=== PATIENT | female | born 1975 | race Caucasian/White ===

== ENCOUNTER → 2020-05-08 | Outpatient (CLI) | payer OTHER ==
--- NOTE | 2020-05-08 13:42 | ECHOF ---
Referral Reason:R94.31 Abnormal EKG MEASUREMENTS -------- HEIGHT: 167.6 cm WEIGHT: 89.8 kg BP: IVSd: 1.2 cm (0.6 - 1.1) LVIDd: 2.7 cm (3.9 - 5.3) LVPWd: 1.4 cm (0.6 - 1.1) IVSs: 1.7 cm LVIDs: 1.9 cm LVPWs: 2.1 cm LAESV Index (A-L): 24.61 ml/m Ao Diam: 3.0 cm (2.0 - 3.7) AV Cusp: 1.9 cm (1.5 - 2.6) LA Diam: 3.2 cm (2.7 - 3.8) MV EXCURSION: 13.666 mm (> 18.000) MV EF SLOPE: 139 mm/s (70 - 150) EPSS: 0.7 cm MV E [place]ino: 1.05 m/s MV DecT: 180 ms MV A [place]: 0.65 m/s MV E/A Ratio: 1.62 RAP: 5.00 mmHg RVSP: 14.84 mmHg FINDINGS -------- Sinus rhythm. This was a technically adequate study. The left ventricular size is normal. There is mild concentric left ventricular hypertrophy. Overa ll left ventricular systolic function is normal with, an EF between 55 - 60 %. The diastolic fillin g pattern is normal for the age of the patient 13.24. The right ventricle is normal in size. Normal LA size by volume 22+/-6 ml/m2. The right atrial size is normal. Interatrial and interventricular septum intact. The aortic valve is trileaflet, and appears structurally normal. No aortic stenosis or regurgitation. The mitral valve is normal. There is trace mitral regurgitation. The tricuspid valve appears structurally normal. Mild tricuspid regurgitation present. Right vent ricular systolic pressure is normal at < 35 mmHg. There is no pulmonic regurgitation present. The aortic root size is normal. Normal inferior vena cava with normal inspiratory collapse consistent with estimated right atrial pre ssure of 5 mmHg. There is no pericardial effusion. CONCLUSIONS -------- 1. There is mild concentric left ventricular hypertrophy. 2. Overall left ventricular systolic function is normal with, an EF between 55 - 60 %. 3. The diastolic filling pattern is normal for the age of the patient 13.24 4. Normal LA size by volume 22+/-6 ml/m2. 5. The aortic valve is trileaflet, and appears structurally normal. No aortic stenosis or regurgitati on. 6. There is trace mitral regurgitation. 7. Mild tricuspid regurgitation present. 8. There is no pulmonic regurgitation present. 9. There is no pericardial effusion. EXECUTIVE TALENT ACQUISITION CONSULTANT: Mimi Giordano RDCS
== END | disposition home or self-care (01) ==
LOC: RADECHMAIN 11:27
PROVIDERS: ATTEND Family Medicine
DX: I08.1 Rheumatic disorders of both mitral and tricuspid valves (principal)
CPT/HCPCS: 93306

== ENCOUNTER 2021-02-06 17:11 | Emergency (ER) | payer OTHER ==
[2021-02-06 18:46] VITALS: RESP 18
[2021-02-06] MEDS ORDERED: IBUPROFEN 600 MG TAB PO STA (20:39)
[2021-02-06] MEDS ORDERED: ACETAMINOPHEN TAB 325 MG TAB PO STA (20:39)
[2021-02-06] MEDS ORDERED: SODIUM CHLORIDE 0.9% 1,000 ML IV STA (20:39)
[2021-02-06 21:22] LABS: Basophils % (A) 1 %; Eosinophils % (A) 0 %; HGB 15.7 gm/dL (11.4-16.0); Lymphocytes # (A) 0.9 k/uL (1.0-4.8); Lymphocytes % (A) 20 %; MCH 28.5 pg (25.0-35.0); MCHC 35.8 g/dL (31.0-37.0); MCV 79.8 fL (80.0-100.0); Monocytes # (A) 0.3 k/uL (0-1.0); Monocytes % (A) 6 %; Neutrophils # (A) 3.2 k/uL (1.3-7.7); Neutrophils % (A) 69 %; Platelet Count 104 k/uL (150-450); RBC 5.51 m/uL (3.80-5.40); RDW 13.4 % (11.5-15.5); WBC 4.6 k/uL (3.8-10.6)
[2021-02-06] MEDS ORDERED: ONDANSETRON 4 MG/2 ML VIAL IVP STA (21:23)
[2021-02-06 21:32] LABS: ALT 48 U/L (4-34); AST 42 U/L (14-36); African American GFR (CKD) >90 (>60 ml/min/1.73 sqM); Albumin 4.3 g/dL (3.5-5.0); Alkaline Phosphatase 104 U/L (38-126); Anion Gap 10 mmol/L; Blood Urea Nitrogen 14 mg/dL (7-17); Calcium 9.2 mg/dL (8.4-10.2); Carbon Dioxide 29 mmol/L (22-30); Chloride 98 mmol/L (98-107); Glucose 101 mg/dL (74-99); Non-African American GFR(CKD) 85 (>60 ml/min/1.73 sqM); Potassium 2.8 mmol/L (3.5-5.1); Sodium 137 mmol/L (137-145); Total Protein 7.3 g/dL (6.3-8.2)
[2021-02-06] MEDS ORDERED: POTASSIUM CHLORIDE 20 MEQ in WATER FOR INJECTION 1 100ML.BAG IVPB STA (21:52)
[2021-02-06] MEDS ORDERED: POTASSIUM CHLORIDE ER 20 MEQ TAB.ER PO STA (21:52)
--- NOTE | 2021-02-06 21:55 | ED ---
General Adult HPI - General Chief complaint: Nausea/Vomiting/Diarrhea Stated complaint: Covid+/vomiting Time Seen by Provider: 02/06/21 20:10 Source: patient, RN notes reviewed Mode of arrival: ambulatory Limitations: no limitations - History of Present Illness Initial comments: Patient is a 45-year-old female that presents to emergency department compl aining of nausea and dehydration. She notes that she is Covid-positive for the past 10-11 days. She note noted that she only wants some IV fluids and labs to make sure she isn't super dehydrated. She was in no apparent distress or pain while sitting up in bed during exam and interview. She denied any other complaints or issues. She denied any chest pain shortness of breath headache diarrhea constipation fever fatigue chills. - Related Data Home Medications Medication Instructions Recorded Confirmed No Known Home Medications 06/26/14 06/26/14 Allergies Allergy/AdvReac Type Severity Reaction Status Date / Time No Known Allergies Allergy Verified 02/06/21 18:46 Review of Systems ROS Statement: Those systems with pertinent positive or pertinent negative responses have been documented in the HPI. ROS Other: All systems not noted in ROS Statement are negative. Past Medical History Past Medical History: No Reported History History of Any Multi-Drug Resistant Organisms: None Reported Past Surgical History: No Surgical Hx Reported Past Anesthesia/Blood Transfusion Reactions: No Reported Reaction Past Psychological History: No Psychological Hx Reported Smoking Status: Never smoker Past Alcohol Use History: None Reported Past Drug Use History: None Reported - Past Family History Mother Family Medical History: No Reported History General Exam Limitations: no limitations General appearance: alert, in no apparent distress Head exam: Present: atraumatic, normocephalic, normal inspection Eye exam: Present: normal appearance, PERRL, EOMI. Absent: scleral icterus, conjunctival injection, periorbital swelling Neck exam: Present: normal inspection. Absent: tenderness, meningismus, lymphadenopathy Respiratory exam: Present: normal lung sounds bilaterally. Absent: respiratory distress, wheezes, rales, rhonchi, stridor Cardiovascular Exam: Present: regular rate, normal rhythm, normal heart sounds. Absent: systolic murmur, diastolic murmur, rubs, gallop, clicks GI/Abdominal exam: Present: soft, normal bowel sounds. Absent: distended, tenderness, guarding, rebound, rigid Extremities exam: Present: normal inspection, full ROM, normal capillary refill. Absent: tenderness, pedal edema, joint swelling, calf tenderness Neurological exam: Present: alert, oriented X3, CN II-XII intact Psychiatric exam: Present: normal affect, normal mood Skin exam: Present: warm, dry, intact, normal color. Absent: rash Course Vital Signs 02/06/21 18:44 Temperature 100.6 F H Pulse Rate 107 H Respiratory 18 Rate Blood Pressure 133/98 O2 Sat by Pulse 99 Oximetry Medical Decision Making - Medical Decision Making 45-year-old female that is Covid-positive 10 days complaining of nausea and dehydration. Basic labs, 1 L normal saline, 650 mg of Tylenol, 600 mg of Motrin, 4 mg of Zofran ordered. Anti-inflammatories were for a mild fever the patient had a upon arrival. Labs showed a potassium of 2.8, 20 mEq ordered for IV and 20 mEq oral ordered. Case discussed with Dr. Jurado, patient can be discharged after potassium infusion. - Lab Data Result diagrams: 02/06/21 21:14 02/06/21 21:14 Lab Results 02/06/21 02/06/21 02/06/21 Range/Units 21:14 21:14 21:21 WBC 4.6 (3.8-10.6) k/uL RBC 5.51 H (3.80-5.40) m/uL Hgb 15.7 (11.4-16.0) gm/dL Hct 44.0 (34.0-46.0) % MCV 79.8 L (80.0-100.0) fL MCH 28.5 (25.0-35.0) pg MCHC 35.8 (31.0-37.0) g/dL RDW 13.4 (11.5-15.5) % Plt Count 104 L (150-450) k/uL MPV 10.0 Neutrophils % 69 % Lymphocytes % 20 % Monocytes % 6 % Eosinophils % 0 % Basophils % 1 % Neutrophils # 3.2 (1.3-7.7) k/uL Lymphocytes # 0.9 L (1.0-4.8) k/uL Monocytes # 0.3 (0-1.0) k/uL Eosinophils # 0.0 (0-0.7) k/uL Basophils # 0.0 (0-0.2) k/uL Sodium 137 (137-145) mmol/L Potassium 2.8 L (3.5-5.1) mmol/L Chloride 98 (98-107) mmol/L Carbon Dioxide 29 (22-30) mmol/L Anion Gap 10 mmol/L BUN 14 (7-17) mg/dL Creatinine 0.85 (0.52-1.04) mg/dL Est GFR (CKD-EPI)AfAm >90 (>60 ml/min/1.73 sqM) Est GFR (CKD-EPI)NonAf 85 (>60 ml/min/1.73 sqM) Glucose 101 H (74-99) mg/dL Calcium 9.2 (8.4-10.2) mg/dL Total Bilirubin 1.0 (0.2-1.3) mg/dL AST 42 H (14-36) U/L ALT 48 H (4-34) U/L Alkaline Phosphatase 104 (38-126) U/L Total Protein 7.3 (6.3-8.2) g/dL Albumin 4.3 (3.5-5.0) g/dL Urine Color Dark Yellow Urine Appearance Cloudy H (Clear) Urine pH 6.0 (5.0-8.0) Ur Specific [place] 1.024 (1.001-1.035) Urine Protein 2+ H (Negative) Urine Glucose (UA) Negative (Negative) Urine Ketones 1+ H (Negative) Urine Blood Large H (Negative) Urine Nitrite Negative (Negative) Urine Bilirubin 1+ H (Negative) Urine Urobilinogen 12.0 (<2.0) mg/dL Ur Leukocyte Esterase Large H (Negative) Urine RBC 11 H (0-5) /hpf Urine WBC 30 H (0-5) /hpf Urine WBC Clumps Moderate H (None) /hpf Ur Squamous Epith Cells 7 H (0-4) /hpf Amorphous Sediment Rare H (None) /hpf Urine Bacteria Moderate H (None) /hpf Urine Mucus Many H (None) /hpf Disposition Clinical Impression: Hypokalemia, COVID-19, Nausea Disposition: HOME SELF-CARE Condition: Stable Instructions (If sedation given, give patient instructions): Coronavirus Disease 2019 (COVID-19), Hypokalemia (ED), Acute Nausea and Vomiting (ED) Additional Instructions: Please return to the Emergency Department if symptoms worsen or any other concerns. Follow-up with primary care in 3-5 days. Is patient prescribed a controlled substance at d/c from ED?: No Referrals: Bruno Siddiqi DO [Primary Care Provider] - 1-2 days Time of Disposition: 22:38
[2021-02-06 22:26] LABS: Amorphous Sediment,Urine Rare /hpf; Appearance,Urine Cloudy (Clear); Bacteria,Urine Moderate /hpf; Bilirubin,Urine 1+ (Negative); Blood,Urine Large (Negative); Color,Urine Dark Yellow; Glucose,Urine (UA) Negative (Negative); Ketones,Urine 1+ (Negative); Leukocyte Esterase,Urine Large (Negative); Mucus,Urine Many /hpf; Nitrite,Urine Negative (Negative); Protein,Urine 2+ (Negative); RBC,Urine 11 /hpf (0-5); Specific Gravity,Urine 1.024 (1.001-1.035); Squamous Epithelial Cell,Urine 7 /hpf (0-4); WBC,Urine 30 /hpf (0-5)
[2021-02-06 23:06] VITALS: PULSE 85; TEMP 98.2
[2021-02-06 23:42] VITALS: BP 144/100
== END 2021-02-07 | disposition home or self-care (01) ==
LOC: EC 17:11
DX: E87.6 Hypokalemia (principal); R11.0 Nausea; U07.1 COVID-19; E86.0 Dehydration
CPT/HCPCS: 36415; 80053; 85025; 81001; 99284; 96365; 96375; 96361; J3480; J2405

== ENCOUNTER → 2022-04-04 | Outpatient (CLI) | payer OTHER ==
--- NOTE | 2022-04-04 09:42 | XR ---
EXAMINATION TYPE: XR knee complete RT DATE OF EXAM: 04/04/2022 COMPARISON: None HISTORY: Knee pain TECHNIQUE: Single AP view right knee FINDINGS: There is mild narrowing of the medial compartment joint space. Medial tibial plateau and me dial femoral condylar spurring is present. There is some lucency within the medial distal femoral con dyle this appears chronic. No acute fractures are identified. Complete examination of 4 view right knee could be performed for additional evaluation. Soft tissue e valuation would be of benefit, MRI could be performed. IMPRESSION: 1. Suggestion of mild degenerative joint change medial compartment right knee. 2. Chronic appearing lucency within the medial femoral condyle. Consider additional workup with compl ete right knee plain film or MRI.
== END | disposition home or self-care (01) ==
LOC: RADXRYALE 09:03
PROVIDERS: ATTEND Physician Assistant Medical
DX: M25.561 Pain in right knee (principal)

== ENCOUNTER → 2022-11-25 | Outpatient (CLI) | payer OTHER ==
--- NOTE | 2022-11-25 15:46 | XR ---
EXAMINATION TYPE: XR cervical spine comp DATE OF EXAM: 11/25/2022 COMPARISON: None HISTORY: 47 year-old female [id number], cervicalgia TECHNIQUE: 5 views FINDINGS: No odontoid view. Some straightening of the normal cervical lordosis. Preserved alignment. No predent al space widening or prevertebral soft tissue swelling. Disc interspaces are relatively maintained. N o significant bony neuroforaminal narrowing on either side. IMPRESSION: Some straightening of the normal cervical lordosis could be positional or due to muscle spasm. Otherw ise, no specific radiographic abnormality is seen.
== END | disposition home or self-care (01) ==
LOC: RADXRYALE 10:30
PROVIDERS: ATTEND Physician Assistant
DX: M54.2 Cervicalgia (principal)
CPT/HCPCS: 72050

== ENCOUNTER 2022-11-29 22:00 | Inpatient (IN) | payer OTHER ==
--- NOTE | 2022-11-29 22:52 | ED ---
Recheck HPI - General Chief Complaint: Recheck/Abnormal Lab/Rx Stated Complaint: Abnormal Labs Time Seen by Provider: 11/29/22 22:51 Source: patient, RN notes reviewed, old records reviewed Mode of arrival: ambulatory Limitations: no limitations, altered mental status - History of Present Illness Initial Comments: This is a 47-year-old female DF for evaluation today. Patient presents today for evaluation regards to weakness not feeling well abnormal outpatient lab tests which she believes includes kidney disease and diminished potassium Complaint: abnormal lab -: unknown Returns Today for: Called Because of Abnormal Lab/Test Symptoms Since Prior Visit: no new symptoms Context: planned re-check, called for abnormal lab result Associated Symptoms: none Treatments Prior to Arrival: other (0) - Related Data Home Medications Medication Instructions Recorded Confirmed No Known Home Medications 06/26/14 11/29/22 Allergies Allergy/AdvReac Type Severity Reaction Status Date / Time No Known Allergies Allergy Verified 11/29/22 22:26 Review of Systems ROS Statement: Those systems with pertinent positive or pertinent negative responses have been documented in the HPI. ROS Other: All systems not noted in ROS Statement are negative. Past Medical History Past Medical History: No Reported History History of Any Multi-Drug Resistant Organisms: None Reported Past Surgical History: No Surgical Hx Reported Past Anesthesia/Blood Transfusion Reactions: No Reported Reaction Past Psychological History: No Psychological Hx Reported Smoking Status: Never smoker Past Alcohol Use History: None Reported Past Drug Use History: None Reported - Past Family History Mother Family Medical History: No Reported History General Exam Limitations: no limitations General appearance: alert, in no apparent distress Head exam: Present: atraumatic, normocephalic, normal inspection Eye exam: Present: normal appearance, PERRL, EOMI. Absent: scleral icterus, co njunctival injection, periorbital swelling ENT exam: Present: normal exam, mucous membranes moist Neck exam: Present: normal inspection. Absent: tenderness, meningismus, lymphadenopathy Respiratory exam: Present: normal lung sounds bilaterally. Absent: respiratory distress, wheezes, rales, rhonchi, stridor Cardiovascular Exam: Present: regular rate, normal rhythm, normal heart sounds. Absent: systolic murmur, diastolic murmur, rubs, gallop, clicks GI/Abdominal exam: Present: soft, normal bowel sounds. Absent: distended, tenderness, guarding, rebound, rigid Extremities exam: Present: normal inspection, full ROM, normal capillary refill. Absent: tenderness, pedal edema, joint swelling, calf tenderness Back exam: Present: normal inspection Neurological exam: Present: alert, oriented X3, CN II-XII intact Psychiatric exam: Present: normal affect, normal mood Skin exam: Present: warm, dry, intact, normal color. Absent: rash Course Vital Signs 11/29/22 11/29/22 11/29/22 22:20 23:00 23:40 Temperature 98.3 F Pulse Rate 107 H 101 H 98 Respiratory 16 16 16 Rate Blood Pressure 226/139 216/141 229/153 O2 Sat by Pulse 100 98 99 Oximetry 11/30/22 11/30/22 11/30/22 00:00 00:30 01:00 Temperature Pulse Rate 87 98 105 H Respiratory 16 16 16 Rate Blood Pressure 227/149 227/145 221/142 O2 Sat by Pulse 98 98 98 Oximetry - Reevaluation(s) Reevaluation #1: 11/29/22 23:58 Medical records are reviewed Reevaluation #2: 11/29/22 23:58 Patient has no change in symptoms Reevaluation #3: 11/29/22 23:58 Informed results questions are answered Reevaluation #4: 11/29/22 23:58 Differential Weakness: Hypoglycemia, shock, sepsis, hyponatremia, anemia, infection, IN, ETOH, adverse medicine reaction, overdose, stroke, this is not meant to be an all-inclusive list. Reevaluation #5: 11/29/22 23:58 Was pt. sent in by a medical professional or institution? @ -no Did you speak to anyone other than the patient for history? @ -no Did you review nursing and triage notes? @ -agree Were old charts reviewed? @ -no prior Differential Diagnosis? @ -no prior EKG interpreted by me (3pts min.)? @ -[none] X-rays interpreted by me (1pt min.)? @ -[none] CT interpreted by me (1pt min.)? @ -[none] U/S interpreted by me (1pt. min.)? @ -[none] What testing was considered but not performed? (CT, X-rays, U/S, labs)? Why? @ no What meds were considered but not given? Why? @ -[none] Did you discuss the management of the patient with other professionals? @ -no Did you reconcile home meds? @ -[none] Was smoking cessation discussed for >3mins.? @ -[none] Was critical care preformed (if so, how long)? @ -[none] Were there social determinants of health that impacted care today? How? (Homelessness, low income, unemployed, alcoholism, drug addiction, transportation, low edu. Level, literacy, decrease access to med. care, prison, rehab)? @ -no Was there de-escalation of care discussed even if they declined? (Discuss DNR or withdrawal of care, Hospice)? @ -no What co-morbidities impacted this encounter? (DM, HTN, Smoking, COPD, CAD, Cancer, CVA, Hep., AIDS, mental health diagnosis, sleep apnea, morbid obesity)? @ -no Was patient admitted / discharged? @ -dc ] Undiagnosed new problem with uncertain prognosis? @ -[none] Drug Therapy requiring intensive monitoring for toxicity (Heparin, Nitro, Insulin, Cardizem)? @ -[none] Were any procedures done? @ -[none] Diagnosis/symptom? @ -[default] Acute, or Chronic, or Acute on Chronic? @ -[default] Uncomplicated (without systemic symptoms) or Complicated (systemic symptoms)? @ -[default] Side effects of treatment? @ -[none] Exacerbation, Progression, or Severe Exacerbation] @ -[no] Poses a threat to life or bodily function? @ -[no] - Consultations Consultation #1: Spoke with admitting physicians agreeable to admission Medical Decision Making - Medical Decision Making 47 female to the emergency department for evaluation of abnormal lab test low potassium elevated troponin worsening creatinine and BUN. Patient will be admitted for nephrology and cardiology and primary admitting physician. Labs will be rechecked - Lab Data Result diagrams: 11/29/22 23:42 11/29/22 23:42 Lab Results 11/29/22 11/29/22 11/29/22 Range/Units 23:42 23:42 23:42 WBC 9.7 (3.8-10.6) k/uL RBC 3.67 L (3.80-5.40) m/uL Hgb 10.4 L (11.4-16.0) gm/dL Hct 29.2 L (34.0-46.0) % MCV 79.5 L D (80.0-100.0) fL MCH 28.2 (25.0-35.0) pg MCHC 35.5 (31.0-37.0) g/dL RDW 16.9 H (11.5-15.5) % Plt Count 97 L (150-450) k/uL MPV 9.4 Neutrophils % 80 % Lymphocytes % 12 % Monocytes % 6 % Eosinophils % 2 % Basophils % 0 % Neutrophils # 7.7 (1.3-7.7) k/uL Lymphocytes # 1.2 (1.0-4.8) k/uL Monocytes # 0.5 (0-1.0) k/uL Eosinophils # 0.2 (0-0.7) k/uL Basophils # 0.0 (0-0.2) k/uL Manual Slide Review Performed Hyperchromasia Moderate Poikilocytosis Moderate Anisocytosis Slight Sodium 134 L (137-145) mmol/L Potassium 2.6 L* (3.5-5.1) mmol/L Chloride 97 L (98-107) mmol/L Carbon Dioxide 28 (22-30) mmol/L Anion Gap 9 mmol/L BUN 58 H (7-17) mg/dL Creatinine 2.99 H (0.52-1.04) mg/dL Est GFR (CKD-EPI)AfAm 21 (>60 ml/min/1.73 sqM) Est GFR (CKD-EPI)NonAf 18 (>60 ml/min/1.73 sqM) Glucose 111 H (74-99) mg/dL Calcium 9.0 (8.4-10.2) mg/dL Phosphorus 4.3 (2.5-4.5) mg/dL Magnesium 2.3 (1.6-2.3) mg/dL Total Bilirubin 0.9 (0.2-1.3) mg/dL AST 39 H (14-36) U/L ALT 26 (4-34) U/L Alkaline Phosphatase 78 (38-126) U/L Troponin I 0.217 H* (0.000-0.034) ng/mL Total Protein 6.9 (6.3-8.2) g/dL Albumin 4.3 (3.5-5.0) g/dL Urine Color Urine Appearance (Clear) Urine pH (5.0-8.0) Ur Specific [place] (1.001-1.035) Urine Protein (Negative) Urine Glucose (UA) (Negative) Urine Ketones (Negative) Urine Blood (Negative) Urine Nitrite (Negative) Urine Bilirubin (Negative) Urine Urobilinogen (<2.0) mg/dL Ur Leukocyte Esterase (Negative) Urine RBC (0-5) /hpf Urine WBC (0-5) /hpf Ur Squamous Epith Cells (0-4) /hpf Urine Bacteria (None) /hpf Urine Mucus (None) /hpf 11/30/22 Range/Units 00:39 WBC (3.8-10.6) k/uL RBC (3.80-5.40) m/uL Hgb (11.4-16.0) gm/dL Hct (34.0-46.0) % MCV (80.0-100.0) fL MCH (25.0-35.0) pg MCHC (31.0-37.0) g/dL RDW (11.5-15.5) % Plt Count (150-450) k/uL MPV Neutrophils % % Lymphocytes % % Monocytes % % Eosinophils % % Basophils % % Neutrophils # (1.3-7.7) k/uL Lymphocytes # (1.0-4.8) k/uL Monocytes # (0-1.0) k/uL Eosinophils # (0-0.7) k/uL Basophils # (0-0.2) k/uL Manual Slide Review Hyperchromasia Poikilocytosis Anisocytosis Sodium (137-145) mmol/L Potassium (3.5-5.1) mmol/L Chloride (98-107) mmol/L Carbon Dioxide (22-30) mmol/L Anion Gap mmol/L BUN (7-17) mg/dL Creatinine (0.52-1.04) mg/dL Est GFR (CKD-EPI)AfAm (>60 ml/min/1.73 sqM) Est GFR (CKD-EPI)NonAf (>60 ml/min/1.73 sqM) Glucose (74-99) mg/dL Calcium (8.4-10.2) mg/dL Phosphorus (2.5-4.5) mg/dL Magnesium (1.6-2.3) mg/dL Total Bilirubin (0.2-1.3) mg/dL AST (14-36) U/L ALT (4-34) U/L Alkaline Phosphatase (38-126) U/L Troponin I (0.000-0.034) ng/mL Total Protein (6.3-8.2) g/dL Albumin (3.5-5.0) g/dL Urine Color Colorless Urine Appearance Clear (Clear) Urine pH 5.5 (5.0-8.0) Ur Specific [place] 1.007 (1.001-1.035) Urine Protein 1+ H (Negative) Urine Glucose (UA) Negative (Negative) Urine Ketones Negative (Negative) Urine Blood Moderate H (Negative) Urine Nitrite Negative (Negative) Urine Bilirubin Negative (Negative) Urine Urobilinogen <2.0 (<2.0) mg/dL Ur Leukocyte Esterase Trace H (Negative) Urine RBC <1 (0-5) /hpf Urine WBC 1 (0-5) /hpf Ur Squamous Epith Cells <1 (0-4) /hpf Urine Bacteria Rare H (None) /hpf Urine Mucus Rare H (None) /hpf - EKG Data -: EKG Interpreted by Me (EKG shows sinus tach 108 [place] 143 QRS 11 QTC 437) Critical Care Time Critical Care Time: Yes Total Critical Care Time: 31 Disposition Clinical Impression: Hypokalemia, Weakness, NSTEMI (non-ST elevated myocardial infarction), JAH (acute kidney injury) Disposition: ADMITTED IP TO THIS HOSP Condition: Fair Is patient prescribed a controlled substance at d/c from ED?: No Referrals: Bruno Siddiqi DO [Primary Care Provider] - 1-2 days Time of Disposition: 01:30
[2022-11-29] MEDS ORDERED: SODIUM CHLORIDE 0.9% 1,000 ML IV STA (23:24)
[2022-11-29 23:53] LABS: Anisocytosis Slight; Basophils % (A) 0 %; Eosinophils # (A) 0.2 k/uL (0-0.7); Eosinophils % (A) 2 %; HCT 29.2 % (34.0-46.0); HGB 10.4 gm/dL (11.4-16.0); Hyperchromasia Moderate; Lymphocytes # (A) 1.2 k/uL (1.0-4.8); Lymphocytes % (A) 12 %; MCH 28.2 pg (25.0-35.0); MCHC 35.5 g/dL (31.0-37.0); Mean Platelet Volume 9.4; Monocytes # (A) 0.5 k/uL (0-1.0); Monocytes % (A) 6 %; Neutrophils # (A) 7.7 k/uL (1.3-7.7); Neutrophils % (A) 80 %; Poikilocytosis Moderate; RBC 3.67 m/uL (3.80-5.40); RDW 16.9 % (11.5-15.5); WBC 9.7 k/uL (3.8-10.6)
[2022-11-30 00:06] LABS: Albumin 4.3 g/dL (3.5-5.0); Magnesium 2.3 mg/dL (1.6-2.3); Phosphorus 4.3 mg/dL (2.5-4.5); Total Bilirubin 0.9 mg/dL (0.2-1.3); Total Protein 6.9 g/dL (6.3-8.2)
[2022-11-30 00:07] LABS: MCV 79.5 fL (80.0-100.0)
[2022-11-30 00:52] LABS: Platelet Count 97 k/uL (150-450)
[2022-11-30 00:54] LABS: Potassium 2.6 mmol/L (3.5-5.1)
[2022-11-30 01:01] LABS: Appearance,Urine Clear (Clear); Bacteria,Urine Rare /hpf; Bilirubin,Urine Negative (Negative); Blood,Urine Moderate (Negative); Color,Urine Colorless; Glucose,Urine (UA) Negative (Negative); Ketones,Urine Negative (Negative); Leukocyte Esterase,Urine Trace (Negative); Mucus,Urine Rare /hpf; Nitrite,Urine Negative (Negative); PH, Urine 5.5 (5.0-8.0); Protein,Urine 1+ (Negative); RBC,Urine <1 /hpf (0-5); Specific Gravity,Urine 1.007 (1.001-1.035); Squamous Epithelial Cell,Urine <1 /hpf (0-4); Urobilinogen,Urine <2.0 mg/dL (<2.0); WBC,Urine 1 /hpf (0-5)
[2022-11-30] MEDS ORDERED: ONDANSETRON 4 MG/2 ML VIAL IVP PRN (01:23)
[2022-11-30] MEDS ORDERED: NALOXONE 0.4 MG/ML 1 ML VIAL IV PRN (01:23)
[2022-11-30] MEDS ORDERED: MORPHINE SULFATE 4 MG/ML SYRINGE IV PRN (01:23)
[2022-11-30] MEDS ORDERED: LABETALOL 5 MG/ML VIAL MDV IVP STA ×2 (01:31→05:31)
[2022-11-30] MEDS: SODIUM CHLORIDE 0.9% 1,000 ML IV SCH ×3 (01:48→17:08)
[2022-11-30] MEDS ORDERED: POTASSIUM BICARBONATE/CIT AC 20 MEQ TABLET.EFF PO STA ×2 (05:31)
[2022-11-30 09:28] LABS: Anisocytosis Slight; HCT 27.4 % (34.0-46.0); HGB 9.3 gm/dL (11.4-16.0); Hyperchromasia Slight; MCH 27.6 pg (25.0-35.0); MCHC 34.1 g/dL (31.0-37.0); MCV 80.8 fL (80.0-100.0); Mean Platelet Volume 9.7; Poikilocytosis Moderate; RBC 3.39 m/uL (3.80-5.40); RDW 17.7 % (11.5-15.5); WBC 6.4 k/uL (3.8-10.6)
[2022-11-30] MEDS ORDERED: carvediloL 3.125 MG TAB PO SCH (09:30)
[2022-11-30] MEDS ORDERED: amLODIPine 5 MG TAB PO SCH (09:30)
[2022-11-30 09:31] LABS: Platelet Count 99 k/uL (150-450)
[2022-11-30 09:39] LABS: Calcium 8.6 mg/dL (8.4-10.2); Magnesium 2.3 mg/dL (1.6-2.3); Potassium 3.1 mmol/L (3.5-5.1)
--- NOTE | 2022-11-30 09:50 | P.HPIM ---
History of Present Illness H&P Date: 11/30/22 Chief Complaint: Abnormal labs, headache 47-year-old woman with medical no reported medical history presented with abnormal labs from her primary care physician's office. From my understanding, patient had a lab check on Thursday of last week and then repeat check on Thursday with a follow-up with her primary care physician. At that time it was noted that she had significant kidney injury and was prompted to come to the emergency room for further evaluation. Patient's only symptoms are headache which improves with ibuprofen which she has been using quite a bit. She has been using approximately 400 mg every other day for 2 weeks or more. There are no associated symptoms with her headaches including the denial of visual changes, trouble swallowing, numbness/weakness of extremities, photophobia, phonophobia. She also denies fevers, chills, nausea, vomiting, chest pain, palpitations, syncope, presyncope, dyspnea, abdominal pain, constipation, diarrhea, dysuria, dyschezia. She also does report cough with clear sputum, polyuria, polydipsia. In the emergency room, patient was afebrile, 226/139, heart rate 107, 100% on room air. CBC shows anemia down to 10.4, MCV is 79.5, platelets are 97, otherwise unremarkable. Chemistries show sodium of 134, potassium of 2.6, chloride 97, BUN of 58, creatinine of 2.99. Liver function tests show a mildly elevated AST at 39, ALT is 26, otherwise unremarkable. Initial troponin is 0.217, trended to 0.244 then back down to 0.207. UA shows 1+ protein, moderate blood, trace leukocyte esterase, rare bacteria, rare mucus, less than 1 red blood cell, 1 white blood cell, less than 1 squamous epithelial cells. EKG, interpreted by the admitting hospitalist, showed normal sinus rhythm with evidence of left ventricular hypertrophy, ST depressions in lead 1, 2, T-wave inversions in aVL, V5, V6, early repolarization changes in V1, V2. All Systems reviewed and pertinent positives and negatives noted in HPI, all other symptoms are negative Gen: in no apparent distress, resting comfortably in bed Eyes: PERRL, no scleral injection or icterus HENT: normocephalic, atraumatic, good hearing acuity, moist mucous membranes Neck: no tracheal deviation, full range of motion Resp: good air exchange, breathing comfortably with no accessory muscle use, no tactile fremitus, clear to auscultation bilaterally CVS: good distal perfusion x 4, no pitting edema, regular rate and rhythm without murmurs GI: soft, NTTP, ND, no hepatosplenomegaly, normal bowel sounds : no suprapubic tenderness, no CVAT, carrion catheter not present MSK: no clubbing, no cyanosis, no noted contractures of extremities Skin: no noted rashes, petechiae; temperature of skin is appropriate Neuro: moving all extremities without signs of weakness, CN II-XII intact Psych: cooperative, euthymic mood, insight and judgment intact Labs and imaging as above Assessment/plan: Hypertensive urgency Elevated troponin Headache -Case discussed with ER physician and patient admitted inpatient -Cardiology consulted for elevated troponin -Tylenol when necessary for headache -Fioricet when necessary for headache -Trend troponins -Monitor on telemetry -Started amlodipine 5 mg daily -Started carvedilol 3.125 mg twice a day -Started hydralazine 25 mg every 6 hours when necessary for blood pressure greater than 160 systolic or greater than 100 diastolic -Zofran when necessary Acute kidney injury Hypokalemia -Nephrology consultation ordered -IV fluids -Replete potassium -Urine sodium, chloride, creatinine, protein -Renal and bladder ultrasound Bicytopenia - Anemia and Thrombocytopenia -Peripheral smear ordered -Case discussed with nephrology and they were notified, will see the patient shortly -PTT, PT/INR, fibrinogen, d-dimer ordered -Haptoglobin, reticulocyte count, LDH -ESR, CRP -C3, C4, CH50 Patient is full code DVT prophylaxis on hold due to thrombocytopenia Past Medical History Past Medical History: No Reported History History of Any Multi-Drug Resistant Organisms: None Reported Past Surgical History: No Surgical Hx Reported Past Anesthesia/Blood Transfusion Reactions: No Reported Reaction Past Psychological History: No Psychological Hx Reported Smoking Status: Never smoker Past Alcohol Use History: None Reported Past Drug Use History: None Reported - Past Family History Mother Family Medical History: No Reported History Medications and Allergies Home Medications Medication Instructions Recorded Confirmed Type No Known Home Medications 06/26/14 11/29/22 History Allergies Allergy/AdvReac Type Severity Reaction Status Date / Time No Known Allergies Allergy Verified 11/29/22 22:26 Physical Exam Osteopathic Statement: *. No significant issues noted on an osteopathic structural exam other than those noted in the History and Physical/Consult. Vitals: Vital Signs Temp Pulse Pulse Resp BP BP Pulse Ox 11/30/22 09:00 97.9 F 99 17 163/108 100 11/30/22 06:30 97.8 F 80 18 171/105 100 11/30/22 06:05 89 16 148/97 98 11/30/22 05:30 73 16 121/83 94 L 11/30/22 05:00 83 16 180/120 98 11/30/22 04:30 78 16 164/105 98 11/30/22 04:00 92 16 187/120 96 11/30/22 03:30 84 16 176/111 94 L 11/30/22 03:00 81 16 182/109 97 11/30/22 02:30 88 16 197/128 99 11/30/22 02:00 88 16 203/129 99 11/30/22 01:00 105 H 16 221/142 98 11/30/22 00:30 98 16 227/145 98 11/30/22 00:00 87 16 227/149 98 11/29/22 23:40 98 16 229/153 99 11/29/22 23:00 101 H 16 216/141 98 11/29/22 22:20 98.3 F 107 H 16 226/139 100 Intake and Output 11/29/22 11/30/22 11/30/22 22:59 06:59 14:59 Intake Total 0 Balance 0 Intake: Oral 0 Other: # Voids 1 Weight 74.389 kg Results CBC & Chem 7: 11/29/22 23:42 11/29/22 23:42 Labs: Abnormal Lab Results - Last 24 Hours (Table) 11/29/22 11/29/22 11/29/22 Range/Units 23:42 23:42 23:42 RBC 3.67 L (3.80-5.40) m/uL Hgb 10.4 L (11.4-16.0) gm/dL Hct 29.2 L (34.0-46.0) % MCV 79.5 L D (80.0-100.0) fL RDW 16.9 H (11.5-15.5) % Plt Count 97 L (150-450) k/uL Sodium 134 L (137-145) mmol/L Potassium 2.6 L* (3.5-5.1) mmol/L Chloride 97 L (98-107) mmol/L BUN 58 H (7-17) mg/dL Creatinine 2.99 H (0.52-1.04) mg/dL Glucose 111 H (74-99) mg/dL AST 39 H (14-36) U/L Troponin I 0.217 H* (0.000-0.034) ng/mL Urine Protein (Negative) Urine Blood (Negative) Ur Leukocyte Esterase (Negative) Urine Bacteria (None) /hpf Urine Mucus (None) /hpf 11/30/22 11/30/22 11/30/22 Range/Units 00:39 04:55 07:53 RBC (3.80-5.40) m/uL Hgb (11.4-16.0) gm/dL Hct (34.0-46.0) % MCV (80.0-100.0) fL RDW (11.5-15.5) % Plt Count (150-450) k/uL Sodium (137-145) mmol/L Potassium (3.5-5.1) mmol/L Chloride (98-107) mmol/L BUN (7-17) mg/dL Creatinine (0.52-1.04) mg/dL Glucose (74-99) mg/dL AST (14-36) U/L Troponin I 0.244 H* 0.207 H* (0.000-0.034) ng/mL Urine Protein 1+ H (Negative) Urine Blood Moderate H (Negative) Ur Leukocyte Esterase Trace H (Negative) Urine Bacteria Rare H (None) /hpf Urine Mucus Rare H (None) /hpf
--- NOTE | 2022-11-30 09:59 | XR ---
EXAMINATION TYPE: XR chest 2V DATE OF EXAM: 11/30/2022 9:53 AM COMPARISON: None TECHNIQUE: XR chest 2V Frontal and lateral views of the chest. CLINICAL INDICATION:Female, 47 years old with history of Elevated troponin, hypertensive urgency; FINDINGS: Lungs/Pleura: There is no evidence of pleural effusion, focal consolidation, or pneumothorax. Pulmonary vascularity: Unremarkable. Heart/mediastinum: Cardiomediastinal silhouette is prominent in size. Musculoskeletal: No acute osseous pathology. IMPRESSION: No acute cardiopulmonary disease/process.
--- NOTE | 2022-11-30 10:12 | P.CRDCN ---
History of Present Illness Consult date: 11/30/22 History of present illness: History of Present Illness: The patient is a 47-year-old female who was admitted through the emergency room because of hypokalemia and abnormal renal function. She recently had lab data that revealed potassium 2.6 with creatinine 2.99. Cardiology consultation was requested because of troponin elevation. The patient is active physically, denies any chest discomfort, dizziness or palpitations. She denies any dyspnea, nausea or vomiting. She has no peripheral edema. She has no prior history of hypertension, documented hyperlipidemia or diabetes. She is a nonsmoker at this time, she smoked while in school long time ago. She has been using frequent ibuprofen because of hypertension. Her renal function were normal in 2020. Her troponin were 0.21, 0.244 and 0.20. Her EKG shows sinus mechanism with LVH and strain pattern. She had evidence of hypertension on presentation. She does not feel that her physical activity the change recently. She does not use alcohol. Medications: Ibuprofen daily Review of Systems: Respiratory: No history of asthma, bronchitis or recent cough. GI: No nausea or vomiting . No history of peptic ulcer disease. No recent GI bleed. : No hematuria or dysuria. Nervous System: No stroke or seizure., She has headache Physical Examination: 47-year-old female, alert and oriented no apparent distress,Blood pressure 163/108, Heart rate 99 Head: Normocephalic. Eyes: Sclerae nonicteric. Neck: Good carotid upstroke, no bruit, no jugular venous distention. Lungs: Clear to auscultation. Heart: Regular rate and rhythm, S1-S2, no S3, plus S4 no rub. No murmur. Abdomen: Soft nontender, positive bowel sounds no organomegaly. Extremities: No edema, intact distal pulses. Labs: Hemoglobin 9.3, BUN today 48, creatinine 2.8, potassium up to 3.1. Chest x-ray with no acute infiltrate EKG: Sinus mechanism with LVH and strain pattern Impression: 1. Troponin elevation, no evidence of acute myocardial injury probably related to the renal function 2. Hypertension not treated in the past 3. Renal injury most likely worsened by the use of ibuprofen 4. Anemia probably related to chronic kidney disease 5. Hypokalemia Plan: 1. Continue with beta elysia and calcium channel elysia 2. Obtain an echocardiogram with Doppler 3. Follow renal functions 4. Increase physical activity 5. No nonsteroidal 6. Depending on her progress further recommendations will be made, thank you for this consult we will follow with you. Past Medical History Past Medical History: No Reported History History of Any Multi-Drug Resistant Organisms: None Reported Past Surgical History: No Surgical Hx Reported Past Anesthesia/Blood Transfusion Reactions: No Reported Reaction Past Psychological History: No Psychological Hx Reported Smoking Status: Never smoker Past Alcohol Use History: None Reported Past Drug Use History: None Reported - Past Family History Mother Family Medical History: No Reported History Medications and Allergies Home Medications Medication Instructions Recorded Confirmed Type No Known Home Medications 06/26/14 11/29/22 History Allergies Allergy/AdvReac Type Severity Reaction Status Date / Time No Known Allergies Allergy Verified 11/29/22 22:26 Physical Exam Vitals: Vital Signs Temp Pulse Pulse Resp BP BP Pulse Ox 11/30/22 09:00 97.9 F 99 17 163/108 100 11/30/22 06:30 97.8 F 80 18 171/105 100 11/30/22 06:05 89 16 148/97 98 11/30/22 05:30 73 16 121/83 94 L 11/30/22 05:00 83 16 180/120 98 11/30/22 04:30 78 16 164/105 98 11/30/22 04:00 92 16 187/120 96 11/30/22 03:30 84 16 176/111 94 L 11/30/22 03:00 81 16 182/109 97 11/30/22 02:30 88 16 197/128 99 11/30/22 02:00 88 16 203/129 99 11/30/22 01:00 105 H 16 221/142 98 11/30/22 00:30 98 16 227/145 98 11/30/22 00:00 87 16 227/149 98 11/29/22 23:40 98 16 229/153 99 11/29/22 23:00 101 H 16 216/141 98 11/29/22 22:20 98.3 F 107 H 16 226/139 100 Intake and Output 11/29/22 11/30/22 11/30/22 22:59 06:59 14:59 Intake Total 0 Balance 0 Intake: Oral 0 Other: # Voids 1 Weight 74.389 kg 74.389 kg Results 11/30/22 09:08 11/30/22 09:08 Cardiac Enzymes 11/29/22 11/29/22 11/30/22 Range/Units 23:42 23:42 04:55 AST 39 H (14-36) U/L Troponin I 0.217 H* 0.244 H* (0.000-0.034) ng/mL 11/30/22 Range/Units 07:53 AST (14-36) U/L Troponin I 0.207 H* (0.000-0.034) ng/mL CBC 11/29/22 11/30/22 Range/Units 23:42 09:08 WBC 9.7 6.4 (3.8-10.6) k/uL RBC 3.67 L 3.39 L (3.80-5.40) m/uL Hgb 10.4 L 9.3 L (11.4-16.0) gm/dL Hct 29.2 L 27.4 L (34.0-46.0) % Plt Count 97 L 99 L (150-450) k/uL Comprehensive Metabolic Panel 11/29/22 11/30/22 Range/Units 23:42 09:08 Sodium 134 L 135 L (137-145) mmol/L Potassium 2.6 L* 3.1 L (3.5-5.1) mmol/L Chloride 97 L 99 (98-107) mmol/L Carbon Dioxide 28 31 H (22-30) mmol/L BUN 58 H 48 H (7-17) mg/dL Creatinine 2.99 H 2.83 H (0.52-1.04) mg/dL Glucose 111 H 104 H (74-99) mg/dL Calcium 9.0 8.6 (8.4-10.2) mg/dL AST 39 H (14-36) U/L ALT 26 (4-34) U/L Alkaline Phosphatase 78 (38-126) U/L Total Protein 6.9 (6.3-8.2) g/dL Albumin 4.3 (3.5-5.0) g/dL Current Medications Generic Name Dose Route Start Last Admin Trade Name Freq PRN Reason Stop Dose Admin Acetaminophen 650 mg 11/30/22 09:29 Acetaminophen Tab 325 Mg Tab PO Q4HR PRN Fever and/ or Mild Pain Acetaminophen/Butalbital/Caffeine 1 each 01/29/23 09:30 Butalb/Apap/Caff 50-325-40mg Tab PO Q4HR PRN Headache Amlodipine Besylate 5 mg 11/30/22 09:30 11/30/22 09:43 Amlodipine 5 Mg Tab PO 5 mg DAILY ANJALI Administration Carvedilol 3.125 mg 11/30/22 09:30 11/30/22 09:43 Carvedilol 3.125 Mg Tab PO 3.125 mg BID-W/MEALS ANJALI Administration Hydralazine HCl 25 mg 11/30/22 09:17 Hydralazine Hcl 25 Mg Tab PO QID PRN Blood Pressure - High Sodium Chloride 1,000 mls @ 130 mls/hr 11/30/22 01:30 11/30/22 09:44 Saline 0.9% IV Not Given .[id number] [facility] Morphine Sulfate 4 mg 11/30/22 01: Morphine Sulfate 4 Mg/Ml Syringe IV Q4HR PRN Severe Pain (Scale 7 to 10) Naloxone HCl 0.2 mg 11/30/22 01: Naloxone 0.4 Mg/Ml 1 Ml Vial IV Q2M PRN Opioid Reversal Ondansetron HCl 4 mg 11/30/22 01:23 Ondansetron 4 Mg/2 Ml Vial IVP Q8HR PRN Nausea And Vomiting Intake and Output 11/29/22 11/30/22 11/30/22 22:59 06:59 14:59 Intake Total 0 Balance 0 Intake: Oral 0 Other: # Voids 1 Weight 74.389 kg 74.389 kg Patient Weight 12/01/22 06:59 Weight 74.389 kg 11/30/22 09:08 11/30/22 09:08
--- NOTE | 2022-11-30 10:20 | US ---
EXAMINATION TYPE: US kidneys/renal and bladder DATE OF EXAM: 11/30/2022 COMPARISON: NONE CLINICAL HISTORY: JAH. JAH EXAM MEASUREMENTS: Right Kidney: 10.5 x 3.9 x 4.7 cm Left Kidney: 10.2 x 4.3 x 4.0 cm Right Kidney: No hydronephrosis or masses seen, lower pole gassed out Left Kidney: No hydronephrosis or masses seen, lower pole gassed out Bladder: wnl Bilateral Jets seen: No There is no evidence for hydronephrosis at this point in time. No nephrolithiasis is seen. No becky s are identified. The urinary bladder is anechoic. IMPRESSION: No evidence for obstructive uropathy.
[2022-11-30 10:48] LABS: Anisocytosis Slight; Basophils % (A) 0 %; Eosinophils # (A) 0.1 k/uL (0-0.7); Eosinophils % (A) 1 %; HCT 27.2 % (34.0-46.0); HGB 9.5 gm/dL (11.4-16.0); Hyperchromasia Slight; Lymphocytes # (A) 0.7 k/uL (1.0-4.8); Lymphocytes % (A) 12 %; MCH 28.4 pg (25.0-35.0); MCHC 34.9 g/dL (31.0-37.0); MCV 81.2 fL (80.0-100.0); Mean Platelet Volume 9.7; Monocytes # (A) 0.3 k/uL (0-1.0); Monocytes % (A) 5 %; Neutrophils # (A) 4.7 k/uL (1.3-7.7); Neutrophils % (A) 80 %; Partial Thromboplastin Time 25.1 sec (22.0-30.0); Poikilocytosis Moderate; Prothrombin Time 10.5 sec (9.0-12.0); RBC 3.35 m/uL (3.80-5.40); RDW 17.6 % (11.5-15.5); WBC 5.8 k/uL (3.8-10.6)
[2022-11-30 10:49] LABS: C Reactive Protein 1.9 mg/dL (<1.0); LDH 1698 U/L (313-618)
[2022-11-30 11:38] LABS: Erythrocyte Sedimentation Rate 38 mm/hr (0-20)
[2022-11-30] MEDS: BUTALB/APAP/CAFF 50-325-40MG TAB PO PRN ×2 (11:51→17:07)
[2022-11-30] MEDS: hydrALAZINE HCL 25 MG TAB PO PRN (11:51)
[2022-11-30] MEDS: ASPIRIN 81 MG PO SCH (11:51)
[2022-11-30] MEDS ORDERED: POTASSIUM CHLORIDE ER 20 MEQ TAB.ER PO STA (12:20)
[2022-11-30 12:53] LABS: Creatinine,Urine Random 59.9 mg/dL; Protein/Creatinine Ratio,Urine 2.07
[2022-11-30 13:46] LABS: Chol/HDL Ratio 3.55 Ratio; LDL Cholesterol,Calculated 145.9 mg/dL (0.0-131.0)
--- NOTE | 2022-11-30 13:49 | P.NPCON ---
History of Present Illness - Reason for Consult Consult date: 11/30/22 acute renal failure - Chief Complaint Abnormal labs and weakness - History of Present Illness 47-year-old white female coming to the hospital with the above complaints. She has no medical problems denies taking any prescribed medications. For the last few weeks she has headaches, sinus type and was taking Motrins as needed. But as per the she has been taking for more than 2 months. Denies any nausea vomiting diarrhea. No chest pain or shortness of breath. No history of diabetes or high blood pressure. No history of kidney stones or incomplete emptying of the bladder. Baseline creatinine 0.7-0.8 MG per DL. She saw primary care on 11/25/2022, labs in the office creatinine of 2.9 MG per DL with a potassium of 2.63 meq/ L. Denies any joint pains rashes. No history of palpitations or sweats. On admission creatinine was 3.3G per DL and a potassium of 2.6, creatinine improved to 2.8 MG per DL and potassium 3.1 today. She has history of hypokalemia in 2020, potassium of 2.8, denies taking any potassium supplements. She is currently not on diuretics or any recreational drugs. On admission her blood pressure was 226 /136, without any symptoms. Review of Systems Constitutional: Reports as per HPI Past Medical History Past Medical History: No Reported History History of Any Multi-Drug Resistant Organisms: None Reported Past Surgical History: No Surgical Hx Reported Past Anesthesia/Blood Transfusion Reactions: No Reported Reaction Past Psychological History: No Psychological Hx Reported Smoking Status: Never smoker Past Alcohol Use History: None Reported Past Drug Use History: None Reported - Past Family History Mother Family Medical History: No Reported History Medications and Allergies Home Medications and Allergies Comment(s): No home medications except as needed Motrin Home Medications Medication Instructions Recorded Confirmed Type No Known Home Medications 06/26/14 11/30/22 History Allergies Allergy/AdvReac Type Severity Reaction Status Date / Time No Known Allergies Allergy Verified 11/30/22 10:29 Physical Exam Vitals: Vital Signs Temp Pulse Pulse Resp BP BP Pulse Ox 11/30/22 11:45 98.5 F 87 17 165/112 98 11/30/22 09:00 97.9 F 99 17 163/108 100 11/30/22 06:30 97.8 F 80 18 171/105 100 11/30/22 06:05 89 16 148/97 98 11/30/22 05:30 73 16 121/83 94 L 11/30/22 05:00 83 16 180/120 98 11/30/22 04:30 78 16 164/105 98 11/30/22 04:00 92 16 187/120 96 11/30/22 03:30 84 16 176/111 94 L 11/30/22 03:00 81 16 182/109 97 11/30/22 02:30 88 16 197/128 99 11/30/22 02:00 88 16 203/129 99 11/30/22 01:00 105 H 16 221/142 98 11/30/22 00:30 98 16 227/145 98 11/30/22 00:00 87 16 227/149 98 11/29/22 23:40 98 16 229/153 99 11/29/22 23:00 101 H 16 216/141 98 11/29/22 22:20 98.3 F 107 H 16 226/139 100 Intake and Output 11/29/22 11/30/22 11/30/22 22:59 06:59 14:59 Intake Total 0 Balance 0 Intake: Oral 0 Other: # Voids 1 Weight 74.389 kg 74.389 kg No acute distress S1-S2 heard Lungs clear No edema Results - Lab Results Most recent lab results Calcium 8.6 mg/dL (8.4-10.2) 11/30/22 09:08 Phosphorus 4.3 mg/dL (2.5-4.5) 11/29/22 23:42 Magnesium 2.3 mg/dL (1.6-2.3) 11/30/22 09:08 Urine Creatinine 59.9 mg/dL 11/30/22 10:40 Urine Total Protein 124.0 mg/dL 11/30/22 10:40 11/30/22 10:14 11/30/22 09:08 Assessment and Plan Assessment: #1 acute kidney injury/progressive kidney disease secondary to uncontrolled hypertension. Other differentials are NSAID use. Doubt acute GN with normal UA. -Baseline creatinine 0.8 MG per DL in January 2021 #2 hypertensive urgency. #3 hypokalemia with alkalosis, rule out secondary hypertension #4 mild proteinuria, can happen with uncontrolled blood pressure. Plan: #1 renal function stable. Gradual decrease in blood pressure to avoid worsening renal function. #2 check serology, doubt acute GN. #3 renal ultrasound normal size kidneys. #4 once potassiums normal, check secondary hypertension workup. #5 avoid nephrotoxic agents and hypotensive episodes
[2022-11-30] MEDS ORDERED: amLODIPine 5 MG TAB PO ONE (14:42)
[2022-11-30] MEDS: carvediloL 6.25 MG TAB PO SCH (15:34)
[2022-11-30 16:41] LABS: Protein, Total 6.2 g/dL (6.2-8.2)
[2022-11-30 18:33] LABS: Potassium,Urine Random 33.2 mmol/L (25.0-125.0)
[2022-11-30] MEDS: ACETAMINOPHEN TAB 325 MG TAB PO PRN (20:00)
[2022-12-01] MEDS: SODIUM CHLORIDE 0.9% 1,000 ML IV SCH ×2 (01:57→08:34)
[2022-12-01] MEDS: BUTALB/APAP/CAFF 50-325-40MG TAB PO PRN ×4 (02:26→22:32)
[2022-12-01] MEDS: hydrALAZINE HCL 25 MG TAB PO PRN ×2 (02:29→20:12)
[2022-12-01] MEDS: carvediloL 6.25 MG TAB PO SCH ×2 (07:03→16:14)
[2022-12-01 08:19] LABS: Albumin 3.9 g/dL (3.5-5.0); Calcium 8.9 mg/dL (8.4-10.2); Magnesium 2.2 mg/dL (1.6-2.3); Total Bilirubin 0.7 mg/dL (0.2-1.3); Total Protein 6.3 g/dL (6.3-8.2)
[2022-12-01 08:21] LABS: Platelet Count 89 k/uL (150-450)
[2022-12-01 08:24] LABS: Large Platelets Present
[2022-12-01] MEDS ORDERED: POTASSIUM CHLORIDE ER 20 MEQ TAB.ER PO STA (08:25)
[2022-12-01 08:38] LABS: Anisocytosis Slight; Basophils % (A) 0 %; Eosinophils # (A) 0.2 k/uL (0-0.7); Eosinophils % (A) 3 %; HGB 10.1 gm/dL (11.4-16.0); Hyperchromasia Slight; Lymphocytes # (A) 0.9 k/uL (1.0-4.8); Lymphocytes % (A) 16 %; MCH 28.5 pg (25.0-35.0); MCHC 34.9 g/dL (31.0-37.0); MCV 81.5 fL (80.0-100.0); Mean Platelet Volume 9.8; Monocytes # (A) 0.3 k/uL (0-1.0); Monocytes % (A) 5 %; Neutrophils # (A) 4.2 k/uL (1.3-7.7); Neutrophils % (A) 75 %; Platelet Count 124 k/uL (150-450); Poikilocytosis Slight; RBC 3.56 m/uL (3.80-5.40); RDW 17.1 % (11.5-15.5); WBC 5.6 k/uL (3.8-10.6)
[2022-12-01] MEDS: amLODIPine 10 MG TAB PO SCH (08:38)
[2022-12-01] MEDS: ASPIRIN 81 MG PO SCH (08:38)
[2022-12-01] MEDS: POTASSIUM CHLORIDE 10 MEQ in WATER FOR INJECTION 1 100ML.BAG IVPB SCH ×4 (08:39→12:35)
--- NOTE | 2022-12-01 11:41 | CA ---
Transthoracic Echo Report Name: Melly Eugene Age: 47 Gender: F : 1975 Exam Date: 12/01/2022 09:08 Exam Location: [facility] Ht (in): 66 Wt (lb): 165 Ordering Physician: Mely Steele MD ([id number]) Attending/Referring Phys: Mental Retardation Nurse Niki Sandoval RDCS Procedure CPT: Indications: HTN Cardiac Hx: Technical Quality: Fair Contrast 1: Total Dose (mL): Contrast 2: Total Dose (mL): MEASUREMENTS (Male / Female) Normal Values 2D ECHO LV Diastolic Diameter PLAX 4.5 cm 4.2 - 5.9 / 3.9 - 5.3 cm LV Systolic Diameter PLAX 3.2 cm IVS Diastolic Thickness 1.4 cm 0.6 - 1.0 / 0.6 - 0.9 cm LVPW Diastolic Thickness 1.6 cm 0.6 - 1.0 / 0.6 - 0.9 cm LV Relative Wall Thickness 0.7 LV Diastolic Volume MOD 4C 88.9 cm??? LV Systolic Volume MOD 4C 49.4 cm??? LV Ejection Fraction MOD 4C 44.5 % LV Diastolic Length 4C 8.2 cm LV Systolic Length 4C 6.9 cm M-MODE Aortic Root Diameter MM 2.9 cm LA Systolic Diameter MM 3.8 cm LA Ao Ratio MM 1.3 MV E Point Septal Separation 1.0 cm AV Cusp Separation MM 1.8 cm DOPPLER AV Peak Velocity 162.3 cm/s AV Peak Gradient 10.5 mmHg LVOT Peak Velocity 87.8 cm/s LVOT Peak Gradient 3.1 mmHg MV Area PHT 6.9 cm??? MR Peak Velocity 450.6 cm/s MR Peak Gradient 81.2 mmHg Mitral E Point Velocity 118.3 cm/s Mitral A Point Velocity 49.3 cm/s Mitral E to A Ratio 2.4 MV Deceleration Time 109.2 ms FINDINGS Left Ventricle Moderately increased septal wall thickness. Severely increased posterior wall thickness. Left ventricular hypertrophy and diastolic dysfunction. Left ventricular ejection fraction is estimated at 45-50 %. Right Ventricle Normal right ventricular size. Reduced right ventricular global systolic function. Right Atrium Normal right atrial size. Left Atrium Normal left atrial size. Mitral Valve Moderate mitral regurgitation. Aortic Valve Trileaflet aortic valve. Trace aortic regurgitation. No aortic stenosis. Tricuspid Valve Mild tricuspid regurgitation. Pulmonic Valve Structurally normal pulmonic valve. Pericardium Pericardial effusion. Aorta Normal size aortic root and proximal ascending aorta. CONCLUSIONS Mildly impaired LV function was EF between 45-50% Moderate mitral regurgitation Previewed by: Dr. Samir Crenshaw MD (Electronically Signed) Final Date: 01 December 2022 11:40
--- NOTE | 2022-12-01 11:42 | P.PN ---
Subjective Patient is seen for follow-up for acute kidney injury. No previous history of kidney diseases. Patient does have history of use of NSAIDs. Blood pressure was noted to be elevated this admission with no prior history of hypertension. Ultrasound appears to be unremarkable UA showed 1+ protein and moderate blood. Protein creatinine ratio was 2.0. All serologies have been ordered and currently pending. Maintained on normal saline. Serum creatinine staying at 2.8-2.9 mg/dL. Previous creatinine 0.8 on 02/06/2021 Objective - Vital Signs Vital signs: Vital Signs Temp 98.5 F 12/01/22 11:34 Pulse 99 12/01/22 11:34 Resp 17 12/01/22 11:34 BP 132/99 12/01/22 11:34 Pulse Ox 98 12/01/22 11:34 FiO2 Intake & Output 11/30/22 12/01/22 12/01/22 18:59 06:59 18:59 Intake Total 118 Balance 118 Weight 74.389 kg Intake: Oral 118 Other: # Voids 2 1 - Exam Awake, alert, comfortable oriented 3 Examination of the heart S1 and S2 Examination of the lungs bilateral breath sounds are heard Abdomen is soft nontender Examination of lower extremity shows no evidence of edema [employer] exam is grossly intact - Labs CBC & Chem 7: 12/01/22 07:32 12/01/22 07:32 Labs: Abnormal Lab Results - Last 24 Hours (Table) 11/30/22 11/30/22 11/30/22 Range/Units 10:14 10:14 10:14 RBC (3.80-5.40) m/uL Hgb (11.4-16.0) gm/dL Hct (34.0-46.0) % RDW (11.5-15.5) % Plt Count 89 L (150-450) k/uL Lymphocytes # (1.0-4.8) k/uL ESR 38 H (0-20) mm/hr Haptoglobin <10.0 L (31.2-198.0) mg/dL Sodium (137-145) mmol/L Potassium (3.5-5.1) mmol/L BUN (7-17) mg/dL Creatinine (0.52-1.04) mg/dL Glucose (74-99) mg/dL Creatine Kinase (30-135) U/L Cholesterol 233.00 H (0.00-200.00) mg/dL LDL Cholesterol, Calc 145.9 H (0.0-131.0) mg/dL HDL Cholesterol 65.70 H (40.00-60.00) mg/dL 11/30/22 12/01/22 12/01/22 Range/Units 10:14 07:32 07:32 RBC 3.56 L (3.80-5.40) m/uL Hgb 10.1 L (11.4-16.0) gm/dL Hct 29.0 L (34.0-46.0) % RDW 17.1 H (11.5-15.5) % Plt Count 124 L (150-450) k/uL Lymphocytes # 0.9 L (1.0-4.8) k/uL ESR (0-20) mm/hr Haptoglobin (31.2-198.0) mg/dL Sodium 136 L (137-145) mmol/L Potassium 3.0 L (3.5-5.1) mmol/L BUN 40 H (7-17) mg/dL Creatinine 2.90 H (0.52-1.04) mg/dL Glucose 104 H (74-99) mg/dL Creatine Kinase 136 H (30-135) U/L Cholesterol (0.00-200.00) mg/dL LDL Cholesterol, Calc (0.0-131.0) mg/dL HDL Cholesterol (40.00-60.00) mg/dL Assessment and Plan Assessment: 1. Acute kidney injury possibly related to recent use of NSAIDs. No evidence of obstruction noted on ultrasound. UA shows 1+ protein and moderate blood with protein creatinine ratio at 2.0. All serologies have been ordered and currently pending. The creatinine was 3.3 on 11/28/2022 and previous creatinine 0.8 on 02/06/2021. 2. Hypokalemia currently being replaced 3. Hypertensive urgency with improvement in blood pressure. No previous history of hypertension. Rule out secondary causes. Plan: Replace potassium Check serum aldosterone and renin levels Check plasma free metanephrine level Follow-up on serologies Continue with Coreg and Norvasc for now and increase Coreg if needed for hypertension. Follow-up in the office in one week post discharge.
[2022-12-01 12:00] LABS: Free Kappa Lt Chain Qnt, Urine 7.4 mg/dL (0.00-3.29); Free Lambda Lt Chain Qt, Urine 3.27 mg/dL (0.00-0.38)
[2022-12-01 12:00] LABS: Free Kappa Lt Chain Qnt, Serum 4.81 mg/dL (0.33-1.94); Free Lambda Lt Chain Qnt, Seru 7.15 mg/dL (0.57-2.63)
--- NOTE | 2022-12-01 14:37 | P.PN ---
Subjective Progress Note Date: 12/01/22 History of Present Illness: The patient is a 47-year-old female who was admitted through the emergency room because of hypokalemia and abnormal renal function. She recently had lab data that revealed potassium 2.6 with creatinine 2.99. Cardiology consultation was requested because of troponin elevation. The patient is active physically, denies any chest discomfort, dizziness or palpitations. She denies any dyspnea, nausea or vomiting. She has no peripheral edema. She has no prior history of hypertension, documented hyperlipidemia or diabetes. She is a nonsmoker at this time, she smoked while in school long time ago. She has been using frequent ibuprofen because of hypertension. Her renal function were normal in 2020. Her troponin were 0.21, 0.244 and 0.20. Her EKG shows sinus mechanism with LVH and strain pattern. She had evidence of hypertension on presentation. She does not feel that her physical activity the change recently. She does not use alcohol. Medications: Ibuprofen daily 12/01 Patient's complaint is of her sinuses and congestion. Blood pressure is improved but continues to have elevated diastolic readings. No significant improvement noted in renal function. Patient denies any previous history of alcohol use. She denies having any chest pain or pressure. Echocardiogram reveals EF of 45-50%, moderate mitral regurgitation Renal ultrasound negative for hydronephrosis. Physical Examination: 47-year-old female, alert and oriented no apparent distress,Blood pressure 132/99, Heart rate 99 Head: Normocephalic. Eyes: Sclerae nonicteric. Neck: Good carotid upstroke, no bruit, no jugular venous distention. Lungs: Clear to auscultation. Heart: Regular rate and rhythm, S1-S2, no S3, plus S4 no rub. No murmur. Abdomen: Soft nontender, positive bowel sounds no organomegaly. Extremities: No edema, intact distal pulses. Labs: Hemoglobin 10.1, BUN today 40, creatinine 2.9, potassium up to 3.0. Impression: 1. Troponin elevation, no evidence of acute myocardial injury probably related to the renal function 2. Hypertension not treated in the past 3. Renal injury most likely worsened by the use of ibuprofen 4. Anemia probably related to chronic kidney disease 5. Hypokalemia Plan: 1. Continue with beta elysia and calcium channel elysia 2. Obtain an echocardiogram with Doppler 3. Follow renal functions 4. Increase physical activity 5. No nonsteroidal 6. Depending on her progress further recommendations will be made. Nurse practitioner note has been reviewed, I agree with the documented findings and plan of care. Patient was seen and examined. Objective - Vital Signs Vital signs: Vital Signs Temp 97.8 F 11/30/22 20:00 Pulse 94 12/01/22 02:29 Resp 18 12/01/22 02:29 BP 141/92 12/01/22 04:57 Pulse Ox 99 12/01/22 08:12 FiO2 Intake & Output 11/30/22 12/01/22 12/01/22 18:59 06:59 18:59 Intake Total 118 Balance 118 Weight 74.389 kg Intake: Oral 118 Other: # Voids 2 1 - Labs CBC & Chem 7: 12/01/22 07:32 12/01/22 07:32 Labs: Abnormal Lab Results - Last 24 Hours (Table) 11/30/22 11/30/22 11/30/22 Range/Units 10:14 10:14 10:14 RBC 3.35 L (3.80-5.40) m/uL Hgb 9.5 L (11.4-16.0) gm/dL Hct 27.2 L (34.0-46.0) % RDW 17.6 H (11.5-15.5) % Plt Count 89 L (150-450) k/uL Lymphocytes # 0.7 L (1.0-4.8) k/uL ESR 38 H (0-20) mm/hr Retic Count 4.0 H (0.5-2.0) % Haptoglobin <10.0 L (31.2-198.0) mg/dL D-Dimer 0.71 H (<0.60) mg/L FEU Sodium (137-145) mmol/L Potassium (3.5-5.1) mmol/L BUN (7-17) mg/dL Creatinine (0.52-1.04) mg/dL Glucose (74-99) mg/dL Lactate Dehydrogenase (313-618) U/L Creatine Kinase (30-135) U/L C-Reactive Protein (<1.0) mg/dL Cholesterol (0.00-200.00) mg/dL LDL Cholesterol, Calc (0.0-131.0) mg/dL HDL Cholesterol (40.00-60.00) mg/dL 11/30/22 11/30/22 12/01/22 Range/Units 10:14 10:14 07:32 RBC 3.56 L (3.80-5.40) m/uL Hgb 10.1 L (11.4-16.0) gm/dL Hct 29.0 L (34.0-46.0) % RDW 17.1 H (11.5-15.5) % Plt Count 124 L (150-450) k/uL Lymphocytes # 0.9 L (1.0-4.8) k/uL ESR (0-20) mm/hr Retic Count (0.5-2.0) % Haptoglobin (31.2-198.0) mg/dL D-Dimer (<0.60) mg/L FEU Sodium (137-145) mmol/L Potassium (3.5-5.1) mmol/L BUN (7-17) mg/dL Creatinine (0.52-1.04) mg/dL Glucose (74-99) mg/dL Lactate Dehydrogenase 1698 H (313-618) U/L Creatine Kinase 136 H (30-135) U/L C-Reactive Protein 1.9 H (<1.0) mg/dL Cholesterol 233.00 H (0.00-200.00) mg/dL LDL Cholesterol, Calc 145.9 H (0.0-131.0) mg/dL HDL Cholesterol 65.70 H (40.00-60.00) mg/dL 12/01/22 Range/Units 07:32 RBC (3.80-5.40) m/uL Hgb (11.4-16.0) gm/dL Hct (34.0-46.0) % RDW (11.5-15.5) % Plt Count (150-450) k/uL Lymphocytes # (1.0-4.8) k/uL ESR (0-20) mm/hr Retic Count (0.5-2.0) % Haptoglobin (31.2-198.0) mg/dL D-Dimer (<0.60) mg/L FEU Sodium 136 L (137-145) mmol/L Potassium 3.0 L (3.5-5.1) mmol/L BUN 40 H (7-17) mg/dL Creatinine 2.90 H (0.52-1.04) mg/dL Glucose 104 H (74-99) mg/dL Lactate Dehydrogenase (313-618) U/L Creatine Kinase (30-135) U/L C-Reactive Protein (<1.0) mg/dL Cholesterol (0.00-200.00) mg/dL LDL Cholesterol, Calc (0.0-131.0) mg/dL HDL Cholesterol (40.00-60.00) mg/dL
[2022-12-01] MEDS: FLUTICASONE 50MCG/SPRAY NASAL 16GM EA NOSTRIL SCH (16:14)
[2022-12-01] MEDS: LORATADINE 10 MG TAB PO SCH (16:14)
--- NOTE | 2022-12-01 16:28 | P.PN ---
Subjective Progress Note Date: 12/01/22 Patient was seen and examined. Patient reports frontal headache. She complains of sinus congestion. She denies any chest pain, shortness breath or palpitations. No nausea or vomiting. No fever or chills. Gen: in no apparent distress, resting comfortably in bed Eyes: no scleral injection or icterus HENT: normocephalic, atraumatic, good hearing acuity, moist mucous membranes Neck: no tracheal deviation, full range of motion Resp: good air exchange, breathing comfortably with no accessory muscle use, clear to auscultation bilaterally CVS: good distal perfusion x 4, no pitting edema, regular rate and rhythm without murmurs : no suprapubic tenderness, no CVAT, carrion catheter not present MSK: no clubbing, no cyanosis, no noted contractures of extremities Skin: no noted rashes, petechiae; temperature of skin is appropriate Neuro: moving all extremities without signs of weakness Psych: cooperative, euthymic mood, insight and judgment intact. Hypertensive urgency Elevated troponin Headache -Cardiology consulted for elevated troponin, likely related to troponin leak from JAH -Tylenol when necessary for headache -Fioricet when necessary for headache -Troponins trended and ACS ruled out -Echocardiogram shows EF 45-50% with moderate mitral regurgitation -Monitor on telemetry -Continue amlodipine 5 mg daily -Continue carvedilol 3.125 mg twice a day -Continue hydralazine 25 mg every 6 hours when necessary for blood pressure greater than 160 systolic or greater than 100 diastolic -Zofran when necessary Acute kidney injury Hypokalemia -Nephrology consultation ordered -IV fluids -Replete potassium -Urine sodium, chloride, creatinine, protein -Renal and bladder ultrasound negative for obstruction -Metanephrine, Aldosterone and Renin ordered Sinusitis -Flonase and Claritin ordered Bicytopenia - Anemia and Thrombocytopenia -Peripheral smear ordered -Case discussed with nephrology and they were notified, will see the patient shortly -PTT, PT/INR, fibrinogen, d-dimer ordered -Haptoglobin, reticulocyte count, LDH -ESR, CRP -C3, C4, CH50 Patient is full code DVT prophylaxis on hold due to thrombocytopenia Objective - Vital Signs Vital signs: Vital Signs Temp 98.5 F 12/01/22 11:34 Pulse 99 12/01/22 11:34 Resp 17 12/01/22 11:34 BP 132/99 12/01/22 11:34 Pulse Ox 98 12/01/22 11:34 FiO2 Intake & Output 11/30/22 12/01/22 12/01/22 18:59 06:59 18:59 Intake Total 236 Balance 236 Weight 74.389 kg Intake: Oral 236 Other: # Voids 2 1 1 - Labs CBC & Chem 7: 12/01/22 07:32 12/01/22 07:32 Labs: Abnormal Lab Results - Last 24 Hours (Table) 11/30/22 11/30/22 12/01/22 Range/Units 10:14 15:28 07:32 RBC (3.80-5.40) m/uL Hgb (11.4-16.0) gm/dL Hct (34.0-46.0) % RDW (11.5-15.5) % Plt Count 89 L (150-450) k/uL Lymphocytes # (1.0-4.8) k/uL Sodium (137-145) mmol/L Potassium (3.5-5.1) mmol/L BUN (7-17) mg/dL Creatinine (0.52-1.04) mg/dL Glucose (74-99) mg/dL U Free [place] Ch 7.40 H (0.00-3.29) mg/dL U Free [place] Ch 3.27 H (0.00-0.38) mg/dL Free [place] LC, Quant 4.81 H (0.33-1.94) mg/dL Free Lambda LC, Quant 7.15 H (0.57-2.63) mg/dL 12/01/22 12/01/22 Range/Units 07:32 07:32 RBC 3.56 L (3.80-5.40) m/uL Hgb 10.1 L (11.4-16.0) gm/dL Hct 29.0 L (34.0-46.0) % RDW 17.1 H (11.5-15.5) % Plt Count 124 L (150-450) k/uL Lymphocytes # 0.9 L (1.0-4.8) k/uL Sodium 136 L (137-145) mmol/L Potassium 3.0 L (3.5-5.1) mmol/L BUN 40 H (7-17) mg/dL Creatinine 2.90 H (0.52-1.04) mg/dL Glucose 104 H (74-99) mg/dL U Free [place] Ch (0.00-3.29) mg/dL U Free [place] Ch (0.00-0.38) mg/dL Free [place] LC, Quant (0.33-1.94) mg/dL Free Lambda LC, Quant (0.57-2.63) mg/dL
[2022-12-01 22:24] LABS: DNA Double-Stranded NEGATIVE (NEGATIVE)
[2022-12-02] MEDS: ACETAMINOPHEN TAB 325 MG TAB PO PRN ×2 (00:08→11:28)
[2022-12-02] MEDS ORDERED: POTASSIUM CHLORIDE ER 20 MEQ TAB.ER PO STA (03:56)
[2022-12-02] MEDS: carvediloL 6.25 MG TAB PO SCH (06:29)
[2022-12-02 08:01] LABS: Calcium 8.9 mg/dL (8.4-10.2); Potassium 3.4 mmol/L (3.5-5.1)
[2022-12-02] MEDS ORDERED: carvediloL 6.25 MG TAB PO STA (08:15)
[2022-12-02] MEDS: BUTALB/APAP/CAFF 50-325-40MG TAB PO PRN ×2 (09:09→13:45)
[2022-12-02] MEDS: amLODIPine 10 MG TAB PO SCH (09:09)
[2022-12-02] MEDS: LORATADINE 10 MG TAB PO SCH (09:10)
[2022-12-02] MEDS: ASPIRIN 81 MG PO SCH (09:10)
[2022-12-02] MEDS: FLUTICASONE 50MCG/SPRAY NASAL 16GM EA NOSTRIL SCH (09:10)
[2022-12-02 09:18] VITALS: RESP 17
[2022-12-02] MEDS ORDERED: SPIRONOLACTONE 25 MG TAB PO SCH (10:00)
[2022-12-02 10:05] LABS: Albumin 3.88 g/dL (3.80-4.90); Gamma Globulin 0.76 g/dL (0.70-1.50)
--- NOTE | 2022-12-02 10:36 | P.PN ---
Subjective Patient is seen for follow-up for acute kidney injury. No previous history of kidney diseases. Patient does have history of use of NSAIDs. Blood pressure was noted to be elevated this admission with no prior history of hypertension. Ultrasound appears to be unremarkable UA showed 1+ protein and moderate blood. Protein creatinine ratio was 2.0. All serologies have been ordered and currently pending. ANAs positive, other labs still pending. Maintained on normal saline. Serum creatinine staying at 2.8-2.9 mg/dL. Previous creatinine 0.8 on 02/06/2021 Potassium has been low and was replaced. Patient also has significant hirsuitism with previous diagnosis of PCO syndrome. Objective - Vital Signs Vital signs: Vital Signs Temp 98 F 12/02/22 08:00 Pulse 100 12/02/22 08:00 Resp 17 12/02/22 08:00 BP 158/99 12/02/22 08:00 Pulse Ox 98 12/02/22 08:00 FiO2 Intake & Output 12/01/22 12/02/22 12/02/22 18:59 06:59 18:59 Intake Total 354 540 Balance 354 540 Intake: Oral 354 540 Other: # Voids 1 1 - Exam Awake, alert, comfortable oriented 3 Examination of the heart S1 and S2 Examination of the lungs bilateral breath sounds are heard Abdomen is soft nontender Examination of lower extremity shows no evidence of edema [employer] exam is grossly intact - Labs CBC & Chem 7: 12/01/22 07:32 12/02/22 07:08 Labs: Abnormal Lab Results - Last 24 Hours (Table) 11/30/22 11/30/22 12/01/22 Range/Units 09:08 15:28 07:32 Sodium (137-145) mmol/L Potassium (3.5-5.1) mmol/L BUN (7-17) mg/dL Creatinine (0.52-1.04) mg/dL Umvyy-[id number] 0.56 L (0.60-1.00) g/dL U Free [place] Light Ch 7.40 H (0.00-3.29) mg/dL U Free [place] Ch 3.27 H (0.00-0.38) mg/dL ALICIA Screen POSITIVE A (NEGATIVE) Free [place] LC, Quant 4.81 H (0.33-1.94) mg/dL Free [place] LC, Quant 7.15 H (0.57-2.63) mg/dL 12/01/22 12/02/22 Range/Units 21:05 07:08 Sodium 135 L (137-145) mmol/L Potassium 3.3 L 3.4 L (3.5-5.1) mmol/L BUN 38 H (7-17) mg/dL Creatinine 2.87 H (0.52-1.04) mg/dL Krnlo-5-Cpeezgabb (0.60-1.00) g/dL U Free [place] Light Ch (0.00-3.29) mg/dL U Free [place] Light Ch (0.00-0.38) mg/dL ALICIA Screen (NEGATIVE) Free [place] LC, Quant (0.33-1.94) mg/dL Free Lambda LC, Quant (0.57-2.63) mg/dL Assessment and Plan Assessment: 1. Acute kidney injury possibly related to recent use of NSAIDs. No evidence of obstruction noted on ultrasound. UA shows 1+ protein and moderate blood with protein creatinine ratio at 2.0. All serologies have been ordered and currently pending. The creatinine was 3.3 on 11/28/2022 and previous creatinine 0.8 on 02/06/2021. ANAs positive patient will likely need a kidney biopsy down the road if renal function does not improve. 2. Hypokalemia currently being replaced 3. Hypertensive urgency with improvement in blood pressure. No previous history of hypertension. Rule out secondary causes. 4. History of Polycystic ovaries with significant facial hirsutism. Plan: Replace potassium Check serum aldosterone and renin levels Check plasma free metanephrine level Follow-up on serologies Continue with Coreg and Norvasc for now and increase Coreg if needed for hypertension. Discussed need for kidney biopsy as outpatient and to complete workup for secondary causes of hypertension. Follow-up in the office in one week post discharge.
[2022-12-02] MEDS ORDERED: hydrALAZINE HCL 25 MG TAB PO SCH (13:20)
[2022-12-02 13:58] LABS: C-ANCA <1:20 Titer (<1:20)
--- NOTE | 2022-12-02 14:36 | P.PN ---
Subjective Progress Note Date: 12/02/22 History of Present Illness: The patient is a 47-year-old female who was admitted through the emergency room because of hypokalemia and abnormal renal function. She recently had lab data that revealed potassium 2.6 with creatinine 2.99. Cardiology consultation was requested because of troponin elevation. The patient is active physically, denies any chest discomfort, dizziness or palpitations. She denies any dyspnea, nausea or vomiting. She has no peripheral edema. She has no prior history of hypertension, documented hyperlipidemia or diabetes. She is a nonsmoker at this time, she smoked while in school long time ago. She has been using frequent ibuprofen because of hypertension. Her renal function were normal in 2020. Her troponin were 0.21, 0.244 and 0.20. Her EKG shows sinus mechanism with LVH and strain pattern. She had evidence of hypertension on presentation. She does not feel that her physical activity the change recently. She does not use alcohol. Medications: Ibuprofen daily 12/01 Patient's complaint is of her sinuses and congestion. Blood pressure is improved but continues to have elevated diastolic readings. No significant improvement noted in renal function. Patient denies any previous history of alcohol use. She denies having any chest pain or pressure. Echocardiogram reveals EF of 45-50%, moderate mitral regurgitation Renal ultrasound negative for hydronephrosis. 12/02 Heart rate is 97-111, blood pressure 158/99, pulse ox 100% on room air. Repeat blood work reveals sodium 135, potassium 3.4, BUN 38 creatinine 2.87. TSH 0.8. ALICIA screen positive. Free [place] elevated at 4.81, Free Lambda 7.15 Patient is currently on Norvasc 10 mg daily, Coreg 12.5 mg twice daily, Aldactone 25 mg daily. Patient is also receiving hydralazine 25 mg 4 times daily as needed and last dose was last evening. The patient denies having shortness of breath. She states she continues to have a headache. Aldactone was added today. Physical Examination: 47-year-old female, alert and oriented no apparent distress,Blood pressure 132/99, Heart rate 99 Head: Normocephalic. Eyes: Sclerae nonicteric. Neck: Good carotid upstroke, no bruit, no jugular venous distention. Lungs: Clear to auscultation. Heart: Regular rate and rhythm, S1-S2, no S3, plus S4 no rub. No murmur. Abdomen: Soft nontender, positive bowel sounds no organomegaly. Extremities: No edema, intact distal pulses. Impression: 1. Troponin elevation, no evidence of acute myocardial injury probably related to the renal function 2. Hypertension not treated in the past 3. Renal injury most likely worsened by the use of ibuprofen 4. Anemia probably related to chronic kidney disease 5. Hypokalemia Plan: Continue with beta elysia and calcium channel elysia Add hydralazine 25 mg 4 times daily scheduled Aldactone was added today Patient is cleared for discharge from cardiology and may follow up in the office in one to 2 weeks. Nurse practitioner note has been reviewed, I agree with the documented findings and plan of care. Patient was seen and examined. Objective - Vital Signs Vital signs: Vital Signs Temp 98.4 F 12/02/22 11:35 Pulse 97 12/02/22 11:35 Resp 17 12/02/22 11:35 BP 158/99 12/02/22 11:35 Pulse Ox 100 12/02/22 11:35 FiO2 Intake & Output 12/01/22 12/02/22 12/02/22 18:59 06:59 18:59 Intake Total 354 540 Balance 354 540 Intake: Oral 354 540 Other: # Voids 1 1 - Labs CBC & Chem 7: 12/01/22 07:32 12/02/22 07:08 Labs: Abnormal Lab Results - Last 24 Hours (Table) 11/30/22 12/01/22 12/01/22 Range/Units 09:08 07:32 21:05 Sodium (137-145) mmol/L Potassium 3.3 L (3.5-5.1) mmol/L BUN (7-17) mg/dL Creatinine (0.52-1.04) mg/dL Gvbeq-6-Uqimohzdy 0.56 L (0.60-1.00) g/dL ALICIA Screen POSITIVE A (NEGATIVE) 12/02/22 Range/Units 07:08 Sodium 135 L (137-145) mmol/L Potassium 3.4 L (3.5-5.1) mmol/L BUN 38 H (7-17) mg/dL Creatinine 2.87 H (0.52-1.04) mg/dL Prtpf-4-Azbotlhue (0.60-1.00) g/dL ALICIA Screen (NEGATIVE)
[2022-12-02 15:28] VITALS: BP 138/90; PULSE 98; TEMP 97.9
--- NOTE | 2022-12-02 15:32 | P.DS ---
Providers Date of admission: 11/30/22 01:26 Expected date of discharge: 12/02/22 Attending physician: Laura Guillen MD Consults: 11/30/22 01:23 Consult Physician Routine Consulting Provider: Mely Steele Consult Reason/Comments: elevTrop Do you want consulting provider notified?: Yes Consult Physician Routine Consulting Provider: Marylou Garber Consult Reason/Comments: matthew Do you want consulting provider notified?: Yes Primary care physician: Bruno [facility] Course: 47-year-old woman with medical no reported medical history presented with abnormal labs from her primary care physician's office. From my understanding, patient had a lab check on Thursday of last week and then repeat check on Thursday with a follow-up with her primary care physician. At that time it was noted that she had significant kidney injury and was prompted to come to the emergency room for further evaluation. Patient's only symptoms are headache which improv es with ibuprofen which she has been using quite a bit. She has been using approximately 400 mg every other day for 2 weeks or more. There are no associated symptoms with her headaches including the denial of visual changes, trouble swallowing, numbness/weakness of extremities, photophobia, phonophobia. She also denies fevers, chills, nausea, vomiting, chest pain, palpitations, syncope, presyncope, dyspnea, abdominal pain, constipation, diarrhea, dysuria, dyschezia. She also does report cough with clear sputum, polyuria, polydipsia. In the emergency room, patient was afebrile, 226/139, heart rate 107, 100% on room air. CBC shows anemia down to 10.4, MCV is 79.5, platelets are 97, otherwise unremarkable. Chemistries show sodium of 134, potassium of 2.6, chloride 97, BUN of 58, creatinine of 2.99. Liver function tests show a mildly elevated AST at 39, ALT is 26, otherwise unremarkable. Initial troponin is 0.217, trended to 0.244 then back down to 0.207. UA shows 1+ protein, moderate blood, trace leukocyte esterase, rare bacteria, rare mucus, less than 1 red blood cell, 1 white blood cell, less than 1 squamous epithelial cells. EKG, interpreted by the admitting hospitalist, showed normal sinus rhythm with evidence of left ventricular hypertrophy, ST depressions in lead 1, 2, T-wave inversions in aVL, V5, V6, early repolarization changes in V1, V2. Her troponin elevation was likely related to hypertensive urgency. Echocardiogram was done which showed EF of 45-50% with moderate mitral regurgitation. Cardiology cleared the patient for discharge requesting outpatient follow-up. Patient was started on amlodipine and Coreg with hydralazine as needed for adequate blood pressure control. Her potassium was replaced. Nephrology was consulted and followed the patient during her hospitalization. Her creatinine remained stable and was 2.87 on the day of discharge. TSH was within normal limits. Urine kappa 7.4, urine lambda 3.27. Serum kappa 4.81, serum lambda 7 .15. ALICIA was positive. C-ANCA and p-ANCA negative. Double-stranded DNA antibody negative. The case was discussed extensively with Dr. Zacarias on the day of discharge. Concern for hyperaldosteronism. Plans to add Aldactone to her medication regimen. Aldosterone, metanephrine, renin, antiglomerular basement membrane pending on the day of discharge. Nephrology recommended outpatient follow-up w ithin 1 week for further workup which could include kidney biopsy. The patient was informed and agreed to the plan. Patient was seen and examined. No acute events overnight. Patient continues to report a frontal headache. She denies any chest pain, shortness breath or palpitations. No nausea or vomiting. No fever or chills. No lightheadedness. Pertinent studies include bladder and renal ultrasound, echocardiogram. Discharge diagnosis: Hypertensive urgency Elevated troponin Headache Acute kidney injury Hypokalemia Bicytopenia - Anemia and Thrombocytopenia This complex discharge took 45 minutes to complete. Patient Condition at Discharge: Stable Plan - Discharge Summary Discharge Rx Participant: No New Discharge Prescriptions: New [place]/APAP/Caff 50-325-40Mg [Fioricet 50-325-40] 1 each PO Q4HR PRN #28 tab PRN Reason: Headache Fluticasone Nasal [place] [Flonase Nasal [place]] 2 spray EA NOSTRIL DAILY #1 unit amLODIPine [Norvasc] 10 mg PO DAILY #30 tab Spironolactone [Aldactone] 25 mg PO DAILY #30 tab Aspirin 81 mg PO DAILY #30 tab Loratadine [Claritin] 10 mg PO DAILY #30 tab carvediloL [Coreg*] 12.5 mg PO BID-W/MEALS #60 tab Discharge Medication List Aspirin 81 mg PO DAILY #30 tab 12/02/22 [Rx] Butalb/APAP/Caff 50-325-40Mg [Fioricet 50-325-40] 1 each PO Q4HR PRN #28 tab 12/02/22 [Rx] Fluticasone Nasal [place] [Flonase Nasal [place]] 2 spray EA NOSTRIL DAILY #1 unit 12/02/22 [Rx] Loratadine [Claritin] 10 mg PO DAILY #30 tab 12/02/22 [Rx] Spironolactone [Aldactone] 25 mg PO DAILY #30 tab 12/02/22 [Rx] amLODIPine [Norvasc] 10 mg PO DAILY #30 tab 12/02/22 [Rx] carvediloL [Coreg*] 12.5 mg PO BID-W/MEALS #60 tab 12/02/22 [Rx] Follow up Appointment(s)/Referral(s): Gricelda Zacarias MD [STAFF PHYSICIAN] - 1 Week (please call to schedule.) Mely Steele MD [STAFF PHYSICIAN] - 2 Weeks (please call to schedule.) Bruno Siddiqi DO [Primary Care Provider] - 1-2 days (please call to schedule.) Patient Instructions/Handouts: Hypokalemia (DC), Hypertension (DC) Activity/Diet/Wound Care/Special Instructions: Diet: Low salt FU PCP within 1-2 days of DC. FU Cardiology within 1 week of DC. FU Nephrology within 1 week of DC. Take all medications as advised. Discharge/Stand Alone Forms: [employer]ice Discharge Disposition: HOME SELF-CARE
[2022-12-02] MEDS ORDERED: carvediloL 12.5 MG TAB PO SCH (17:30)
[2022-12-03 10:30] LABS: Anti-Glomerular Basement Memb 3 UNITS (0-20)
== END 2022-12-02 17:03 | disposition home or self-care (01) | DRG 683 ==
LOC: EC 22:00 → 3SCARD 11-30 01:26
PROVIDERS: ADMIT Internal Medicine; ATTEND Internal Medicine
DX: N17.9 Acute kidney failure, unspecified (principal); E87.3 Alkalosis; I16.0 Hypertensive urgency; D69.6 Thrombocytopenia, unspecified; D63.1 Anemia in chronic kidney disease; Z28.310 Unvaccinated for COVID-19; I12.9 Hypertensive chronic kidney disease with stage 1 through stage 4 chronic kidney disease, or unspecified chronic kidney disease; N18.9 Chronic kidney disease, unspecified; I34.0 Nonrheumatic mitral (valve) insufficiency; E87.6 Hypokalemia; E28.2 Polycystic ovarian syndrome; R77.8 Other specified abnormalities of plasma proteins; R74.01 Elevation of levels of liver transaminase levels; Z87.891 Personal history of nicotine dependence
CPT/HCPCS: 36415; 71046; 76770; 80048; 80053; 80061; 81001; 82088; 82550; 82570; 83010; 83516; 83615; 83735; 83835; 83883; 84100; 84132; 84133; 84156; 84165; 84244; 84300; 84443; 84484; 85025; 85027; 85045; 85379; 85384; 85610; 85652; 85730; 86038; 86039; 86140; 86160; 86162; 86225; 86255; 86335; 93005; 93306; 94760; 96361; 96374; 96376; 99285

== ENCOUNTER → 2023-01-19 | Outpatient (CLI) | payer OTHER ==
--- NOTE | 2023-01-19 11:02 | CT ---
EXAMINATION TYPE: CT abdomen wo con DATE OF EXAM: 01/19/2023 COMPARISON: None HISTORY: 47-year-old female I12.9 HYPERTENSIVE CHRONIC KIDNEY DISEASE W STG 1-4. Renal disease TECHNIQUE: Contiguous axial scanning of the abdomen without IV contrast. Coronal and sagittal reconst ructions performed. CT DLP: 483 mGycm Automated exposure control for dose reduction was used. FINDINGS: Heart upper limits of normal in size without pericardial effusion. Lung bases clear without pleural e ffusion. Noncontrast appearance of the liver, gallbladder, right adrenal gland, spleen, and pancreas show no g ross abnormality. There is some low density nodularity of the left adrenal gland measuring 8 mm. Attenuation of 4 Houns field units suggests a possible small adrenal adenoma. Nonobstructive 3 mm right renal calculus. No hydronephrosis or contour deforming cortical lesion with in either kidney. No dilated small bowel, free fluid, or free air. No mesenteric or retroperitoneal lymphadenopathy. Mild to moderate stool burden. No pericolonic inflammatory change. Facet arthropathy mid to lower lumbar spine. Slightly accentuated lower lumbar lordosis. IMPRESSION: 1. THERE MAY BE A TINY 8MM LIPID RICH LEFT ADRENAL ADENOMA. CONSIDER A 12 MONTH FOLLOW-UP TO REASSESS . 2. NONOBSTRUCTIVE 3 MM RIGHT RENAL CALCULUS. 3. NO HYDRONEPHROSIS ON EITHER SIDE.
== END | disposition home or self-care (01) ==
LOC: RADCTMAIN 09:36
PROVIDERS: ATTEND Internal Medicine Nephrology
DX: I12.9 Hypertensive chronic kidney disease with stage 1 through stage 4 chronic kidney disease, or unspecified chronic kidney disease (principal); N20.0 Calculus of kidney
CPT/HCPCS: 74150

== ENCOUNTER → 2023-01-26 | Outpatient (CLI) | payer OTHER ==
[2023-01-26 09:01] LABS: Prothrombin Time 10.8 sec (9.0-12.0)
[2023-01-26 14:37] LABS: African American GFR (CKD) 21.7 (60.0-200.0); Anion Gap 10.3 mmol/L (10.00-18.00); Carbon Dioxide 22.7 mmol/L (20.0-27.5); Non-African American GFR(CKD) 18.8 (60.0-200.0); Potassium 4.8 mmol/L (3.5-5.5)
[2023-01-26 14:57] LABS: Basophils # (A) 0.06 X 10*3/uL (0.00-0.10); Basophils % (A) 1.4 %; Eosinophils % (A) 4.7 %; HCT 35.5 % (37.2-46.3); HGB 11.3 g/dL (12.0-15.0); Immature Grans, Automated 0.2 %; Lymphocytes # (A) 0.83 X 10*3/uL (0.90-5.00); Lymphocytes % (A) 19.5 %; MCH 27.9 pg (27.0-32.0); MCHC 31.8 g/dL (32.0-37.0); MCV 87.7 fL (80.0-97.0); Mean Platelet Volume 12.6 fL (9.5-12.2); Monocytes # (A) 0.33 X 10*3/uL (0.20-1.00); Monocytes % (A) 7.7 %; NRBC Per 100 WBC 0 /100 WBCS (0.0-0.0); Neutrophils # (A) 2.83 X 10*3/uL (1.80-7.70); Neutrophils % (A) 66.5 %; Platelet Count 190 X 10*3/uL (140-440); RBC 4.05 X 10*6/uL (4.10-5.20); RDW 14.1 % (11.5-14.5); WBC 4.26 X 10*3/uL (4.50-10.00)
== END | disposition home or self-care (01) ==
LOC: LABWHC1 08:05
PROVIDERS: ATTEND Internal Medicine Nephrology
DX: N17.9 Acute kidney failure, unspecified (principal)
CPT/HCPCS: 36415; 80051; 82565; 84520; 85025; 85610; 85730

== ENCOUNTER → 2023-01-27 | Day surgery (SDC) | payer OTHER ==
[~2023-01-27] MED LIST: ACETAMINOPHEN TAB 325 MG TAB ONE; ACETAMINOPHEN TAB 325 MG TAB PO PRN; ALPRAZolam 0.5 MG TAB PO PRN; ALPRAZolam 0.5 MG TAB PO STA; DESMOPRESSIN ACETATE 21 MCG in SODIUM CHLORIDE 0.9% 50 ML IV ONE
[2023-01-27 08:48] VITALS: RESP 16; TEMP 97.8
--- NOTE | 2023-01-27 10:46 | CT ---
EXAMINATION TYPE: CT biopsy renal RT DATE OF EXAM: 01/27/2023 COMPARISON: NONE HISTORY: right renal bx CT DLP: 1815 mGycm The procedure was explained to the patient. The risks, complications, benefits, and alternatives wer e discussed and any questions were answered. Informed consent was obtained. Patient was placed pron e on the CT table and prepped and draped in the usual sterile fashion. Utilizing CT guidance, an 18 gauge core biopsy needle access into the right renal cortex was achieved and three 18 gauge core samples were obtained. The patient was stable throughout the procedure and remained stable upon discharge. IMPRESSION: Successful 18 gauge core biopsy of the kidney function.
[2023-01-27 12:32] VITALS: PULSE 80
[2023-01-27 12:34] VITALS: BP 133/81
== END ==
LOC: RADPROMAIN 07:49
PROVIDERS: ATTEND Internal Medicine Nephrology
DX: N17.9 Acute kidney failure, unspecified (principal)
CPT/HCPCS: 86900; 86901; 86850; 96365; 50200; 77012; J2597

== ENCOUNTER 2023-08-13 10:31 | Observation (INO) | payer OTHER ==
--- NOTE | 2023-08-13 12:07 | ED ---
Recheck HPI - General Source: patient, RN notes reviewed Mode of arrival: ambulatory Limitations: no limitations <Nicci Sweeney - Last Filed: 08/13/23 12:06> - General Source: patient, RN notes reviewed Mode of arrival: ambulatory Limitations: no limitations <Van Ocampo - Last Filed: 08/13/23 15:55> - General Chief Complaint: Recheck/Abnormal Lab/Rx Stated Complaint: High BP Time Seen by Provider: 08/13/23 12:00 - History of Present Illness Initial Comments: This is a 48 year old female who presents to the emergency department for elevated BP. She had an appointment with her furnace mason today for chronic kidney disease, and her BP was found to be elevated, and they instructed her to come to the emergency department. Denies any headaches. (Nicci Sweeney) Patient is a pleasant 48-year-old female presenting to the emergency department with concerns for high blood pressure. Patient went to her furnace mason today for follow-up and was advised come the hospital secondary to blood pressure issues. Patient does have history of high blood pressure, just diagnosed a few months ago. Patient is on medication for this however unclear what. No chest pain. No dyspnea. Patient is also most symptom-free except for minimal headache which she states is improving. No weakness. (Van Ocampo) - Related Data Home Medications Medication Instructions Recorded Confirmed Spironolactone [Aldactone] 50 mg PO BID 01/12/23 08/13/23 hydrALAZINE HCL [Apresoline] 25 mg PO DAILY 01/27/23 08/13/23 Butalb/APAP/Caff 50-325-40Mg 1 tab PO Q4HR PRN 08/13/23 08/13/23 [Fioricet 50-325-40] amLODIPine [Norvasc] 10 mg PO DAILY 08/13/23 08/13/23 Previous Rx's Medication Instructions Recorded Aspirin 81 mg PO DAILY #30 tab 12/02/22 carvediloL [Coreg*] 12.5 mg PO BID-W/MEALS #60 tab 12/02/22 Allergies Allergy/AdvReac Type Severity Reaction Status Date / Time No Known Allergies Allergy Verified 08/13/23 13:44 Review of Systems ROS Other: All systems not noted in ROS Statement are negative. <Nicci Sweeney - Last Filed: 08/13/23 12:06> ROS Other: All systems not noted in ROS Statement are negative. Constitutional: Denies: fever Eyes: Denies: eye pain ENT: Denies: ear pain Respiratory: Denies: cough, dyspnea Cardiovascular: Denies: chest pain <OcampoVan - Last Filed: 08/13/23 15:55> ROS Statement: Those systems with pertinent positive or pertinent negative responses have been documented in the HPI. Past Medical History Past Medical History: Atrial Fibrillation, Hyperlipidemia, Hypertension, Renal Disease History of Any Multi-Drug Resistant Organisms: None Reported Past Surgical History: No Surgical Hx Reported Past Anesthesia/Blood Transfusion Reactions: No Reported Reaction Past Psychological History: No Psychological Hx Reported Smoking Status: Never smoker Past Alcohol Use History: None Reported Past Drug Use History: None Reported - Past Family History Mother Family Medical History: No Reported History <Nicci Sweeney - Last Filed: 08/13/23 12:06> General Exam Limitations: no limitations <Nicci Sweeney - Last Filed: 08/13/23 12:06> Limitations: no limitations General appearance: alert, in no apparent distress Head exam: Present: atraumatic, normocephalic Eye exam: Present: normal appearance, PERRL, EOMI Neck exam: Present: normal inspection Respiratory exam: Present: normal lung sounds bilaterally Cardiovascular Exam: Present: regular rate, normal rhythm GI/Abdominal exam: Present: soft. Absent: tenderness Extremities exam: Present: normal inspection Neurological exam: Present: alert, oriented X3, CN II-XII intact. Absent: motor sensory deficit Expanded Neurological exam: Present: protecting the airway Sensory exam: Upper Extremity Light Touch: Normal, Lower Extremity Light Touch: Normal Motor strength exam: RUE: 5, LUE: 5, RLE: 5, LLE: 5 Eye Response: (4) open spontaneously Motor Response: (6) obeys commands Verbal Response: (5) oriented Psychiatric exam: Present: normal affect, normal mood Skin exam: Present: normal color <OcampoVan - Last Filed: 08/13/23 15:55> - General Exam Comments Initial Comments: Visual Physical Exam Vital signs reviewed General: Well-appearing, nontoxic, no acute distress. Head: Normocephalic, atraumatic Eyes: PERRLA, EOMI ENT: Airway patent Chest: Nonlabored breathing Skin: No visual rash, normal skin tone Neuro: Alert and oriented 3 Musculoskeletal: No gross abnormalities I performed the QuickNote portion of this chart. Signed Nicci Sweeney PA-C. (Nicci Sweeney) Course Vital Signs 08/13/23 08/13/23 08/13/23 11:20 12:24 13:47 Temperature 97.7 F Pulse Rate 113 H 108 H 100 Respiratory 18 18 Rate Blood Pressure 224/146 228/147 231/160 O2 Sat by Pulse 100 100 99 Oximetry 08/13/23 08/13/23 14:24 15:13 Temperature Pulse Rate 111 H 100 Respiratory 18 18 Rate Blood Pressure 177/107 133/85 O2 Sat by Pulse 100 99 Oximetry Medical Decision Making - Lab Data Result diagrams: 08/13/23 12:18 08/13/23 12:18 <Van Ocampo - Last Filed: 08/13/23 15:55> - Medical Decision Making EKG interpreted by myself shows sinus tachycardia at 103. OH 104. QRS 98. QT 371. QTC 431. Normal axis. LVH. T-wave inversion in V6. Was pt. sent in by a medical professional or institution ([facility], [facility], urgent care, hospital, or [facility]...) When possible be specific @ -Patient was sent from her nephrology office Did you speak to anyone other than the patient for history (EMS, parent, family, police, friend...)? What history was obtained from this source @ -[No] Did you review nursing and triage notes (agree or disagree)? Why? @ -[I reviewed and agree with nursing and triage notes] Were old charts reviewed (outside hosp., previous admission, EMS record, old EKG, old radiological studies, urgent care reports/EKG's, [facility] records)? Report findings @ -Previous lab work was reviewed Differential Diagnosis (chest pain, altered mental status, abdominal pain women, abdominal pain men, vaginal bleeding, weakness, fever, dyspnea, syncope, headache, dizziness, GI bleed, back pain, seizure, CVA, palpatations, mental health, musculoskeletal)? @ -Differential Weakness: Hypoglycemia, shock, sepsis, hyponatremia, anemia, infection, DC, ETOH, adverse medicine reaction, overdose, stroke, this is not meant to be an all-inclusive list. EKG interpreted by me (3pts min.). @ -[As above] X-rays interpreted by me (1pt min.). @ -[None done] CT interpreted by me (1pt min.). @ -[None done] U/S interpreted by me (1pt. min.). @ -[None done] What testing was considered but not performed or refused? (CT, X-rays, U/S, labs)? Why? @ -Is x-ray will be added What meds were considered but not given or refused? Why? @ -[None] Did you discuss the management of the patient with other professionals (professionals i.e. Dr., PA, CHILLER TENDER, lab, RT, psych nurse, criminal justice social worker, nursery attendant, teacher, vessel traffic officer, case aide)? Give summary @ -Case was discussed with Dr. Hicks, who will admit covering Dr. Kelvin Molina who will admit. Was smoking cessation discussed for >3mins.? @ -[No] Was critical care preformed (if so, how long)? @ -35 minutes critical care time Were there social determinants of health that impacted care today? How? (Homelessness, low income, unemployed, alcoholism, drug addiction, transportation, low edu. Level, literacy, decrease access to med. care, prison, rehab)? @ -[No] Was there de-escalation of care discussed even if they declined (Discuss DNR or withdrawal of care, Hospice)? DNR status @ -[No] What co-morbidities impacted this encounter? (DM, HTN, Smoking, COPD, CAD, Cancer, CVA, ARF, Chemo, Hep., AIDS, mental health diagnosis, sleep apnea, morbid obesity)? @ -[None] Was patient admitted / discharged? Hospital course, mention meds given and route, prescriptions, significant lab abnormalities, going to OR and other pertinent info. @ -Patient reevaluated. After several medications and blood pressure is improving. Patient does have abnormal potassium, renal function and troponin. Patient will be admitted for further monitoring and treatment. Undiagnosed new problem with uncertain prognosis? @ -[No] Drug Therapy requiring intensive monitoring for toxicity (Heparin, Nitro, Insulin, Cardizem)? @ -[No] Were any procedures done? @ -[No] Diagnosis/symptom? @ -Hypertensive urgency Acute, or Chronic, or Acute on Chronic? @ -Acute Uncomplicated (without systemic symptoms) or Complicated (systemic symptoms)? @ -[default] Side effects of treatment? @ -[No] Exacerbation, Progression, or Severe Exacerbation? @ -[No] Poses a threat to life or bodily function? How? (Chest pain, USA, DC, pneumonia, PE, COPD, DKA, ARF, appy, cholecystitis, CVA, Diverticulitis, Homicidal, Suicidal, threat to staff... and all critical care pts) @ -Does post threat to cardiac function and renal function and other bodily function secondary to uncontrolled hypertension. (Van Ocampo) - Lab Data Lab Results 08/13/23 08/13/23 08/13/23 Range/Units 12:18 12:18 12:18 WBC 6.6 (3.8-10.6) k/uL RBC 3.63 L (3.80-5.40) m/uL Hgb 11.1 L (11.4-16.0) gm/dL Hct 30.7 L (34.0-46.0) % MCV 84.6 (80.0-100.0) fL MCH 30.4 (25.0-35.0) pg MCHC 36.0 (31.0-37.0) g/dL RDW 17.0 H (11.5-15.5) % Plt Count 64 L (150-450) k/uL MPV 9.9 Neutrophils % 83 % Lymphocytes % 11 % Monocytes % 4 % Eosinophils % 1 % Basophils % 0 % Neutrophils # 5.5 (1.3-7.7) k/uL Lymphocytes # 0.7 L (1.0-4.8) k/uL Monocytes # 0.2 (0-1.0) k/uL Eosinophils # 0.1 (0-0.7) k/uL Basophils # 0.0 (0-0.2) k/uL Manual Slide Review Performed Poikilocytosis Slight Anisocytosis Slight PT 10.2 (9.0-12.0) sec INR 1.0 (<1.2) APTT 25.0 (22.0-30.0) sec Sodium 134 L (137-145) mmol/L Potassium 2.7 L* (3.5-5.1) mmol/L Chloride 97 L (98-107) mmol/L Carbon Dioxide 25 (22-30) mmol/L Anion Gap 12 mmol/L BUN 52 H (7-17) mg/dL Creatinine 3.55 H (0.52-1.04) mg/dL Est GFR (CKD-EPI)AfAm 17 (>60 ml/min/1.73 sqM) Est GFR (CKD-EPI)NonAf 15 (>60 ml/min/1.73 sqM) Glucose 106 H (74-99) mg/dL Calcium 9.6 (8.4-10.2) mg/dL Total Bilirubin 1.3 (0.2-1.3) mg/dL AST 33 (14-36) U/L ALT 19 (4-34) U/L Alkaline Phosphatase 85 (38-126) U/L Troponin I (0.000-0.034) ng/mL Total Protein 7.1 (6.3-8.2) g/dL Albumin 4.4 (3.5-5.0) g/dL 08/13/23 Range/Units 12:18 WBC (3.8-10.6) k/uL RBC (3.80-5.40) m/uL Hgb (11.4-16.0) gm/dL Hct (34.0-46.0) % MCV (80.0-100.0) fL MCH (25.0-35.0) pg MCHC (31.0-37.0) g/dL RDW (11.5-15.5) % Plt Count (150-450) k/uL MPV Neutrophils % % Lymphocytes % % Monocytes % % Eosinophils % % Basophils % % Neutrophils # (1.3-7.7) k/uL Lymphocytes # (1.0-4.8) k/uL Monocytes # (0-1.0) k/uL Eosinophils # (0-0.7) k/uL Basophils # (0-0.2) k/uL Manual Slide Review Poikilocytosis Anisocytosis PT (9.0-12.0) sec INR (<1.2) APTT (22.0-30.0) sec Sodium (137-145) mmol/L Potassium (3.5-5.1) mmol/L Chloride (98-107) mmol/L Carbon Dioxide (22-30) mmol/L Anion Gap mmol/L BUN (7-17) mg/dL Creatinine (0.52-1.04) mg/dL Est GFR (CKD-EPI)AfAm (>60 ml/min/1.73 sqM) Est GFR (CKD-EPI)NonAf (>60 ml/min/1.73 sqM) Glucose (74-99) mg/dL Calcium (8.4-10.2) mg/dL Total Bilirubin (0.2-1.3) mg/dL AST (14-36) U/L ALT (4-34) U/L Alkaline Phosphatase (38-126) U/L Troponin I 0.168 H* (0.000-0.034) ng/mL Total Protein (6.3-8.2) g/dL Albumin (3.5-5.0) g/dL Disposition <Nicci Sweeney - Last Filed: 08/13/23 12:06> Is patient prescribed a controlled substance at d/c from ED?: No Time of Disposition: 15:55 <Van Ocampo - Last Filed: 08/13/23 15:55> Clinical Impression: Hypertensive urgency Disposition: ADMITTED IP TO THIS HOSP Condition: Serious Referrals: Bruno Siddiqi DO [Primary Care Provider] - 1-2 days
[2023-08-13 12:40] LABS: Anisocytosis Slight; Basophils % (A) 0 %; Eosinophils # (A) 0.1 k/uL (0-0.7); Eosinophils % (A) 1 %; HCT 30.7 % (34.0-46.0); HGB 11.1 gm/dL (11.4-16.0); Lymphocytes # (A) 0.7 k/uL (1.0-4.8); Lymphocytes % (A) 11 %; MCH 30.4 pg (25.0-35.0); MCV 84.6 fL (80.0-100.0); Mean Platelet Volume 9.9; Monocytes # (A) 0.2 k/uL (0-1.0); Monocytes % (A) 4 %; Neutrophils # (A) 5.5 k/uL (1.3-7.7); Neutrophils % (A) 83 %; Poikilocytosis Slight; RBC 3.63 m/uL (3.80-5.40); WBC 6.6 k/uL (3.8-10.6)
[2023-08-13 12:53] LABS: Prothrombin Time 10.2 sec (9.0-12.0)
[2023-08-13 12:57] LABS: ALT 19 U/L (4-34); AST 33 U/L (14-36); African American GFR (CKD) 17 (>60 ml/min/1.73 sqM); Albumin 4.4 g/dL (3.5-5.0); Alkaline Phosphatase 85 U/L (38-126); Anion Gap 12 mmol/L; Blood Urea Nitrogen 52 mg/dL (7-17); Calcium 9.6 mg/dL (8.4-10.2); Carbon Dioxide 25 mmol/L (22-30); Chloride 97 mmol/L (98-107); Glucose 106 mg/dL (74-99); Non-African American GFR(CKD) 15 (>60 ml/min/1.73 sqM); Sodium 134 mmol/L (137-145); Total Bilirubin 1.3 mg/dL (0.2-1.3); Total Protein 7.1 g/dL (6.3-8.2)
[2023-08-13] MEDS ORDERED: hydrALAZINE HCL 20 MG/ML 1 ML VIAL IVP STA ×2 (13:18→13:59)
[2023-08-13 13:25] LABS: Potassium 2.7 mmol/L (3.5-5.1)
[2023-08-13] MEDS ORDERED: LABETALOL 5 MG/ML VIAL MDV IVP STA (13:55)
[2023-08-13 13:56] LABS: Platelet Count 64 k/uL (150-450)
[2023-08-13] MEDS ORDERED: POTASSIUM CHLORIDE ER 20 MEQ TAB.ER PO STA ×2 (14:15→17:30)
[2023-08-13] MEDS ORDERED: NALOXONE 0.4 MG/ML 1 ML VIAL IV PRN (15:55)
[2023-08-13] MEDS: carvediloL 12.5 MG TAB PO SCH (17:23)
--- NOTE | 2023-08-13 17:45 | XR ---
EXAMINATION TYPE: XR chest 2V DATE OF EXAM: 08/13/2023 COMPARISON: 11/30/2022 HISTORY: 48-year-old female with hypertension TECHNIQUE: AP and lateral views FINDINGS: Heart upper limits of normal in size. Aorta and pulmonary vasculature within normal limits. No consol idation or pleural effusion. IMPRESSION: Borderline heart size. Otherwise, no acute cardiopulmonary process.
--- NOTE | 2023-08-13 18:08 | P.HPIM ---
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 She was noted to be hypertensive with abnormal labs. She reports a chronic frontal headache. Otherwise, she has been feeling well. She denies any chest pain, shortness of breath or palpitations. No nausea or vomiting. No fever or chills. In the ED, she was noted to be tac hycardic with heart rate 100s. BP as high as 231/160. CBC showed hemoglobin of 11.1 and platelet count of 64. Coagulation panel within normal limits. CMP showed sodium 134, potassium 2.7, chloride 97, BUN 52, creatinine 3.55, glucose 106. Troponin 0.168. EKG showed sinus tachycardia. Chest x-ray showed no acute process. Patient is admitted for hypertensive urgency and severe hypokalemia. Pertinent positives and negatives as discussed in HPI, a complete review of systems was performed and all other systems are negative. General: non toxic, no distress, appears at stated age Derm: warm, dry, hirsutism Head: atraumatic, normocephalic, symmetric Eyes: EOMI, no lid lag, anicteric sclera Mouth: no lip lesion, mucus membranes moist Cardiovascular: S1S2 tachy, no murmur Lungs: CTA bilateral, no rhonchi, no rales , no accessory muscle use Ext: no gross muscle atrophy, no edema, no contractures Neuro: no focal neuro deficits Psych: Alert, oriented, appropriate affect Hypertensive urgency Severe hypokalemia Troponin elevation Acute kidney injury on chronic kidney disease Normocytic anemia Thrombocytopenia Based on my assessment of this patient, this patient meets a high complexity level of care. Patient has an acute diagnosis of malignant hypertension with severe hypokalemia that poses a threat to life or bodily function. Also has troponin elevation. Hypertensive urgency: Given Hydralazine 10 mg IV x 2, Labetalol 20 mg IV in the ED. Amlodipine 10 mg PO QD. Coreg 12.5 mg PO BID. Hydralazine 25 mg PO QD. Aldactone 50 mg PO BID. Telemetry monitoring. Cardiology consulted. Severe hypokalemia: Given 20 meq KCl in the ED. Order 40 meq IV KCl + 20 mg PO KCl. Repeat tomorrow. Obtain magnesium level. Troponin elevation: Chronically elevated. No signs of ACS. Cardiology on board. Acute kidney injury on chronic kidney disease: Nephrology consult. Normocytic anemia: Transfuse if Hg < 7. Thrombocytopenia: Unknown etiology. Continue to monitor. SCDs for DVT prophylaxis. FULL CODE. I have reviewed the following ibm websphere commerce consultant notes: I have reviewed the results of the following tests: CBC, Coag panel, Trop, CXR, CMP. I have ordered the following tests: BMP. Trop. I have discussed the care of this patient with the following independent historian: I have independently interpreted the following test below: EKG as above. I have discussed the management of this patient with the following physician: Discussed with ED Physician. Past Medical History Past Medical History: Atrial Fibrillation, Hyperlipidemia, Hypertension, Renal Disease History of Any Multi-Drug Resistant Organisms: None Reported Past Surgical History: No Surgical Hx Reported Past Anesthesia/Blood Transfusion Reactions: No Reported Reaction Past Psychological History: No Psychological Hx Reported Smoking Status: Never smoker Past Alcohol Use History: None Reported Past Drug Use History: None Reported - Past Family History Mother Family Medical History: No Reported History Medications and Allergies Home Medications Medication Instructions Recorded Confirmed Type Aspirin 81 mg PO DAILY #30 tab 12/02/22 08/13/23 Rx carvediloL [Coreg*] 12.5 mg PO BID-W/MEALS #60 tab 12/02/22 08/13/23 Rx Spironolactone [Aldactone] 50 mg PO BID 01/12/23 08/13/23 History hydrALAZINE HCL [Apresoline] 25 mg PO DAILY 01/27/23 08/13/23 History Butalb/APAP/Caff 50-325-40Mg 1 tab PO Q4HR PRN 08/13/23 08/13/23 History [Fioricet 50-325-40] amLODIPine [Norvasc] 10 mg PO DAILY 08/13/23 08/13/23 History Allergies Allergy/AdvReac Type Severity Reaction Status Date / Time No Known Allergies Allergy Verified 08/13/23 13:44 Physical Exam Vitals: Vital Signs Temp Pulse Resp BP Pulse Ox 08/13/23 16:05 95 18 130/76 100 08/13/23 15:13 100 18 133/85 99 08/13/23 14:24 111 H 18 177/107 100 08/13/23 13:47 100 18 231/160 99 08/13/23 12:24 108 H 228/147 100 08/13/23 11:20 97.7 F 113 H 18 224/146 100 Intake and Output 08/13/23 08/13/23 08/13/23 06:59 14:59 22:59 Other: Weight 66.678 kg Results CBC & Chem 7: 08/13/23 12:18 08/13/23 12:18 Labs: Abnormal Lab Results - Last 24 Hours (Table) 08/13/23 08/13/23 08/13/23 Range/Units 12:18 12:18 12:18 RBC 3.63 L (3.80-5.40) m/uL Hgb 11.1 L (11.4-16.0) gm/dL Hct 30.7 L (34.0-46.0) % RDW 17.0 H (11.5-15.5) % Plt Count 64 L (150-450) k/uL Lymphocytes # 0.7 L (1.0-4.8) k/uL Sodium 134 L (137-145) mmol/L Potassium 2.7 L* (3.5-5.1) mmol/L Chloride 97 L (98-107) mmol/L BUN 52 H (7-17) mg/dL Creatinine 3.55 H (0.52-1.04) mg/dL Glucose 106 H (74-99) mg/dL Troponin I 0.168 H* (0.000-0.034) ng/mL
[2023-08-13] MEDS: POTASSIUM CHLORIDE 10 MEQ in WATER FOR INJECTION 1 100ML.BAG IVPB SCH ×4 (18:24→23:59)
[2023-08-13] MEDS: SPIRONOLACTONE 25 MG TAB PO SCH (21:09)
[2023-08-13 21:54] LABS: African American GFR (CKD) 16 (>60 ml/min/1.73 sqM); Anion Gap 11 mmol/L; Blood Urea Nitrogen 54 mg/dL (7-17); Calcium 9.2 mg/dL (8.4-10.2); Carbon Dioxide 26 mmol/L (22-30); Chloride 96 mmol/L (98-107); Glucose 122 mg/dL (74-99); Non-African American GFR(CKD) 14 (>60 ml/min/1.73 sqM); Potassium 3.3 mmol/L (3.5-5.1); Sodium 133 mmol/L (137-145)
[2023-08-14] MEDS ORDERED: HEPARIN SODIUM 1,000 UN/ML (10ML VL) IV ONE (02:51)
[2023-08-14] MEDS ORDERED: HEPARIN SODIUM 1,000 UN/ML (10ML VL) IV PRN (02:51)
[2023-08-14] MEDS ORDERED: LABETALOL 200 MG TAB PO ONE (03:00)
[2023-08-14] MEDS: HEPARIN SOD,PORK IN 0.45% NACL 25,000 UNIT in 0.45% NACL 1 250ML.BAG IV SCH (03:23)
[2023-08-14 04:39] LABS: Anisocytosis Slight; Basophils % (A) 1 %; Eosinophils # (A) 0.1 k/uL (0-0.7); Eosinophils % (A) 3 %; HCT 26.3 % (34.0-46.0); Lymphocytes # (A) 1.1 k/uL (1.0-4.8); Lymphocytes % (A) 21 %; MCH 30.2 pg (25.0-35.0); MCHC 34.9 g/dL (31.0-37.0); MCV 86.6 fL (80.0-100.0); Mean Platelet Volume 10.5; Monocytes # (A) 0.3 k/uL (0-1.0); Monocytes % (A) 6 %; Neutrophils # (A) 3.5 k/uL (1.3-7.7); Neutrophils % (A) 69 %; Poikilocytosis Slight; RBC 3.04 m/uL (3.80-5.40); RDW 17.1 % (11.5-15.5); WBC 5.1 k/uL (3.8-10.6)
[2023-08-14 04:49] LABS: ALT 15 U/L (4-34); AST 24 U/L (14-36); African American GFR (CKD) 16 (>60 ml/min/1.73 sqM); Albumin 3.8 g/dL (3.5-5.0); Alkaline Phosphatase 75 U/L (38-126); Anion Gap 9 mmol/L; Blood Urea Nitrogen 49 mg/dL (7-17); Calcium 9.3 mg/dL (8.4-10.2); Carbon Dioxide 22 mmol/L (22-30); Chloride 100 mmol/L (98-107); Glucose 113 mg/dL (74-99); Magnesium 2.3 mg/dL (1.6-2.3); Non-African American GFR(CKD) 14 (>60 ml/min/1.73 sqM); Phosphorus 3.7 mg/dL (2.5-4.5); Potassium 3.1 mmol/L (3.5-5.1); Sodium 131 mmol/L (137-145); Total Bilirubin 0.7 mg/dL (0.2-1.3); Total Protein 6.3 g/dL (6.3-8.2)
[2023-08-14 05:01] LABS: INR 1.1 (<1.2); Prothrombin Time 11.5 sec (9.0-12.0)
[2023-08-14 05:32] LABS: Partial Thromboplastin Time 133.9 sec (22.0-30.0)
[2023-08-14 05:44] LABS: HGB 9.2 gm/dL (11.4-16.0); Platelet Count 71 k/uL (150-450)
[2023-08-14] MEDS: carvediloL 12.5 MG TAB PO SCH ×2 (07:37→17:39)
[2023-08-14] MEDS: amLODIPine 10 MG TAB PO SCH (08:28)
[2023-08-14] MEDS: ASPIRIN 81 MG PO SCH (08:28)
[2023-08-14] MEDS: SPIRONOLACTONE 25 MG TAB PO SCH ×2 (08:28→20:34)
[2023-08-14] MEDS ORDERED: hydrALAZINE HCL 25 MG TAB PO SCH (09:00)
[2023-08-14] MEDS: POTASSIUM CHLORIDE 10 MEQ in WATER FOR INJECTION 1 100ML.BAG IVPB SCH ×4 (10:45→15:57)
--- NOTE | 2023-08-14 11:16 | P.PN ---
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 She was noted to be hypertensive with abnormal labs. She reports a chronic frontal headache. Otherwise, she has been feeling well. She denies any chest pain, shortness of breath or palpitations. No nausea or vomiting. No fever or chills. In the ED, she was noted to be tachycardic with heart rate 100s. BP as high as 231/160. CBC showed hemoglobin of 11.1 and platelet count of 64. Coagulation panel within normal limits. CMP showed sodium 134, potassium 2.7, chloride 97, BUN 52, creatinine 3.55, glucose 106. Troponin 0.168. EKG showed sinus tachycardia. Chest x-ray showed no acute process. Patient is admitted for hypertensive urgency and severe hypokalemia. 08/14 Patient seen and examined. Reports sinus congestion. BP spiked higher overnight requiring Labetalol 400 mg PO x 1. BP this morning 137/94. Repeat troponin elevated at 0.221. Started on Heparin drip maintaining at 12 units/kg/hr. Repeat EKG showed no ST changes. CBC shows Hg 9.2 Plt 71. BMP shows Na 131, K 3.1, BUN 49, Cr 3.64, glucose 113. APTT 31.7. General: non toxic, no distress, appears at stated age Derm: warm, dry, hirsutism Head: atraumatic, normocephalic, symmetric Eyes: EOMI, no lid lag, anicteric sclera Mouth: no lip lesion, mucus membranes moist Cardiovascular: S1S2 tachy, no murmur Lungs: CTA bilateral, no rhonchi, no rales , no accessory muscle use Ext: no gross muscle atrophy, no edema, no contractures Neuro: no focal neuro deficits Psych: Alert, oriented, appropriate affect Hypertensive urgency Severe hypokalemia Troponin elevation Acute kidney injury on chronic kidney disease Normocytic anemia Thrombocytopenia Based on my assessment of this patient, this patient meets a high complexity level of care. Patient has an acute diagnosis of malignant hypertension with severe hypokalemia that poses a threat to life or bodily function. Also has troponin elevation. Hypertensive urgency: Given Hydralazine 10 mg IV x 2, Labetalol 20 mg IV in the ED. Amlodipine 10 mg PO QD. Coreg 12.5 mg PO BID. Change Hydralazine 25 mg PO QD to TID. Aldactone 50 mg PO BID. Telemetry monitoring. Cardiology consulted. Severe hypokalemia: Order 40 meq IV KCl. Repeat tomorrow. Troponin elevation: Chronically elevated. No signs of ACS. Echocardiogram ordered. Cardiology on board. Acute kidney injury on chronic kidney disease: Nephrology consult. Normocytic anemia: Dilutional. No signs of active bleeding. Transfuse if Hg < 7. Thrombocytopenia: Unknown etiology. Continue to monitor. SCDs for DVT prophylaxis. FULL CODE. I have reviewed the following cyber security consultant notes: I have reviewed the results of the following tests: CBC, Coag panel, Trop, BMP I have ordered the following tests: Echo, BMP I have discussed the care of this patient with the following independent histo rea: I have independently interpreted the following test below: EKG as above. I have discussed the management of this patient with the following physician: Objective - Vital Signs Vital signs: Vital Signs Temp 98.3 F 08/14/23 07:00 Pulse 84 08/14/23 07:00 Resp 18 08/14/23 07:00 BP 137/94 08/14/23 07:00 Pulse Ox 98 08/14/23 07:00 FiO2 Intake & Output 08/13/23 08/14/23 08/14/23 18:59 06:59 18:59 Intake Total 17.602 Balance 17.602 Weight 66.678 kg Intake: Intake, IV Titration 17.602 Amount Heparin Sod,Pork in 0.45% 17.602 NaCl 25,000 unit In 0.45 % NaCl 1 250ml.bag @ 12 UNITS/KG/HR 8.001 mls/hr IV .Q24H [facility] Rx#: [id number] - Labs CBC & Chem 7: 08/14/23 03:53 08/14/23 03:53 Labs: Abnormal Lab Results - Last 24 Hours (Table) 08/13/23 08/13/23 08/13/23 Range/Units 12:18 12:18 12:18 RBC 3.63 L (3.80-5.40) m/uL Hgb 11.1 L (11.4-16.0) gm/dL Hct 30.7 L (34.0-46.0) % RDW 17.0 H (11.5-15.5) % Plt Count 64 L (150-450) k/uL Lymphocytes # 0.7 L (1.0-4.8) k/uL APTT (22.0-30.0) sec Sodium 134 L (137-145) mmol/L Potassium 2.7 L* (3.5-5.1) mmol/L Chloride 97 L (98-107) mmol/L BUN 52 H (7-17) mg/dL Creatinine 3.55 H (0.52-1.04) mg/dL Glucose 106 H (74-99) mg/dL Troponin I 0.168 H* (0.000-0.034) ng/mL 08/13/23 08/14/23 08/14/23 Range/Units 21:25 01:15 03:53 RBC (3.80-5.40) m/uL Hgb (11.4-16.0) gm/dL Hct (34.0-46.0) % RDW (11.5-15.5) % Plt Count (150-450) k/uL Lymphocytes # (1.0-4.8) k/uL APTT (22.0-30.0) sec Sodium 133 L 131 L (137-145) mmol/L Potassium 3.3 L 3.1 L (3.5-5.1) mmol/L Chloride 96 L (98-107) mmol/L BUN 54 H 49 H (7-17) mg/dL Creatinine 3.63 H 3.64 H (0.52-1.04) mg/dL Glucose 122 H 113 H (74-99) mg/dL Troponin I 0.221 H* (0.000-0.034) ng/mL 08/14/23 08/14/23 08/14/23 Range/Units 03:53 03:53 08:55 RBC 3.04 L (3.80-5.40) m/uL Hgb 9.2 L D (11.4-16.0) gm/dL Hct 26.3 L (34.0-46.0) % RDW 17.1 H (11.5-15.5) % Plt Count 71 L (150-450) k/uL Lymphocytes # (1.0-4.8) k/uL APTT 133.9 H* 31.7 H (22.0-30.0) sec Sodium (137-145) mmol/L Potassium (3.5-5.1) mmol/L Chloride (98-107) mmol/L BUN (7-17) mg/dL Creatinine (0.52-1.04) mg/dL Glucose (74-99) mg/dL Troponin I (0.000-0.034) ng/mL
[2023-08-14] MEDS: ACETAMINOPHEN TAB 325 MG TAB PO PRN ×2 (11:37→18:50)
--- NOTE | 2023-08-14 11:49 | P.NPCON ---
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 Patient has history of hypertension which has been previously uncontrolled. On workup for secondary causes patient was noted to have primary hyperaldosteronism with adrenal adenoma and is currently being worked up at [facility]. She did respond well to high-dose Aldactone. She was sent in from our office for significantly elevated blood pressure of 224/146. Blood pressure has improved and it is currently at 137/94. Patient states she has been taking her medications regularly. [place] no history of use of NSAIDs Hydralazine has been increased and other medications are continued including Norvasc and Coreg along with Aldactone. Patient feels well and wants to go home. Echocardiogram being performed. Review of Systems As per HPI Past Medical History Past Medical History: Atrial Fibrillation, Hyperlipidemia, Hypertension, Renal Disease History of Any Multi-Drug Resistant Organisms: None Reported Past Surgical History: No Surgical Hx Reported Past Anesthesia/Blood Transfusion Reactions: No Reported Reaction Past Psychological History: No Psychological Hx Reported Smoking Status: Never smoker Past Alcohol Use History: None Reported Past Drug Use History: None Reported - Past Family History Mother Family Medical History: No Reported History Medications and Allergies Home Medications Medication Instructions Recorded Confirmed Type Aspirin 81 mg PO DAILY #30 tab 12/02/22 08/13/23 Rx carvediloL [Coreg*] 12.5 mg PO BID-W/MEALS #60 tab 12/02/22 08/13/23 Rx Spironolactone [Aldactone] 50 mg PO BID 01/12/23 08/13/23 History hydrALAZINE HCL [Apresoline] 25 mg PO DAILY 01/27/23 08/13/23 History Butalb/APAP/Caff 50-325-40Mg 1 tab PO Q4HR PRN 08/13/23 08/13/23 History [Fioricet 50-325-40] amLODIPine [Norvasc] 10 mg PO DAILY 08/13/23 08/13/23 History Allergies Allergy/AdvReac Type Severity Reaction Status Date / Time No Known Allergies Allergy Verified 08/13/23 13:44 Physical Exam Vitals: Vital Signs Temp Pulse Resp BP Pulse Ox 08/14/23 07:00 98.3 F 84 18 137/94 98 08/14/23 05:00 90 16 136/80 98 08/14/23 02:16 96 168/111 08/14/23 01:00 93 16 170/115 99 08/13/23 20:59 105 H 16 136/92 100 08/13/23 18:27 84 18 116/82 97 08/13/23 16:05 95 18 130/76 100 08/13/23 15:13 100 18 133/85 99 08/13/23 14:24 111 H 18 177/107 100 08/13/23 13:47 100 18 231/160 99 08/13/23 12:24 108 H 228/147 100 Intake and Output 08/13/23 08/14/23 08/14/23 22:59 06:59 14:59 Intake Total 17.602 Balance 17.602 Intake: Intake, IV Titration 17.602 Amount Heparin Sod,Pork in 0.45% 17.602 NaCl 25,000 unit In 0.45 % NaCl 1 250ml.bag @ 12 UNITS/KG/HR 8.001 mls/hr IV .Q24H [facility] Rx#: [id number] Patient is awake, comfortable, no acute distress Examination of the heart S1 and S2 Examination of the lungs bilateral breath sounds are heard next and abdomen is soft nontender [place] examination of lower extremity shows no evidence of edema 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 Uncontrolled hypertension with underlying hyperaldosteronism most likely primary with adrenal adenoma currently being worked up at [facility] for further intervention. Maintained on high-dose Aldactone. Blood pressure has improved 2. Chronic kidney disease NKF stage IV status post kidney biopsy in December 2022 which showed global glomerulosclerosis mostly vascular related with history of uncontrolled hypertension. 3. Hypokalemia associated with hyperaldosteronism 4. Mild hyponatremia Plan: Increase Aldactone Replace potassium Patient can be discharged from nephrology standpoint. Continue increased dose of hydralazine. Aldactone also needs to be at 50 mg twice a day which I believe patient was not taking. She needs to follow-up as outpatient at [facility].
[2023-08-14] MEDS ORDERED: guaiFENesin 600 MG TABLET.ER PO PRN (11:55)
[2023-08-14] MEDS: LORATADINE 10 MG TAB PO SCH (12:29)
--- NOTE | 2023-08-14 13:02 | CA ---
Transthoracic Echo Report Name: Melly Eugene Age: 48 Gender: F : 1975 Exam Date: 08/14/2023 10:11 Exam Location: [facility] Ht (in): 65 Wt (lb): 147 Ordering Physician: Deepali Toeldo MD Attending/Referring Phys: Wire Mill Operator Raul Parker Procedure CPT: Indications: trop Cardiac Hx: Technical Quality: Fair Contrast 1: Total Dose (mL): Contrast 2: Total Dose (mL): MEASUREMENTS (Male / Female) Normal Values 2D ECHO LV Diastolic Diameter PLAX 4.6 cm 4.2 - 5.9 / 3.9 - 5.3 cm LV Systolic Diameter PLAX 3.3 cm IVS Diastolic Thickness 1.4 cm 0.6 - 1.0 / 0.6 - 0.9 cm LVPW Diastolic Thickness 1.6 cm 0.6 - 1.0 / 0.6 - 0.9 cm LV Relative Wall Thickness 0.6 RV Internal Dim ED PLAX 1.6 cm LVOT Diameter 2.0 cm Aortic Root Diameter 2.7 cm LA Systolic Diameter LX 2.8 cm 3.0 - 4.0 / 2.7 - 3.8 cm LV Diastolic Volume MOD BP 70.8 cm??? 67 - 155 / 56 - 104 cm??? LV Systolic Volume MOD BP 46.2 cm??? - 58 / 19 - 49 cm??? LV Ejection Fraction MOD BP 34.7 % >= 55 % LV Cardiac Index MOD BP 1244.6 cm???/min???m??? LV Diastolic Volume MOD 4C 73.3 cm??? LV Systolic Volume MOD 4C 50.9 cm??? LV Ejection Fraction MOD 4C 30.5 % LV Cardiac Index MOD 4C 1132.5 cm???/min???m??? LV Diastolic Length 4C 7.6 cm LV Systolic Length 4C 7.1 cm LV Diastolic Volume MOD 2C 69.6 cm??? LV Systolic Volume MOD 2C 42.5 cm??? LV Ejection Fraction MOD 2C 38.9 % LV Cardiac Index MOD 2C 1371.0 cm???/min???m??? LV Diastolic Length 2C 7.6 cm LV Systolic Length 2C 7.0 cm LA Volume 55.4 cm??? 18 - 58 / 22 - 52 cm??? LA Volume Index 31.5 cm???/m??? 16 - 28 cm???/m??? Ascending Aorta Diameter 3.0 cm DOPPLER AV Peak Velocity 182.7 cm/s AV Peak Gradient 13.4 mmHg LVOT Peak Velocity 130.3 cm/s LVOT Peak Gradient 6.8 mmHg LVOT Velocity Time Integral 21.6 cm LVOT Stroke Volume 66.4 cm??? LVOT Stroke Volume Index 38.2 ml/m??? LVOT Cardiac Index 3359.5 cm???/min???m??? AV Area Cont Eq pk 2.2 cm??? MV Peak Velocity 105.3 cm/s MV Peak Gradient 4.4 mmHg MV Mean Velocity 54.7 cm/s MV Mean Gradient 1.5 mmHg MV Velocity Time Integral 32.4 cm MR Peak Velocity 139.6 cm/s MR Peak Gradient 7.8 mmHg Mitral E Point Velocity 98.8 cm/s Mitral A Point Velocity 85.3 cm/s Mitral E to A Ratio 1.2 MV Deceleration Time 151.4 ms TR Peak Velocity 193.2 cm/s TR Peak Gradient 14.9 mmHg Right Ventricular Systolic Press 19.9 mmHg PV Peak Velocity 108.5 cm/s PV Peak Gradient 4.7 mmHg FINDINGS Left Ventricle Normal LV size. Moderate to severe concentric LVH. Left ventricular ejection fraction is estimated at 30-35 %. Right Ventricle Normal right ventricular size. Right Atrium Normal right atrial size. Left Atrium Normal left atrial size. LA volume index 32ml/m2 Mitral Valve Structurally normal mitral valve. Trace MR. Aortic Valve Trileaflet aortic valve. Tricuspid Valve Structurally normal tricuspid valve. Trace TR. Pulmonic Valve Structurally normal pulmonic valve. No pulmonic regurgitation. Pericardium Mild anterior pericardial effusion. Aorta Normal size aortic root and proximal ascending aorta. CONCLUSIONS Increase in the mass with severe LV dysfunction Prominent posterior pericardial stripe Previewed by: Dr. Navin Dumas MD (Electronically Signed) Final Date: 14 August 2023 13:01
[2023-08-14] MEDS: FLUTICASONE 50MCG/SPRAY NASAL 16GM EA NOSTRIL SCH (14:18)
[2023-08-14] MEDS: hydrALAZINE HCL 25 MG TAB PO SCH ×2 (16:28→20:34)
--- NOTE | 2023-08-14 16:31 | P.CRDCN ---
History of Present Illness Consult date: 08/14/23 History of present illness: HISTORY OF PRESENTING ILLNESS Patient is a 48-year-old female with past history of CKD, hypertension. She was diagnosed with hypertension and CKD in earlier part of 2022. She was referred to the hospital by her stone processing machine operator when she was seeing her in routine follow- up. On presentation her blood pressure was 230/160. On admission her labs showed hemoglobin 11.1, sodium 134, potassium 2.7, right 27, BUN 52, creatinine 3.5, troponin 0.168. She also has thrombocytopenia Her ECG showed sinus rhythm with LVH and repolarization abnormality. Her echocardiogram showed severe LVH, severely reduced LVEF of 30-35%, REVIEW OF SYSTEMS 14 point review of system is negative except what is mentioned above in HPI. PHYSICAL EXAMINATION Vital signs reviewed. Head: Normocephalic. Eyes: Sclerae nonicteric. Neck: Brisk carotid upstroke, no jugular venous distention. Lungs: Clear to auscultation. Heart: Regular rate and rhythm, S1-S2, no S3, no murmur or rub. Abdomen: Soft nontender, positive bowel sounds no organomegaly. Extremities: No edema, intact distal pulses. ASSESSMENT Hypertensive emergency Elevated troponin likely due to poor renal clearance in setting of hypertensive urgency CKD stage IV Severe LVH Severely reduced LV systolic function. Euvolemic HFrEF with EF 30-35% Hypokalemia, thrombo-cytopenia PLAN Increase Coreg to 25 mg twice a day Continue Spiriva lactone 50 mg twice a day Continue aspirin 81 mg, amlodipine 10 mg daily, May consider Entresto She needs further cardiac workup with ischemic evaluation either invasively or using a nuclear stress test. Will discuss with nephrology team if there is any diagnosis for secondary hypertension Outpatient follow-up with Dr. Gann in next 1-2 weeks after discharge Past Medical History Past Medical History: Atrial Fibrillation, Hyperlipidemia, Hypertension, Renal Disease History of Any Multi-Drug Resistant Organisms: None Reported Past Surgical History: No Surgical Hx Reported Past Anesthesia/Blood Transfusion Reactions: No Reported Reaction Past Psychological History: No Psychological Hx Reported Smoking Status: Never smoker Past Alcohol Use History: None Reported Past Drug Use History: None Reported - Past Family History Mother Family Medical History: No Reported History Medications and Allergies Home Medications Medication Instructions Recorded Confirmed Type Aspirin 81 mg PO DAILY #30 tab 12/02/22 08/13/23 Rx carvediloL [Coreg*] 12.5 mg PO BID-W/MEALS #60 tab 12/02/22 08/13/23 Rx Spironolactone [Aldactone] 50 mg PO BID 01/12/23 08/13/23 History hydrALAZINE HCL [Apresoline] 25 mg PO DAILY 01/27/23 08/13/23 History Butalb/APAP/Caff 50-325-40Mg 1 tab PO Q4HR PRN 08/13/23 08/13/23 History [Fioricet 50-325-40] amLODIPine [Norvasc] 10 mg PO DAILY 08/13/23 08/13/23 History Allergies Allergy/AdvReac Type Severity Reaction Status Date / Time No Known Allergies Allergy Verified 08/13/23 13:44 Physical Exam Vitals: Vital Signs Temp Pulse Resp BP Pulse Ox 08/14/23 12:00 93 18 128/89 98 08/14/23 07:00 98.3 F 84 18 137/94 98 08/14/23 05:00 90 16 136/80 98 08/14/23 02:16 96 168/111 08/14/23 01:00 93 16 170/115 99 08/13/23 20:59 105 H 16 136/92 100 08/13/23 18:27 84 18 116/82 97 Intake and Output 08/14/23 08/14/23 08/14/23 06:59 14:59 22:59 Intake Total 17.602 34.306 Balance 17.602 34.306 Intake: Intake, IV Titration 17.602 34.306 Amount Heparin Sod,Pork in 0.45% 17.602 34.306 NaCl 25,000 unit In 0.45 % NaCl 1 250ml.bag @ 12 UNITS/KG/HR 8.001 mls/hr IV .Q24H [facility] Rx#: [id number] Results 08/14/23 03:53 08/14/23 03:53 Cardiac Enzymes 08/14/23 08/14/23 Range/Units 01:15 03:53 AST 24 (14-36) U/L Troponin I 0.221 H* (0.000-0.034) ng/mL Coagulation 08/14/23 08/14/23 Range/Units 03:53 08:55 PT 11.5 (9.0-12.0) sec APTT 133.9 H* 31.7 H (22.0-30.0) sec CBC 08/14/23 Range/Units 03:53 WBC 5.1 (3.8-10.6) k/uL RBC 3.04 L (3.80-5.40) m/uL Hgb 9.2 L D (11.4-16.0) gm/dL Hct 26.3 L (34.0-46.0) % Plt Count 71 L (150-450) k/uL Comprehensive Metabolic Panel 08/13/23 08/14/23 Range/Units 21:25 03:53 Sodium 133 L 131 L (137-145) mmol/L Potassium 3.3 L 3.1 L (3.5-5.1) mmol/L Chloride 96 L 100 (98-107) mmol/L Carbon Dioxide 26 22 (22-30) mmol/L BUN 54 H 49 H (7-17) mg/dL Creatinine 3.63 H 3.64 H (0.52-1.04) mg/dL Glucose 122 H 113 H (74-99) mg/dL Calcium 9.2 9.3 (8.4-10.2) mg/dL AST 24 (14-36) U/L ALT 15 (4-34) U/L Alkaline Phosphatase 75 (38-126) U/L Total Protein 6.3 (6.3-8.2) g/dL Albumin 3.8 (3.5-5.0) g/dL Current Medications Generic Name Dose Route Start Last Admin Trade Name Freq PRN Reason Stop Dose Admin Acetaminophen 650 mg 08/14/23 02:51 08/14/23 11:37 Acetaminophen Tab 325 Mg Tab PO 650 mg Q6HR PRN Administration Fever and/ or Pain Amlodipine Besylate 10 mg 08/14/23 09:00 08/14/23 08:28 Amlodipine 10 Mg Tab PO 10 mg DAILY ANJALI Administration Aspirin 81 mg 08/14/23 09:00 08/14/23 08:28 Aspirin 81 Mg PO 81 mg DAILY ANJALI Administration Carvedilol 25 mg 08/14/23 17:30 Carvedilol 12.5 Mg Tab PO BID-W/MEALS ANJALI Fluticasone Propionate 2 spray 08/14/23 12:30 08/14/23 14:18 Fluticasone 50mcg/[place] Nasal 16gm EA NOSTRIL 2 spray DAILY ANJALI Administration Guaifenesin 600 mg 08/14/23 11:55 Guaifenesin 600 Mg Tablet.Er PO Q12HR PRN Congestion Heparin Sodium (Porcine) 0 unit 08/14/23 02:51 08/14/23 12:28 Heparin Sodium 1,000 Un/Ml (10ml Vl) IV 3,300 unit PER PROTOCOL PRN Administration Low PTT Protocol Hydralazine HCl 25 mg 08/14/23 16:00 08/14/23 16:28 Hydralazine Hcl 25 Mg Tab PO 25 mg TID ANJALI Administration Heparin Sodium/Sodium Chloride 250 mls @ 8.001 mls/hr 08/14/23 03:00 08/14/23 12:23 25,000 unit/ Sodium Chloride IV 12 units/kg/hr .Q24H ANJALI 8.001 mls/hr Titration Protocol 12 UNITS/KG/HR Loratadine 10 mg 08/14/23 12:30 08/14/23 12:29 Loratadine 10 Mg Tab PO 10 mg DAILY ANJALI Administration Naloxone HCl 0.2 mg 08/13/23 15:55 Naloxone 0.4 Mg/Ml 1 Ml Vial IV Q2M PRN Opioid Reversal Spironolactone 50 mg 08/13/23 21:00 08/14/23 08:28 Spironolactone 25 Mg Tab PO 50 mg BID ANJALI Administration Intake and Output 08/14/23 08/14/23 08/14/23 06:59 14:59 22:59 Intake Total 17.602 34.306 Balance 17.602 34.306 Intake: Intake, IV Titration 17.602 34.306 Amount Heparin Sod,Pork in 0.45% 17.602 34.306 NaCl 25,000 unit In 0.45 % NaCl 1 250ml.bag @ 12 UNITS/KG/HR 8.001 mls/hr IV .Q24H [facility] Rx#: [id number] 08/14/23 03:53 08/14/23 03:53
[2023-08-14 17:54] VITALS: RESP 16
[2023-08-15] MEDS: ACETAMINOPHEN TAB 325 MG TAB PO PRN (01:25)
[2023-08-15 03:47] VITALS: TEMP 98.1
[2023-08-15] MEDS: carvediloL 12.5 MG TAB PO SCH (05:30)
[2023-08-15] MEDS: HEPARIN SOD,PORK IN 0.45% NACL 25,000 UNIT in 0.45% NACL 1 250ML.BAG IV SCH (05:31)
[2023-08-15 08:13] LABS: Anisocytosis Slight; Basophils % (A) 0 %; Eosinophils # (A) 0.2 k/uL (0-0.7); Eosinophils % (A) 6 %; HCT 28.2 % (34.0-46.0); HGB 9.5 gm/dL (11.4-16.0); Lymphocytes # (A) 0.7 k/uL (1.0-4.8); Lymphocytes % (A) 20 %; MCHC 33.5 g/dL (31.0-37.0); MCV 89.5 fL (80.0-100.0); Mean Platelet Volume 9.8; Monocytes # (A) 0.2 k/uL (0-1.0); Monocytes % (A) 5 %; Neutrophils # (A) 2.5 k/uL (1.3-7.7); Neutrophils % (A) 68 %; Poikilocytosis Slight; RBC 3.15 m/uL (3.80-5.40); RDW 17.3 % (11.5-15.5); WBC 3.7 k/uL (3.8-10.6)
[2023-08-15 08:21] LABS: Platelet Count 93 k/uL (150-450)
[2023-08-15 08:29] LABS: African American GFR (CKD) 14 (>60 ml/min/1.73 sqM); Anion Gap 9 mmol/L; Blood Urea Nitrogen 54 mg/dL (7-17); Calcium 8.7 mg/dL (8.4-10.2); Carbon Dioxide 22 mmol/L (22-30); Chloride 104 mmol/L (98-107); Glucose 125 mg/dL (74-99); Non-African American GFR(CKD) 12 (>60 ml/min/1.73 sqM); Potassium 3.5 mmol/L (3.5-5.1); Sodium 135 mmol/L (137-145)
[2023-08-15 08:31] LABS: INR 0.9 (<1.2); Prothrombin Time 10.2 sec (10.0-12.5)
[2023-08-15] MEDS: amLODIPine 10 MG TAB PO SCH (09:04)
[2023-08-15] MEDS: ASPIRIN 81 MG PO SCH (09:04)
[2023-08-15] MEDS: hydrALAZINE HCL 25 MG TAB PO SCH (09:04)
[2023-08-15] MEDS: LORATADINE 10 MG TAB PO SCH (09:04)
[2023-08-15] MEDS: SPIRONOLACTONE 25 MG TAB PO SCH (09:04)
[2023-08-15] MEDS: FLUTICASONE 50MCG/SPRAY NASAL 16GM EA NOSTRIL SCH (09:04)
[2023-08-15 09:13] VITALS: BP 153/99; PULSE 99
--- NOTE | 2023-08-15 09:36 | P.PN ---
Subjective Patient is seen for follow-up for chronic kidney disease and uncontrolled hypertension. Patient has underlying primary hyperaldosteronism with left adrenal nodule most likely adenoma and is scheduled to follow-up at [facility] at the [facility] [place] [facility]. Blood pressure is better controlled. Patient was not taking the Aldactone as prescribed. Patient wants to go home today No complaints today. Objective - Vital Signs Vital signs: Vital Signs Temp 98.1 F 08/15/23 00:00 Pulse 99 08/15/23 09:03 Resp 16 08/15/23 09:03 BP 153/99 08/15/23 09:12 Pulse Ox 99 08/15/23 09:03 FiO2 Intake & Output 08/14/23 08/15/23 08/15/23 18:59 06:59 18:59 Intake Total 34.306 263.688 36.174 Balance 34.306 263.688 36.174 Weight 66.678 kg Intake: Intake, IV Titration 34.306 145.688 36.174 Amount Heparin Sod,Pork in 0.45% 34.306 145.688 36.174 NaCl 25,000 unit In 0.45 % NaCl 1 250ml.bag @ 12 UNITS/KG/HR 8.001 mls/hr IV .Q24H [facility] Rx#: [id number] Oral 118 Other: # Voids 4 - Exam Patient is awake comfortable not in any acute distress, alert oriented 3 Hirsutism noted Examination of the heart S1 and S2 Examination of the lungs bilateral breath sounds are heard Abdomen is soft nontender Examination lower extremity shows no evidence of edema CAD PROGRAMMER exam grossly intact - Labs CBC & Chem 7: 08/15/23 07:36 08/15/23 07:36 Labs: Abnormal Lab Results - Last 24 Hours (Table) 08/14/23 08/14/23 08/15/23 Range/Units 08:55 18:09 00:13 WBC (3.8-10.6) k/uL RBC (3.80-5.40) m/uL Hgb (11.4-16.0) gm/dL Hct (34.0-46.0) % RDW (11.5-15.5) % Plt Count (150-450) k/uL Lymphocytes # (1.0-4.8) k/uL APTT 31.7 H 43.4 H 32.8 H (22.0-30.0) sec Sodium (137-145) mmol/L BUN (7-17) mg/dL Creatinine (0.52-1.04) mg/dL Glucose (74-99) mg/dL Troponin I (0.000-0.034) ng/mL 08/15/23 08/15/23 08/15/23 Range/Units 07:36 07:36 07:36 WBC 3.7 L (3.8-10.6) k/uL RBC 3.15 L (3.80-5.40) m/uL Hgb 9.5 L (11.4-16.0) gm/dL Hct 28.2 L (34.0-46.0) % RDW 17.3 H (11.5-15.5) % Plt Count 93 L (150-450) k/uL Lymphocytes # 0.7 L (1.0-4.8) k/uL APTT 36.0 H (22.0-30.0) sec Sodium 135 L (137-145) mmol/L BUN 54 H (7-17) mg/dL Creatinine 4.15 H (0.52-1.04) mg/dL Glucose 125 H (74-99) mg/dL Troponin I (0.000-0.034) ng/mL 08/15/23 Range/Units 07:36 WBC (3.8-10.6) k/uL RBC (3.80-5.40) m/uL Hgb (11.4-16.0) gm/dL Hct (34.0-46.0) % RDW (11.5-15.5) % Plt Count (150-450) k/uL Lymphocytes # (1.0-4.8) k/uL APTT (22.0-30.0) sec Sodium (137-145) mmol/L BUN (7-17) mg/dL Creatinine (0.52-1.04) mg/dL Glucose (74-99) mg/dL Troponin I 0.128 H* (0.000-0.034) ng/mL Assessment and Plan Assessment: 1. Uncontrolled hypertension with underlying hyperaldosteronism most likely primary with adrenal adenoma currently scheduled at [facility] for further intervention. Maintained on high-dose Aldactone. Patient was not taking the Aldactone as prescribed. Blood pressure has improved 2. Chronic kidney disease NKF stage IV status post kidney biopsy in December 2022 which showed global glomerulosclerosis mostly vascular related with history of uncontrolled hypertension. 3. Hypokalemia associated with hyperaldosteronism 4. Mild hyponatremia 5. Cardiomyopathy with ejection fraction at 30-35% Plan: Patient can be discharged from nephrology standpoint. Continue increased dose of hydralazine. Aldactone also needs to be at 50 mg twice a day which patient was not taking. She needs to follow-up as outpatient at [facility] at the [facility]. Follow-up at our office in one week.
[2023-08-15] MEDS ORDERED: DAPAGLIFLOZIN PROPANEDIOL 5 MG TABLET PO SCH (11:15)
--- NOTE | 2023-08-15 12:12 | P.DS ---
Providers Date of admission: 08/13/23 15:58 Expected date of discharge: 08/15/23 Attending physician: Deepali Toledo MD Consults: 08/13/23 15:55 Consult Physician Routine Consulting Provider: Gricelda Zacarias Consult Reason/Comments: htn,crf Do you want consulting provider notified?: Yes Consult Physician Urgent Consulting Provider: Cedrick Gann Consult Reason/Comments: htn urgency, trop Do you want consulting provider notified?: Yes Primary care physician: [facility] Course: 48-year-old female with PMH of chronic kidney disease, hypertension presents to the ED from her x ray operator appointment. She was noted to be hypertensive with abnormal labs. She reports a chronic frontal headache. Otherwise, she has been feeling well. She denies any chest pain, shortness of breath or palpitations. No nausea or vomiting. No fever or chills. In the ED, she was noted to be tachycardic with heart rate 100s. BP as high as 231/160. CBC showed hemoglobin of 11.1 and platelet count of 64. Coagulation panel within normal limits. CMP showed sodium 134, potassium 2.7, chloride 97, BUN 52, creatinine 3.55, glucose 106. Troponin 0.168. EKG showed sinus tachycardia. Chest x-ray showed no acute process. Patient is admitted for hypertensive urgency and severe hypokalemia. 08/14 Patient seen and examined. Reports sinus congestion. BP spiked higher ove rnight requiring Labetalol 400 mg PO x 1. BP this morning 137/94. Repeat troponin elevated at 0.221. Started on Heparin drip maintaining at 12 units/kg/hr. Repeat EKG showed no ST changes. CBC shows Hg 9.2 Plt 71. BMP shows Na 131, K 3.1, BUN 49, Cr 3.64, glucose 113. APTT 31.7. 08/15 Patient was seen and examined. Reports sinus issues but otherwise feels well. Would like to go home. Echo shows EF 30-35% with severe diastolic dysfunction. Case discussed with Dr. Gann, kesha Cox and would ideally like patient to stay one more day for monitoring of renal function, will need nuclear stress test in the outpatient setting. Despite Dr. Gann's recommendations, patient would still like to go home. Cleared by Nephrology for discharge. Repeat BMP within 3 days of discharge to be followed up with Dr. Zacarias and PCP. Follow up with Dr. Gann within 1 week of discharge. Prescription sent for Hydralazine, Coreg, Flonase, Claritin, Farxiga and Mucinex. General: non toxic, no distress, appears at stated age Derm: warm, dry, hirsutism Head: atraumatic, normocephalic, symmetric Eyes: EOMI, no lid lag, anicteric sclera Mouth: no lip lesion, mucus membranes moist Cardiovascular: S1S2 tachy, no murmur Lungs: CTA bilateral, no rhonchi, no rales , no accessory muscle use Ext: no gross muscle atrophy, no edema, no contractures Neuro: no focal neuro deficits Psych: Alert, oriented, appropriate affect Discharge Diagnosis: Hypertensive urgency Severe hypokalemia Troponin elevation HFrEF + HFpEF Acute kidney injury on chronic kidney disease Normocytic anemia Thrombocytopenia This complex discharge took 35 minutes to complete. Patient Condition at Discharge: Stable Plan - Discharge Summary New Discharge Prescriptions: New hydrALAZINE HCL [Apresoline] 50 mg PO TID #90 tab carvediloL [Coreg*] 25 mg PO BID-W/MEALS #120 tab Fluticasone Nasal Lutz [Flonase Nasal Lutz] 2 spray EA NOSTRIL DAILY #11.1 ml Loratadine [Claritin] 10 mg PO DIRECTED #15 tab Dapagliflozin Propanediol [Farxiga] 5 mg PO DAILY #30 tab guaiFENesin [Mucinex] 600 mg PO Q12HR PRN #60 tab PRN Reason: Congestion Continue Aspirin 81 mg PO DAILY #30 tab Spironolactone [Aldactone] 50 mg PO BID amLODIPine [Norvasc] 10 mg PO DAILY Butalb/APAP/Caff 50-325-40Mg [Fioricet 50-325-40] 1 tab PO Q4HR PRN PRN Reason: Headache Discontinued hydrALAZINE HCL [Apresoline] 25 mg PO DAILY carvediloL [Coreg*] 12.5 mg PO BID-W/MEALS #60 tab Discharge Medication List Aspirin 81 mg PO DAILY #30 tab 12/02/22 [Rx] Spironolactone [Aldactone] 50 mg PO BID 01/12/23 [History] Butalb/APAP/Caff 50-325-40Mg [Fioricet 50-325-40] 1 tab PO Q4HR PRN 08/13/23 [History] amLODIPine [Norvasc] 10 mg PO DAILY 08/13/23 [History] Dapagliflozin Propanediol [Farxiga] 5 mg PO DAILY #30 tab 08/15/23 [Rx] Fluticasone Nasal Lutz [Flonase Nasal Lutz] 2 spray EA NOSTRIL DAILY #11.1 ml 08/15/23 [Rx] Loratadine [Claritin] 10 mg PO DIRECTED #15 tab 08/15/23 [Rx] carvediloL [Coreg*] 25 mg PO BID-W/MEALS #120 tab 08/15/23 [Rx] guaiFENesin [Mucinex] 600 mg PO Q12HR PRN #60 tab 08/15/23 [Rx] hydrALAZINE HCL [Apresoline] 50 mg PO TID #90 tab 08/15/23 [Rx] Follow up Appointment(s)/Referral(s): Cedrick Gann MD [Medical Doctor] - 1 Week (Please call to schedule hospital follow up ) Gricelda Zacarias MD [STAFF PHYSICIAN] - 1 Week (Please call to schedule hospital follow up) Bruno Siddiqi DO [Primary Care Provider] - 1-2 days (please call to schedule hospital follow up) Ambulatory/Diagnostic Orders: Basic Metabolic Panel [LAB.AMB] Time Frame: 3 Days, Location: None Selected Patient Instructions/Handouts: Potassium Content of Foods List (DC), Chronic Kidney Disease Diet (DC), Hypertensive Crisis (GEN) Activity/Diet/Wound Care/Special Instructions: Diet: Low salt, Cardiac Follow up with your PCP within 1-2 days of discharge. Keep a record of your blood pressure. Follow up with Dr. Zacarias and Dr. Gann within 1 week of discharge. Discharge Disposition: HOME SELF-CARE
[2023-08-15] MEDS ORDERED: hydrALAZINE HCL 50 MG TAB PO SCH (16:00)
== END 2023-08-15 12:12 | disposition home or self-care (01) ==
LOC: EC 10:31 → 3SCARD 15:58
PROVIDERS: ADMIT Family Medicine; ATTEND Family Medicine
DX: I16.0 Hypertensive urgency (principal); E87.6 Hypokalemia; N17.9 Acute kidney failure, unspecified; I13.0 Hypertensive heart and chronic kidney disease with heart failure and stage 1 through stage 4 chronic kidney disease, or unspecified chronic kidney disease; N18.4 Chronic kidney disease, stage 4 (severe); I50.40 Unspecified combined systolic (congestive) and diastolic (congestive) heart failure; T50.0X6A Underdosing of mineralocorticoids and their antagonists, initial encounter; D35.00 Benign neoplasm of unspecified adrenal gland; E26.09 Other primary hyperaldosteronism; E87.1 Hypo-osmolality and hyponatremia; N26.9 Renal sclerosis, unspecified; R79.89 Other specified abnormal findings of blood chemistry; D64.9 Anemia, unspecified; D69.6 Thrombocytopenia, unspecified; I42.9 Cardiomyopathy, unspecified; E78.5 Hyperlipidemia, unspecified; I48.91 Unspecified atrial fibrillation; R09.81 Nasal congestion; L68.0 Hirsutism; Z79.82 Long term (current) use of aspirin; Z79.899 Other long term (current) drug therapy
CPT/HCPCS: 96366 ×4; 96376 ×2; 96368; 96365; 96367; 96375; 99285; 36415; 93005; 93306; 80053 ×2; 80048 ×2; 83735; 84100; 84484 ×3; 85025 ×3; 85610 ×3; 85730 ×3; 71046; G0378 ×3; J0360; J1644 ×3; J3480 ×2; J1920

== ENCOUNTER 2023-10-20 08:35 | Inpatient (IN) | payer OTHER ==
[2023-10-20] MEDS ORDERED: hydrALAZINE HCL 20 MG/ML 1 ML VIAL IVP STA ×2 (09:04→09:48)
[2023-10-20 09:06] LABS: Anisocytosis Slight; Basophils % (A) 1 %; Eosinophils # (A) 0.1 k/uL (0-0.7); Eosinophils % (A) 2 %; Lymphocytes # (A) 0.4 k/uL (1.0-4.8); Lymphocytes % (A) 9 %; MCH 31.1 pg (25.0-35.0); MCV 84.1 fL (80.0-100.0); Mean Platelet Volume 9.7; Monocytes # (A) 0.2 k/uL (0-1.0); Monocytes % (A) 4 %; Neutrophils # (A) 3.9 k/uL (1.3-7.7); Neutrophils % (A) 83 %; Poikilocytosis Slight; RBC 2.04 m/uL (3.80-5.40); WBC 4.7 k/uL (3.8-10.6)
--- NOTE | 2023-10-20 09:11 | ED ---
General Adult HPI - General Chief complaint: Headache Stated complaint: headache Time Seen by Provider: 10/20/23 08:42 Source: patient, RN notes reviewed Mode of arrival: ambulatory Limitations: no limitations - History of Present Illness Initial comments: 48-year-old female with a past medical history significant for hypertension, and STEMI and hypertensive urgency resents to the emergency department with a chief complaint of headache. Patient reports intermittent headache for the last 2 weeks. She is also complaining of hypertension and seeing massive fluctuations in her blood pressure. She has been taking her medications as prescribed. She is also complaining of accompanying nausea. She denies any injury or trauma. She denies any chest pain, shortness of breath, palpitations, abdominal pain. Patient is a nonsmoker. - Related Data Home Medications Medication Instructions Recorded Confirmed Spironolactone [Aldactone] 50 mg PO BID 01/12/23 10/20/23 Butalb/APAP/Caff 50-325-40Mg 1 tab PO Q8H PRN 08/13/23 10/20/23 [Fioricet 50-325-40] amLODIPine [Norvasc] 10 mg PO DAILY 08/13/23 10/20/23 Aspirin EC [Ecotrin Low Dose] 81 mg PO DAILY 10/20/23 10/20/23 Fluticasone Nasal [place] [Flonase 2 spr EA NOSTRIL DAILY 10/20/23 10/20/23 Nasal [place]] Loratadine [Claritin] 10 mg PO DAILY 10/20/23 10/20/23 Ondansetron Odt [Zofran Odt] 4 mg PO Q8H PRN 10/20/23 10/20/23 carvediloL [Coreg*] 12.5 mg PO BID 10/20/23 10/20/23 hydrALAZINE HCL [Apresoline] 25 mg PO TID 10/20/23 10/20/23 Previous Rx's Medication Instructions Recorded Dapagliflozin Propanediol [Farxiga] 5 mg PO DAILY #30 tab 08/15/23 Allergies Allergy/AdvReac Type Severity Reaction Status Date / Time No Known Allergies Allergy Verified 10/20/23 13:49 Review of Systems ROS Statement: Those systems with pertinent positive or pertinent negative responses have been documented in the HPI. ROS Other: All systems not noted in ROS Statement are negative. Past Medical History Past Medical History: Atrial Fibrillation, Hyperlipidemia, Hypertension, Renal Disease History of Any Multi-Drug Resistant Organisms: None Reported Past Surgical History: No Surgical Hx Reported Past Anesthesia/Blood Transfusion Reactions: No Reported Reaction Past Psychological History: No Psychological Hx Reported Smoking Status: Never smoker Past Alcohol Use History: None Reported Past Drug Use History: None Reported - Past Family History Mother Family Medical History: No Reported History General Exam - General Exam Comments Initial Comments: General: Alert, in no acute distress Head: atraumatic normocephalic. Eyes PERRL, EOMI intact, mucous membranes moist Respiratory: Lungs clear to auscultation bilaterally Cardiovascular: Tachycardiac Abdominal: Soft without guarding or rebound Extremities: Normal inspection with full range of motion and normal capillary refill Neuroogic: alert and oriented 3, CN II-XII intact, able to ambulate with steady gait Skin: warm dry and intact with normal color Limitations: no limitations Course Vital Signs 10/20/23 10/20/23 10/20/23 08:38 10:12 10:40 Temperature 98.4 F Pulse Rate 108 H 112 H 121 H Respiratory 20 18 18 Rate Blood Pressure 185/124 176/112 166/106 O2 Sat by Pulse 99 100 98 Oximetry 10/20/23 10/20/23 10/20/23 11:26 14:35 14:45 Temperature 97.5 F L 98.3 F Pulse Rate 112 H 113 H 110 H Respiratory 18 18 18 Rate Blood Pressure 148/95 154/99 154/99 O2 Sat by Pulse 100 100 Oximetry - Reevaluation(s) Reevaluation #1: 10/20/23 12:24 This is discussed with simon Capellan who agrees and accepts the patient for admission. She recommends consulting nephrology for possible emergent dialysis. Reevaluation #2: 10/20/23 13:35 Case is discussed with Dr. Zacarias, nephrology who recommends starting the patient on D5W with 3 A of sodium bicarb at 100 mL/h EKG Findings - EKG Comments: EKG Findings:: I interpreted the following: EKG performed at 09:07 rate 10 2 bpm and sinus tachycardia. With left ventricular hypertrophy. LA interval 140, QRS duration 105, QT/QTC 374/433 Medical Decision Making - Medical Decision Making Was pt. sent in by a medical professional or institution (, PA, SUPERVISOR HARVESTING, urgent care, hospital, or fci...) When possible be specific @ -[No] Did you speak to anyone other than the patient for history (EMS, parent, family, police, friend...)? What history was obtained from this source @ -[No] Did you review nursing and triage notes (agree or disagree)? Why? @ -[I reviewed and agree with nursing and triage notes] Were old charts reviewed (outside hosp., previous admission, EMS record, old EKG, old radiological studies, urgent care reports/EKG's, fci records)? Report findings @ -[No old charts were reviewed] Differential Diagnosis (chest pain, altered mental status, abdominal pain women, abdominal pain men, vaginal bleeding, weakness, fever, dyspnea, syncope, headache, dizziness, GI bleed, back pain, seizure, CVA, palpatations, mental health, musculoskeletal)? @ -[not applicable] EKG interpreted by me (3pts min.). @ -[As above] X-rays interpreted by me (1pt min.). @ Not show any evidence of focal consolidation or cardiomegaly CT interpreted by me (1pt min.). @ -No evidence of midline shift or intracranial hemorrhage U/S interpreted by me (1pt. min.). @ -[None done] What testing was considered but not performed or refused? (CT, X-rays, U/S, labs)? Why? @ -[None] What meds were considered but not given or refused? Why? @ -[None] Did you discuss the management of the patient with other professionals (professionals i.e. , PA, SUPERVISOR [employer]VESTING, lab, RT, psych nurse, hospice social worker, forestry biology specialist, teacher, mounted police officer, transplant case manager)? Give summary @ -Yes, Dr. Ricks Yes, Dr. Zacarias Was smoking cessation discussed for >3mins.? @ -[No] Was critical care preformed (if so, how long)? @ -[No] Were there social determinants of health that impacted care today? How? (H omelessness, low income, unemployed, alcoholism, drug addiction, transportation, low edu. Level, literacy, decrease access to med. care, custodial, rehab)? @ -[No] Was there de-escalation of care discussed even if they declined (Discuss DNR or withdrawal of care, Hospice)? DNR status @ -[No] What co-morbidities impacted this encounter? (DM, HTN, Smoking, COPD, CAD, Cancer, CVA, ARF, Chemo, Hep., AIDS, mental health diagnosis, sleep apnea, morbid obesity)? @ -[None] Was patient admitted / discharged? Hospital course, mention meds given and route, prescriptions, significant lab abnormalities, going to OR and other pertinent info. @ -Admission. This is a pleasant 48-year-old female with a past medical history significant for atrial fibrillation and hypertension who presents the emergency department with a chief complaint of headache. Patient had a thorough history and physical exam performed. Initially patient is tachycardic. Lungs are clear to auscultation bilaterally abdomen is soft and nontender. There are no focal neuro deficits noted on exam. Patient is noted to have hirsutism. Since a medical blood pressure is 195/125. Patient had laboratory studies which revealed WBC 4.7, hemoglobin 6.3, hematocrit 17.4 platelet count 85 studies unremarkable sodium 1:30, potassium 3.2, carbon dioxide is 18 BUN 116, creatinine 9.88, initial troponin is 1.140 urinalysis negative, Covid or influenza RSV are negative. Patient was given 20 mg of hydralazine, blood pressure upon admission is 140s over 80s. Patient still reports persistent headache. Pt was also given oral potassium. Patient had CT imaging and x-ray imaging which were negative. Case is discussed with Simon Zuniga who agrees and accepts the patient for admission. She recommends ending troponins and had an ultrasound of bladder and kidneys. Consult was made to Dr. Zacarias, nephrology who recommends keeping the patient D5W with 3 amps sodium bicarb. She does not believe that the patient is emergency dialysis at this time. Approximately 35 minutes of cr itical care time were performed. Case is discussed with Dr. harrell, ED attending who agrees with plan of care Undiagnosed new problem with uncertain prognosis? @ -[No] Drug Therapy requiring intensive monitoring for toxicity (Heparin, Nitro, Ins ulin, Cardizem)? @ -[No] Were any procedures done? @ -[No] Diagnosis/symptom? @ -Headache -HTN Emergency - Acute Kidney Injury - Hypokalemia - Anemia -Tachycardia Acute, or Chronic, or Acute on Chronic? @ -Acute Uncomplicated (without systemic symptoms) or Complicated (systemic symptoms)? @ -Uncomplicated Side effects of treatment? @ -[No] Exacerbation, Progression, or Severe Exacerbation? @ -[No] Poses a threat to life or bodily function? How? (Chest pain, [place], [place], pneumonia, PE, COPD, DKA, ARF, appy, cholecystitis, CVA, Diverticulitis, Homicidal, Suicidal, threat to staff... and all critical care pts - Yes HTN with end organ damage - Lab Data Result diagrams: 10/20/23 08:58 10/20/23 08:58 Lab Results 10/20/23 10/20/23 10/20/23 Range/Units 08:58 08:58 08:58 WBC 4.7 (3.8-10.6) k/uL RBC 2.04 L (3.80-5.40) m/uL Hgb 6.3 L* D (11.4-16.0) gm/dL Hct 17.2 L* (34.0-46.0) % MCV 84.1 D (80.0-100.0) fL MCH 31.1 (25.0-35.0) pg MCHC 37.0 (31.0-37.0) g/dL RDW 19.0 H (11.5-15.5) % Plt Count 85 L (150-450) k/uL MPV 9.7 Neutrophils % 83 % Lymphocytes % 9 % Monocytes % 4 % Eosinophils % 2 % Basophils % 1 % Neutrophils # 3.9 (1.3-7.7) k/uL Lymphocytes # 0.4 L (1.0-4.8) k/uL Monocytes # 0.2 (0-1.0) k/uL Eosinophils # 0.1 (0-0.7) k/uL Basophils # 0.0 (0-0.2) k/uL Manual Slide Review Performed Hypersegmented Neuts Present Poikilocytosis Slight Anisocytosis Slight PT 10.6 (10.0-12.5) sec INR 1.0 (<1.2) APTT 24.1 (22.0-30.0) sec Sodium (137-145) mmol/L Potassium (3.5-5.1) mmol/L Chloride (98-107) mmol/L Carbon Dioxide (22-30) mmol/L Anion Gap mmol/L BUN (7-17) mg/dL Creatinine (0.52-1.04) mg/dL Est GFR (CKD-EPI)AfAm (>60 ml/min/1.73 sqM) Est GFR (CKD-EPI)NonAf (>60 ml/min/1.73 sqM) Glucose (74-99) mg/dL Calcium (8.4-10.2) mg/dL Total Bilirubin (0.2-1.3) mg/dL AST (14-36) U/L ALT (4-34) U/L Alkaline Phosphatase (38-126) U/L Troponin I (0.000-0.034) ng/mL Total Protein (6.3-8.2) g/dL Albumin (3.5-5.0) g/dL Urine Color Colorless Urine Appearance Cloudy H (Clear) Urine pH 5.5 (5.0-8.0) Ur Specific [place] 1.010 (1.001-1.035) Urine Protein 2+ H (Negative) Urine Glucose (UA) Trace H (Negative) Urine Ketones Negative (Negative) Urine Blood Moderate H (Negative) Urine Nitrite Negative (Negative) Urine Bilirubin Negative (Negative) Urine Urobilinogen <2.0 (<2.0) mg/dL Ur Leukocyte Esterase Moderate H (Negative) Urine RBC 3 (0-5) /hpf Urine WBC 10 H (0-5) /hpf Ur Squamous Epith Cells 15 H (0-4) /hpf Amorphous Sediment Rare H (None) /hpf Urine Bacteria Rare H (None) /hpf Urine Mucus Rare H (None) /hpf Influenza Type A (PCR) (Not Detectd) Influenza Type B (PCR) (Not Detectd) RSV (PCR) (Not Detectd) SARS-CoV-2 (PCR) (Not Detectd) Blood Type Blood Type Recheck Bld Type Recheck Status Antibody Screen Crossmatch Spec Expiration Date 10/20/23 10/20/23 10/20/23 Range/Units 08:58 08:58 10:40 WBC (3.8-10.6) k/uL RBC (3.80-5.40) m/uL Hgb (11.4-16.0) gm/dL Hct (34.0-46.0) % MCV (80.0-100.0) fL MCH (25.0-35.0) pg MCHC (31.0-37.0) g/dL RDW (11.5-15.5) % Plt Count (150-450) k/uL MPV Neutrophils % % Lymphocytes % % Monocytes % % Eosinophils % % Basophils % % Neutrophils # (1.3-7.7) k/uL Lymphocytes # (1.0-4.8) k/uL Monocytes # (0-1.0) k/uL Eosinophils # (0-0.7) k/uL Basophils # (0-0.2) k/uL Manual Slide Review Hypersegmented Neuts Poikilocytosis Anisocytosis PT (10.0-12.5) sec INR (<1.2) APTT (22.0-30.0) sec Sodium 130 L (137-145) mmol/L Potassium 3.2 L (3.5-5.1) mmol/L Chloride 94 L (98-107) mmol/L Carbon Dioxide 18 L (22-30) mmol/L Anion Gap 18 mmol/L BUN 116 H* (7-17) mg/dL Creatinine 9.88 H* (0.52-1.04) mg/dL Est GFR (CKD-EPI)AfAm 5 (>60 ml/min/1.73 sqM) Est GFR (CKD-EPI)NonAf 4 (>60 ml/min/1.73 sqM) Glucose 104 H (74-99) mg/dL Calcium 8.9 (8.4-10.2) mg/dL Total Bilirubin 0.7 (0.2-1.3) mg/dL AST 24 (14-36) U/L ALT 16 (4-34) U/L Alkaline Phosphatase 69 (38-126) U/L Troponin I 1.140 H* (0.000-0.034) ng/mL Total Protein 6.1 L (6.3-8.2) g/dL Albumin 3.7 (3.5-5.0) g/dL Urine Color Urine Appearance (Clear) Urine pH (5.0-8.0) Ur Specific [place] (1.001-1.035) Urine Protein (Negative) Urine Glucose (UA) (Negative) Urine Ketones (Negative) Urine Blood (Negative) Urine Nitrite (Negative) Urine Bilirubin (Negative) Urine Urobilinogen (<2.0) mg/dL Ur Leukocyte Esterase (Negative) Urine RBC (0-5) /hpf Urine WBC (0-5) /hpf Ur Squamous Epith Cells (0-4) /hpf Amorphous Sediment (None) /hpf Urine Bacteria (None) /hpf Urine Mucus (None) /hpf Influenza Type A (PCR) (Not Detectd) Influenza Type B (PCR) (Not Detectd) RSV (PCR) (Not Detectd) SARS-CoV-2 (PCR) (Not Detectd) Blood Type A Positive Blood Type Recheck A Pos Bld Type Recheck Status No Antibody Screen NEGATIVE Crossmatch See Detail Spec Expiration Date 10/23/2023 - 233910/20/23 10/20/23 Range/Units 12:36 12:36 WBC (3.8-10.6) k/uL RBC (3.80-5.40) m/uL Hgb (11.4-16.0) gm/dL Hct (34.0-46.0) % MCV (80.0-100.0) fL MCH (25.0-35.0) pg MCHC (31.0-37.0) g/dL RDW (11.5-15.5) % Plt Count (150-450) k/uL MPV Neutrophils % % Lymphocytes % % Monocytes % % Eosinophils % % Basophils % % Neutrophils # (1.3-7.7) k/uL Lymphocytes # (1.0-4.8) k/uL Monocytes # (0-1.0) k/uL Eosinophils # (0-0.7) k/uL Basophils # (0-0.2) k/uL Manual Slide Review Hypersegmented Neuts Poikilocytosis Anisocytosis PT (10.0-12.5) sec INR (<1.2) APTT (22.0-30.0) sec Sodium (137-145) mmol/L Potassium (3.5-5.1) mmol/L Chloride (98-107) mmol/L Carbon Dioxide (22-30) mmol/L Anion Gap mmol/L BUN (7-17) mg/dL Creatinine (0.52-1.04) mg/dL Est GFR (CKD-EPI)AfAm (>60 ml/min/1.73 sqM) Est GFR (CKD-EPI)NonAf (>60 ml/min/1.73 sqM) Glucose (74-99) mg/dL Calcium (8.4-10.2) mg/dL Total Bilirubin (0.2-1.3) mg/dL AST (14-36) U/L ALT (4-34) U/L Alkaline Phosphatase (38-126) U/L Troponin I 0.906 H* (0.000-0.034) ng/mL Total Protein (6.3-8.2) g/dL Albumin (3.5-5.0) g/dL Urine Color Urine Appearance (Clear) Urine pH (5.0-8.0) Ur Specific [place] (1.001-1.035) Urine Protein (Negative) Urine Glucose (UA) (Negative) Urine Ketones (Negative) Urine Blood (Negative) Urine Nitrite (Negative) Urine Bilirubin (Negative) Urine Urobilinogen (<2.0) mg/dL Ur Leukocyte Esterase (Negative) Urine RBC (0-5) /hpf Urine WBC (0-5) /hpf Ur Squamous Epith Cells (0-4) /hpf Amorphous Sediment (None) /hpf Urine Bacteria (None) /hpf Urine Mucus (None) /hpf Influenza Type A (PCR) Not Detected (Not Detectd) Influenza Type B (PCR) Not Detected (Not Detectd) RSV (PCR) Not Detected (Not Detectd) SARS-CoV-2 (PCR) Not Detected (Not Detectd) Blood Type Blood Type Recheck Bld Type Recheck Status Antibody Screen Crossmatch Spec Expiration Date Critical Care Time Critical Care Time: Yes Total Critical Care Time: 35 Disposition Clinical Impression: JAH (acute kidney injury), Hypertensive emergency, Renal failure, Headache, Anemia Disposition: ADMITTED IP TO THIS HOSP Is patient prescribed a controlled substance at d/c from ED?: No Time of Disposition: 11:29
[2023-10-20 09:19] LABS: HCT 17.2 % (34.0-46.0); HGB 6.3 gm/dL (11.4-16.0)
[2023-10-20 09:22] LABS: Partial Thromboplastin Time 24.1 sec (22.0-30.0); Prothrombin Time 10.6 sec (10.0-12.5)
[2023-10-20 09:23] LABS: ALT 16 U/L (4-34); AST 24 U/L (14-36); African American GFR (CKD) 5 (>60 ml/min/1.73 sqM); Albumin 3.7 g/dL (3.5-5.0); Alkaline Phosphatase 69 U/L (38-126); Anion Gap 18 mmol/L; Calcium 8.9 mg/dL (8.4-10.2); Carbon Dioxide 18 mmol/L (22-30); Chloride 94 mmol/L (98-107); Glucose 104 mg/dL (74-99); Non-African American GFR(CKD) 4 (>60 ml/min/1.73 sqM); Potassium 3.2 mmol/L (3.5-5.1); Sodium 130 mmol/L (137-145); Total Bilirubin 0.7 mg/dL (0.2-1.3); Total Protein 6.1 g/dL (6.3-8.2)
[2023-10-20 09:30] LABS: Amorphous Sediment,Urine Rare /hpf; Appearance,Urine Cloudy (Clear); Bacteria,Urine Rare /hpf; Bilirubin,Urine Negative (Negative); Blood,Urine Moderate (Negative); Color,Urine Colorless; Glucose,Urine (UA) Trace (Negative); Ketones,Urine Negative (Negative); Leukocyte Esterase,Urine Moderate (Negative); Mucus,Urine Rare /hpf; Nitrite,Urine Negative (Negative); PH, Urine 5.5 (5.0-8.0); Protein,Urine 2+ (Negative); RBC,Urine 3 /hpf (0-5); Squamous Epithelial Cell,Urine 15 /hpf (0-4); Urobilinogen,Urine <2.0 mg/dL (<2.0); WBC,Urine 10 /hpf (0-5)
[2023-10-20 09:32] LABS: Blood Urea Nitrogen 116 mg/dL (7-17)
[2023-10-20 09:42] LABS: Platelet Count 85 k/uL (150-450)
[2023-10-20 09:47] LABS: Hypersegmented Neutrophils Present
[2023-10-20] MEDS ORDERED: POTASSIUM CHLORIDE ER 20 MEQ TAB.ER PO STA (09:49)
--- NOTE | 2023-10-20 10:32 | CT ---
EXAMINATION TYPE: CT brain wo con CT DLP: 1095.4 mGycm, Automated exposure control for dose reduction was used. DATE OF EXAM: 10/20/2023 9:44 AM COMPARISON: None. CLINICAL INDICATION:Female, 48 years old with history of HTN, Headache, HTN, headache TECHNIQUE: Brain: Axial CT images of the brain were obtained with coronal and sagittal reformats created and rev iewed. Contrast used: None. Oral contrast used: None. FINDINGS: Extra-axial spaces: No abnormal extra-axial fluid collections. Ventricular system: Within normal limits. Cerebral parenchyma: No increased attenuation to suggest acute intraparenchymal hemorrhage. The gra y-white matter interface appears maintained. No significant atrophy. White matter unremarkable by C T. Cerebellum: No acute abnormality. Slightly low lying cerebellar tonsils. Mass effect: No evidence of mass effect or midline shift. Intracranial vasculature: Unremarkable Soft tissues: Normal. Visualized orbits: Orbital contents appear grossly intact. Calvarium/osseous structures: No evidence of calvarial fracture. Paranasal sinuses and mastoid air cells: Clear MRI is more sensitive for detecting acute processes such as infarct, and may be considered if clinica lly warranted. IMPRESSION: No acute intracranial CT abnormality.
[2023-10-20] MEDS ORDERED: MORPHINE SULFATE 2 MG/ML SYRINGE IVP ONE (10:41)
--- NOTE | 2023-10-20 11:44 | XR ---
EXAMINATION TYPE: XR chest 2V DATE OF EXAM: 10/20/2023 COMPARISON: None HISTORY: 48 year-old female hypertension TECHNIQUE: AP and lateral views FINDINGS: The heart is upper limits of normal in size. Aorta and pulmonary vasculature are within normal limits . No consolidation or pleural effusion. IMPRESSION: No acute cardiopulmonary process.
[2023-10-20] MEDS ORDERED: SODIUM CHLORIDE 0.9% 500 ML 500 ML IV ONE (12:02)
--- NOTE | 2023-10-20 13:24 | US ---
EXAMINATION TYPE: US renals and bladder DATE OF EXAM: 10/20/2023 COMPARISON: None CLINICAL INDICATION: Female, 48 years old with history of r/out hydro; R/O hydro EXAM MEASUREMENTS: Right Kidney: 9.5 x 4.2 x 4.6 cm Left Kidney: 9.4 x 4.4 x 4.1 cm Right Kidney: 5 mm echogenic focus in the midpole. No hydronephrosis. Left Kidney: No evidence of hydro, lower pole gassed out Bladder: wnl Bilateral Jets seen: No IMPRESSION: 1. Findings suggest a 5 mm nonobstructive right mid pole renal calculus. 2. No hydronephrosis on either side.
[2023-10-20] MEDS ORDERED: NALOXONE 0.4 MG/ML 1 ML VIAL IV PRN (13:44)
--- NOTE | 2023-10-20 15:05 | P.HPIM ---
History of Present Illness H&P Date: 10/20/23 Patient is a 48-year-old female with a known history of primary hyperaldosteronism with adrenal adenoma, chronic disease stage IV, uncontrolled hypertension, cardiomyopathy with EF 30-35% presenting with headaches. She claims that headaches have been intermittent, related to her high blood pressure. He has mostly in the front and the back. She does have blurry vision which is persistent and has been going on for a few months. She denies any acute vision changes. She occasionally gets chest pain but denies any shortness of breath, or bowel complaints. She does have some nausea, denies any vomiting. She is making adequate urine. Denies any smoking, alcohol use, illicit drug use. In the ED, temperature was 98.4, pulse 108, blood pressure 185/124, saturating at 99% on room air, respiratory rate 20. WBC 4.7, no clubbing 6.3, platelet 85, INR 1.0, APTT 24.1, sodium 1:30, potassium 2.2, bicarb 18, anion gap 18, BUN 116, creatinine 9.88, troponin 1.14, urinalysis negative for nitrites, shows moderate leukocyte esterase, moderate blood, 2+ protein. Respiratory viral panel negative. EKG independently interpreted, shows LVH, and sinus tachycardia. Brain CT showed no acute process. Chest x-ray independently interpreted, shows no acute process. Renal ultrasound does not show any hydronephrosis. Patient admitted for acute kidney injury in the setting of hypertensive emergency. Nephrology consulted. Pertinent positives and negatives as discussed in HPI, a complete review of systems was performed and all other systems are negative. Patient seen and examined at bedside. Vital signs reviewed General: nontoxic, no distress, appears at stated age Derm: warm, dry, hirsutism Head: atraumatic, normocephalic, symmetric Eyes: EOMI, no lid lag, anicteric sclera, pupils equal round reactive to light ENT: Nose and ears atraumatic Neck: No thyromegaly, supple Mouth: no lip lesion, mucus membranes moist Cardiovascular: S1S2 reg, no murmur, no edema Lungs: clear to auscultation bilateral, no rhonchi, no rales, no wheeze, no accessory muscle use Abdominal: soft, nontender to palpation, no guarding, no appreciable organomegaly Ext: no gross muscle atrophy, muscle strength muscle strength 5 out of 5 in all 4 extremities, no contractures Neuro: CN II-XII grossly intact Psych: Alert, oriented, appropriate affect Assessment/Plan: Nonoliguric Acute kidney injury on chronic kidney disease Primary hyperaldosteronism Hypokalemia Hyponatremia Metabolic acidosis, high anion gap Hypertensive emergency Acute on chronic normocytic anemia Acute thrombocytopenia NSTEMI, suspected type II Cardiomyopathy with EF 30-35% Headache - Restarted on aldactone 50 BID - also started on hydralazine 25 TID, coreg 12.5 BID, and amlodipine 10 daily - Continue bicarb gtt at 100 cc/hr - pending nephro recommendations - repeat BMP and mag in the afternoon - pending 1 unit of prbcs - LDH, haptoglobin, retic count, Iron studies ordered - no significant chest pain - Headache possibly in the setting of HTN, however she does have hx of migraine , avoid nsaids - tylenol for HAILE The patient is admitted with an anticipated greater than 2 midnight stay as inpatient status for evaluation of JAH. Surrogate decision-maker: spouse CODE STATUS:FC DVT prophylaxis: SCDs Anticipated discharge date: pending clinical course Anticipated discharge place: pending clinical course A total of 55 minutes was spent on the care of this complex patient more than 50% of the time was spent in counseling and care coordination. Past Medical History Past Medical History: Atrial Fibrillation, Hyperlipidemia, Hypertension, Renal Disease History of Any Multi-Drug Resistant Organisms: None Reported Past Surgical History: No Surgical Hx Reported Past Anesthesia/Blood Transfusion Reactions: No Reported Reaction Past Psychological History: No Psychological Hx Reported Smoking Status: Never smoker Past Alcohol Use History: None Reported Past Drug Use History: None Reported - Past Family History Mother Family Medical History: No Reported History Medications and Allergies Home Medications Medication Instructions Recorded Confirmed Type Spironolactone [Aldactone] 50 mg PO BID 01/12/23 10/20/23 History Butalb/APAP/Caff 50-325-40Mg 1 tab PO Q8H PRN 08/13/23 10/20/23 History [Fioricet 50-325-40] amLODIPine [Norvasc] 10 mg PO DAILY 08/13/23 10/20/23 History Dapagliflozin Propanediol [Farxiga] 5 mg PO DAILY #30 tab 08/15/23 10/20/23 Rx Aspirin EC [Ecotrin Low Dose] 81 mg PO DAILY 10/20/23 10/20/23 History Fluticasone Nasal [place] [Flonase 2 spr EA NOSTRIL DAILY 10/20/23 10/20/23 History Nasal [place]] Loratadine [Claritin] 10 mg PO DAILY 10/20/23 10/20/23 History Ondansetron Odt [Zofran Odt] 4 mg PO Q8H PRN 10/20/23 10/20/23 History carvediloL [Coreg*] 12.5 mg PO BID 10/20/23 10/20/23 History hydrALAZINE HCL [Apresoline] 25 mg PO TID 10/20/23 10/20/23 History Allergies Allergy/AdvReac Type Severity Reaction Status Date / Time No Known Allergies Allergy Verified 10/20/23 13:49 Physical Exam Vitals: Vital Signs Temp Pulse Resp BP Pulse Ox 10/20/23 14:45 98.3 F 110 H 18 154/99 100 10/20/23 14:35 97.5 F L 113 H 18 154/99 10/20/23 11:26 112 H 18 148/95 100 10/20/23 10:40 121 H 18 166/106 98 10/20/23 10:12 112 H 18 176/112 100 10/20/23 08:38 98.4 F 108 H 20 185/124 99 Intake and Output 10/20/23 10/20/23 10/20/23 06:59 14:59 22:59 Intake Total 0 Balance 0 Intake: Blood Product 0 Rc As-1 Unit 0 [id number] Other: Weight 66.224 kg Results CBC & Chem 7: 10/20/23 08:58 10/20/23 08:58 Labs: Abnormal Lab Results - Last 24 Hours (Table) 10/20/23 10/20/23 10/20/23 Range/Units 08:58 08:58 08:58 RBC 2.04 L (3.80-5.40) m/uL Hgb 6.3 L* D (11.4-16.0) gm/dL Hct 17.2 L* (34.0-46.0) % RDW 19.0 H (11.5-15.5) % Plt Count 85 L (150-450) k/uL Lymphocytes # 0.4 L (1.0-4.8) k/uL Sodium 130 L (137-145) mmol/L Potassium 3.2 L (3.5-5.1) mmol/L Chloride 94 L (98-107) mmol/L Carbon Dioxide 18 L (22-30) mmol/L BUN 116 H* (7-17) mg/dL Creatinine 9.88 H* (0.52-1.04) mg/dL Glucose 104 H (74-99) mg/dL Troponin I (0.000-0.034) ng/mL Total Protein 6.1 L (6.3-8.2) g/dL Urine Appearance Cloudy H (Clear) Urine Protein 2+ H (Negative) Urine Glucose (UA) Trace H (Negative) Urine Blood Moderate H (Negative) Ur Leukocyte Esterase Moderate H (Negative) Urine WBC 10 H (0-5) /hpf Ur Squamous Epith Cells 15 H (0-4) /hpf Amorphous Sediment Rare H (None) /hpf Urine Bacteria Rare H (None) /hpf Urine Mucus Rare H (None) /hpf Crossmatch 10/20/23 10/20/23 10/20/23 Range/Units 08:58 10:40 12:36 RBC (3.80-5.40) m/uL Hgb (11.4-16.0) gm/dL Hct (34.0-46.0) % RDW (11.5-15.5) % Plt Count (150-450) k/uL Lymphocytes # (1.0-4.8) k/uL Sodium (137-145) mmol/L Potassium (3.5-5.1) mmol/L Chloride (98-107) mmol/L Carbon Dioxide (22-30) mmol/L BUN (7-17) mg/dL Creatinine (0.52-1.04) mg/dL Glucose (74-99) mg/dL Troponin I 1.140 H* 0.906 H* (0.000-0.034) ng/mL Total Protein (6.3-8.2) g/dL Urine Appearance (Clear) Urine Protein (Negative) Urine Glucose (UA) (Negative) Urine Blood (Negative) Ur Leukocyte Esterase (Negative) Urine WBC (0-5) /hpf Ur Squamous Epith Cells (0-4) /hpf Amorphous Sediment (None) /hpf Urine Bacteria (None) /hpf Urine Mucus (None) /hpf Crossmatch See Detail
[2023-10-20] MEDS: DEXTROSE 5% IN WATER 1,000 ML with SODIUM BICARB (1 MEQ/ML) 150 ML IV SCH (15:26)
[2023-10-20] MEDS: hydrALAZINE HCL 25 MG TAB PO SCH ×2 (15:37→20:17)
[2023-10-20 16:07] LABS: African American GFR (CKD) 5 (>60 ml/min/1.73 sqM); Anion Gap 18 mmol/L; Calcium 8.9 mg/dL (8.4-10.2); Carbon Dioxide 17 mmol/L (22-30); Chloride 95 mmol/L (98-107); Glucose 107 mg/dL (74-99); LDH 458 U/L (120-246); Magnesium 2.1 mg/dL (1.6-2.3); Non-African American GFR(CKD) 4 (>60 ml/min/1.73 sqM); Potassium 3.1 mmol/L (3.5-5.1); Sodium 130 mmol/L (137-145)
[2023-10-20 16:11] LABS: Reticulocyte % 6.5 % (0.5-2.0)
[2023-10-20 16:24] LABS: Blood Urea Nitrogen 112 mg/dL (7-17)
[2023-10-20] MEDS: SPIRONOLACTONE 25 MG TAB PO SCH (17:10)
[2023-10-20] MEDS: carvediloL 12.5 MG TAB PO SCH (17:10)
[2023-10-20 19:17] LABS: Haptoglobin <10.0 mg/dL (31.2-198.0)
[2023-10-20] MEDS: ACETAMINOPHEN TAB 325 MG TAB PO PRN (22:44)
[2023-10-21] MEDS: DEXTROSE 5% IN WATER 1,000 ML with SODIUM BICARB (1 MEQ/ML) 150 ML IV SCH (02:07)
[2023-10-21 02:41] LABS: % Iron Saturation 12.42 (12.00-45.00); Iron 37 UG/DL (50-170); Total Iron Binding Capacity 298 UG/DL (228-460)
[2023-10-21] MEDS ORDERED: ONDANSETRON 4 MG/2 ML VIAL IVP STA (03:24)
[2023-10-21] MEDS ORDERED: POTASSIUM CHLORIDE ER 20 MEQ TAB.ER PO STA (03:24)
[2023-10-21] MEDS ORDERED: MORPHINE SULFATE 2 MG/ML SYRINGE IVP STA (03:24)
[2023-10-21] MEDS: amLODIPine 10 MG TAB PO SCH (08:39)
[2023-10-21] MEDS: carvediloL 12.5 MG TAB PO SCH ×2 (08:39→21:19)
[2023-10-21] MEDS: SPIRONOLACTONE 25 MG TAB PO SCH ×2 (08:39→21:19)
[2023-10-21] MEDS: hydrALAZINE HCL 25 MG TAB PO SCH (08:39)
[2023-10-21 08:48] LABS: Anisocytosis Slight; Basophils % (A) 0 %; Eosinophils # (A) 0.1 k/uL (0-0.7); Eosinophils % (A) 3 %; Lymphocytes # (A) 0.6 k/uL (1.0-4.8); Lymphocytes % (A) 14 %; MCH 30.3 pg (25.0-35.0); MCHC 35.6 g/dL (31.0-37.0); MCV 85.1 fL (80.0-100.0); Mean Platelet Volume 9.1; Monocytes # (A) 0.2 k/uL (0-1.0); Monocytes % (A) 6 %; Neutrophils % (A) 76 %; Poikilocytosis Slight; RBC 2.27 m/uL (3.80-5.40); RDW 18.2 % (11.5-15.5); WBC 3.9 k/uL (3.8-10.6)
[2023-10-21 09:26] LABS: Platelet Count 84 k/uL (150-450)
[2023-10-21 09:28] LABS: HCT 19.3 % (34.0-46.0); HGB 6.9 gm/dL (11.4-16.0)
[2023-10-21 09:33] LABS: African American GFR (CKD) 5 (>60 ml/min/1.73 sqM); Anion Gap 14 mmol/L; Carbon Dioxide 27 mmol/L (22-30); Chloride 89 mmol/L (98-107); Glucose 118 mg/dL (74-99); Non-African American GFR(CKD) 4 (>60 ml/min/1.73 sqM); Potassium 3.3 mmol/L (3.5-5.1); Sodium 130 mmol/L (137-145)
[2023-10-21 09:34] LABS: Calcium 8.1 mg/dL (8.4-10.2)
[2023-10-21 10:01] LABS: Blood Urea Nitrogen 111 mg/dL (7-17)
--- NOTE | 2023-10-21 11:38 | P.NPCON ---
History of Present Illness - Reason for Consult acute renal failure - History of Present Illness Patient is a 48-year-old female with history of CK D stage IV status post kidney biopsy in December 2022 which showed global glomerulosclerosis mostly vascular related with history of uncontrolled hypertension. Baseline creatinine around 3.2-3.6 mg/dL. Patient also has underlying hyperaldosteronism with left adrenal adenoma noted on workup for secondary causes of hypertension. Patient clinically responded very well to Aldactone and has been referred to [facility] for further evaluation. Patient will need adrenal vein sampling. She has an upcoming appointment scheduled for December 2023. Patient is admitted to the hospital with complaints of weakness. She also had some nausea and decreased oral intake recently. Patient states she was sick about 2 weeks ago and tested negative for cold with as well as influenza virus. She has been trying to increase her fluid intake since then. No significant change in urine output. No history of use of NSAIDs. Serum creatinine noted to be 9.7 mg/dL on 10/20/2023 with previous creatinine of 3.2 on 08/31/2023. Blood pressure has been uncontrolled recently. Patient states she has been taking her medications regularly. She has had headache on and off. CT of the head was unremarkable. Ultrasound of the kidneys shows no evidence of obstruction. 5 mm nonobstructive right mid pole renal calculus noted. Review of Systems As per HPI Past Medical History Past Medical History: Atrial Fibrillation, Hyperlipidemia, Hypertension, Renal Disease Additional Past Medical History / Comment(s): Hyperaldosteronism,cardiomyopathy History of Any Multi-Drug Resistant Organisms: None Reported Past Surgical History: No Surgical Hx Reported Past Anesthesia/Blood Transfusion Reactions: No Reported Reaction Past Psychological History: No Psychological Hx Reported Smoking Status: Never smoker Past Alcohol Use History: None Reported Past Drug Use History: None Reported - Past Family History Mother Family Medical History: No Reported History Medications and Allergies Home Medications Medication Instructions Recorded Confirmed Type Spironolactone [Aldactone] 50 mg PO BID 01/12/23 10/20/23 History Butalb/APAP/Caff 50-325-40Mg 1 tab PO Q8H PRN 08/13/23 10/20/23 History [Fioricet 50-325-40] amLODIPine [Norvasc] 10 mg PO DAILY 08/13/23 10/20/23 History Dapagliflozin Propanediol [Farxiga] 5 mg PO DAILY #30 tab 08/15/23 10/20/23 Rx Aspirin EC [Ecotrin Low Dose] 81 mg PO DAILY 10/20/23 10/20/23 History Fluticasone Nasal [place] [Flonase 2 spr EA NOSTRIL DAILY 10/20/23 10/20/23 History Nasal [place]] Loratadine [Claritin] 10 mg PO DAILY 10/20/23 10/20/23 History Ondansetron Odt [Zofran Odt] 4 mg PO Q8H PRN 10/20/23 10/20/23 History carvediloL [Coreg*] 12.5 mg PO BID 10/20/23 10/20/23 History hydrALAZINE HCL [Apresoline] 25 mg PO TID 10/20/23 10/20/23 History Allergies Allergy/AdvReac Type Severity Reaction Status Date / Time No Known Allergies Allergy Verified 10/20/23 13:49 Physical Exam Vitals: Vital Signs Temp Pulse Pulse Resp BP BP Pulse Ox 10/21/23 08:00 97.9 F 106 H 14 168/100 96 10/21/23 03:12 98.1 F 102 H 20 169/113 94 L 10/20/23 23:16 98.4 F 105 H 18 167/100 95 10/20/23 19:54 98.5 F 116 H 18 170/102 100 10/20/23 17:27 98.2 F 118 H 18 197/121 10/20/23 17:00 98.2 F 127 H 16 198/129 100 10/20/23 16:20 122 H 18 171/107 100 10/20/23 15:05 98.3 F 115 H 18 176/115 100 10/20/23 14:45 98.3 F 110 H 18 154/99 100 10/20/23 14:35 97.5 F L 113 H 18 154/99 10/20/23 11:26 112 H 18 148/95 100 Intake and Output 10/20/23 10/21/23 10/21/23 22:59 06:59 14:59 Intake Total 310 Balance 310 Intake: Blood Product 310 Rc As-1 Unit 310 [id number] Other: Voiding Method Toilet Toilet Weight 66.224 kg PATIENT IS COMFORTABLE AWAKE alert oriented 3 Significant HIRSUITISM noted No acute distress Examination of the heart S1 and S2 Examination of the lungs bilateral breath sounds are heard Abdomen is soft nontender Examination of the lower extremities shows no evidence of edema [employer]IOR [employer]OPER exam grossly intact Results - Lab Results Most recent lab results Calcium 8.1 mg/dL (8.4-10.2) L 10/21/23 08:18 Magnesium 2.1 mg/dL (1.6-2.3) 10/20/23 15:23 10/21/23 08:18 10/21/23 08:18 Assessment and Plan Assessment: 1. Acute kidney injury most likely ATN currently nonoliguric. No evidence of obstruction on ultrasound. UA shows 2+ protein and moderate blood. Likely underlying component of hypovolemia. Patient is currently maintained on IV fluids. No nephrotoxic agents identified. Blood pressure has been uncontrolled and medications have been adjusted. Discussed with patient regarding need for renal replacement therapy if renal function does not improve in the next 24 hours. Currently she is largely asymptomatic and complaining of mostly headache which I believe is from uncontrolled hypertension. 2. Hypertensive urgency with previous workup for resistant hypertension showed hyperaldosteronism with left adrenal adenoma. Patient clinically responded well to Aldactone. She has an appointment at [facility] for further evaluation as patient will need adrenal vein sampling. 3. 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 4. Significant anemia with no active bleeding noted. Rule out iron deficiency Spencer at status post packed RBCs transfusion. 5. Anion gap metabolic acidosis secondary to acute kidney injury started on bicarb drip and improved. 6. Hypokalemia associated with hyperaldosteronism. Plan: Discussed renal replacement therapy. Patient is advised that she will need hemodialysis by tomorrow if renal function is not further improved. Increase hydralazine Increase Aldactone further. Replace potassium DC bicarb drip and switched to Ringer lactate at 70 mL an hour Increase Coreg if blood pressure remains uncontrolled. Thank you for the consultation. We will continue to follow the patient with you during her hospitalization.
[2023-10-21] MEDS: ACETAMINOPHEN TAB 325 MG TAB PO PRN ×2 (12:13→19:42)
[2023-10-21] MEDS: LACTATED RINGERS 1,000 ML IV SCH (12:13)
[2023-10-21] MEDS: ONDANSETRON 4 MG/2 ML VIAL IVP PRN ×2 (12:19→22:59)
--- NOTE | 2023-10-21 13:33 | P.PN ---
Subjective Progress Note Date: 10/21/23 Hospital Course: 48-year-old female with a known history of primary hyperaldosteronism with adrenal adenoma, chronic disease stage IV, uncontrolled hypertension, cardiomyopathy with EF 30-35% presenting with headaches. In the ED, temperature was 98.4, pulse 108, blood pressure 185/124, saturating at 99% on room air, respiratory rate 20. WBC 4.7, no clubbing 6.3, platelet 85, INR 1.0, APTT 24.1, sodium 1:30, potassium 2.2, bicarb 18, anion gap 18, BUN 116, creatinine 9.88, troponin 1.14, urinalysis negative for nitrites, shows moderate leukocyte esterase, moderate blood, 2+ protein. Respiratory viral panel negative. EKG independently interpreted, shows LVH, and sinus tachycardia. Brain CT showed no acute process. Chest x-ray independently interpreted, shows no acute process. Renal ultrasound does not show any hydronephrosis. Patient admitted for acute kidney injury in the setting of hypertensive emergency. Nephrology consulted. Renal function still poor. Continues to make urine. Antihypertensives increased. On IV fluids. Likely will need dialysis tomorrow. Subjective: Patient seen and examined at bedside. No acute events overnight. Continues to have intermittent headaches but slightly improved compared to yesterday. Pertinent positives and negatives as discussed above, a complete review of systems was performed and all other systems are negative. Vitals Signs Reviewed. General: nontoxic, no distress, appears at stated age Derm: warm, dry, hirsutism Head: atraumatic, normocephalic, symmetric Eyes: EOMI, no lid lag, anicteric sclera Mouth: no lip lesion, mucus membranes moist Cardiovascular: S1S2 reg, no murmur Lungs: CTA bilateral, no rhonchi, no rales , no accessory muscle use Abdominal: soft, nontender to palpation, no guarding, no appreciable organomegaly Ext: no gross muscle atrophy, no edema, no contractures Neuro: CN II-XI grossly intact, no focal neuro deficits Psych: Alert, oriented, appropriate affect Data Reviewed Today: Pertinent Labs: Hemoglobin 6.9, platelet 84, potassium 3.3, sodium 1:30, creatinine 9.6 on Imaging: No new imaging Assessment and Plan: Prognosis guarded, patient may need hemodialysis. She needs close monitoring Nonoliguric Acute kidney injury on chronic kidney disease Primary hyperaldosteronism Hypokalemia Hyponatremia Metabolic acidosis, high anion gap, resolved Hypertensive emergency Acute on chronic normocytic anemia Acute thrombocytopenia NSTEMI, suspected type II Cardiomyopathy with EF 30-35% Headache -Nephrology note reviewed, bicarb drip discontinued from started on lactated Ringer at 75 mL an hour, increase hydralazine, and Aldactone -On Aldactone 100 twice a day, hydralazine 50 TID, coreg 12.5 BID, and amlodipine 10 daily -Patient probably will need hemodialysis tomorrow -Anemia possibly related to anemia chronic disease, and possible hemolysis as well given elevated LDH and low haptoglobin. All studies were taken after she got 1 unit of transfusion -No active bleeding, transfuse another unit of PRBCs - no significant chest pain - Headache possibly in the setting of HTN, however she does have hx of migraine , avoid nsaids - tylenol for HAILE -Avoid morphine if possible given significant acute kidney injury DVT ppx: Subcu heparin Code status: FC Anticipated discharge place: pending clinical course Anticipated discharge time: pending clinical course Objective - Vital Signs Vital signs: Vital Signs Temp 97.8 F 10/21/23 12:00 Pulse 98 10/21/23 12:00 Resp 14 10/21/23 12:00 BP 158/96 10/21/23 12:00 Pulse Ox 98 10/21/23 12:00 FiO2 Intake & Output 10/20/23 10/21/23 10/21/23 18:59 06:59 18:59 Intake Total 310 Balance 310 Weight 66.224 kg Intake: Blood Product 310 Rc As-1 Unit 310 [id number] Other: Voiding Method Toilet - Labs CBC & Chem 7: 10/21/23 08:18 10/21/23 08:18 Labs: Abnormal Lab Results - Last 24 Hours (Table) 10/20/23 10/20/23 10/20/23 Range/Units 10:40 12:36 13:53 RBC (3.80-5.40) m/uL Hgb (11.4-16.0) gm/dL Hct (34.0-46.0) % RDW (11.5-15.5) % Plt Count (150-450) k/uL Lymphocytes # (1.0-4.8) k/uL Retic Count (0.5-2.0) % Haptoglobin (31.2-198.0) mg/dL Sodium (137-145) mmol/L Potassium (3.5-5.1) mmol/L Chloride (98-107) mmol/L Carbon Dioxide (22-30) mmol/L BUN (7-17) mg/dL Creatinine (0.52-1.04) mg/dL Glucose (74-99) mg/dL Calcium (8.4-10.2) mg/dL Iron (50-170) UG/DL Ferritin (10.0-291.0) ng/mL Lactate Dehydrogenase (120-246) U/L Troponin I 0.906 H* (0.000-0.034) ng/mL C-Reactive Protein 1.7 H (<1.0) mg/dL Crossmatch See Detail 10/20/23 10/20/23 10/20/23 Range/Units 15:23 15:23 15:23 RBC (3.80-5.40) m/uL Hgb (11.4-16.0) gm/dL Hct (34.0-46.0) % RDW (11.5-15.5) % Plt Count (150-450) k/uL Lymphocytes # (1.0-4.8) k/uL Retic Count 6.5 H (0.5-2.0) % Haptoglobin <10.0 L (31.2-198.0) mg/dL Sodium 130 L (137-145) mmol/L Potassium 3.1 L (3.5-5.1) mmol/L Chloride 95 L (98-107) mmol/L Carbon Dioxide 17 L (22-30) mmol/L BUN 112 H* (7-17) mg/dL Creatinine 9.74 H* (0.52-1.04) mg/dL Glucose 107 H (74-99) mg/dL Calcium (8.4-10.2) mg/dL Iron 37 L (50-170) UG/DL Ferritin 977.0 H (10.0-291.0) ng/mL Lactate Dehydrogenase 458 H (120-246) U/L Troponin I (0.000-0.034) ng/mL C-Reactive Protein (<1.0) mg/dL Crossmatch 12/20/23 12/20/23 Range/Units 08:18 08:18 RBC 2.27 L (3.80-5.40) m/uL Hgb 6.9 L* (11.4-16.0) gm/dL Hct 19.3 L* (34.0-46.0) % RDW 18.2 H (11.5-15.5) % Plt Count 84 L (150-450) k/uL Lymphocytes # 0.6 L (1.0-4.8) k/uL Retic Count (0.5-2.0) % Haptoglobin (31.2-198.0) mg/dL Sodium 130 L (137-145) mmol/L Potassium 3.3 L (3.5-5.1) mmol/L Chloride 89 L (98-107) mmol/L Carbon Dioxide (22-30) mmol/L BUN 111 H* (7-17) mg/dL Creatinine 9.61 H* (0.52-1.04) mg/dL Glucose 118 H (74-99) mg/dL Calcium 8.1 L (8.4-10.2) mg/dL Iron (50-170) UG/DL Ferritin (10.0-291.0) ng/mL Lactate Dehydrogenase (120-246) U/L Troponin I (0.000-0.034) ng/mL C-Reactive Protein (<1.0) mg/dL Crossmatch
[2023-10-21 15:05] LABS: % Iron Saturation 13.07 (12.00-45.00)
[2023-10-21] MEDS: HEPARIN SODIUM,PORCINE 5,000 UNIT/ML 1 ML VIAL SQ SCH (15:30)
[2023-10-21] MEDS: hydrALAZINE HCL 50 MG TAB PO SCH ×2 (15:30→21:20)
[2023-10-21] MEDS: DARBEPOETIN ALFA 60 MCG/0.3 ML SYRINGE SQ SCH (16:53)
[2023-10-22] MEDS: HEPARIN SODIUM,PORCINE 5,000 UNIT/ML 1 ML VIAL SQ SCH ×4 (00:12→23:51)
[2023-10-22] MEDS: LACTATED RINGERS 1,000 ML IV SCH ×2 (00:29→15:19)
[2023-10-22] MEDS: ACETAMINOPHEN TAB 325 MG TAB PO PRN ×4 (02:19→21:05)
[2023-10-22] MEDS: amLODIPine 10 MG TAB PO SCH (08:19)
[2023-10-22] MEDS: hydrALAZINE HCL 50 MG TAB PO SCH ×3 (08:19→21:05)
[2023-10-22] MEDS: SPIRONOLACTONE 25 MG TAB PO SCH ×2 (08:19→21:05)
[2023-10-22] MEDS: carvediloL 12.5 MG TAB PO SCH ×2 (08:19→21:05)
[2023-10-22 10:40] LABS: African American GFR (CKD) 6 (>60 ml/min/1.73 sqM); Anion Gap 14 mmol/L; Calcium 8.7 mg/dL (8.4-10.2); Carbon Dioxide 25 mmol/L (22-30); Chloride 92 mmol/L (98-107); Glucose 96 mg/dL (74-99); Magnesium 1.9 mg/dL (1.6-2.3); Non-African American GFR(CKD) 5 (>60 ml/min/1.73 sqM); Potassium 3.7 mmol/L (3.5-5.1); Sodium 131 mmol/L (137-145)
[2023-10-22 10:49] LABS: Anisocytosis Slight; Basophils % (A) 1 %; Eosinophils # (A) 0.2 k/uL (0-0.7); Eosinophils % (A) 3 %; HCT 25.4 % (34.0-46.0); Lymphocytes # (A) 0.5 k/uL (1.0-4.8); Lymphocytes % (A) 11 %; MCH 29.7 pg (25.0-35.0); MCHC 34.9 g/dL (31.0-37.0); MCV 85.1 fL (80.0-100.0); Mean Platelet Volume 9.3; Monocytes # (A) 0.2 k/uL (0-1.0); Monocytes % (A) 5 %; Neutrophils # (A) 3.6 k/uL (1.3-7.7); Neutrophils % (A) 79 %; Poikilocytosis Slight; RBC 2.99 m/uL (3.80-5.40); RDW 17.8 % (11.5-15.5); WBC 4.5 k/uL (3.8-10.6)
[2023-10-22 10:53] LABS: HGB 8.9 gm/dL (11.4-16.0)
[2023-10-22 10:54] LABS: Blood Urea Nitrogen 111 mg/dL (7-17); Platelet Count 92 k/uL (150-450)
[2023-10-22] MEDS: LIDOCAINE 4% PATCH TOPICAL SCH (12:12)
--- NOTE | 2023-10-22 13:33 | P.PN ---
Subjective Patient is seen for follow-up for acute kidney injury. She is currently maintained on IV fluids. Patient states that her headache is somewhat improved but is complaining of nasal congestion. Good urine output Labs show serum creatinine down to 8.69 today. Hemoglobin 8.9 g/dL. No active bleeding noted. Objective - Vital Signs Vital signs: Vital Signs Temp 98 F 10/22/23 11:05 Pulse 103 H 10/22/23 11:05 Resp 18 10/22/23 11:05 BP 146/91 10/22/23 11:05 Pulse Ox 98 10/22/23 11:05 FiO2 Intake & Output 10/21/23 10/22/23 10/22/23 18:59 06:59 18:59 Intake Total 1060 310 Balance 1060 310 Intake: Intake, IV Titration 400 Amount Lactated Ringers 1,000 ml 400 @ 75 mls/hr IV .[id number] [facility] Rx#:[id number] Oral 660 Blood Product 0 310 Rc As-1 Unit 0 310 [id number] Other: Voiding Method Toilet Toilet Toilet # Voids 1 - Exam Agent is awake, comfortable, alert oriented 3 Significant HIRSUITISM noted No acute distress Examination of the heart S1 and S2 Examination of the lungs bilateral breath sounds are heard Abdomen is soft nontender Examination of the lower extremities shows no evidence of edema [employer]IST exam grossly intact - Labs CBC & Chem 7: 10/22/23 09:55 10/22/23 09:55 Labs: Abnormal Lab Results - Last 24 Hours (Table) 10/20/23 10/20/23 10/22/23 Range/Units 08:58 10:40 09:55 RBC 2.99 L (3.80-5.40) m/uL Hgb 8.9 L D (11.4-16.0) gm/dL Hct 25.4 L (34.0-46.0) % RDW 17.8 H (11.5-15.5) % Plt Count 92 L (150-450) k/uL Lymphocytes # 0.5 L (1.0-4.8) k/uL Sodium (137-145) mmol/L Chloride (98-107) mmol/L BUN (7-17) mg/dL Creatinine (0.52-1.04) mg/dL Iron 43 L (50-170) UG/DL Crossmatch See Detail 12/21/23 Range/Units 09:55 RBC (3.80-5.40) m/uL Hgb (11.4-16.0) gm/dL Hct (34.0-46.0) % RDW (11.5-15.5) % Plt Count (150-450) k/uL Lymphocytes # (1.0-4.8) k/uL Sodium 131 L (137-145) mmol/L Chloride 92 L (98-107) mmol/L BUN 111 H* (7-17) mg/dL Creatinine 8.69 H* (0.52-1.04) mg/dL Iron (50-170) UG/DL Crossmatch Assessment and Plan Assessment: 1. Acute kidney injury most likely ATN currently nonoliguric. No evidence of obstruction on ultrasound. UA shows 2+ protein and moderate blood. Likely underlying component of hypovolemia. Patient is currently maintained on IV fluids. No nephrotoxic agents identified. Blood pressure has been uncontrolled and medications have been adjusted. Discussed with patient regarding need for renal replacement therapy if renal function does not improve in the next 24 hours. Currently she is largely asymptomatic and complaining of mostly headache which I believe is from uncontrolled hypertension. 2. Hypertensive urgency with previous workup for resistant hypertension showed hyperaldosteronism with left adrenal adenoma. Renin level was elevated which should ideally be low for primary hyperaldosteronism but Patient clinically responded well to Aldactone. She has an appointment at [facility] for further evaluation as patient will need adrenal vein sampling. 3. 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 4. Significant anemia with no active bleeding noted. Rule out iron deficiency Spencer at status post packed RBCs transfusion. 5. Anion gap metabolic acidosis secondary to acute kidney injury started on bic arb drip and improved. 6. Hypokalemia associated with hyperaldosteronism. Plan: Continue with IV fluids and Hold hemodialysis today as serum creatinine is slightly better Repeat aldosterone and renin levels. Continue current antihypertensive regimen along with increased dose of Aldactone.
--- NOTE | 2023-10-22 14:55 | P.PN ---
Subjective Progress Note Date: 10/22/23 Hospital Course: 48-year-old female with a known history of primary hyperaldosteronism with adr enal adenoma, chronic disease stage IV, uncontrolled hypertension, cardiomyopathy with EF 30-35% presenting with headaches. In the ED, temperature was 98.4, pulse 108, blood pressure 185/124, saturating at 99% on room air, respiratory rate 20. WBC 4.7, no clubbing 6.3, platelet 85, INR 1.0, APTT 24.1, sodium 1:30, potassium 2.2, bicarb 18, anion gap 18, BUN 116, creatinine 9.88, troponin 1.14, urinalysis negative for nitrites, shows moderate leukocyte esterase, moderate blood, 2+ protein. Respiratory viral panel negative. EKG independently interpreted, shows LVH, and sinus tachycardia. Brain CT showed no acute process. Chest x-ray independently interpreted, shows no acute process. Renal ultrasound does not show any hydronephrosis. Patient admitted for acute kidney injury in the setting of hypertensive emergency. Nephrology consulted. Continues to make urine. Antihypertensives increased. On IV fluids. Renal function slightly improved. Subjective: Patient seen and examined at bedside. No acute events overnight. Continues to have intermittent headaches but slightly improved compared to yesterday. Pertinent positives and negatives as discussed above, a complete review of systems was performed and all other systems are negative. Vitals Signs Reviewed. General: nontoxic, no distress, appears at stated age Derm: warm, dry, hirsutism Head: atraumatic, normocephalic, symmetric Eyes: EOMI, no lid lag, anicteric sclera Mouth: no lip lesion, mucus membranes moist Cardiovascular: S1S2 reg, no murmur Lungs: CTA bilateral, no rhonchi, no rales , no accessory muscle use Abdominal: soft, nontender to palpation, no guarding, no appreciable organomegaly Ext: no gross muscle atrophy, no edema, no contractures Neuro: CN II-XI grossly intact, no focal neuro deficits Psych: Alert, oriented, appropriate affect Data Reviewed Today: Pertinent Labs: Hemoglobin 8.9, platelet 92, sodium 131, potassium 3.7, creatinine 8.69, magnesium 1.9 Imaging: No new imaging Assessment and Plan: Prognosis guarded, patient may need hemodialysis. She needs close monitoring Nonoliguric Acute kidney injury on chronic kidney disease Primary hyperaldosteronism Hypokalemia Hyponatremia Metabolic acidosis, high anion gap, resolved Hypertensive emergency Acute on chronic normocytic anemia, status post 2 units of PRBCs Acute thrombocytopenia NSTEMI, suspected type II Cardiomyopathy with EF 30-35% Headache -Nephrology note reviewed, continue lactated Ringer at 75 mL an hour, increased dose of hydralazine, and Aldactone -On Aldactone 100 twice a day, hydralazine 50 TID, coreg 12.5 BID, and amlodipine 10 daily -Holding off of hemodialysis for now -Anemia possibly related to anemia chronic disease, and possible hemolysis as well given elevated LDH and low haptoglobin -Started on darbepoetin per nephrology - no significant chest pain -Headaches likely tension related, lidocaine patch for the neck, also on Tylenol -Avoid morphine if possible given significant acute kidney injury DVT ppx: Subcu heparin Code status: Anticipated discharge place: pending clinical course Anticipated discharge time: pending clinical course Objective - Vital Signs Vital signs: Vital Signs Temp 98 F 10/22/23 11:05 Pulse 103 H 10/22/23 11:05 Resp 18 10/22/23 11:05 BP 146/91 10/22/23 11:05 Pulse Ox 98 10/22/23 11:05 FiO2 Intake & Output 10/21/23 10/22/23 10/22/23 18:59 06:59 18:59 Intake Total 1060 310 Balance 1060 310 Intake: Intake, IV Titration 400 Amount Lactated Ringers 1,000 ml 400 @ 75 mls/hr IV .[id number] [facility] Rx#:[id number] Oral 660 Blood Product 0 310 Rc As-1 Unit 0 310 [id number] Other: Voiding Method Toilet Toilet Toilet # Voids 1 1 - Labs CBC & Chem 7: 10/22/23 09:55 10/22/23 09:55 Labs: Abnormal Lab Results - Last 24 Hours (Table) 10/20/23 10/20/23 10/22/23 Range/Units 08:58 10:40 09:55 RBC 2.99 L (3.80-5.40) m/uL Hgb 8.9 L D (11.4-16.0) gm/dL Hct 25.4 L (34.0-46.0) % RDW 17.8 H (11.5-15.5) % Plt Count 92 L (150-450) k/uL Lymphocytes # 0.5 L (1.0-4.8) k/uL Sodium (137-145) mmol/L Chloride (98-107) mmol/L BUN (7-17) mg/dL Creatinine (0.52-1.04) mg/dL Iron 43 L (50-170) UG/DL Crossmatch See Detail 10/22/23 Range/Units 09:55 RBC (3.80-5.40) m/uL Hgb (11.4-16.0) gm/dL Hct (34.0-46.0) % RDW (11.5-15.5) % Plt Count (150-450) k/uL Lymphocytes # (1.0-4.8) k/uL Sodium 131 L (137-145) mmol/L Chloride 92 L (98-107) mmol/L BUN 111 H* (7-17) mg/dL Creatinine 8.69 H* (0.52-1.04) mg/dL Iron (50-170) UG/DL Crossmatch
[2023-10-22] MEDS: ONDANSETRON 4 MG/2 ML VIAL IVP PRN (21:09)
[2023-10-23] MEDS: LACTATED RINGERS 1,000 ML IV SCH (06:15)
[2023-10-23] MEDS: amLODIPine 10 MG TAB PO SCH (08:57)
[2023-10-23] MEDS: ACETAMINOPHEN TAB 325 MG TAB PO PRN (08:57)
[2023-10-23] MEDS: HEPARIN SODIUM,PORCINE 5,000 UNIT/ML 1 ML VIAL SQ SCH ×2 (08:57→16:14)
[2023-10-23] MEDS: SPIRONOLACTONE 25 MG TAB PO SCH ×2 (08:57→20:33)
[2023-10-23] MEDS: LIDOCAINE 4% PATCH TOPICAL SCH (08:57)
[2023-10-23] MEDS: carvediloL 12.5 MG TAB PO SCH ×2 (08:57→16:14)
[2023-10-23] MEDS: hydrALAZINE HCL 50 MG TAB PO SCH ×3 (08:58→20:34)
[2023-10-23 09:45] LABS: Anisocytosis Slight; Basophils % (A) 1 %; Eosinophils # (A) 0.2 k/uL (0-0.7); Eosinophils % (A) 4 %; HCT 23.8 % (34.0-46.0); HGB 8.2 gm/dL (11.4-16.0); Lymphocytes # (A) 0.5 k/uL (1.0-4.8); Lymphocytes % (A) 13 %; MCH 30.1 pg (25.0-35.0); MCHC 34.3 g/dL (31.0-37.0); MCV 87.9 fL (80.0-100.0); Mean Platelet Volume 8.9; Monocytes # (A) 0.2 k/uL (0-1.0); Monocytes % (A) 5 %; Neutrophils # (A) 2.9 k/uL (1.3-7.7); Neutrophils % (A) 76 %; Platelet Count 108 k/uL (150-450); RBC 2.71 m/uL (3.80-5.40); RDW 17.7 % (11.5-15.5); WBC 3.9 k/uL (3.8-10.6)
[2023-10-23 09:51] LABS: African American GFR (CKD) 5 (>60 ml/min/1.73 sqM); Anion Gap 15 mmol/L; Carbon Dioxide 24 mmol/L (22-30); Chloride 93 mmol/L (98-107); Glucose 117 mg/dL (74-99); Non-African American GFR(CKD) 5 (>60 ml/min/1.73 sqM); Potassium 3.7 mmol/L (3.5-5.1); Sodium 132 mmol/L (137-145)
[2023-10-23 09:53] LABS: Calcium 8.8 mg/dL (8.4-10.2); Magnesium 1.9 mg/dL (1.6-2.3)
[2023-10-23 10:18] LABS: Blood Urea Nitrogen 106 mg/dL (7-17)
--- NOTE | 2023-10-23 11:57 | P.PN ---
Subjective Patient is seen for follow-up for acute kidney injury. She is currently maintained on IV fluids. Patient states that her headache is somewhat improved but is complaining of nasal congestion. Good urine output, 1250 mL for 24 hours Serum creatinine has improved slightly yesterday but is back up to 9.3 today. We will proceed with hemodialysis. Objective - Vital Signs Vital signs: Vital Signs Temp 98.1 F 10/23/23 08:46 Pulse 95 10/23/23 11:15 Resp 20 10/23/23 11:15 BP 142/88 10/23/23 11:15 Pulse Ox 95 10/23/23 11:15 FiO2 Intake & Output 10/22/23 10/23/23 10/23/23 18:59 06:59 18:59 Intake Total 1440 120 Output Total 650 600 Balance -650 840 120 Intake: Intake, IV Titration 900 Amount Lactated Ringers 1,000 ml 900 @ 75 mls/hr IV .[id number] [facility] Rx#:[id number] Oral 540 120 Output: Urine 650 600 Other: Voiding Method Toilet Toilet Toilet # Voids 1 1 1 # Bowel Movements 0 - Exam Agent is awake, comfortable, alert oriented 3 Significant HIRSUITISM noted No acute distress Examination of the heart S1 and S2 Examination of the lungs bilateral breath sounds are heard Abdomen is soft nontender Examination of the lower extremities shows no evidence of edema 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 Acute kidney injury most likely ATN currently nonoliguric. No evidence of obstruction on ultrasound. UA shows 2+ protein and moderate blood. Likely underlying component of hypovolemia. Patient is currently maintained on IV fluids. No nephrotoxic agents identified. Blood pressure has been uncontrolled and medications have been adjusted. Patient will be started on hemodialysis as renal function has not improved. 2. Hypertensive urgency with previous workup for resistant hypertension showed hyperaldosteronism with left adrenal adenoma. Renin level was elevated which should ideally be low for primary hyperaldosteronism but Patient clinically responded well to Aldactone. She has an appointment at [facility] for further evaluation as patient will need adrenal vein sampling. 3. 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 4. Significant anemia with no active bleeding noted. Rule out iron deficiency Ballard at status post packed RBCs transfusion. 5. Anion gap metabolic acidosis secondary to acute kidney injury started on bicarb drip and improved. 6. Hypokalemia associated with hyperaldosteronism. Plan: Continue with IV fluids Proceed with vascular consult and dialysis catheter placement. We will plan for first treatment tomorrow. Patient was also need to be set up as outpatient for hemodialysis. Increase Coreg. Continue current antihypertensive regimen along with increased dose of Aldactone.
--- NOTE | 2023-10-23 13:54 | P.PN ---
Subjective Progress Note Date: 10/23/23 Hospital Course: 48-year-old female with a known history of primary hyperaldosteronism with adrenal adenoma, chronic disease stage IV, uncontrolled hypertension, cardiomyopathy with EF 30-35% presenting with headaches. In the ED, temperature was 98.4, pulse 108, blood pressure 185/124, saturating at 99% on room air, respiratory rate 20. WBC 4.7, no clubbing 6.3, platelet 85, INR 1.0, APTT 24.1, sodium 1:30, potassium 2.2, bicarb 18, anion gap 18, BUN 116, creatinine 9.88, troponin 1.14, urinalysis negative for nitrites, shows moderate leukocyte esterase, moderate blood, 2+ protein. Respiratory viral panel negative. EKG independently interpreted, shows LVH, and sinus tachycardia. Brain CT showed no acute process. Chest x-ray independently interpreted, shows no acute process. Renal ultrasound does not show any hydronephrosis. Patient admitted for acute kidney injury in the setting of hypertensive emergency. Nephrology consulted. Continues to make urine. Antihypertensives increased. On IV fluids. Renal function still poor, will need hemodialysis. Subjective: Patient seen and examined at bedside. No acute events overnight. Continues to have intermittent headaches but slightly improved compared to yesterday. Pertinent positives and negatives as discussed above, a complete review of systems was performed and all other systems are negative. Vitals Signs Reviewed. General: nontoxic, no distress, appears at stated age Derm: warm, dry, hirsutism Head: atraumatic, normocephalic, symmetric Eyes: EOMI, no lid lag, anicteric sclera Mouth: no lip lesion, mucus membranes moist Cardiovascular: S1S2 reg, no murmur Lungs: CTA bilateral, no rhonchi, no rales , no accessory muscle use Abdominal: soft, nontender to palpation, no guarding, no appreciable org anomegaly Ext: no gross muscle atrophy, no edema, no contractures Neuro: CN II-XI grossly intact, no focal neuro deficits Psych: Alert, oriented, appropriate affect Data Reviewed Today: Pertinent Labs: Hemoglobin 8.2, platelet 108, sodium 132, potassium 3.7, creatinine 9.39, magnesium 1.9 Imaging: No new imaging Assessment and Plan: Prognosis guarded, patient will need hemodialysis. She needs close monitoring Nonoliguric Acute kidney injury on chronic kidney disease Primary hyperaldosteronism Hypokalemia, resolved Hyponatremia Metabolic acidosis, high anion gap, resolved Hypertensive emergency Acute on chronic normocytic anemia, status post 2 units of PRBCs Acute thrombocytopenia, resolving NSTEMI, suspected type II Cardiomyopathy with EF 30-35% Headache, likely tension related -Nephrology note reviewed, vascular surgery consulted, hemodialysis tomorrow,, Coreg dose increased -On Aldactone 100 twice a day, hydralazine 50 TID, coreg 25 BID, and amlodipine 10 daily -Anemia possibly related to anemia chronic disease, and possible hemolysis as well given elevated LDH and low haptoglobin -on darbepoetin per nephrology - no significant chest pain -Headaches likely tension related, lidocaine patch for the neck, also on Tylenol -Avoid morphine if possible given significant acute kidney injury DVT ppx: Subcu heparin Code status: Anticipated discharge place: pending clinical course Anticipated discharge time: pending clinical course Objective - Vital Signs Vital signs: Vital Signs Temp 98.1 F 10/23/23 08:46 Pulse 95 10/23/23 13:14 Resp 20 10/23/23 11:15 BP 142/88 10/23/23 11:15 Pulse Ox 95 10/23/23 11:15 FiO2 Intake & Output 10/22/23 10/23/23 10/23/23 18:59 06:59 18:59 Intake Total 1440 120 Output Total 650 600 Balance -650 840 120 Intake: Intake, IV Titration 900 Amount Lactated Ringers 1,000 ml 900 @ 75 mls/hr IV .[id number] [facility] Rx#:[id number] Oral 540 120 Output: Urine 650 600 Other: Voiding Method Toilet Toilet Toilet # Voids 1 1 1 # Bowel Movements 0 - Labs CBC & Chem 7: 10/23/23 08:44 10/23/23 08:44 Labs: Abnormal Lab Results - Last 24 Hours (Table) 10/23/23 10/23/23 Range/Units 08:44 08:44 RBC 2.71 L (3.80-5.40) m/uL Hgb 8.2 L (11.4-16.0) gm/dL Hct 23.8 L (34.0-46.0) % RDW 17.7 H (11.5-15.5) % Plt Count 108 L (150-450) k/uL Lymphocytes # 0.5 L (1.0-4.8) k/uL Sodium 132 L (137-145) mmol/L Chloride 93 L (98-107) mmol/L BUN 106 H* (7-17) mg/dL Creatinine 9.39 H* (0.52-1.04) mg/dL Glucose 117 H (74-99) mg/dL
[2023-10-24] MEDS: HEPARIN SODIUM,PORCINE 5,000 UNIT/ML 1 ML VIAL SQ SCH ×4 (00:14→23:22)
[2023-10-24] MEDS: carvediloL 12.5 MG TAB PO SCH ×2 (06:34→16:57)
[2023-10-24] MEDS: SPIRONOLACTONE 25 MG TAB PO SCH ×2 (09:05→19:50)
[2023-10-24] MEDS: hydrALAZINE HCL 50 MG TAB PO SCH ×3 (09:05→19:50)
[2023-10-24] MEDS: LIDOCAINE 4% PATCH TOPICAL SCH (09:05)
[2023-10-24] MEDS: amLODIPine 10 MG TAB PO SCH (09:05)
--- NOTE | 2023-10-24 10:24 | P.GSCN ---
History of Present Illness History of present illness: 48-year-old white male sent it for placement of his catheter. Patient has history of acute kidney injury, history of hypertension, crit is 3.1 3.6 patient has a chronic anemia. Plan is placement dialysis catheter On examination neck is supple no bruit appreciated Chest is clear good and both sent for second sound present Abdomen soft nontender femorals are 1+ bilateral Plan is placement of the catheter risk and complication discussed Past Medical History Past Medical History: Atrial Fibrillation, Hyperlipidemia, Hypertension, Renal Disease Additional Past Medical History / Comment(s): Hyperaldosteronism,cardiomyopathy History of Any Multi-Drug Resistant Organisms: None Reported Past Surgical History: No Surgical Hx Reported Past Anesthesia/Blood Transfusion Reactions: No Reported Reaction Past Psychological History: No Psychological Hx Reported Smoking Status: Never smoker Past Alcohol Use History: None Reported Past Drug Use History: None Reported - Past Family History Mother Family Medical History: No Reported History Medications and Allergies Home Medications Medication Instructions Recorded Confirmed Type Spironolactone [Aldactone] 50 mg PO BID 01/12/23 10/20/23 History Butalb/APAP/Caff 50-325-40Mg 1 tab PO Q8H PRN 08/13/23 10/20/23 History [Fioricet 50-325-40] amLODIPine [Norvasc] 10 mg PO DAILY 08/13/23 10/20/23 History Dapagliflozin Propanediol [Farxiga] 5 mg PO DAILY #30 tab 08/15/23 10/20/23 Rx Aspirin EC [Ecotrin Low Dose] 81 mg PO DAILY 10/20/23 10/20/23 History Fluticasone Nasal [place] [Flonase 2 spr EA NOSTRIL DAILY 10/20/23 10/20/23 History Nasal [place]] Loratadine [Claritin] 10 mg PO DAILY 10/20/23 10/20/23 History Ondansetron Odt [Zofran Odt] 4 mg PO Q8H PRN 10/20/23 10/20/23 History carvediloL [Coreg*] 12.5 mg PO BID 10/20/23 10/20/23 History hydrALAZINE HCL [Apresoline] 25 mg PO TID 10/20/23 10/20/23 History Allergies Allergy/AdvReac Type Severity Reaction Status Date / Time No Known Allergies Allergy Verified 10/20/23 13:49 Surgical - Exam Vital Signs Temp Pulse Resp BP Pulse Ox 98.4 F 108 H 20 185/124 99 10/20/23 08:38 10/20/23 08:38 10/20/23 08:38 10/20/23 08:38 10/20/23 08:38 Results - Labs 10/23/23 08:44 10/23/23 08:44 Abnormal Lab Results - Last 24 Hours (Table) 10/22/23 Range/Units 16:04 Renin Direct 142.0 H (3.1 - 57.1) pg/mL
[2023-10-24 10:31] LABS: Anisocytosis Slight; Basophils % (A) 1 %; Eosinophils # (A) 0.2 k/uL (0-0.7); Eosinophils % (A) 5 %; HCT 25.2 % (34.0-46.0); HGB 8.3 gm/dL (11.4-16.0); Lymphocytes # (A) 0.7 k/uL (1.0-4.8); Lymphocytes % (A) 15 %; MCH 29.3 pg (25.0-35.0); MCHC 32.8 g/dL (31.0-37.0); MCV 89.1 fL (80.0-100.0); Mean Platelet Volume 9.1; Monocytes # (A) 0.2 k/uL (0-1.0); Monocytes % (A) 5 %; Neutrophils # (A) 3.2 k/uL (1.3-7.7); Neutrophils % (A) 73 %; Platelet Count 131 k/uL (150-450); RBC 2.82 m/uL (3.80-5.40); RDW 17.6 % (11.5-15.5); WBC 4.4 k/uL (3.8-10.6)
--- NOTE | 2023-10-24 10:38 | P.PN ---
Subjective Patient is seen for follow-up for acute kidney injury. She is currently maintained on IV fluids. Good urine output, 1250 mL for 24 hours Serum creatinine has improved slightly but is back up to 9.3. We will proceed with hemodialysis. First treatment of hemodialysis today. Vascular surgery has been consulted for permacath placement. 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 Acute kidney injury most likely ATN currently nonoliguric. No evidence of obstruction on ultrasound. UA shows 2+ protein and moderate blood. Likely underlying component of hypovolemia. Patient is currently maintained on IV fluids. No nephrotoxic agents identified. Blood pressure has been uncontrolled and medications have been adjusted. Patient will be started on hemodialysis as renal function has not improved. 2. Hypertensive urgency with previous workup for resistant hypertension showed hyperaldosteronism with left adrenal adenoma. Renin level was elevated which should ideally be low for primary hyperaldosteronism but Patient clinically responded well to Aldactone. She has an appointment at [facility] for further evaluation as patient will need adrenal vein sampling. 3. 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 4. Significant anemia with no active bleeding noted. Rule out iron deficiency Stephenson at status post packed RBCs transfusion. 5. Anion gap metabolic acidosis secondary to acute kidney injury started on bicarb drip and improved. 6. Hypokalemia associated with hyperaldosteronism. Plan: DC IV fluids Proceed with vascular consult and dialysis catheter placement. We will plan for first treatment today. Patient was also need to be set up as outpatient for hemodialysis. Repeat hemodialysis in a.m. Continue current antihypertensive regimen along with increased dose of Aldactone.
[2023-10-24] MEDS ORDERED: SODIUM CHLORIDE 0.9% 250 ML IV ONE (11:22)
--- NOTE | 2023-10-24 11:37 | P.PN ---
Subjective Progress Note Date: 10/24/23 Hospital Course: 48-year-old female with a known history of primary hyperaldosteronism with adr enal adenoma, chronic disease stage IV, uncontrolled hypertension, cardiomyopathy with EF 30-35% presenting with headaches. In the ED, temperature was 98.4, pulse 108, blood pressure 185/124, saturating at 99% on room air, respiratory rate 20. WBC 4.7, no clubbing 6.3, platelet 85, INR 1.0, APTT 24.1, sodium 1:30, potassium 2.2, bicarb 18, anion gap 18, BUN 116, creatinine 9.88, troponin 1.14, urinalysis negative for nitrites, shows moderate leukocyte esterase, moderate blood, 2+ protein. Respiratory viral panel negative. EKG independently interpreted, shows LVH, and sinus tachycardia. Brain CT showed no acute process. Chest x-ray independently interpreted, shows no acute process. Renal ultrasound does not show any hydronephrosis. Patient admitted for acute kidney injury in the setting of hypertensive emergency. Nephrology consulted. Continues to make urine. Antihypertensives increased. On IV fluids. Renal function still poor. Pending vascular access and hemodialysis. Subjective: Patient seen and examined at bedside. No acute events overnight. Still making urine. Pertinent positives and negatives as discussed above, a complete review of systems was performed and all other systems are negative. Vitals Signs Reviewed. General: nontoxic, no distress, appears at stated age Derm: warm, dry, hirsutism Head: atraumatic, normocephalic, symmetric Eyes: EOMI, no lid lag, anicteric sclera Mouth: no lip lesion, mucus membranes moist Cardiovascular: S1S2 reg, no murmur Lungs: CTA bilateral, no rhonchi, no rales , no accessory muscle use Abdominal: soft, nontender to palpation, no guarding, no appreciable organomegaly Ext: no gross muscle atrophy, no edema, no contractures Neuro: CN II-XI grossly intact, no focal neuro deficits Psych: Alert, oriented, appropriate affect Data Reviewed Today: Pertinent Labs: Hemoglobin 8.3, platelet 131, BMP pending, will be reviewed when available Imaging: No new imaging Assessment and Plan: Nonoliguric Acute kidney injury on chronic kidney disease, now progressing to end-stage renal disease requiring hemodialysis Primary hyperaldosteronism Hypokalemia, resolved Hyponatremia Metabolic acidosis, high anion gap, resolved Uncontrolled hypertension Acute on chronic normocytic anemia, status post 2 units of PRBCs Acute thrombocytopenia, resolving NSTEMI, suspected type II Cardiomyopathy with EF 30-35% Headache, likely tension related -Discussed management with nephrology, patient will require scheduled hemodialysis -Discussed management with vascular surgery, pending vascular access, likely to happen today -On Aldactone 100 twice a day, hydralazine 50 TID, coreg 25 BID, and amlodipine 10 daily -Anemia possibly related to anemia chronic disease, and possible hemolysis as well given elevated LDH and low haptoglobin -on darbepoetin per nephrology - no significant chest pain -Headaches likely tension related, lidocaine patch for the neck, also on Tylenol -Avoid morphine if possible given significant acute kidney injury DVT ppx: Subcu heparin Code status: Anticipated discharge place: pending clinical course Anticipated discharge time: pending clinical course Objective - Vital Signs Vital signs: Vital Signs Temp 97.9 F 10/24/23 08:00 Pulse 89 10/24/23 08:54 Resp 17 10/24/23 08:00 BP 147/91 10/24/23 08:00 Pulse Ox 98 10/24/23 08:00 FiO2 Intake & Output 10/23/23 10/24/23 10/24/23 18:59 06:59 18:59 Intake Total 660 Output Total 400 Balance 260 Intake: Oral 660 Output: Urine 400 Other: Voiding Method Toilet Toilet Toilet # Voids 1 2 # Bowel Movements 0 - Labs CBC & Chem 7: 10/24/23 09:09 10/23/23 08:44 Labs: Abnormal Lab Results - Last 24 Hours (Table) 10/22/23 10/24/23 Range/Units 16:04 09:09 RBC 2.82 L (3.80-5.40) m/uL Hgb 8.3 L (11.4-16.0) gm/dL Hct 25.2 L (34.0-46.0) % RDW 17.6 H (11.5-15.5) % Plt Count 131 L (150-450) k/uL Lymphocytes # 0.7 L (1.0-4.8) k/uL Renin Direct 142.0 H (3.1 - 57.1) pg/mL
[2023-10-24] MEDS: MIDAZOLAM 2 MG/2 ML VIAL IVP ONE ×2 (11:41→11:55)
[2023-10-24] MEDS: fentaNYL (PF) 50 MCG/ML 2 ML AMP IVP ONE ×2 (11:43→12:08)
[2023-10-24] MEDS ORDERED: LIDOCAINE 1% INJ 10MG/ML (20 ML MDV) SQ ONE (11:44)
--- NOTE | 2023-10-24 12:19 | P.PCN ---
Description of Procedure: Preop diagnoses acute chronic renal failure and postop same Procedure patient brought to the Aerodynamics Engineer Karolina of the neck and chest was prepped and draped applied sterile manner 1% lidocaine were infiltrated ultrasound-guided micropuncture introduced right jugular vein micropuncture guidewire was passed forefoot regular guidewire top of guidewire. We treated with atenolol little and we brought 23 same dialysis catheter we passed a guidewire under fluoroscopy control which was parked at the inferior vena cava a little advanced. The guidewire and sheath was replaced a dialysis catheter in the sheath and sheath was removed tip catheters were a vena cava after injection flushed with heparin saline and Hep-Lock secured with 3-0 nylon patient had the procedure well
[2023-10-24 12:41] LABS: ALT 16 U/L (4-34); AST 17 U/L (14-36); African American GFR (CKD) 5 (>60 ml/min/1.73 sqM); Albumin 3.1 g/dL (3.5-5.0); Alkaline Phosphatase 62 U/L (38-126); Anion Gap 15 mmol/L; Calcium 8.7 mg/dL (8.4-10.2); Carbon Dioxide 21 mmol/L (22-30); Chloride 96 mmol/L (98-107); Glucose 86 mg/dL (74-99); Non-African American GFR(CKD) 4 (>60 ml/min/1.73 sqM); Sodium 132 mmol/L (137-145); Total Bilirubin 0.3 mg/dL (0.2-1.3); Total Protein 5.2 g/dL (6.3-8.2)
[2023-10-24 12:45] LABS: Blood Urea Nitrogen 105 mg/dL (7-17)
[2023-10-24] MEDS: ACETAMINOPHEN TAB 325 MG TAB PO PRN ×2 (13:20→19:49)
--- NOTE | 2023-10-24 13:20 | XR ---
EXAMINATION TYPE: XR chest 1V portable DATE OF EXAM: 10/24/2023 Comparison: 10/20/2023 Clinical History: 48-year-old female HEMODIALYSIS INSERTION Findings: Right-sided chest wall double-lumen hemodialysis catheter placement. Tips are at the lower SVC/cavoat rial junction region. Heart moderately enlarged. Mild interstitial density and some Claudia B lines thornton ve developed. Possible trace left effusion. Impression: 1. Right-sided double-lumen hemodialysis catheter tips at the lower SVC/cavoatrial junction region. 2. Mild cardiomegaly and developing interstitial pulmonary edema.
[2023-10-24] MEDS ORDERED: MORPHINE SULFATE 4 MG/ML SYRINGE IVP STA (23:17)
[2023-10-24] MEDS: ONDANSETRON 4 MG/2 ML VIAL IVP PRN (23:22)
[2023-10-25 05:14] LABS: Hepatitis B Surface Antigen Nonreactive
[2023-10-25 05:48] LABS: Hepatitis B Surface AB- Quant 3.5 mIU/mL
[2023-10-25] MEDS: carvediloL 12.5 MG TAB PO SCH ×2 (06:03→15:51)
[2023-10-25] MEDS: LIDOCAINE 4% PATCH TOPICAL SCH (07:37)
[2023-10-25] MEDS: SPIRONOLACTONE 25 MG TAB PO SCH ×2 (07:42→20:01)
[2023-10-25] MEDS: ACETAMINOPHEN TAB 325 MG TAB PO PRN ×4 (07:42→21:53)
[2023-10-25] MEDS: amLODIPine 10 MG TAB PO SCH (07:43)
[2023-10-25] MEDS: HEPARIN SODIUM,PORCINE 5,000 UNIT/ML 1 ML VIAL SQ SCH ×3 (07:43→23:20)
[2023-10-25 08:13] LABS: Anisocytosis Slight; Basophils % (A) 1 %; Eosinophils # (A) 0.2 k/uL (0-0.7); Eosinophils % (A) 4 %; HCT 25.3 % (34.0-46.0); HGB 8.4 gm/dL (11.4-16.0); Lymphocytes # (A) 0.6 k/uL (1.0-4.8); Lymphocytes % (A) 16 %; MCH 29.9 pg (25.0-35.0); MCHC 33.2 g/dL (31.0-37.0); MCV 90.1 fL (80.0-100.0); Mean Platelet Volume 8.9; Monocytes # (A) 0.2 k/uL (0-1.0); Monocytes % (A) 6 %; Neutrophils # (A) 2.6 k/uL (1.3-7.7); Neutrophils % (A) 71 %; Platelet Count 127 k/uL (150-450); RDW 17.6 % (11.5-15.5); WBC 3.7 k/uL (3.8-10.6)
[2023-10-25] MEDS: hydrALAZINE HCL 50 MG TAB PO SCH ×2 (09:15→20:01)
--- NOTE | 2023-10-25 10:42 | P.PN ---
Subjective Progress Note Date: 10/25/23 48-year-old female with a known history of primary hyperaldosteronism with adrenal adenoma, chronic disease stage IV, uncontrolled hypertension, cardiomyopathy with EF 30-35% presenting with headaches. In the ED, temperature was 98.4, pulse 108, blood pressure 185/124, saturating at 99% on room air, respiratory rate 20. WBC 4.7, Hg 6.3, platelet 85, INR 1.0, APTT 24.1, sodium 130, potassium 2.2, bicarb 18, anion gap 18, BUN 116, creatinine 9.88, troponin 1.14, urinalysis negative for nitrites, shows moderate leukocyte esterase, moderate blood, 2+ protein. Respiratory viral panel negative. EKG ind ependently interpreted, shows LVH, and sinus tachycardia. Brain CT showed no acute process. Chest x-ray independently interpreted, shows no acute process. Renal ultrasound does not show any hydronephrosis. Patient admitted for acute kidney injury in the setting of hypertensive emergency. Transfused 2 unit PRBC. Nephrology consulted. Antihypertensive medications were titrated. Hemodialysis catheter inserted 10/24 and started on HD. 10/25 Pat[place] was seen and exmained. Undergoing HD today. Feeling better today. Denies chest pain, SOB, palpitations. CBC WBC 3.7, Hg 8.4, Hct 25.3, Plt 127. General: nontoxic, no distress, appears at stated age Derm: warm, dry, hirsutism Head: atraumatic, normocephalic, symmetric Eyes: EOMI, no lid lag, anicteric sclera Cardiovascular: Good distal perfusion in all 4 extremities Lungs: Breathing comfortably, no accessory muscle use Ext: no gross muscle atrophy, no edema, no contractures Neuro: no focal neuro deficits Psych: Alert, oriented, appropriate affect Based on my assessment of this patient, this patient meets a moderate complexity level of care. Patient has a CKD with severe exacerbation or progression of disease which poses a threat to life or bodily function. Also found to be anemic with several metabolic derangements. Started on HD on 10/24. Nonoliguric Acute kidney injury on chronic kidney disease, now progressing to ESRD: Started HD on 10/24. Nephrology on board. Primary hyperaldosteronism: Aldactone 100 mg PO BID. Hyponatremia: Expected to improve with HD. Uncontrolled hypertension: Amlodipine 10 mg PO QD. Coreg 25 mg PO BID. Hydralazine 25 mg PO BID. Acute on chronic normocytic anemia: Status post 2 units of PRBC. No signs of active bleeding. Acute thrombocytopenia: Improving. NSTEMI, suspected type II: Downtrending. Likely related to hypertensive emergency on admission. No chest pain. Cardiomyopathy with EF 30-35%: Metoprolol and Aldactone as above. No ACEi due to CKD. Resolved: Headache, HypoK, metabolic acidosis CODE STATUS: FULL CODE DVT Prophylaxis: Heparin SQ GI Prophylaxis: Designated medical POA if patient is not able to make medical decisions for themselves: I have reviewed the following project management consultant notes: I have reviewed the results of the following tests: CBC I have ordered the following tests: Pending BMP. CBC and BMP ordered for tomorrow morning. I have discussed the care of this patient with the following independent historian: I have independently interpreted the following test below: I have discussed the management of this patient with the following physician: Discussed with Dr. Zacarias. Objective - Vital Signs Vital signs: Vital Signs Temp 98.0 F 10/25/23 07:37 Pulse 87 10/25/23 07:37 Resp 20 10/25/23 07:37 BP 121/75 10/25/23 07:37 Pulse Ox 95 10/25/23 07:37 FiO2 Intake & Output 10/24/23 10/25/23 10/25/23 18:59 06:59 18:59 Intake Total 340 358 660 Output Total 150 200 Balance 190 158 660 Intake: IV 100 Oral 240 358 660 Output: Urine 150 200 Other: Voiding Method Toilet Toilet Toilet # Voids 1 - Labs CBC & Chem 7: 10/25/23 06:58 10/24/23 09:09 Labs: Abnormal Lab Results - Last 24 Hours (Table) 10/24/23 10/25/23 Range/Units 09:09 06:58 WBC 3.7 L (3.8-10.6) k/uL RBC 2.80 L (3.80-5.40) m/uL Hgb 8.4 L (11.4-16.0) gm/dL Hct 25.3 L (34.0-46.0) % RDW 17.6 H (11.5-15.5) % Plt Count 127 L (150-450) k/uL Lymphocytes # 0.6 L (1.0-4.8) k/uL Sodium 132 L (137-145) mmol/L Chloride 96 L (98-107) mmol/L Carbon Dioxide 21 L (22-30) mmol/L BUN 105 H* (7-17) mg/dL Creatinine 9.62 H* (0.52-1.04) mg/dL Total Protein 5.2 L (6.3-8.2) g/dL Albumin 3.1 L (3.5-5.0) g/dL
--- NOTE | 2023-10-25 11:01 | P.PN ---
Subjective Patient is seen for follow-up for acute kidney injury. No improvement in renal function with IV fluids. Patient was started on hemodialysis on 10/24/2023. Patient is seen on hemodialysis today. No significant complaints. Blood pressure has been on the lower side and hydralazine was held this morning. Objective - Vital Signs Vital signs: Vital Signs Temp 98.0 F 10/25/23 07:37 Pulse 87 10/25/23 07:37 Resp 20 10/25/23 07:37 BP 121/75 10/25/23 07:37 Pulse Ox 95 10/25/23 07:37 FiO2 Intake & Output 10/24/23 10/25/23 10/25/23 18:59 06:59 18:59 Intake Total 340 358 660 Output Total 150 200 Balance 190 158 660 Intake: IV 100 Oral 240 358 660 Output: Urine 150 200 Other: Voiding Method Toilet Toilet Toilet # Voids 1 - Exam Patient is awake, comfortable, alert oriented 3 Significant HIRSUITISM noted No acute distress Examination of the heart S1 and S2 Examination of the lungs bilateral breath sounds are heard Examination of the lower extremities shows no evidence of edema 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 Acute kidney injury most likely ATN currently nonoliguric. No evidence of obstruction on ultrasound. UA shows 2+ protein and moderate blood. No im provement in renal function with IV fluids. Patient was started on hemodialysis on 10/24/2023 No nephrotoxic agents identified. 2. Hypertensive urgency with previous workup for resistant hypertension showed hyperaldosteronism with left adrenal adenoma. Renin level was elevated which should ideally be low for primary hyperaldosteronism but Patient clinically responded well to Aldactone. She has an appointment at [facility] for further evaluation as patient will need adrenal vein sampling. 3. 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 4. Significant anemia with no active bleeding noted. Rule out iron deficiency [place] at status post packed RBCs transfusion. 5. Anion gap metabolic acidosis secondary to acute kidney injury started on bicarb drip and improved. 6. Hypokalemia associated with hyperaldosteronism. Plan: Continue off of IV fluids Decrease hydralazine May need to decrease dose of Coreg as well depending on blood pressure later on today. Patient will need to be set up for outpatient dialysis.
[2023-10-25 11:29] LABS: African American GFR (CKD) 8 (>60 ml/min/1.73 sqM); Anion Gap 12 mmol/L; Blood Urea Nitrogen 57 mg/dL (7-17); Calcium 9.1 mg/dL (8.4-10.2); Carbon Dioxide 24 mmol/L (22-30); Chloride 98 mmol/L (98-107); Glucose 84 mg/dL (74-99); Magnesium 1.9 mg/dL (1.6-2.3); Non-African American GFR(CKD) 7 (>60 ml/min/1.73 sqM); Potassium 4.4 mmol/L (3.5-5.1); Sodium 134 mmol/L (137-145)
[2023-10-25] MEDS ORDERED: hydrALAZINE HCL 25 MG TAB PO STA (15:19)
[2023-10-25] MEDS ORDERED: hydrALAZINE HCL 25 MG TAB PO SCH (21:00)
[2023-10-26] MEDS: carvediloL 12.5 MG TAB PO SCH ×2 (07:05→16:52)
[2023-10-26] MEDS: hydrALAZINE HCL 50 MG TAB PO SCH ×2 (08:25→20:10)
[2023-10-26] MEDS: LIDOCAINE 4% PATCH TOPICAL SCH (08:25)
[2023-10-26] MEDS: amLODIPine 10 MG TAB PO SCH (08:25)
[2023-10-26] MEDS: HEPARIN SODIUM,PORCINE 5,000 UNIT/ML 1 ML VIAL SQ SCH ×3 (08:25→23:40)
[2023-10-26] MEDS: SPIRONOLACTONE 25 MG TAB PO SCH ×2 (08:25→20:10)
[2023-10-26 09:12] LABS: Anisocytosis Slight; HCT 26.7 % (34.0-46.0); MCH 31.1 pg (25.0-35.0); MCHC 33.8 g/dL (31.0-37.0); Mean Platelet Volume 8.8; Platelet Count 112 k/uL (150-450); RDW 17.5 % (11.5-15.5); WBC 3.3 k/uL (3.8-10.6)
[2023-10-26 09:34] LABS: African American GFR (CKD) 10 (>60 ml/min/1.73 sqM); Anion Gap 11 mmol/L; Blood Urea Nitrogen 39 mg/dL (7-17); Carbon Dioxide 25 mmol/L (22-30); Chloride 99 mmol/L (98-107); Glucose 123 mg/dL (74-99); Non-African American GFR(CKD) 9 (>60 ml/min/1.73 sqM); Potassium 4.2 mmol/L (3.5-5.1); Sodium 135 mmol/L (137-145)
--- NOTE | 2023-10-26 11:16 | P.PN ---
Subjective Progress Note Date: 10/26/23 48-year-old female with a known history of primary hyperaldosteronism with adrenal adenoma, chronic disease stage IV, uncontrolled hypertension, cardiomyopathy with EF 30-35% presenting with headaches. In the ED, temperature was 98.4, pulse 108, blood pressure 185/124, saturating at 99% on room air, respiratory rate 20. WBC 4.7, Hg 6.3, platelet 85, INR 1.0, APTT 24.1, sodium 130, potassium 2.2, bicarb 18, anion gap 18, BUN 116, creatinine 9.88, troponin 1.14, urinalysis negative for nitrites, shows moderate leukocyte esterase, moderate blood, 2+ protein. Respiratory viral panel negative. EKG ind ependently interpreted, shows LVH, and sinus tachycardia. Brain CT showed no acute process. Chest x-ray independently interpreted, shows no acute process. Renal ultrasound does not show any hydronephrosis. Patient admitted for acute kidney injury in the setting of hypertensive emergency. Transfused 2 unit PRBC. Nephrology consulted. Antihypertensive medications were titrated. Hemodialysis catheter inserted 10/24 and started on HD. 10/25 Patient was seen and examined. Undergoing HD today. Feeling better today. Denies chest pain, SOB, palpitations. CBC WBC 3.7, Hg 8.4, Hct 25.3, Plt 127. 10/26 Patient was seen and examined. Plans to hold HD today. No specific complaints. CBC WBC 3.3, Hg 9, Hct 26.7, Plt 112. BMP Na 135, BUN 39, Cr 5.42, glu 123. General: nontoxic, no distress, appears at stated age Derm: warm, dry, hirsutism Head: atraumatic, normocephalic, symmetric Eyes: EOMI, no lid lag, anicteric sclera Cardiovascular: Normal S1 S2. Lungs: Breathing comfortably, CTA bilaterally, no accessory muscle use Ext: no gross muscle atrophy, no edema, no contractures Neuro: no focal neuro deficits Psych: Alert, oriented, appropriate affect Based on my assessment of this patient, this patient meets a moderate complexity level of care. Patient has a CKD with severe exacerbation or progression of disease which poses a threat to life or bodily function. Also found to be anemic with several metabolic derangements. Started on HD on 10/24. Nonoliguric Acute kidney injury on chronic kidney disease, now progressing to ESRD: Started HD on 10/24 and 10/25. Holding HD today. Nephrology on board. Primary hyperaldosteronism: Aldactone 100 mg PO BID. Hyponatremia: Expected to improve with HD. Uncontrolled hypertension: Amlodipine 10 mg PO QD. Coreg 25 mg PO BID. Hydralazine 25 mg PO BID. Acute on chronic normocytic anemia: Status post 2 units of PRBC. No signs of active bleeding. Acute thrombocytopenia: Improving. NSTEMI, suspected type II: Downtrending. Likely related to hypertensive emergency on admission. No chest pain. Cardiomyopathy with EF 30-35%: Metoprolol and Aldactone as above. No ACEi due to CKD. Resolved: Headache, HypoK, metabolic acidosis CODE STATUS: FULL CODE DVT Prophylaxis: Heparin SQ GI Prophylaxis: Designated medical POA if patient is not able to make medical decisions for themselves: I have reviewed the following lifestyle consultant notes: Nephrology note. I have reviewed the results of the following tests: CBC, BMP. I have ordered the following tests: CBC and BMP ordered for tomorrow morning. I have discussed the care of this patient with the following independent historian: I have independently interpreted the following test below: I have discussed the management of this patient with the following physician: Objective - Vital Signs Vital signs: Vital Signs Temp 98.4 F 10/26/23 08:19 Pulse 90 10/26/23 08:19 Resp 14 10/26/23 08:19 BP 125/76 10/26/23 08:19 Pulse Ox 96 10/26/23 08:19 FiO2 Intake & Output 10/25/23 10/26/23 10/26/23 18:59 06:59 18:59 Intake Total 2360 540 118 Output Total 800 400 Balance 1560 140 118 Intake: Oral 1560 540 118 Hemodialysis 800 Output: Urine 400 Hemodialysis 800 Other: Voiding Method Toilet Toilet Toilet # Voids 2 200 - Labs CBC & Chem 7: 10/26/23 08:29 10/26/23 08:29 Labs: Abnormal Lab Results - Last 24 Hours (Table) 10/25/23 10/26/23 10/26/23 Range/Units 06:58 08:29 08:29 WBC 3.3 L (3.8-10.6) k/uL RBC 2.90 L (3.80-5.40) m/uL Hgb 9.0 L (11.4-16.0) gm/dL Hct 26.7 L (34.0-46.0) % RDW 17.5 H (11.5-15.5) % Plt Count 112 L (150-450) k/uL Sodium 134 L 135 L (137-145) mmol/L BUN 57 H 39 H (7-17) mg/dL Creatinine 6.77 H 5.42 H (0.52-1.04) mg/dL Glucose 123 H (74-99) mg/dL
--- NOTE | 2023-10-26 11:29 | P.PN ---
Subjective Patient is seen for follow-up for acute kidney injury. No improvement in renal function with IV fluids. Patient was started on hemodialysis on 10/24/2023. Overall feeling better. Blood pressure is also better controlled. No significant complaints today. Objective - Vital Signs Vital signs: Vital Signs Temp 98.4 F 10/26/23 08:19 Pulse 90 10/26/23 08:19 Resp 14 10/26/23 08:19 BP 125/76 10/26/23 08:19 Pulse Ox 96 10/26/23 08:19 FiO2 Intake & Output 10/25/23 10/26/23 10/26/23 18:59 06:59 18:59 Intake Total 2360 540 118 Output Total 800 400 Balance 1560 140 118 Intake: Oral 1560 540 118 Hemodialysis 800 Output: Urine 400 Hemodialysis 800 Other: Voiding Method Toilet Toilet Toilet # Voids 2 200 - Exam Patient is awake, comfortable, alert oriented 3 Significant HIRSUITISM noted No acute distress Examination of the heart S1 and S2 Examination of the lungs bilateral breath sounds are heard Examination of the lower extremities shows no evidence of 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 Acute kidney injury most likely ATN currently nonoliguric. No evidence of obstruction on ultrasound. UA shows 2+ protein and moderate blood. No improvement in renal function with IV fluids. Patient was started on hemodialysis on 10/24/2023 No nephrotoxic agents identified. 2. Hypertensive urgency with previous workup for resistant hypertension showed hyperaldosteronism with left adrenal adenoma. Renin level was elevated which should ideally be low for primary hyperaldosteronism but Patient clinically responded well to Aldactone. She has an appointment at [facility] for further evaluation as patient will need adrenal vein sampling. 3. 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 4. Significant anemia with no active bleeding noted. Rule out iron deficiency [place] at status post packed RBCs transfusion. 5. Anion gap metabolic acidosis secondary to acute kidney injury started on b icarb drip and improved. 6. Hypokalemia associated with hyperaldosteronism. Plan: Continue off of IV fluids Decrease hydralazine Hemodialysis in a.m. Case management to arrange for outpatient he chair time.
[2023-10-26] MEDS: ACETAMINOPHEN TAB 325 MG TAB PO PRN (16:58)
[2023-10-26] MEDS ORDERED: MORPHINE SULFATE 2 MG/ML SYRINGE IVP STA (20:14)
[2023-10-27] MEDS: carvediloL 12.5 MG TAB PO SCH ×2 (04:38→15:40)
[2023-10-27] MEDS ORDERED: HYDROcodone/APAP 5-325MG 1 EACH TAB PO PRN (08:33)
[2023-10-27 09:07] VITALS: BMI 23.6
[2023-10-27 09:10] LABS: Anisocytosis Slight; HCT 24.8 % (34.0-46.0); HGB 8.2 gm/dL (11.4-16.0); MCH 30.4 pg (25.0-35.0); MCHC 33.2 g/dL (31.0-37.0); MCV 91.7 fL (80.0-100.0); Mean Platelet Volume 8.9; Platelet Count 104 k/uL (150-450); RBC 2.71 m/uL (3.80-5.40); RDW 17.5 % (11.5-15.5); WBC 3.3 k/uL (3.8-10.6)
[2023-10-27 10:54] LABS: African American GFR (CKD) 12 (>60 ml/min/1.73 sqM); Anion Gap 10 mmol/L; Blood Urea Nitrogen 35 mg/dL (7-17); Calcium 8.7 mg/dL (8.4-10.2); Carbon Dioxide 25 mmol/L (22-30); Chloride 99 mmol/L (98-107); Glucose 105 mg/dL (74-99); Non-African American GFR(CKD) 11 (>60 ml/min/1.73 sqM); Sodium 134 mmol/L (137-145)
--- NOTE | 2023-10-27 11:39 | P.DS ---
Providers Date of admission: 10/20/23 13:41 Expected date of discharge: 10/27/23 Attending physician: Melba Palmer DO Consults: 10/20/23 13:44 Consult Physician Routine Consulting Provider: Gricelda Zacarias Consult Reason/Comments: Renal Failure Do you want consulting provider notified?: Yes 10/23/23 13:51 Consult Physician Urgent Consulting Provider: Jas Ojeda Consult Reason/Comments: Permanent dialysis catheter Do you want consulting provider notified?: Already Contacted Primary care physician: [facility] Course: 48-year-old female with a known history of primary hyperaldosteronism with adrenal adenoma, chronic disease stage IV, uncontrolled hypertension, cardiomyopathy with EF 30-35% presenting with headaches. In the ED, temperature was 98.4, pulse 108, blood pressure 185/124, saturating at 99% on room air, respiratory rate 20. WBC 4.7, Hg 6.3, platelet 85, INR 1.0, APTT 24.1, sodium 130, potassium 2.2, bicarb 18, anion gap 18, BUN 116, creatinine 9.88, troponin 1.14, urinalysis negative for nitrites, shows moderate leukocyte esterase, moderate blood, 2+ protein. Respiratory viral panel negative. EKG independently interpreted, shows LVH, and sinus tachycardia. Brain CT showed no acute process. Chest x-ray shows no acute process. Renal ultrasound does not show any hydronephrosis. Patient admitted for acute kidney injury in the setting of hypertensive emergency. 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 Nephrology consulted, hemodialysis catheter inserted 10/24 and underwent HD on 10/24, 10/25 and 10/27. Antihypertensive medications were titrated. Headaches improved. 10/27 Patient was seen and examined. No complaints. Case management to arrange for HD outpatient. Her headaches have improved. States she has an appointment at [facility] with regard to her adrenal adenoma in December. Possible discharge home today. Pertinent studies include EKG, CXR, Renal US. Pertinent procedures include hemodialysis catheter. General: nontoxic, no distress, appears at stated age Derm: warm, dry, hirsutism Head: atraumatic, normocephalic, symmetric Eyes: EOMI, no lid lag, anicteric sclera Cardiovascular: Normal S1 S2. Lungs: Breathing comfortably, CTA bilaterally, no accessory muscle use Ext: no gross muscle atrophy, no edema, no contractures Neuro: no focal neuro deficits Psych: Alert, oriented, appropriate affect Discharge Diagnosis: Nonoliguric Acute kidney injury on chronic kidney disease, now progressing to ESRD: Started HD on 10/24 and 10/25. Plans for HD 10/27. Case management to arrange outpatient HD. Primary hyperaldosteronism: Aldactone 100 mg PO BID. Hyponatremia: Improved with HD. Uncontrolled hypertension: Amlodipine 10 mg PO QD. Coreg 25 mg PO BID. Hydralazine 50 mg PO BID. Acute on chronic normocytic anemia: Status post 2 units of PRBC. 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 No signs of active bleeding. Acute thrombocytopenia: Improving. NSTEMI, suspected type II: Downtrending. Likely related to hypertensive emergency on admission. No chest pain. Cardiomyopathy with EF 30-35%: Metoprolol and Aldactone as above. No ACEi due to CKD. Resolved: Headache, HypoK, metabolic acidosis This complex discharge took 35 minutes to complete. Patient Condition at Discharge: Stable Plan - Discharge Summary Discharge Rx Participant: No New Discharge Prescriptions: No Action hydrALAZINE HCL [Apresoline] 25 mg PO TID carvediloL [Coreg*] 12.5 mg PO BID Spironolactone [Aldactone] 50 mg PO BID amLODIPine [Norvasc] 10 mg PO DAILY Butalb/APAP/Caff 50-325-40Mg [Fioricet 50-325-40] 1 tab PO Q8H PRN PRN Reason: Headache Dapagliflozin Propanediol [Farxiga] 5 mg PO DAILY #30 tab Loratadine [Claritin] 10 mg PO DAILY Aspirin EC [Ecotrin Low Dose] 81 mg PO DAILY Ondansetron Odt [Zofran Odt] 4 mg PO Q8H PRN PRN Reason: Nausea Fluticasone Nasal [place] [Flonase Nasal [place]] 2 spr EA NOSTRIL DAILY Discharge Medication List Spironolactone [Aldactone] 50 mg PO BID 01/12/23 [History] Butalb/APAP/Caff 50-325-40Mg [Fioricet 50-325-40] 1 tab PO Q8H PRN 08/13/23 [History] amLODIPine [Norvasc] 10 mg PO DAILY 08/13/23 [History] Dapagliflozin Propanediol [Farxiga] 5 mg PO DAILY #30 tab 08/15/23 [Rx] Aspirin EC [Ecotrin Low Dose] 81 mg PO DAILY 10/20/23 [History] Fluticasone Nasal [place] [Flonase Nasal [place]] 2 spr EA NOSTRIL DAILY 10/20/23 [History] Loratadine [Claritin] 10 mg PO DAILY 10/20/23 [History] Ondansetron Odt [Zofran Odt] 4 mg PO Q8H PRN 10/20/23 [History] carvediloL [Coreg*] 12.5 mg PO BID 10/20/23 [History] hydrALAZINE HCL [Apresoline] 25 mg PO TID 10/20/23 [History] Follow up Appointment(s)/Referral(s): Bruno Siddiqi DO [Primary Care Provider] - 1-2 days
--- NOTE | 2023-10-27 11:46 | P.PN ---
Subjective Patient is seen for follow-up for acute kidney injury. No improvement in renal function with IV fluids. Patient was started on hemodialysis on 10/24/2023. Overall feeling better. Blood pressure is also better controlled. No significant complaints today. Patient is seen on hemodialysis. Tolerating treatment well. Objective - Vital Signs Vital signs: Vital Signs Temp 98.2 F 10/27/23 08:25 Pulse 86 10/27/23 08:25 Resp 16 10/27/23 08:25 BP 131/88 10/27/23 08:25 Pulse Ox 98 10/27/23 08:25 FiO2 Intake & Output 10/26/23 10/27/23 10/27/23 18:59 06:59 18:59 Intake Total 246 237 Output Total 800 Balance 246 237 -800 Weight 66.224 kg Intake: IV 10 Invasive Line 4 10 Oral 236 237 Output: Urine 800 Other: Voiding Method Toilet Toilet Toilet # Voids 2 - Exam Patient is awake, comfortable, alert oriented 3 Significant HIRSUITISM noted No acute distress Examination of the heart S1 and S2 Examination of the lungs bilateral breath sounds are heard Examination of the lower extremities shows no evidence of edema 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 Acute kidney injury most likely ATN currently nonoliguric. No evidence of obstruction on ultrasound. UA shows 2+ protein and moderate blood. No improvement in renal function with IV fluids. Patient was started on hemodialysis on 10/24/2023 No nephrotoxic agents identified. 2. Hypertensive urgency with previous workup for resistant hypertension showed hyperaldosteronism with left adrenal adenoma. Renin level was elevated which should ideally be low for primary hyperaldosteronism but Patient clinically responded well to Aldactone. She has an appointment at [facility] for further evaluation as patient will need adrenal vein sampling. 3. 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 4. Significant anemia with no active bleeding noted. Rule out iron deficiency [place] at status post packed RBCs transfusion. 5. Anion gap metabolic acidosis secondary to acute kidney injury started on bicarb drip and improved. 6. Hypokalemia associated with hyperaldosteronism. Plan: Continue off of IV fluids Continue current antihypertensive regimen Hemodialysis on TTS schedule Case management to arrange for outpatient he chair time.
[2023-10-27] MEDS: HEPARIN SODIUM,PORCINE 5,000 UNIT/ML 1 ML VIAL SQ SCH ×3 (13:12→22:56)
[2023-10-27] MEDS: hydrALAZINE HCL 50 MG TAB PO SCH ×2 (13:13→20:04)
[2023-10-27] MEDS: SPIRONOLACTONE 25 MG TAB PO SCH ×2 (13:14→20:04)
[2023-10-27] MEDS: LIDOCAINE 4% PATCH TOPICAL SCH (13:15)
[2023-10-27] MEDS: amLODIPine 10 MG TAB PO SCH (13:15)
[2023-10-28] MEDS: carvediloL 12.5 MG TAB PO SCH (06:36)
[2023-10-28] MEDS: LIDOCAINE 4% PATCH TOPICAL SCH (08:07)
[2023-10-28] MEDS: amLODIPine 10 MG TAB PO SCH (08:17)
[2023-10-28] MEDS: HEPARIN SODIUM,PORCINE 5,000 UNIT/ML 1 ML VIAL SQ SCH (08:17)
[2023-10-28] MEDS: hydrALAZINE HCL 50 MG TAB PO SCH (08:17)
[2023-10-28] MEDS: SPIRONOLACTONE 25 MG TAB PO SCH (08:17)
--- NOTE | 2023-10-28 10:59 | P.PN ---
Subjective Patient is seen for follow-up for acute kidney injury. No improvement in renal function with IV fluids. Patient was started on hemodialysis on 10/24/2023. Overall feeling better. Blood pressure is also better controlled. No significant complaints today. Status post hemodialysis yesterday with UF of 1.1 L Objective - Vital Signs Vital signs: Vital Signs Temp 98.1 F 10/28/23 04:00 Pulse 100 10/28/23 04:00 Resp 18 10/28/23 04:00 BP 156/95 10/28/23 04:00 Pulse Ox 98 10/28/23 04:00 FiO2 Intake & Output 10/27/23 10/28/23 10/28/23 18:59 06:59 18:59 Intake Total 700 10 222 Output Total 2750 1600 Balance -2049 -1589 222 Weight 66.224 kg 66.8 kg Intake: IV 10 0.9 10 Oral 222 Hemodialysis 700 Output: Urine 1600 1600 Hemodialysis 1150 Other: Voiding Method Toilet Toilet # Voids 4 - Exam Patient is awake, comfortable, alert oriented 3 Significant HIRSUITISM noted No acute distress Examination of the heart S1 and S2 Examination of the lungs bilateral breath sounds are heard Examination of the lower extremities shows no evidence of edema 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 Acute kidney injury most likely ATN currently nonoliguric. No evidence of obstruction on ultrasound. UA shows 2+ protein and moderate blood. No improvement in renal function with IV fluids. Patient was started on hemodialysis on 10/24/2023 No nephrotoxic agents identified. 2. Hypertensive urgency with previous workup for resistant hypertension showed hyperaldosteronism with left adrenal adenoma. Renin level was elevated which sh ould ideally be low for primary hyperaldosteronism but Patient clinically responded well to Aldactone. She has an appointment at [facility] for further evaluation as patient will need adrenal vein sampling. 3. 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 4. Significant anemia with no active bleeding noted. Rule out iron deficiency Spencer at status post packed RBCs transfusion. 5. Anion gap metabolic acidosis secondary to acute kidney injury started on bicarb drip and improved. 6. Hypokalemia associated with hyperaldosteronism. Plan: Continue off of IV fluids Continue current antihypertensive regimen Hemodialysis on TTS schedule Case management to arrange for outpatient he chair time.
--- NOTE | 2023-10-28 11:27 | P.DS ---
Providers Date of admission: 10/20/23 13:41 Expected date of discharge: 10/28/23 Attending physician: Melba Palmer DO Consults: 10/20/23 13:44 Consult Physician Routine Consulting Provider: Gricelda Zacarias Consult Reason/Comments: Renal Failure Do you want consulting provider notified?: Yes 10/23/23 13:51 Consult Physician Urgent Consulting Provider: Jas Ojeda Consult Reason/Comments: Permanent dialysis catheter Do you want consulting provider notified?: Already Contacted Primary care physician: [facility] Course: 48-year-old female with a known history of primary hyperaldosteronism with adrenal adenoma, chronic disease stage IV, uncontrolled hypertension, cardiomyopathy with EF 30-35% presenting with headaches. In the ED, temperature was 98.4, pulse 108, blood pressure 185/124, saturating at 99% on room air, respiratory rate 20. WBC 4.7, Hg 6.3, platelet 85, INR 1.0, APTT 24.1, sodium 130, potassium 2.2, bicarb 18, anion gap 18, BUN 116, creatinine 9.88, troponin 1.14, urinalysis negative for nitrites, shows moderate leukocyte esterase, moderate blood, 2+ protein. Respiratory viral panel negative. EKG independently interpreted, shows LVH, and sinus tachycardia. Brain CT showed no acute process. Chest x-ray shows no acute process. Renal ultrasound does not show any hydronephrosis. Patient admitted for acute kidney injury in the setting of hypertensive emergency. 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 Nephrology consulted, hemodialysis catheter inserted 10/24 and underwent HD on 10/24, 10/25 and 10/27. Antihypertensive medications were titrated. Headaches improved. 10/27 Patient was seen and examined. No complaints. Case management to arrange for HD outpatient. Her headaches have improved. States she has an appointment at [facility] with regard to her adrenal adenoma in December. Possible discharge home today. 10/28 Patient was seen and examined. Discharge held as outpatient HD was not set up yesterday. Hopefully it will be done today. Possible discharge home today. Pertinent studies include EKG, CXR, Renal US. Pertinent procedures include hemodialysis catheter. General: nontoxic, no distress, appears at stated age Derm: warm, dry, hirsutism Head: atraumatic, normocephalic, symmetric Eyes: EOMI, no lid lag, anicteric sclera Cardiovascular: Normal S1 S2. Lungs: Breathing comfortably, CTA bilaterally, no accessory muscle use Ext: no gross muscle atrophy, no edema, no contractures Neuro: no focal neuro deficits Psych: Alert, oriented, appropriate affect Discharge Diagnosis: Nonoliguric Acute kidney injury on chronic kidney disease, now progressing to ESRD: Started HD on 10/24, 10/25, 10/27. Case management to arrange outpatient HD. Primary hyperaldosteronism: Aldactone 100 mg PO BID. Hyponatremia: Improved with HD. Uncontrolled hypertension: Amlodipine 10 mg PO QD. Coreg 25 mg PO BID. Hydralazine 50 mg PO BID. Acute on chronic normocytic anemia: Status post 2 units of PRBC. 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 No signs of active bleeding. Acute thrombocytopenia: Improving. NSTEMI, suspected type II: Downtrending. Likely related to hypertensive emergency on admission. No chest pain. Cardiomyopathy with EF 30-35%: Metoprolol and Aldactone as above. No ACEi due to CKD. Resolved: Headache, HypoK, metabolic acidosis This complex discharge took 35 minutes to complete. Patient Condition at Discharge: Stable Plan - Discharge Summary Discharge Rx Participant: No New Discharge Prescriptions: New Spironolactone [Aldactone] 100 mg PO BID #240 tab hydrALAZINE HCL [Apresoline] 50 mg PO BID #60 tab carvediloL [Coreg*] 25 mg PO AC-BID #120 tab HYDROcodone/APAP 5-325MG [[place] 5-325] 1 each PO Q4HR PRN #18 tab PRN Reason: Pain Acetaminophen Tab [Tylenol] 650 mg PO Q6HR PRN tab PRN Reason: Fever And/ Or Pain Continue amLODIPine [Norvasc] 10 mg PO DAILY Butalb/APAP/Caff 50-325-40Mg [Fioricet 50-325-40] 1 tab PO Q8H PRN PRN Reason: Headache Dapagliflozin Propanediol [Farxiga] 5 mg PO DAILY #30 tab Loratadine [Claritin] 10 mg PO DAILY Aspirin EC [Ecotrin Low Dose] 81 mg PO DAILY Ondansetron Odt [Zofran ODT] 4 mg PO Q8H PRN PRN Reason: Nausea Fluticasone Nasal [place] [Flonase Nasal [place]] 2 spr EA NOSTRIL DAILY Discontinued hydrALAZINE HCL [Apresoline] 25 mg PO TID carvediloL [Coreg*] 12.5 mg PO BID Spironolactone [Aldactone] 50 mg PO BID Discharge Medication List Butalb/APAP/Caff 50-325-40Mg [Fioricet 50-325-40] 1 tab PO Q8H PRN 08/13/23 [History] amLODIPine [Norvasc] 10 mg PO DAILY 08/13/23 [History] Dapagliflozin Propanediol [Farxiga] 5 mg PO DAILY #30 tab 08/15/23 [Rx] Aspirin EC [Ecotrin Low Dose] 81 mg PO DAILY 10/20/23 [History] Fluticasone Nasal [place] [Flonase Nasal [place]] 2 spr EA NOSTRIL DAILY 10/20/23 [History] Loratadine [Claritin] 10 mg PO DAILY 10/20/23 [History] Ondansetron Odt [Zofran ODT] 4 mg PO Q8H PRN 10/20/23 [History] Acetaminophen Tab [Tylenol] 650 mg PO Q6HR PRN tab 10/27/23 [Rx] HYDROcodone/APAP 5-325MG [[place] 5-325] 1 each PO Q4HR PRN #18 tab 10/27/23 [Rx] Spironolactone [Aldactone] 100 mg PO BID #240 tab 10/27/23 [Rx] carvediloL [Coreg*] 25 mg PO AC-BID #120 tab 10/27/23 [Rx] hydrALAZINE HCL [Apresoline] 50 mg PO BID #60 tab 10/27/23 [Rx] Follow up Appointment(s)/Referral(s): Gricelda Zacarias MD [STAFF PHYSICIAN] - 1 [facility] [NON-STAFF] - 10/29/23 5:45 am (Hemodialysis will be every Thursday, , and Thursday at 5:45am at [facility].) Bruno Siddiqi DO [Primary Care Provider] - 1-2 days Activity/Diet/Wound Care/Special Instructions: Diet: Renal, Low salt Discharge Disposition: HOME SELF-CARE
[2023-10-28] MEDS: DARBEPOETIN ALFA 60 MCG/0.3 ML SYRINGE SQ SCH (11:45)
[2023-10-28 11:52] VITALS: TEMP 98.7
[2023-10-28 13:05] VITALS: BP 135/85; PULSE 90; RESP 16
== END 2023-10-28 14:48 | disposition home or self-care (01) | DRG 280 ==
LOC: EC 08:35 → 3SCARD 13:41
PROVIDERS: ADMIT Internal Medicine; ATTEND Internal Medicine
PROC: 02HV33Z Insertion of Infusion Device into Superior Vena Cava, Percutaneous Approach (ICD-10-PCS; principal; 2023-10-24 11:15)
PROC: 5A1D70Z Performance of Urinary Filtration, Intermittent, Less than 6 Hours Per Day (ICD-10-PCS; 2023-10-24 11:15)
DX: I16.1 Hypertensive emergency (principal); N17.0 Acute kidney failure with tubular necrosis; I21.A1 Myocardial infarction type 2; N18.6 End stage renal disease; E87.1 Hypo-osmolality and hyponatremia; I42.9 Cardiomyopathy, unspecified; E87.20 Acidosis, unspecified; I12.0 Hypertensive chronic kidney disease with stage 5 chronic kidney disease or end stage renal disease; D35.02 Benign neoplasm of left adrenal gland; D63.1 Anemia in chronic kidney disease; Z99.2 Dependence on renal dialysis; D69.6 Thrombocytopenia, unspecified; E26.09 Other primary hyperaldosteronism; E78.5 Hyperlipidemia, unspecified; E86.1 Hypovolemia; E87.6 Hypokalemia; G44.209 Tension-type headache, unspecified, not intractable; I25.2 Old myocardial infarction; I48.91 Unspecified atrial fibrillation; L68.0 Hirsutism; N20.0 Calculus of kidney; Z11.52 Encounter for screening for COVID-19; Z79.82 Long term (current) use of aspirin; Z79.84 Long term (current) use of oral hypoglycemic drugs; Z79.899 Other long term (current) drug therapy; Z28.310 Unvaccinated for COVID-19; Z28.21 Immunization not carried out because of patient refusal
CPT/HCPCS: 36415; 36430; 36558; 70450; 71045; 71046; 76770; 76937; 77001; 80048; 80053; 81001; 82088; 82728; 83010; 83540; 83550; 83615; 83735; 84244; 84466; 84484; 85025; 85027; 85045; 85610; 85730; 86140; 86706; 86850; 86900; 86901; 86920; 87340; 87636; 90935; 93005; 96361; 96365; 96375; 96376; 99291

== ENCOUNTER 2024-03-11 17:34 | Inpatient (IN) | payer OTHER ==
[2024-03-11 19:56] LABS: Partial Thromboplastin Time 24.9 sec (22.0-30.0); Prothrombin Time 10.6 sec (10.0-12.5)
[2024-03-11 19:57] LABS: Anisocytosis Slight; Basophils % (A) 1 %; Eosinophils # (A) 0.1 k/uL (0-0.7); Eosinophils % (A) 2 %; HCT 33.2 % (34.0-46.0); HGB 11.8 gm/dL (11.4-16.0); Hyperchromasia Slight; Lymphocytes # (A) 1.2 k/uL (1.0-4.8); Lymphocytes % (A) 14 %; MCH 30.3 pg (25.0-35.0); MCHC 35.5 g/dL (31.0-37.0); MCV 85.3 fL (80.0-100.0); Mean Platelet Volume 8.9; Monocytes # (A) 0.5 k/uL (0-1.0); Monocytes % (A) 6 %; Neutrophils # (A) 6.6 k/uL (1.3-7.7); Neutrophils % (A) 76 %; Platelet Count 106 k/uL (150-450); Poikilocytosis Moderate; RDW 16.7 % (11.5-15.5); WBC 8.7 k/uL (3.8-10.6)
--- NOTE | 2024-03-11 19:58 | ED ---
General Adult HPI - General Chief complaint: Nausea/Vomiting/Diarrhea Stated complaint: Labs Time Seen by Provider: 03/11/24 19:05 Source: patient, RN notes reviewed Mode of arrival: ambulatory Limitations: no limitations - History of Present Illness Initial comments: 48-year-old female presents to the emergency department for evaluation of nausea, vomiting. Patient states that over the past week she has not been feeling well. She notes that because of this she missed her dialysis 3 times last week. She notes that she has dialysis Thursday, , Thursday. She states that over the past 2 days she has developed nausea and vomiting. She states that she is very nauseous currently. No active vomiting at this time. She does note headache. Patient found to be very hypertensive in the emergency department. She takes hydralazine for her blood pressure. She states that she has been taking this as prescribed. She denies abdominal pain, chest pain, shortness of breath. - Related Data Home Medications Medication Instructions Recorded Confirmed Ondansetron Odt [Zofran ODT] 4 mg PO Q8H PRN 10/20/23 03/12/24 Cinacalcet [Sensipar] 30 mg PO DIRECTED 03/12/24 03/12/24 Vit B Comp No.3/Folic/C/Biotin 1 tab PO DAILY 03/12/24 03/12/24 [Cheryl-[facility]os Rx Tablet] Previous Rx's Medication Instructions Recorded Spironolactone [Aldactone] 100 mg PO BID #240 tab 10/27/23 hydrALAZINE HCL [Apresoline] 50 mg PO BID #60 tab 10/27/23 Allergies Allergy/AdvReac Type Severity Reaction Status Date / Time No Known Allergies Allergy Verified 03/12/24 08:49 Review of Systems ROS Statement: Those systems with pertinent positive or pertinent negative responses have been documented in the HPI. ROS Other: All systems not noted in ROS Statement are negative. Past Medical History Past Medical History: Atrial Fibrillation, Hyperlipidemia, Hypertension, Renal Disease Additional Past Medical History / Comment(s): Hyperaldosteronism,cardiomyopathy History of Any Multi-Drug Resistant Organisms: None Reported Past Surgical History: No Surgical Hx Reported Past Anesthesia/Blood Transfusion Reactions: No Reported Reaction Past Psychological History: No Psychological Hx Reported Smoking Status: Never smoker Past Alcohol Use History: None Reported Past Drug Use History: None Reported - Past Family History Mother Family Medical History: No Reported History General Exam Limitations: no limitations General appearance: alert, in no apparent distress Head exam: Present: atraumatic, normocephalic, normal inspection Eye exam: Present: normal appearance, PERRL, EOMI. Absent: scleral icterus, conjunctival injection, periorbital swelling ENT exam: Present: normal exam, mucous membranes moist Neck exam: Present: normal inspection. Absent: tenderness, meningismus, lymphadenopathy Respiratory exam: Present: normal lung sounds bilaterally. Absent: respiratory distress, wheezes, rales, rhonchi, stridor Cardiovascular Exam: Present: normal rhythm, tachycardia, normal heart sounds. Absent: systolic murmur, diastolic murmur, rubs, gallop, clicks GI/Abdominal exam: Present: soft, normal bowel sounds. Absent: distended, tenderness, guarding, rebound, rigid Extremities exam: Present: normal inspection, full ROM, normal capillary refill. Absent: tenderness, pedal edema, joint swelling, calf tenderness Back exam: Present: normal inspection Neurological exam: Present: alert, oriented X3 Psychiatric exam: Present: normal affect, normal mood Skin exam: Present: warm, dry, intact, normal color. 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 ] Respiratory 20 16 Rate Blood Pressure 217/148 230/149 O2 Sat by Pulse 100 100 Oximetry 03/11/24 03/11/24 03/11/24 20:51 21:07 21:29 Temperature 98.3 F Pulse Rate 108 H 118 H 134 H Pulse Rate [ Assistant Women'S Soccer Coach ] Respiratory 17 12 24 Rate Blood Pressure 239/155 239/155 224/144 O2 Sat by Pulse 100 100 95 Oximetry 03/11/24 03/11/24 03/11/24 21:38 22:50 23:29 Temperature Pulse Rate 129 H 124 H 110 H Pulse Rate [ Assistant Women'S Soccer Coach ] Respiratory 18 15 20 Rate Blood Pressure 170/109 184/123 198/135 O2 Sat by Pulse 100 100 100 Oximetry 03/12/24 03/12/24 03/12/24 00:23 01:12 02:14 Temperature Pulse Rate 107 H 131 H 117 H Pulse Rate [ Assistant Women'S Soccer Coach ] Respiratory 18 24 17 Rate Blood Pressure 199/123 211/138 192/135 O2 Sat by Pulse 99 100 99 Oximetry 03/12/24 03/12/24 03/12/24 03:30 05:28 06:03 Temperature 98.2 F Pulse Rate 103 H 128 H 102 H Pulse Rate [ Assistant Women'S Soccer Coach ] Respiratory 15 17 21 Rate Blood Pressure 196/138 218/140 202/130 O2 Sat by Pulse 99 99 99 Oximetry 03/12/24 03/12/24 03/12/24 07:46 09:05 10:51 Temperature Pulse Rate 92 105 H 92 Pulse Rate [ Assistant Women'S Soccer Coach ] Respiratory 18 22 20 Rate Blood Pressure 121/80 142/91 149/88 O2 Sat by Pulse 99 99 99 Oximetry 03/12/24 12:16 Temperature 98.7 F Pulse Rate 100 Pulse Rate [ Assistant Women'S Soccer Coach ] Respiratory 16 Rate Blood Pressure 157/98 O2 Sat by Pulse 100 Oximetry Medical Decision Making - Medical Decision Making Was pt. sent in by a medical professional or institution (, PA, RETAIL PHARMACY TECHNICIAN, urgent care, hospital, or snf...) When possible be specific @ -No Did you speak to anyone other than the patient for history (EMS, parent, family, police, friend...)? What history was obtained from this source @ -No Did you review nursing and triage notes (agree or disagree)? Why? @ -I reviewed and agree with nursing and triage notes Were old charts reviewed (outside hosp., previous admission, EMS record, old EKG, old radiological studies, urgent care reports/EKG's, snf records)? Report findings @ -No old charts were reviewed Differential Diagnosis (chest pain, altered mental status, abdominal pain women, abdominal pain men, vaginal bleeding, weakness, fever, dyspnea, syncope, h eadache, dizziness, GI bleed, back pain, seizure, CVA, palpatations, mental health, musculoskeletal)? @ -Differential Headache: Migraine, tension, cluster, carbon monoxide, central venous thrombosis, pension karma temporal arteritis, acute closure glaucoma, intercranial hemorrhage, mastoiditis, sinusitis, head injury, this is not meant to be an all-inclusive list. EKG interpreted by me (3pts min.). @ -EKG at 238 shows sinus tachycardia rate 107, [place] 112, QRS 98, QTQTc [id number] X-rays interpreted by me (1pt min.). @ -CXR interpreted by me shows no significant pleural effusion CT interpreted by me (1pt min.). @ -None done U/S interpreted by me (1pt. min.). @ -None done What testing was considered but not performed or refused? (CT, X-rays, U/S, labs)? Why? @ -None What meds were considered but not given or refused? Why? @ -None Did you discuss the management of the patient with other professionals (professionals i.e. , PA, RETAIL PHARMACY TECHNICIAN, lab, RT, psych nurse, dialysis social worker, crew director, teacher, commanding officer motorized squad, shelter case manager)? Give summary @ -Management discussed with Dr De La Torre including hypertensive emergency, tachycardia , does not think patient needs emergency dialysis tonight. Patient t o have dialysis in AM Case discussed with Gurdeep, Dr. Alves who is accepting of the admission Was smoking cessation discussed for >3mins.? @ -No Was critical care preformed (if so, how long)? @ -No Were there social determinants of health that impacted care today? How? (Homelessness, low income, unemployed, alcoholism, drug addiction, transportation, low edu. Level, literacy, decrease access to med. care, halfway, rehab)? @ -No Was there de-escalation of care discussed even if they declined (Discuss DNR or withdrawal of care, Hospice)? DNR status @ -No What co-morbidities impacted this encounter? (DM, HTN, Smoking, COPD, CAD, Cancer, CVA, ARF, Chemo, Hep., AIDS, mental health diagnosis, sleep apnea, morbid obesity)? @ -Chronic kidney disease requiring dialysis Was patient admitted / discharged? Hospital course, mention meds given and route, prescriptions, significant lab abnormalities, going to OR and other pertinent info. @ -Admitted. Patient presents to the emergency department for evaluation of nausea and vomiting. Symptoms started about 2 days ago. He states that prior to this she had been feeling well for around the past week. She notes that she had missed 3 of her hemodialysis sessions. Patient has hemodialysis on Thursday, , Thursday. She follows with Dr. Zacarias. Patient very hypertensive in the ED with BPs in 230s systolic and 140s to 150s diastolic. Patient given a dose of 20 mg IV hydralazine as she takes this PO at home. BP improved with this. Patient denying chest pain, shortness of breath. Patient reports significant nausea in the emergency department. She was given a dose of Zofran which improved her symptoms temporarily. She was given an a dditional dose following this. Laboratory studies obtained significant for BUN of 107, creatinine 8.77, patient had an elevation of troponin at 0.097. Potassium 3.4 Patient O2 saturation stable on room air. Chest XR interpreted by me shows no significant volume overload. Discussed case with nephrology, Dr. De La Torre. Recommends hemodialysis in a.m. Case discussed with admitting physician, Dr. Alves who is accepting of the admission Case discussed with my attending, Dr. Gomez Undiagnosed new problem with uncertain prognosis? @ -No Drug Therapy requiring intensive monitoring for toxicity (Heparin, Nitro, Insulin, Cardizem)? @ -No Were any procedures done? @ -No Diagnosis/symptom? @ -Nausea and vomiting, uremia, hypertensive emergency Acute, or Chronic, or Acute on Chronic? @ -Acute Uncomplicated (without systemic symptoms) or Complicated (systemic symptoms)? @ -Complicated Side effects of treatment? @ -No Exacerbation, Progression, or Severe Exacerbation? @ -Exacerbation Poses a threat to life or bodily function? How? (Chest pain, USA, SD, pneumonia, PE, COPD, DKA, ARF, appy, cholecystitis, CVA, Diverticulitis, Homicidal, Suicidal, threat to staff... and all critical care pts) @ -yes - Lab Data Result diagrams: 03/12/24 09:12 03/12/24 09:12 Lab Results 03/11/24 03/11/24 03/11/24 Range/Units 19:33 19:33 19:33 WBC 8.7 (3.8-10.6) k/uL RBC 3.90 (3.80-5.40) m/uL Hgb 11.8 (11.4-16.0) gm/dL Hct 33.2 L (34.0-46.0) % MCV 85.3 (80.0-100.0) fL MCH 30.3 (25.0-35.0) pg MCHC 35.5 (31.0-37.0) g/dL RDW 16.7 H (11.5-15.5) % Plt Count 106 L (150-450) k/uL MPV 8.9 Neutrophils % 76 % Lymphocytes % 14 % Monocytes % 6 % Eosinophils % 2 % Basophils % 1 % Neutrophils # 6.6 (1.3-7.7) k/uL Lymphocytes # 1.2 (1.0-4.8) k/uL Monocytes # 0.5 (0-1.0) k/uL Eosinophils # 0.1 (0-0.7) k/uL Basophils # 0.0 (0-0.2) k/uL Hyperchromasia Slight Poikilocytosis Moderate Anisocytosis Slight PT 10.6 (10.0-12.5) sec INR 1.0 (<1.2) APTT 24.9 (22.0-30.0) sec Sodium 130 L (137-145) mmol/L Potassium 3.4 L (3.5-5.1) mmol/L Chloride 101 (98-107) mmol/L Carbon Dioxide 13 L (22-30) mmol/L Anion Gap 16 mmol/L BUN 108 H* (7-17) mg/dL Creatinine 8.77 H* (0.52-1.04) mg/dL Est GFR (CKD-EPI)AfAm 6 (>60 ml/min/1.73 sqM) Est GFR (CKD-EPI)NonAf 5 (>60 ml/min/1.73 sqM) Glucose 91 (74-99) mg/dL Plasma Lactic Acid Wan (0.7-2.0) mmol/L Calcium 8.3 L (8.4-10.2) mg/dL Phosphorus 6.6 H (2.5-4.5) mg/dL Magnesium 2.1 (1.6-2.3) mg/dL Total Bilirubin 0.6 (0.2-1.3) mg/dL AST 22 (14-36) U/L ALT 15 (4-34) U/L Alkaline Phosphatase 82 (38-126) U/L Troponin I (0.000-0.034) ng/mL Total Protein 6.0 L (6.3-8.2) g/dL Albumin 3.6 (3.5-5.0) g/dL Influenza Type A (PCR) (Not Detectd) Influenza Type B (PCR) (Not Detectd) RSV (PCR) (Not Detectd) SARS-CoV-2 (PCR) (Not Detectd) 03/11/24 03/11/24 03/11/24 Range/Units 19:33 19:33 20:12 WBC (3.8-10.6) k/uL RBC (3.80-5.40) m/uL Hgb (11.4-16.0) gm/dL Hct (34.0-46.0) % MCV (80.0-100.0) fL MCH (25.0-35.0) pg MCHC (31.0-37.0) g/dL RDW (11.5-15.5) % Plt Count (150-450) k/uL MPV Neutrophils % % Lymphocytes % % Monocytes % % Eosinophils % % Basophils % % Neutrophils # (1.3-7.7) k/uL Lymphocytes # (1.0-4.8) k/uL Monocytes # (0-1.0) k/uL Eosinophils # (0-0.7) k/uL Basophils # (0-0.2) k/uL Hyperchromasia Poikilocytosis Anisocytosis PT (10.0-12.5) sec INR (<1.2) APTT (22.0-30.0) sec Sodium (137-145) mmol/L Potassium (3.5-5.1) mmol/L Chloride (98-107) mmol/L Carbon Dioxide (22-30) mmol/L Anion Gap mmol/L BUN (7-17) mg/dL Creatinine (0.52-1.04) mg/dL Est GFR (CKD-EPI)AfAm (>60 ml/min/1.73 sqM) Est GFR (CKD-EPI)NonAf (>60 ml/min/1.73 sqM) Glucose (74-99) mg/dL Plasma Lactic Acid Wan 0.5 L (0.7-2.0) mmol/L Calcium (8.4-10.2) mg/dL Phosphorus (2.5-4.5) mg/dL Magnesium (1.6-2.3) mg/dL Total Bilirubin (0.2-1.3) mg/dL AST (14-36) U/L ALT (4-34) U/L Alkaline Phosphatase (38-126) U/L Troponin I 0.092 H* (0.000-0.034) ng/mL Total Protein (6.3-8.2) g/dL Albumin (3.5-5.0) g/dL Influenza Type A (PCR) Not Detected (Not Detectd) Influenza Type B (PCR) Not Detected (Not Detectd) RSV (PCR) Not Detected (Not Detectd) SARS-CoV-2 (PCR) Not Detected (Not Detectd) Disposition Clinical Impression: Intractable nausea and vomiting, CKD (chronic kidney disease) requiring chronic dialysis, Hypertensive emergency Disposition: ADMITTED IP TO THIS HOSP Condition: Stable Is patient prescribed a controlled substance at d/c from ED?: No
[2024-03-11 20:02] LABS: ALT 15 U/L (4-34); AST 22 U/L (14-36); African American GFR (CKD) 6 (>60 ml/min/1.73 sqM); Albumin 3.6 g/dL (3.5-5.0); Alkaline Phosphatase 82 U/L (38-126); Anion Gap 16 mmol/L; Calcium 8.3 mg/dL (8.4-10.2); Carbon Dioxide 13 mmol/L (22-30); Chloride 101 mmol/L (98-107); Glucose 91 mg/dL (74-99); Magnesium 2.1 mg/dL (1.6-2.3); Non-African American GFR(CKD) 5 (>60 ml/min/1.73 sqM); Phosphorus 6.6 mg/dL (2.5-4.5); Potassium 3.4 mmol/L (3.5-5.1); Sodium 130 mmol/L (137-145); Total Bilirubin 0.6 mg/dL (0.2-1.3)
[2024-03-11 20:18] LABS: Blood Urea Nitrogen 108 mg/dL (7-17)
[2024-03-11] MEDS: ONDANSETRON 4 MG/2 ML VIAL IVP STA ×2 (20:39→21:38)
[2024-03-11] MEDS: hydrALAZINE HCL 20 MG/ML 1 ML VIAL IVP STA (21:04)
[2024-03-11] MEDS ORDERED: NALOXONE 0.4 MG/ML 1 ML VIAL IV PRN (23:20)
--- NOTE | 2024-03-12 02:01 | XR ---
EXAMINATION TYPE: XR chest 2V DATE OF EXAM: 03/11/2024 8:20 PM CLINICAL INDICATION:Female, 48 years old with history of weakness; [facility] COMPARISON: Chest x-ray 10/24/2023 TECHNIQUE: XR chest 2V. Frontal and lateral views of the chest.. FINDINGS: Lines/Tubes/Devices: Right chest dual lumen dialysis catheter with the tips over the mid SVC. Heart/mediastinum: Heart size is normal. Mildly tortuous aorta. Pulmonary vascularity: Not increased, Lungs/Pleura: There is no evidence of pleural effusion, focal consolidation, or pneumothorax. Musculoskeletal: No acute osseous abnormality demonstrated in the limits of the exam. Mild degenerat holly changes. Other findings: None. IMPRESSION: No acute cardiopulmonary abnormality.
[2024-03-12] MEDS: ACETAMINOPHEN TAB 325 MG TAB PO PRN (04:30)
--- NOTE | 2024-03-12 05:19 | P.HPIM ---
History of Present Illness H&P Date: 03/12/24 Patient is a 48-year-old female with a PMH of ESRD on hemodialysis, systolic CHF with EF 30 to 35%, hypertension, who presents to the emergency room after missing hemodialysis appointments. Patient reports that she felt ill the past 8 to 10 days and has missed 3 of her last hemodialysis appointment. Reports having food poisoning like symptoms with nausea, vomiting, and abdominal discomfort which have now resolved. Attempted to go to her dialysis today but was advised to go to the emergency room. Reports headache at the time of interview, rated at a 5 out of 10, diffusely. Denied experiencing chest discomfort, shortness of breath, fever, chills, cough, diarrhea. Chest x-ray in the emergency room was unremarkable with EKG showing sinus tachycardia at 107 bpm with LVH and poor R wave progression as reviewed by me. Laboratory evaluation was remarkable for BUN 108, creatinine 8.77, troponin 0.092, sodium 130, potassium 3.4, and CO2 13 with platelet count 106. The patient's BP upon arrival at the emergency room was 217/148 with pulse 123, respiratory rate 20, SpO2 100% on room air with temp 98.3 F. ED documentation reviewed and case discussed with ED provider. Review of systems: Pertinent positives and negatives as discussed in HPI, a complete review of systems was performed and all other systems are negative. Physical examination: Vital signs reviewed General: non toxic, no distress, appears older than stated age, normal weight Derm: no unusual rashes/lesions, warm Head: atraumatic, normocephalic, symmetric Eyes: EOMI, no lid lag, anicteric sclera, pupils equal round reactive to light ENT: Nose and ears atraumatic Neck: No cervical lymphadenopathy, trachea midline, supple Mouth: no lip lesion, mucus membranes moist Cardiovascular: S1S2 reg, no murmur, positive dorsalis pedis pulse bilateral, no edema, right chest wall dialysis catheter in place without surrounding skin abnormalities noted Lungs: CTA bilateral, no rhonchi, no rales, no accessory muscle use Abdominal: soft, nontender to palpation, no guarding Ext: muscle strength 5 out of 5 in all 4 extremities grossly, no gross muscle atrophy, no contractures, Neuro: CN II-XI grossly intact, no gross focal neuro deficits Psych: Alert, oriented, appropriate affect Assessment: Missed hemodialysis Hypertensive urgency, likely due to above Hypokalemia Hyponatremia Acidosis, suspect due to uremia Elevated troponin, likely due to significant kidney injury, patient denying chest discomfort or shortness of breath Thrombocytopenia, at baseline Chronic conditions: CHF Imaging: Chest x-ray in the emergency room was unremarkable with EKG showing sinus tachycardia at 107 bpm with LVH and poor R wave progression as reviewed by me. Data Review: Laboratory evaluation was remarkable for BUN 108, creatinine 8.77, troponin 0.092, sodium 130, potassium 3.4, and CO2 13 with platelet count 106. The patie nt's BP upon arrival at the emergency room was 217/148 with pulse 123, respiratory rate 20, SpO2 100% on room air with temp 98.3 F. Plan: Case discussed with nephrology by ED provider who noted that they will perform HD in a.m. Resume home antihypertensives Hydralazine as needed Replace potassium Cardiac monitoring DVT prophylaxis: Lovenox subcu The patient is admitted with an anticipated greater than 2 midnight stay for evaluation of missed HD CODE STATUS: Full Code Discussed with: Patient Anticipated discharge place: Home Past Medical History Past Medical History: Atrial Fibrillation, Hyperlipidemia, Hypertension, Renal Disease Additional Past Medical History / Comment(s): Hyperaldosteronism,cardiomyopathy History of Any Multi-Drug Resistant Organisms: None Reported Past Surgical History: No Surgical Hx Reported Past Anesthesia/Blood Transfusion Reactions: No Reported Reaction Past Psychological History: No Psychological Hx Reported Smoking Status: Never smoker Past Alcohol Use History: None Reported Past Drug Use History: None Reported - Past Family History Mother Family Medical History: Hyperlipidemia Medications and Allergies Home Medications Medication Instructions Recorded Confirmed Type Butalb/APAP/Caff 50-325-40Mg 1 tab PO Q8H PRN 08/13/23 10/20/23 History [Fioricet 50-325-40] amLODIPine [Norvasc] 10 mg PO DAILY 08/13/23 10/20/23 History Dapagliflozin Propanediol [Farxiga] 5 mg PO DAILY #30 tab 08/15/23 10/20/23 Rx Aspirin EC [Ecotrin Low Dose] 81 mg PO DAILY 10/20/23 10/20/23 History Fluticasone Nasal Arpin [Flonase 2 spr EA NOSTRIL DAILY 10/20/23 10/20/23 History Nasal Arpin] Loratadine [Claritin] 10 mg PO DAILY 10/20/23 10/20/23 History Ondansetron Odt [Zofran ODT] 4 mg PO Q8H PRN 10/20/23 10/20/23 History Acetaminophen Tab [Tylenol] 650 mg PO Q6HR PRN tab 10/27/23 Rx HYDROcodone/APAP 5-325MG [Runge 1 each PO Q4HR PRN #18 tab 10/27/23 Rx 5-325] Spironolactone [Aldactone] 100 mg PO BID #240 tab 10/27/23 Rx carvediloL [Coreg*] 25 mg PO AC-BID #120 tab 10/27/23 Rx hydrALAZINE HCL [Apresoline] 50 mg PO BID #60 tab 10/27/23 Rx Allergies Allergy/AdvReac Type Severity Reaction Status Date / Time No Known Allergies Allergy Verified 03/11/24 18:00 Physical Exam Vitals: Vital Signs Temp Pulse Pulse Resp BP Pulse Ox 03/12/24 03:30 103 H 15 196/138 99 03/12/24 02:14 117 H 17 192/135 99 03/12/24 01:12 131 H 24 211/138 100 03/12/24 00:23 107 H 18 199/123 99 03/11/24 23:29 110 H 20 198/135 100 03/11/24 22:50 124 H 15 184/123 100 03/11/24 21:38 129 H 18 170/109 100 03/11/24 21:29 134 H 24 224/144 95 03/11/24 21:07 98.3 F 118 H 12 239/155 100 03/11/24 20:51 108 H 17 239/155 100 03/11/24 20:39 118 H 03/11/24 19:00 99.0 F 121 H 16 230/149 100 03/11/24 17:58 98.3 F 123 H 20 217/148 100 Intake and Output 03/11/24 03/11/24 03/12/24 14:59 22:59 06:59 Other: Weight 66.224 kg Results CBC & Chem 7: 03/11/24 19:33 03/11/24 19:33 Labs: Abnormal Lab Results - Last 24 Hours (Table) 03/11/24 03/11/24 03/11/24 Range/Units 19:33 19:33 19:33 Hct 33.2 L (34.0-46.0) % RDW 16.7 H (11.5-15.5) % Plt Count 106 L (150-450) k/uL Sodium 130 L (137-145) mmol/L Potassium 3.4 L (3.5-5.1) mmol/L Carbon Dioxide 13 L (22-30) mmol/L BUN 108 H* (7-17) mg/dL Creatinine 8.77 H* (0.52-1.04) mg/dL Plasma Lactic Acid Wan 0.5 L (0.7-2.0) mmol/L Calcium 8.3 L (8.4-10.2) mg/dL Phosphorus 6.6 H (2.5-4.5) mg/dL Troponin I (0.000-0.034) ng/mL Total Protein 6.0 L (6.3-8.2) g/dL 03/11/24 Range/Units 19:33 Hct (34.0-46.0) % RDW (11.5-15.5) % Plt Count (150-450) k/uL Sodium (137-145) mmol/L Potassium (3.5-5.1) mmol/L Carbon Dioxide (22-30) mmol/L BUN (7-17) mg/dL Creatinine (0.52-1.04) mg/dL Plasma Lactic Acid Wan (0.7-2.0) mmol/L Calcium (8.4-10.2) mg/dL Phosphorus (2.5-4.5) mg/dL Troponin I 0.092 H* (0.000-0.034) ng/mL Total Protein (6.3-8.2) g/dL
[2024-03-12] MEDS: POTASSIUM CHLORIDE ER 20 MEQ TAB.ER PO STA (05:27)
[2024-03-12] MEDS: LABETALOL 100 MG TAB PO STA (05:27)
[2024-03-12] MEDS: hydrALAZINE HCL 25 MG TAB PO STA (05:27)
[2024-03-12 08:22] LABS: African American GFR (CKD) 6 (>60 ml/min/1.73 sqM); Anion Gap 13 mmol/L; Calcium 8.3 mg/dL (8.4-10.2); Carbon Dioxide 14 mmol/L (22-30); Chloride 101 mmol/L (98-107); Glucose 123 mg/dL (74-99); Non-African American GFR(CKD) 5 (>60 ml/min/1.73 sqM); Potassium 3.4 mmol/L (3.5-5.1); Sodium 128 mmol/L (137-145)
[2024-03-12 08:31] LABS: Blood Urea Nitrogen 110 mg/dL (7-17)
[2024-03-12] MEDS: amLODIPine 10 MG TAB PO SCH (08:44)
[2024-03-12] MEDS: hydrALAZINE HCL 50 MG TAB PO SCH (08:44)
[2024-03-12] MEDS: carvediloL 12.5 MG TAB PO SCH (08:44)
[2024-03-12] MEDS: DAPAGLIFLOZIN PROPANEDIOL 5 MG TABLET PO SCH (08:58)
[2024-03-12] MEDS: ASPIRIN 81 MG PO SCH (08:59)
[2024-03-12] MEDS: SPIRONOLACTONE 25 MG TAB PO SCH (08:59)
[2024-03-12] MEDS ORDERED: ENOXAPARIN 40 MG/0.4 ML SYRINGE SQ SCH (09:00)
[2024-03-12] MEDS: ENOXAPARIN 30 MG/0.3 ML SYRINGE SQ SCH (09:03)
[2024-03-12 09:50] LABS: Anisocytosis Slight; HCT 29.3 % (34.0-46.0); HGB 10.2 gm/dL (11.4-16.0); MCH 29.7 pg (25.0-35.0); MCHC 34.8 g/dL (31.0-37.0); MCV 85.3 fL (80.0-100.0); Mean Platelet Volume 8.9; Poikilocytosis Moderate; RBC 3.43 m/uL (3.80-5.40); RDW 16.7 % (11.5-15.5); WBC 5.4 k/uL (3.8-10.6)
[2024-03-12 09:55] LABS: ALT 12 U/L (4-34); AST 18 U/L (14-36); African American GFR (CKD) 6 (>60 ml/min/1.73 sqM); Albumin 3.2 g/dL (3.5-5.0); Alkaline Phosphatase 72 U/L (38-126); Anion Gap 16 mmol/L; Calcium 8.5 mg/dL (8.4-10.2); Carbon Dioxide 13 mmol/L (22-30); Chloride 101 mmol/L (98-107); Glucose 111 mg/dL (74-99); Magnesium 2.2 mg/dL (1.6-2.3); Non-African American GFR(CKD) 5 (>60 ml/min/1.73 sqM); Potassium 3.6 mmol/L (3.5-5.1); Sodium 130 mmol/L (137-145); Total Bilirubin 0.6 mg/dL (0.2-1.3); Total Protein 5.3 g/dL (6.3-8.2)
[2024-03-12 09:57] LABS: Blood Urea Nitrogen 115 mg/dL (7-17)
[2024-03-12 10:28] LABS: Platelet Count 87 k/uL (150-450)
--- NOTE | 2024-03-12 13:30 | P.NPCON ---
History of Present Illness - Reason for Consult Consult date: 03/12/24 - Chief Complaint Nausea and Vomiting - History of Present Illness Patient is a 48-year-old female with a PMH of ESRD on hemodialysis, systolic CHF with EF 30 to 35%, hypertension, who presents to the emergency room after missing hemodialysis appointments. Patient reports that she felt ill the past 8 to 10 days and has missed 3 of her last hemodialysis appointment. Reports having food poisoning like symptoms with nausea, vomiting, and abdominal discomfort which have now resolved. Attempted to go to her dialysis today but was advised to go to the emergency room. Reports headache and noted to have very high BP on arrival to ED. Plan is to have HD today.Her nausea and vomting has improved and tolerating diet without issues. Wants to go home after HD. Vital signs are stable. General: No acute distress. HEENT: Head exam is unremarkable. LUNGS: No audible rhonchi or wheezes. HEART: Rate and Rhythm are regular. ABDOMEN: Nontender. EXTREMITITES: Trace edema. Review of Systems Constitutional: Reports as per HPI Past Medical History Past Medical History: Atrial Fibrillation, Hyperlipidemia, Hypertension, Renal Disease Additional Past Medical History / Comment(s): Hyperaldosteronism,cardiomyopathy History of Any Multi-Drug Resistant Organisms: None Reported Past Surgical History: No Surgical Hx Reported Past Anesthesia/Blood Transfusion Reactions: No Reported Reaction Past Psychological History: No Psychological Hx Reported Smoking Status: Never smoker Past Alcohol Use History: None Reported Past Drug Use History: None Reported - Past Family History Mother Family Medical History: Hyperlipidemia Medications and Allergies Home Medications Medication Instructions Recorded Confirmed Type Ondansetron Odt [Zofran ODT] 4 mg PO Q8H PRN 10/20/23 03/12/24 History Spironolactone [Aldactone] 100 mg PO BID #240 tab 10/27/23 03/12/24 Rx hydrALAZINE HCL [Apresoline] 50 mg PO BID #60 tab 10/27/23 03/12/24 Rx Cinacalcet [Sensipar] 30 mg PO DIRECTED 03/12/24 03/12/24 History Vit B Comp No.3/Folic/C/Biotin 1 tab PO DAILY 03/12/24 03/12/24 History [Cheryl-Santos Rx Tablet] Allergies Allergy/AdvReac Type Severity Reaction Status Date / Time No Known Allergies Allergy Verified 03/12/24 08:49 Physical Exam Vitals: Vital Signs Temp Pulse Pulse Resp BP Pulse Ox 03/12/24 09:05 105 H 22 142/91 99 03/12/24 07:46 92 18 121/80 99 03/12/24 06:03 102 H 21 202/130 99 03/12/24 05:28 98.2 F 128 H 17 218/140 99 03/12/24 03:30 103 H 15 196/138 99 03/12/24 02:14 117 H 17 192/135 99 03/12/24 01:12 131 H 24 211/138 100 03/12/24 00:23 107 H 18 199/123 99 03/11/24 23:29 110 H 20 198/135 100 03/11/24 22:50 124 H 15 184/123 100 03/11/24 21:38 129 H 18 170/109 100 03/11/24 21:29 134 H 24 224/144 95 03/11/24 21:07 98.3 F 118 H 12 239/155 100 03/11/24 20:51 108 H 17 239/155 100 03/11/24 20:39 118 H 03/11/24 19:00 99.0 F 121 H 16 230/149 100 03/11/24 17:58 98.3 F 123 H 20 217/148 100 Intake and Output 03/11/24 03/12/24 03/12/24 22:59 06:59 14:59 Other: Weight 66.224 kg Results - Lab Results Most recent lab results Calcium 8.5 mg/dL (8.4-10.2) 03/12/24 09:12 Phosphorus 6.6 mg/dL (2.5-4.5) H 03/11/24 19:33 Magnesium 2.2 mg/dL (1.6-2.3) 03/12/24 09:12 03/12/24 09:12 03/12/24 09:12 Assessment and Plan Plan: Assessment: 1. ESRD on HD TTS, missed last three treatments. Access right IJ Permcath. 2. Hypertensive emergency due to missed HD and unable to take medicaitons from nausea and vomiting. BP improved this morning. History of hyperaldosteronism. 3. Anemia with CKD outpatient [facility] 4. Renal Osteodystrophy 5. Intractable Nausea and Vomting due to gastroenteritis vs uremia-Improved Plan: BP improved, resume oral BP medications Plan for HD today to maintain TTS schedule. If BP improved and better after HD then clear for discharge.
--- NOTE | 2024-03-12 16:52 | P.PN ---
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 She presented to the emergency department on 03/11/2024 with a chief complaint of headache and multiple missed dialysis treatments, stating she missed her last 3 consecutive treatments. She underwent evaluation in the emergency department. Vital signs upon arrival show blood pressure 217/148 and increasing as high as 239/155, heart rate 123, respiratory rate 20, temp 98.3 F, and SpO2 100% on room air. EKG was completed showing sinus tachycardia at 107 bpm with inverted T waves in lateral lead aVL which is unchanged when compared to previous EKG completed 10/20/2023 upon personal review and interpretation. Labs completed and reviewed. CBC showing thrombocytopenia with platelet count of 106. Coagulation profile normal findings. BMP showing hyponatremia with sodium of 130, hypokalemia with potassium of 3.4, hypocarbia with bicarb of 13 and elevated anion gap of 16 with renal function showing BUN of 108 creatinine of 8.77 and GFR of 5. Magnesium 2.1. Liver profile unremarkable. Troponin 0.092. Influenza A, influenza B, RSV, and COVID PCR negative. Physical exam: Patient seen and fully evaluated at bedside this morning. She was eating her breakfast. She reports full resolution of previous reported headache. Currently patient denies having any complaints or needs at this time. She is awaiting evaluation by nephrology for dialysis. Vital signs reviewed and stable. General: Nontoxic, no distress and appears stated age. Derm: Skin warm and dry, normal coloration for ethnicity. Head: Atraumatic, normocephalic and symmetric. Eyes: EOMs intact, no lid lag, and anicteric sclera Mouth: no lip lesions, mucus membranes moist Cardiovascular: regular rate and rhythm with normal S1S2, systolic murmur, positive posterior tibial pulses bilaterally, and cap refill < 2 seconds. Dialysis PermaCath right anterior chest. Lungs: Respirations even, regular, and unlabored on room air. Lungs CTA bilaterally, no rhonchi, no rales, no wheezing, and no accessory muscle usage. Abdominal: soft, nontender to palpation, no guarding, no appreciable organomegaly Ext: ROM intact. No gross muscle atrophy, no edema, no contractures Neuro: Speech clear, face symmetrical and CN II-XII grossly intact with no noted focal neuro deficits Psych: Alert and oriented to person, place, time, and situation. Appropriate and pleasant affect. Assessment and Plan of Care: ESRD with multiple missed dialysis sessions Hypertensive urgency, secondary to multiple missed dialysis sessions Elevated troponins, flat. Secondary to ESRD Chronic systolic heart failure Hyponatremia High anion gap compensated metabolic acidosis Hypokalemia Bicytopenia with anemia and thrombocytopenia -Nephrology consulted for need of urgent dialysis -Patient to remain on continuous telemetry monitoring -Obtain a stat repeat troponin -Repeat morning labs and monitor closely -Close monitoring of vital signs -Patient to continue daily medication regimen with amlodipine 10 mg daily, carvedilol 25 mg twice daily, hydralazine 50 mg twice daily, and Aldactone 100 mg twice daily. -Continued close monitoring of electrolytes and renal function. -Monitor CBC for follow-up on bicytopenia. Data reviewed: Morning labs reviewed. CBC showing bicytopenia with hemoglobin of 10.2 and platelet count of 87. BMP showing hyponatremia with sodium of 130, hypocarbia with bicarb of 13 and elevated BUN of 16. Renal function consistent with need for ESRD with BUN of 115, creatinine 8.82 and GFR of 5. Magnesium 2.2. Troponins were trended and flat resulting at 0.092, 0.089, and 0.081. Vital signs reviewed. Blood pressure 149/88, heart rate 92, respiratory rate 20, temp 98.7 F, and SpO2 of 99% on room air. CODE STATUS: Full code DVT prophylaxis: Heparin Anticipated discharge date: Clinical course to determine Anticipated discharge place: Clinical course to determine Patient was seen independently by Nurse Pracitioner. This document was prepared using [employer] dictation software. Please allow for errors in patent agent, while rare they do occur. Brendan Reddy NP rendered care for this patient independently, reviewed the findings and plan as documented in the note above. Objective - Vital Signs Vital signs: Vital Signs Temp 98.2 F 03/12/24 05:28 Pulse 92 03/12/24 07:46 Resp 18 03/12/24 07:46 BP 121/80 03/12/24 07:46 Pulse Ox 99 03/12/24 07:46 FiO2 Intake & Output 03/11/24 03/12/24 03/12/24 18:59 06:59 18:59 Weight 66.224 kg - Labs CBC & Chem 7: 03/12/24 09:12 03/12/24 09:12 Labs: Abnormal Lab Results - Last 24 Hours (Table) 03/11/24 03/11/24 03/11/24 Range/Units 19:33 19:33 19:33 Hct 33.2 L (34.0-46.0) % RDW 16.7 H (11.5-15.5) % Plt Count 106 L (150-450) k/uL Sodium 130 L (137-145) mmol/L Potassium 3.4 L (3.5-5.1) mmol/L Carbon Dioxide 13 L (22-30) mmol/L BUN 108 H* (7-17) mg/dL Creatinine 8.77 H* (0.52-1.04) mg/dL Plasma Lactic Acid Wan 0.5 L (0.7-2.0) mmol/L Calcium 8.3 L (8.4-10.2) mg/dL Phosphorus 6.6 H (2.5-4.5) mg/dL Troponin I (0.000-0.034) ng/mL Total Protein 6.0 L (6.3-8.2) g/dL 03/11/24 Range/Units 19:33 Hct (34.0-46.0) % RDW (11.5-15.5) % Plt Count (150-450) k/uL Sodium (137-145) mmol/L Potassium (3.5-5.1) mmol/L Carbon Dioxide (22-30) mmol/L BUN (7-17) mg/dL Creatinine (0.52-1.04) mg/dL Plasma Lactic Acid Wan (0.7-2.0) mmol/L Calcium (8.4-10.2) mg/dL Phosphorus (2.5-4.5) mg/dL Troponin I 0.092 H* (0.000-0.034) ng/mL Total Protein (6.3-8.2) g/dL
[2024-03-12] MEDS: ONDANSETRON 4 MG/2 ML VIAL IVP PRN (21:40)
[2024-03-13] MEDS: HEPARIN SODIUM,PORCINE 5,000 UNIT/ML 1 ML VIAL SQ SCH (01:08)
[2024-03-13] MEDS: BUTALB/APAP/CAFF 50-325-40MG TAB PO PRN (06:47)
[2024-03-13 08:22] VITALS: BP 145/83; PULSE 108; RESP 18; TEMP 98.6
--- NOTE | 2024-03-13 11:03 | P.DS ---
Providers Date of admission: 03/11/24 23:33 Expected date of discharge: 03/13/24 Attending physician: Shantal Alevs MD Consults: 03/11/24 23:20 Consult Physician Routine Consulting Provider: Betito De La Torre Consult Reason/Comments: dialysis pt Do you want consulting provider notified?: Already Contacted Primary care physician: [facility] Hospital Course: Discharge Diagnosis: ESRD with multiple missed dialysis sessions. Patient underwent hemodialysis on 03/12/2024. She was evaluated by pst manager clearing patient from nephrology standpoint for discharge recommending patient follow-up as scheduled for outpatient dialysis Thursday//Fridays and follow-up with her pst manager in office in 1 week. Hypertensive urgency, secondary to multiple missed dialysis sessions. Vital signs stable on discharge with blood pressure 143/83, heart rate 108, respiratory rate 18, temp 98.6 F, and SpO2 of 100% on room air. Patient discharged home on antihypertensive medication regimen with carvedilol 25 mg twice daily, amlodipine 10 mg daily, Aldactone 100 mg twice daily, and hydralazine 50 mg twice daily. Elevated troponins, flat. Secondary to ESRD. Patient free from any cardiac complaints. Troponins trended and were flat. Acute coronary event ruled out. Chronic systolic heart failure. Continue home medication regimen with Aldactone 100 mg twice daily, carvedilol 25 mg twice daily. Hyponatremia. Hypervolemic hyponatremia. Sodium 130 after dialysis. Patient to continue with scheduled dialysis. High anion gap compensated metabolic acidosis. Secondary to ESRD. Hypokalemia. Replaced and resolved. Potassium 3.6 on discharge. Per nephrology recommendations patient to continue with Aldactone 100 mg twice daily. Bicytopenia with anemia and thrombocytopenia. Chronic. Hemoglobin 10.2 and platelet count of 87 on discharge. 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 She presented to the emergency department on 03/11/2024 with a chief complaint of headache and multiple missed dialysis treatments, stating she missed her last 3 consecutive treatments. She underwent evaluation in the emergency department. Vital signs upon arrival show blood pressure 217/148 and increasing as high as 239/155, heart rate 123, respiratory rate 20, temp 98.3 F, and SpO2 100% on room air. EKG was completed showing sinus tachycardia at 107 bpm with inverted T waves in lateral lead aVL which is unchanged when compared to previous EKG completed 10/20/2023 upon personal review and interpretation. Labs completed and reviewed. CBC showing thrombocytopenia with platelet count of 106. Coagulation profile normal findings. BMP showing hyponatremia with sodium of 130, hypokalemia with potassium of 3.4, hypocarbia with bicarb of 13 and elevated anion gap of 16 with renal function showing BUN of 108 creatinine of 8.77 and GFR of 5. Magnesium 2.1. Liver profile unremarkable. Troponin 0.092. Influenza A, influenza B, RSV, and COVID PCR negative. Patient was admitted under services with consultation to nephrology. She underwent dialysis with 2400 cc output. Patient free from any complaints or concerns. Blood pressure much better controlled. Patient had no further episodes of headache. She was cleared from nephrology perspective for discharge. Medically stable for discharge at this time, patient to follow-up with PCP in 1 to 2 days and with pst manager in 1 week. Patient to resume dialysis as scheduled outpatient on 03/15/2024. Physical exam: Vital signs reviewed and stable. General: Nontoxic, no distress and appears stated age. Derm: Skin warm and dry, normal coloration for ethnicity. Head: Atraumatic, normocephalic and symmetric. Eyes: EOMs intact, no lid lag, and anicteric sclera Mouth: no lip lesions, mucus membranes moist Cardiovascular: regular rate and rhythm with normal S1S2, systolic murmur, positive posterior tibial pulses bilaterally, and cap refill < 2 seconds. Dialysis PermaCath right anterior chest. Lungs: Respirations even, regular, and unlabored on room air. Lungs CTA bilaterally, no rhonchi, no rales, no wheezing, and no accessory muscle usage. Abdominal: soft, nontender to palpation, no guarding, no appreciable organomegaly Ext: ROM intact. No gross muscle atrophy, no edema, no contractures Neuro: Speech clear, face symmetrical and CN II-XII grossly intact with no noted focal neuro deficits Psych: Alert and oriented to person, place, time, and situation. Appropriate and pleasant affect. A total of 35 minutes of time were spent preparing this complex discharge summary. Pt was discharged on 03/13/2024 at 11 AM Patient was seen independently by Nurse Practitioner. This document was prepared using [employer] dictation software. Please allow for errors in broaching machine operator while rare they do occur. Brendan Reddy NP rendered care for this patient independently, reviewed the findings and plan as documented in the note above. I did not physically speak with or examine the patient on this date. Patient Condition at Discharge: Stable Plan - Discharge Summary New Discharge Prescriptions: New carvediloL [Coreg*] 25 mg PO AC-BID 30 Days #120 tab amLODIPine [Norvasc] 10 mg PO DAILY 30 Days #30 tab Continue Spironolactone [Aldactone] 100 mg PO BID #240 tab hydrALAZINE HCL [Apresoline] 50 mg PO BID #60 tab Ondansetron Odt [Zofran ODT] 4 mg PO Q8H PRN PRN Reason: Nausea Cinacalcet [Sensipar] 30 mg PO DIRECTED Vit B Comp No.3/Folic/C/Biotin [Cheryl-Santos Rx Tablet] 1 tab PO DAILY Discharge Medication List Ondansetron Odt [Zofran ODT] 4 mg PO Q8H PRN 10/20/23 [History] Spironolactone [Aldactone] 100 mg PO BID #240 tab 10/27/23 [Rx] hydrALAZINE HCL [Apresoline] 50 mg PO BID #60 tab 10/27/23 [Rx] Cinacalcet [Sensipar] 30 mg PO DIRECTED 03/12/24 [History] Vit B Comp No.3/Folic/C/Biotin [Cheryl-Santos Rx Tablet] 1 tab PO DAILY 03/12/24 [History] amLODIPine [Norvasc] 10 mg PO DAILY 30 Days #30 tab 03/13/24 [Rx] carvediloL [Coreg*] 25 mg PO AC-BID 30 Days #120 tab 03/13/24 [Rx] Follow up Appointment(s)/Referral(s): Gricelda Zacarias MD [STAFF PHYSICIAN] - 1 Week (Office is closed at time of discharge. Please call for follow-up appointment.) Bruno Siddiqi DO [Primary Care Provider] - 1-2 days (Office is closed at time of discharge. Please call for follow-up appointment.) Patient Instructions/Handouts: Dialysis Diet (DC), Hemodialysis for Acute Kidney Failure (DC) Activity/Diet/Wound Care/Special Instructions: Activity: As tolerated. Take breaks as needed. Diet: Heart healthy and carb consistent diet. Avoid salts, or foods with hidden salts such as canned or boxed foods and frozen dinners. Extra salt makes your heart work harder and traps the fluid in your body for longer. Special Instructions: Take all of your medications as directed and remember to keep all of your doctor's appointments and follow-up as needed. Thank you for allowing us to participate in your care, it was truly a pleasure having you for our patient!!! . Discharge Disposition: HOME SELF-CARE
--- NOTE | 2024-03-13 12:04 | P.PN ---
Subjective Progress Note Date: 03/13/24 Patient seen in follow-up for ESRD. No new complaints. Tolerated HD yesterday without issue. Vital signs are stable. General: No acute distress. HEENT: Head exam is unremarkable. LUNGS: No audible rhonchi or wheezes. HEART: Rate and Rhythm are regular. ABDOMEN: Nontender. EXTREMITITES: Trace edema. Objective - Vital Signs Vital signs: Vital Signs Temp 98.6 F 03/13/24 07:21 Pulse 108 H 03/13/24 07:21 Resp 18 03/13/24 07:21 BP 145/83 03/13/24 07:21 Pulse Ox 100 03/13/24 07:21 FiO2 Intake & Output 03/12/24 03/13/24 03/13/24 18:59 06:59 18:59 Intake Total 400 Output Total 2400 Balance -2000 Weight 66.224 kg 64.5 kg Intake: Hemodialysis 400 Output: Hemodialysis 2400 - Labs CBC & Chem 7: 03/12/24 09:12 03/12/24 09:12 Labs: Abnormal Lab Results - Last 24 Hours (Table) 03/12/24 Range/Units 09:12 Plt Count 87 L (150-450) k/uL Assessment and Plan Plan: Assessment: 1. ESRD on HD TTS, missed last three treatments. Access right IJ Permcath. 2. Hypertensive emergency due to missed HD and unable to take medicaitons from nausea and vomiting. BP improved this morning. History of hyperaldosteronism. 3. Anemia with CKD outpatient [facility] 4. Renal Osteodystrophy 5. Intractable Nausea and Vomting due to gastroenteritis vs uremia-Improved Plan: BP improved, resume oral BP medications HD yesterday, no issues Clear for discharge from nephrology standpoint
--- NOTE | 2024-03-16 11:22 | CDI ---
Documentation Clarification Form Date: 03/16/24 From: Radha Ferreira Admit Date: 03/11/2024 11:33:00 PM Patient Name: Melly Eugene Visit Number: [id number] Discharge Date: 03/13/2024 12:50:00 PM ATTENTION: The Clinical Documentation Specialists (CDI) and [facility] Coding Staff appreciate your assistance in clarifying documentation. Please respond to the clarification below the line at the bottom and electronically sign. The CDI & [facility] Coding staff will review the response and follow-up if needed. Please note: Queries are made part of the Legal Health Record. If you have any questions, please contact the author of this message via ITS. Dr. Shantal Alves, Your patient has troponin level(s) of: 0.092 [03/11], 0.089, 0.081 {03/12]. Please clarify if there is an additional diagnosis and/or clinical significance related to this value. Patient history/risk factors: ESRD w HTN and chronic systolic CHF, cardiomyopathy, on renal dialysis, anemia in CKD Clinical indicators: Troponin levels:0.092 [03/11], 0.089, 0.081 {03/12]. Elevatedtroponin, likely due to significant kidney injury, patient denying chest discomfort or shortness of breath. Elevatedtroponins, flat. Treatment: Dialysis, continuous telemetry monitoring Is there an additional diagnosis and/or clinical significance related to the above lab result/information: [ ] NSTEMI type 1 [ ] Type 2 ND due to (specify cause ____) [ ] Non-ischemic with acute myocardial injury [ ] No additional diagnosis/Not clinically significant - likely due to ESRD, troponins trended flat with ACS ruled out [ ] Other, please specify [ ] Unable to determine Reference: [employer] [place] [employer] Fourth [place] Definition of Myocardial Infraction Elevated Cardiac Troponin >99th percentile with Troponin rise and/or fall With Acute ischemia Acute Myocardial Infarction Atherosclerosis thrombosis Type I ND Oxygen supply and demand imbalance Type II ND (Please indicate etiology) Without acute ischemia Acute Myocardial Injury [facility]
== END 2024-03-13 12:50 | disposition home or self-care (01) | DRG 304 ==
LOC: EC 17:34 → 3SCARD 23:33 → 4SSUR 03-12 12:03
PROVIDERS: ADMIT Internal Medicine; ATTEND Internal Medicine
PROC: 5A1D70Z Performance of Urinary Filtration, Intermittent, Less than 6 Hours Per Day (ICD-10-PCS; principal; 2024-03-12)
DX: I16.1 Hypertensive emergency (principal); N18.6 End stage renal disease; E87.20 Acidosis, unspecified; I42.9 Cardiomyopathy, unspecified; E87.1 Hypo-osmolality and hyponatremia; I50.22 Chronic systolic (congestive) heart failure; Z91.158 Patient's noncompliance with renal dialysis for other reason; I13.2 Hypertensive heart and chronic kidney disease with heart failure and with stage 5 chronic kidney disease, or end stage renal disease; D69.6 Thrombocytopenia, unspecified; D63.1 Anemia in chronic kidney disease; Z99.2 Dependence on renal dialysis; E26.9 Hyperaldosteronism, unspecified; Z28.310 Unvaccinated for COVID-19; I48.0 Paroxysmal atrial fibrillation; N25.0 Renal osteodystrophy; K52.9 Noninfective gastroenteritis and colitis, unspecified; E78.5 Hyperlipidemia, unspecified; E87.6 Hypokalemia; Z79.84 Long term (current) use of oral hypoglycemic drugs; Z79.82 Long term (current) use of aspirin; Z79.899 Other long term (current) drug therapy
CPT/HCPCS: 36415; 71046; 80048; 80053; 83605; 83735; 84100; 84484; 85025; 85027; 85610; 85730; 87636; 90935; 93005; 96372; 96374; 96375; 96376; 99285

== ENCOUNTER 2024-04-12 06:22 | Emergency (ER) | payer OTHER ==
[2024-04-12 06:26] VITALS: TEMP 97.4
[2024-04-12] MEDS: hydrALAZINE HCL 20 MG/ML 1 ML VIAL IVP STA ×2 (07:24→08:28)
[2024-04-12 07:26] LABS: Partial Thromboplastin Time 40.5 sec (22.0-30.0); Prothrombin Time 10.7 sec (10.0-12.5)
[2024-04-12 07:34] LABS: Basophils # (A) 0.1 k/uL (0-0.2); Basophils % (A) 1 %; Eosinophils # (A) 0.3 k/uL (0-0.7); Eosinophils % (A) 4 %; HCT 34.7 % (34.0-46.0); HGB 11.7 gm/dL (11.4-16.0); Lymphocytes # (A) 0.9 k/uL (1.0-4.8); Lymphocytes % (A) 12 %; MCH 30.2 pg (25.0-35.0); MCHC 33.6 g/dL (31.0-37.0); Monocytes # (A) 0.3 k/uL (0-1.0); Monocytes % (A) 5 %; Neutrophils # (A) 5.4 k/uL (1.3-7.7); Neutrophils % (A) 77 %; RBC 3.86 m/uL (3.80-5.40); RDW 15.6 % (11.5-15.5)
--- NOTE | 2024-04-12 07:34 | XR ---
EXAMINATION TYPE: XR chest 2V DATE OF EXAM: 04/12/2024 COMPARISON: 03/11/2024 HISTORY: Chest pain TECHNIQUE: Frontal and lateral views of the chest are obtained. FINDINGS: There is no focal air space opacity. Large bore central venous line unchanged in position. No evidence for pneumothorax. No pleural effusion. The cardiac silhouette size is within normal limits. The osseous structures are grossly intact. IMPRESSION: 1. No acute cardiopulmonary process.
[2024-04-12 07:38] LABS: Platelet Count 168 k/uL (150-450)
[2024-04-12 07:48] LABS: ALT 10 U/L (4-34); AST 23 U/L (14-36); African American GFR (CKD) 8 (>60 ml/min/1.73 sqM); Albumin 4.3 g/dL (3.5-5.0); Alkaline Phosphatase 108 U/L (38-126); Anion Gap 11 mmol/L; Blood Urea Nitrogen 82 mg/dL (7-17); Calcium 9.1 mg/dL (8.4-10.2); Carbon Dioxide 18 mmol/L (22-30); Chloride 107 mmol/L (98-107); Glucose 88 mg/dL (74-99); Magnesium 2.3 mg/dL (1.6-2.3); Non-African American GFR(CKD) 7 (>60 ml/min/1.73 sqM); Sodium 136 mmol/L (137-145); Total Bilirubin 0.8 mg/dL (0.2-1.3); Total Protein 6.7 g/dL (6.3-8.2)
--- NOTE | 2024-04-12 08:53 | ED ---
General Adult HPI - General Chief complaint: Recheck/Abnormal Lab/Rx Stated complaint: Hypertension Time Seen by Provider: 04/12/24 06:33 Source: patient, EMS, RN notes reviewed Mode of arrival: EMS Limitations: no limitations - History of Present Illness Initial comments: 48-year-old female presents emergency department with chief complaint of hypertension. Patient was at dialysis center in which they took her blood pressure and noted to be elevated. Patient states she had mild headache that has resolved. Denies chest pain or shortness of breath. She states she goes Thursday. Patient states she has been taking her medications as directed. Patient denies any other associated symptoms. - Related Data Home Medications Medication Instructions Recorded Confirmed Ondansetron Odt [Zofran ODT] 4 mg PO Q8H PRN 10/20/23 03/12/24 Cinacalcet [Sensipar] 30 mg PO DIRECTED 03/12/24 03/12/24 Vit B Comp No.3/Folic/C/Biotin 1 tab PO DAILY 03/12/24 03/12/24 [[facility]her[facility] Rx Tablet] Previous Rx's Medication Instructions Recorded Spironolactone [Aldactone] 100 mg PO BID #240 tab 10/27/23 hydrALAZINE HCL [Apresoline] 50 mg PO BID #60 tab 10/27/23 amLODIPine [Norvasc] 10 mg PO DAILY 30 Days #30 tab 03/13/24 carvediloL [Coreg*] 25 mg PO AC-BID 30 Days #120 tab 03/13/24 Allergies Allergy/AdvReac Type Severity Reaction Status Date / Time No Known Allergies Allergy Verified 04/12/24 06:25 Review of Systems ROS Statement: Those systems with pertinent positive or pertinent negative responses have been documented in the HPI. ROS Other: All systems not noted in ROS Statement are negative. Past Medical History Past Medical History: Atrial Fibrillation, Hyperlipidemia, Hypertension, Renal Disease Additional Past Medical History / Comment(s): Hyperaldosteronism,cardiomyopathy, dialysis T,,S. no anticoag for afib History of Any Multi-Drug Resistant Organisms: None Reported Past Surgical History: No Surgical Hx Reported Past Anesthesia/Blood Transfusion Reactions: No Reported Reaction Past Psychological History: No Psychological Hx Reported Smoking Status: Never smoker Past Alcohol Use History: None Reported Past Drug Use History: None Reported - Past Family History Mother Family Medical History: Hyperlipidemia General Exam Limitations: no limitations General appearance: alert, in no apparent distress Head exam: Present: atraumatic, normocephalic, normal inspection Eye exam: Present: normal appearance, PERRL, EOMI. Absent: scleral icterus, conjunctival injection, periorbital swelling ENT exam: Present: normal exam, mucous membranes moist Neck exam: Present: normal inspection. Absent: tenderness, meningismus, lymphadenopathy Respiratory exam: Present: normal lung sounds bilaterally, other (Permacath noted). Absent: respiratory distress, wheezes, rales, rhonchi, stridor Cardiovascular Exam: Present: regular rate, normal rhythm, normal heart sounds. Absent: systolic murmur, diastolic murmur, rubs, gallop, clicks GI/Abdominal exam: Present: soft, normal bowel sounds. Absent: distended, tenderness, guarding, rebound, rigid Course Vital Signs 04/12/24 04/12/24 04/12/24 06:22 07:25 08:00 Temperature 97.4 F L Pulse Rate 73 80 74 Respiratory 18 17 17 Rate Blood Pressure 192/130 171/105 132/82 O2 Sat by Pulse 100 100 100 Oximetry EKG Findings - EKG Comments: EKG Findings:: EKG performed at 6: 54 sinus rhythm rate of 73 [place] 140 QRS 103 QT/QTc 435/460 there is noted repolarization - EKG Results: EKG: interpreted by [facility] Medical Decision Making - Medical Decision Making Was pt. sent in by a medical professional or institution (, PA, RN COMPLIANCE, urgent care, hospital, or [place] health care facility...) When possible be specific @ -Dialysis center Did you speak to anyone other than the patient for history (EMS, parent, family, police, friend...)? What history was obtained from this source @ -No Did you review nursing and triage notes (agree or disagree)? Why? @ -I reviewed and agree with nursing and triage notes Were old charts reviewed (outside hosp., previous admission, EMS record, old EKG, old radiological studies, urgent care reports/EKG's, [place] health care facility records)? Report findings @ -No old charts were reviewed Differential Diagnosis (chest pain, altered mental status, abdominal pain women, abdominal pain men, vaginal bleeding, weakness, fever, dyspnea, syncope, headache, dizziness, GI bleed, back pain, seizure, CVA, palpatations, mental health, musculoskeletal)? @ -Differential Chest Pain: Stable Angina, Unstable Angina, STEMI, NSTEMI Aortic Dissection, Pneumothorax, Musculoskeletal, Esophageal Spasm GERD, Cholecystitis, Pancreatitis, Zoster, th is is not meant to be an all-inclusive list. EKG interpreted by me (3pts min.). @ -As above X-rays interpreted by me (1pt min.). @ - chest x-ray shows no acute process, catheter noted CT interpreted by me (1pt min.). @ -None done U/S interpreted by me (1pt. min.). @ -None done What testing was considered but not performed or refused? (CT, X-rays, U/S, labs)? Why? @ -None What meds were considered but not given or refused? Why? @ -None Did you discuss the management of the patient with other professionals (professionals i.e. , PA, RN COMPLIANCE, lab, RT, psych nurse, medical social worker, family helper, teacher, family preservation officer, dependency case manager)? Give summary @ -No Was smoking cessation discussed for >3mins.? @ -No Was critical care preformed (if so, how long)? @ -No Were there social determinants of health that impacted care today? How? (Homelessness, low income, unemployed, alcoholism, drug addiction, transpor tation, low edu. Level, literacy, decrease access to med. care, mcc, rehab)? @ -No Was there de-escalation of care discussed even if they declined (Discuss DNR or withdrawal of care, Hospice)? DNR status @ -No What co-morbidities impacted this encounter? (DM, HTN, Smoking, COPD, CAD, Cancer, CVA, ARF, Chemo, Hep., AIDS, mental health diagnosis, sleep apnea, morbid obesity)? @ -Hypertension chronic renal disease on dialysis Was patient admitted / discharged? Hospital course, mention meds given and route, prescriptions, significant lab abnormalities, going to OR and other pertinent info. @ -[Discharge patient dialysis center was contacted patient will be discharged to dialysis center for dialysis today patient blood pressures improved laboratory studies did not reveal any critical hyperkalemia or significant abnormalities. Undiagnosed new problem with uncertain prognosis? @ -No Drug Therapy requiring intensive monitoring for toxicity (Heparin, Nitro, Insulin, Cardizem)? @ -No Were any procedures done? @ -No Diagnosis/symptom? @ -Hypertension, chronic renal disease Acute, or Chronic, or Acute on Chronic? @ -Acute Uncomplicated (without systemic symptoms) or Complicated (systemic symptoms)? @ -Uncomplicated Side effects of treatment? @ -No Exacerbation, Progression, or Severe Exacerbation? @ -No Poses a threat to life or bodily function? How? (Chest pain, [place], [place], pneumonia, PE, COPD, DKA, ARF, appy, cholecystitis, CVA, Diverticulitis, Homicidal, Suicidal, threat to staff... and all critical care pts) @ -No - Lab Data Result diagrams: 04/12/24 07:07 04/12/24 07:07 Lab Results 04/12/24 04/12/24 04/12/24 Range/Units 07:07 07:07 07:07 WBC 7.0 (3.8-10.6) k/uL RBC 3.86 (3.80-5.40) m/uL Hgb 11.7 (11.4-16.0) gm/dL Hct 34.7 (34.0-46.0) % MCV 90.0 (80.0-100.0) fL MCH 30.2 (25.0-35.0) pg MCHC 33.6 (31.0-37.0) g/dL RDW 15.6 H (11.5-15.5) % Plt Count 168 D (150-450) k/uL MPV 8.0 Neutrophils % 77 % Lymphocytes % 12 % Monocytes % 5 % Eosinophils % 4 % Basophils % 1 % Neutrophils # 5.4 (1.3-7.7) k/uL Lymphocytes # 0.9 L (1.0-4.8) k/uL Monocytes # 0.3 (0-1.0) k/uL Eosinophils # 0.3 (0-0.7) k/uL Basophils # 0.1 (0-0.2) k/uL PT 10.7 (10.0-12.5) sec INR 1.0 (<1.2) APTT 40.5 H (22.0-30.0) sec Sodium 136 L (137-145) mmol/L Potassium 4.0 (3.5-5.1) mmol/L Chloride 107 (98-107) mmol/L Carbon Dioxide 18 L (22-30) mmol/L Anion Gap 11 mmol/L BUN 82 H (7-17) mg/dL Creatinine 6.27 H (0.52-1.04) mg/dL Est GFR (CKD-EPI)AfAm 8 (>60 ml/min/1.73 sqM) Est GFR (CKD-EPI)NonAf 7 (>60 ml/min/1.73 sqM) Glucose 88 (74-99) mg/dL Calcium 9.1 (8.4-10.2) mg/dL Phosphorus 7.0 H (2.5-4.5) mg/dL Magnesium 2.3 (1.6-2.3) mg/dL Total Bilirubin 0.8 (0.2-1.3) mg/dL AST 23 (14-36) U/L ALT 10 (4-34) U/L Alkaline Phosphatase 108 (38-126) U/L Total Protein 6.7 (6.3-8.2) g/dL Albumin 4.3 (3.5-5.0) g/dL Disposition Clinical Impression: Hypertension, CKD (chronic kidney disease) requiring chronic dialysis Disposition: HOME SELF-CARE Condition: Stable Additional Instructions: Please return to the Emergency Department if symptoms worsen or any other concerns. Is patient prescribed a controlled substance at d/c from ED?: No Referrals: Bruno Siddiqi DO [Primary Care Provider] - 1-2 days Time of Disposition: 08:53
[2024-04-12 08:58] VITALS: BP 139/87; PULSE 86; RESP 18
== END 2024-04-12 09:04 | disposition home or self-care (01) ==
LOC: EC 06:22
DX: I12.0 Hypertensive chronic kidney disease with stage 5 chronic kidney disease or end stage renal disease (principal); N18.6 End stage renal disease; Z99.2 Dependence on renal dialysis
CPT/HCPCS: 36415; 93005; 80053; 83735; 84100; 85025; 85610; 85730; 71046; 99284; 96374; J0360

== ENCOUNTER 2024-05-17 05:58 | Observation (INO) | payer OTHER ==
--- NOTE | 2024-05-17 06:34 | ED ---
Headache HPI - General Source: patient, RN notes reviewed Mode of arrival: ambulatory Limitations: no limitations - History of Present Illness MD Complaint: headache <Nicci Sweeney - Last Filed: 05/17/24 06:33> <Sumeet Rodriges - Last Filed: 05/17/24 09:37> <Van Ocampo - Last Filed: 05/17/24 20:47> - General Chief Complaint: Headache Stated Complaint: Headaches, Vomiting Time Seen by Provider: 05/17/24 06:33 - History of Present Illness Initial Comments: Quick Note: This is a 48-year-old female who presents to the emergency department for headaches, nausea, and vomiting. Symptoms started about 3 days ago. States that she missed dialysis 3 days ago and is scheduled to have it again today. She continues to have a severe headache and is unable to keep anything down. Reports missing her blood pressure medication as well. Denies any chest pain or shortness of breath. (Nicci Sweeney) 48 female presents for evaluation of headache and nausea. Patient is on hemodialysis. She is scheduled for dialysis Thursday. Patient missed on Thursday due to nausea and states that she was supposed to go to dialysis this morning but came here instead. She states she does have right issues getting to dialysis because her works and there is no one else to take her. (Sumeet Rodriges) - Related Data Home Medications Medication Instructions Recorded Confirmed Ondansetron Odt [Zofran ODT] 4 mg PO Q8H PRN 10/20/23 03/12/24 Cinacalcet [Sensipar] 30 mg PO DIRECTED 03/12/24 03/12/24 Vit B Comp No.3/Folic/C/Biotin 1 tab PO DAILY 03/12/24 03/12/24 [[facility] Tablet] Previous Rx's Medication Instructions Recorded Spironolactone [Aldactone] 100 mg PO BID #240 tab 10/27/23 hydrALAZINE HCL [Apresoline] 50 mg PO BID #60 tab 10/27/23 amLODIPine [Norvasc] 10 mg PO DAILY 30 Days #30 tab 03/13/24 carvediloL [Coreg*] 25 mg PO AC-BID 30 Days #120 tab 03/13/24 Allergies Allergy/AdvReac Type Severity Reaction Status Date / Time No Known Allergies Allergy Verified 05/17/24 06:19 Review of Systems ROS Other: All systems not noted in ROS Statement are negative. <Nicci Sweeney - Last Filed: 05/17/24 06:33> ROS Other: All systems not noted in ROS Statement are negative. <Sumeet Rodriges - Last Filed: 05/17/24 09:37> ROS Other: All systems not noted in ROS Statement are negative. <Van Ocampo - Last Filed: 05/17/24 20:47> ROS Statement: Those systems with pertinent positive or pertinent negative responses have been documented in the HPI. Past Medical History Past Medical History: Atrial Fibrillation, Hyperlipidemia, Hypertension, Renal Disease Additional Past Medical History / Comment(s): Hyperaldosteronism,cardiomyopathy, dialysis T,TH,S. no anticoag for afib History of Any Multi-Drug Resistant Organisms: None Reported Past Surgical History: No Surgical Hx Reported Additional Past Surgical History / Comment(s): dialysis catheter Past Anesthesia/Blood Transfusion Reactions: No Reported Reaction Past Psychological History: No Psychological Hx Reported Smoking Status: Never smoker Past Alcohol Use History: None Reported Past Drug Use History: None Reported - Past Family History Mother Family Medical History: Hyperlipidemia <Nicci Sweeney - Last Filed: 05/17/24 06:33> General Exam Limitations: no limitations <Nicci Sweeney - Last Filed: 05/17/24 06:33> General appearance: alert, in no apparent distress Head exam: Present: atraumatic, normocephalic Eye exam: Present: normal appearance, PERRL ENT exam: Present: normal exam Neck exam: Present: normal inspection Respiratory exam: Present: normal lung sounds bilaterally. Absent: respiratory distress, wheezes Cardiovascular Exam: Present: regular rate, normal rhythm GI/Abdominal exam: Absent: distended Neurological exam: Present: alert, oriented X3 Psychiatric exam: Present: normal affect, normal mood Skin exam: Present: warm, dry, intact. Absent: cyanosis, diaphoretic <Sumeet Rodriges - Last Filed: 05/17/24 09:37> - General Exam Comments Initial Comments: Visual Physical Exam Vital signs reviewed General: Well-appearing, nontoxic, no acute distress. Head: Normocephalic, atraumatic Eyes: PERRLA, EOMI ENT: Airway patent Chest: Nonlabored breathing Skin: No visual rash, normal skin tone Neuro: Alert and oriented 3 Musculoskeletal: No gross abnormalities (Nicci Sweeney) Course <Sumeet Rodriges - Last Filed: 05/17/24 09:37> Vital Signs 05/17/24 05/17/24 05/17/24 06:19 07:30 09:00 Temperature 98.1 F Pulse Rate 85 81 83 Pulse Rate [ Supine] Respiratory 18 18 18 Rate Blood Pressure 213/150 222/130 207/116 Blood Pressure [Right Arm] O2 Sat by Pulse 99 100 95 Oximetry 05/17/24 05/17/24 05/17/24 10:30 14:18 16:08 Temperature Pulse Rate 107 H 80 98 Pulse Rate [ Supine] Respiratory 18 20 18 Rate Blood Pressure 171/99 182/125 194/139 Blood Pressure [Right Arm] O2 Sat by Pulse 99 100 100 Oximetry 05/17/24 05/17/24 05/17/24 17:09 18:05 18:33 Temperature 98.4 F Pulse Rate 89 126 H Pulse Rate [ 97 Supine] Respiratory 16 18 20 Rate Blood Pressure 220/146 163/109 Blood Pressure 220/146 [Right Arm] O2 Sat by Pulse 100 99 Oximetry 05/17/24 20:43 Temperature Pulse Rate 134 H Pulse Rate [ Supine] Respiratory 20 Rate Blood Pressure 149/96 Blood Pressure [Right Arm] O2 Sat by Pulse 96 Oximetry - Reevaluation(s) Reevaluation #1: 05/17/24 08:38 We were able to contact the dialysis unit who states they have no availability today for dialysis and therefore the information systems planner is contacted regarding dialysis in the emergency department. (Sumeet Rodriges) Medical Decision Making <Nicci Sweeney - Last Filed: 05/17/24 06:33> - Lab Data Result diagrams: 05/17/24 06:59 05/17/24 06:59 <Sumeet Rodriges - Last Filed: 05/17/24 09:37> - Lab Data Result diagrams: 05/17/24 06:59 05/17/24 06:59 <Van Ocampo - Last Filed: 05/17/24 20:47> - Medical Decision Making I performed the QuickNote portion of this chart. Signed Nicci Sweeney PA-C. (Nicci Sweeney) Was pt. sent in by a medical professional or institution ([facility], GI TECH, urgent care, hospital, or retirement...) When possible be specific @ -No Did you speak to anyone other than the patient for history (EMS, parent, family, police, friend...)? What history was obtained from this source @ -No Did you review nursing and triage notes (agree or disagree)? Why? @ -I reviewed and agree with nursing and triage notes Were old charts reviewed (outside hosp., previous admission, EMS record, old EKG, old radiological studies, urgent care reports/EKG's, retirement records)? Report findings @ -No old charts were reviewed Differential Weakness: Hypoglycemia, shock, sepsis, hyponatremia, anemia, infection, AL, ETOH, adverse medicine reaction, overdose, stroke, this is not meant to be an all-inclusive list. EKG interpreted by me (3pts min.). @ -Sinus rhythm rate of 78, ID interval 118, QRS duration 100, QTc 460 left ventricular hypertrophy with ST segment changes in V2 X-rays interpreted by me (1pt min.). @ -None done CT interpreted by me (1pt min.). @ -None done U/S interpreted by me (1pt. min.). @ -None done What testing was considered but not performed or refused? (CT, X-rays, U/S, labs)? Why? @ -None What meds were considered but not given or refused? Why? @ -None Did you discuss the management of the patient with other professionals (professionals i.e. [facility] Crespo, GI TECH, lab, RT, psych nurse, social media designer, locomotive driver, teacher, digital controls technical officer, case consultant)? Give summary @ -Case discussed with Dr. Ariza who will provide dialysis orders Was smoking cessation discussed for >3mins.? @ -No Was critical care preformed (if so, how long)? @ -No Were there social determinants of health that impacted care today? How? (Homeles sness, low income, unemployed, alcoholism, drug addiction, transportation, low edu. Level, literacy, decrease access to med. care, skilled nursing, rehab)? @ -No Was there de-escalation of care discussed even if they declined (Discuss DNR or withdrawal of care, Hospice)? DNR status @ -No What co-morbidities impacted this encounter? (DM, HTN, Smoking, COPD, CAD, Cancer, CVA, ARF, Chemo, Hep., AIDS, mental health diagnosis, sleep apnea, morbid obesity)? @ -[End-stage renal disease Was patient admitted / discharged? Hospital course, mention meds given and route, prescriptions, significant lab abnormalities, going to OR and other pertinent info. @ -48-year-old female with headache, hypertension, need for hemodialysis. Nausea, headache and hypertension are likely all related to the need for hemodialysis. Patient receives hemodialysis in the emergency department and is stable for discharge. Undiagnosed new problem with uncertain prognosis? @ -[No Drug Therapy requiring intensive monitoring for toxicity (Heparin, Nitro, Insulin, Cardizem)? @ -No Were any procedures done? @ -No Diagnosis/symptom? @End-stage renal disease Acute, or Chronic, or Acute on Chronic? @Chronic Uncomplicated (without systemic symptoms) or Complicated (systemic symptoms)? @ -Default Side effects of treatment? @ -No Exacerbation, Progression, or Severe Exacerbation? @ -No Poses a threat to life or bodily function? How? (Chest pain, [place], AL, pneumonia, PE, COPD, DKA, ARF, appy, cholecystitis, CVA, Diverticulitis, Homicidal, Suicidal, threat to staff... and all critical care pts) @ -No (Sumeet Rodriges) Plan for patient to be discharged however patient is having persistent hyper tension. Patient given 2 doses of IV hydralazine and oral medication. Upon reevaluation again patient is tachycardic with heart rate of 140 in the monitor. EKG interpreted myself shows sinus tachycardia at 117. Left axis. ID 131. QRS 95. QT 349. LVH. Nonspecific ST-T. Case was discussed with Dr. Alves who will admit covering Dr. Siddiqi. Additional diagnosis: Hypertensive urgency, tachycardia Acute, acute Plan for admission (Van Ocampo) - Lab Data Lab Results 05/17/24 05/17/24 05/17/24 Range/Units 06:59 06:59 06:59 WBC 5.2 (3.8-10.6) k/uL RBC 3.96 (3.80-5.40) m/uL Hgb 12.1 (11.4-16.0) gm/dL Hct 35.8 (34.0-46.0) % MCV 90.6 (80.0-100.0) fL MCH 30.6 (25.0-35.0) pg MCHC 33.8 (31.0-37.0) g/dL RDW 15.3 (11.5-15.5) % Plt Count 156 (150-450) k/uL MPV 8.8 Neutrophils % 79 % Lymphocytes % 13 % Monocytes % 5 % Eosinophils % 1 % Basophils % 1 % Neutrophils # 4.1 (1.3-7.7) k/uL Lymphocytes # 0.7 L (1.0-4.8) k/uL Monocytes # 0.3 (0-1.0) k/uL Eosinophils # 0.1 (0-0.7) k/uL Basophils # 0.0 (0-0.2) k/uL Sodium 135 L (137-145) mmol/L Potassium 3.5 (3.5-5.1) mmol/L Chloride 102 (98-107) mmol/L Carbon Dioxide 15 L (22-30) mmol/L Anion Gap 18 mmol/L BUN 72 H (7-17) mg/dL Creatinine 7.22 H* (0.52-1.04) mg/dL Est GFR (CKD-EPI)AfAm 7 (>60 ml/min/1.73 sqM) Est GFR (CKD-EPI)NonAf 6 (>60 ml/min/1.73 sqM) Glucose 92 (74-99) mg/dL Plasma Lactic Acid Wan 0.7 (0.7-2.0) mmol/L Calcium 10.0 (8.4-10.2) mg/dL Phosphorus 7.0 H (2.5-4.5) mg/dL Magnesium 2.4 H (1.6-2.3) mg/dL Total Bilirubin 0.7 (0.2-1.3) mg/dL AST 24 (14-36) U/L ALT 25 (4-34) U/L Alkaline Phosphatase 103 (38-126) U/L Total Protein 7.2 (6.3-8.2) g/dL Albumin 4.8 (3.5-5.0) g/dL Amylase 65 (30-110) U/L Lipase 72 (23-300) U/L Disposition <Nicci Sweeney - Last Filed: 05/17/24 06:33> Is patient prescribed a controlled substance at d/c from ED?: No Time of Disposition: 12:30 <Sumeet Rodriges - Last Filed: 05/17/24 09:37> Is patient prescribed a controlled substance at d/c from ED?: No <Van Ocampo - Last Filed: 05/17/24 20:47> Clinical Impression: Renal failure, Headache, Hypertensive urgency, Tachycardia Disposition: ADMITTED IP TO THIS [facility] Condition: Fair Instructions (If sedation given, give patient instructions): End Stage Kidney Disease (ED) Referrals: Bruno Siddiqi DO [Primary Care Provider] - 1-2 days Sukumar Ariza DO [STAFF PHYSICIAN] - 1-2 days
[2024-05-17 07:11] LABS: Basophils % (A) 1 %; Eosinophils # (A) 0.1 k/uL (0-0.7); Eosinophils % (A) 1 %; HCT 35.8 % (34.0-46.0); HGB 12.1 gm/dL (11.4-16.0); Lymphocytes # (A) 0.7 k/uL (1.0-4.8); Lymphocytes % (A) 13 %; MCH 30.6 pg (25.0-35.0); MCHC 33.8 g/dL (31.0-37.0); MCV 90.6 fL (80.0-100.0); Mean Platelet Volume 8.8; Monocytes # (A) 0.3 k/uL (0-1.0); Monocytes % (A) 5 %; Neutrophils # (A) 4.1 k/uL (1.3-7.7); Neutrophils % (A) 79 %; Platelet Count 156 k/uL (150-450); RBC 3.96 m/uL (3.80-5.40); RDW 15.3 % (11.5-15.5); WBC 5.2 k/uL (3.8-10.6)
[2024-05-17 07:31] LABS: ALT 25 U/L (4-34); AST 24 U/L (14-36); African American GFR (CKD) 7 (>60 ml/min/1.73 sqM); Albumin 4.8 g/dL (3.5-5.0); Alkaline Phosphatase 103 U/L (38-126); Amylase 65 U/L (30-110); Anion Gap 18 mmol/L; Blood Urea Nitrogen 72 mg/dL (7-17); Carbon Dioxide 15 mmol/L (22-30); Chloride 102 mmol/L (98-107); Glucose 92 mg/dL (74-99); Lipase 72 U/L (23-300); Magnesium 2.4 mg/dL (1.6-2.3); Non-African American GFR(CKD) 6 (>60 ml/min/1.73 sqM); Potassium 3.5 mmol/L (3.5-5.1); Sodium 135 mmol/L (137-145); Total Bilirubin 0.7 mg/dL (0.2-1.3); Total Protein 7.2 g/dL (6.3-8.2)
[2024-05-17] MEDS: ONDANSETRON 4 MG/2 ML VIAL IVP STA (09:25)
[2024-05-17] MEDS: MORPHINE SULFATE 4 MG/ML SYRINGE IVP STA ×2 (09:26→20:56)
[2024-05-17] MEDS: hydrALAZINE HCL 20 MG/ML 1 ML VIAL IVP STA ×3 (09:26→19:59)
--- NOTE | 2024-05-17 15:55 | P.NPCON ---
History of Present Illness - Reason for Consult end stage renal disease - History of Present Illness Reason for consultation: ESRD HPI: Patient is a 48 y/o F seen for ESRD. Maintained on HD TTS via p-cath. Last HD was last . States she missed thursday due to not feeling well. States she has intermittent headaches along with nausea, vomiting. No chest pain or shortness or breath. Denies vision changes. Missed BP meds as well. No history of DM. Denies use of nsaids. No hx of CAD. Denies family hx of renal disease. Makes urine. Denies use of diuretics. ECHO from 11/24 EF 30-35%. Oral intake is fair. Patient seen and examined in ED. VS - bp high. HEENT - no JVD. Heart -regular rate and rhythm. Lungs - no rales or rhonchi. Abdomen - non-tender. Ext - no edema. Past Medical History Past Medical History: Atrial Fibrillation, Hyperlipidemia, Hypertension, Renal Disease Additional Past Medical History / Comment(s): Hyperaldosteronism,cardiomyopathy, dialysis T,,S. no anticoag for afib History of Any Multi-Drug Resistant Organisms: None Reported Past Surgical History: No Surgical Hx Reported Additional Past Surgical History / Comment(s): dialysis catheter Past Anesthesia/Blood Transfusion Reactions: No Reported Reaction Past Psychological History: No Psychological Hx Reported Smoking Status: Never smoker Past Alcohol Use History: None Reported Past Drug Use History: None Reported - Past Family History Mother Family Medical History: Hyperlipidemia Medications and Allergies Home Medications Medication Instructions Recorded Confirmed Type Ondansetron Odt [Zofran ODT] 4 mg PO Q8H PRN 10/20/23 03/12/24 History Spironolactone [Aldactone] 100 mg PO BID #240 tab 10/27/23 03/12/24 Rx hydrALAZINE HCL [Apresoline] 50 mg PO BID #60 tab 10/27/23 03/12/24 Rx Cinacalcet [Sensipar] 30 mg PO DIRECTED 03/12/24 03/12/24 History Vit B Comp No.3/Folic/C/Biotin 1 tab PO DAILY 03/12/24 03/12/24 History [[facility] Rx Tablet] amLODIPine [Norvasc] 10 mg PO DAILY 30 Days #30 tab 03/13/24 Rx carvediloL [Coreg*] 25 mg PO AC-BID 30 Days #120 tab 03/13/24 Rx Allergies Allergy/AdvReac Type Severity Reaction Status Date / Time No Known Allergies Allergy Verified 05/17/24 06:19 Physical Exam Vitals: Vital Signs Temp Pulse Resp BP Pulse Ox 05/17/24 14:18 80 20 182/125 100 05/17/24 10:30 107 H 18 171/99 99 05/17/24 09:00 83 18 207/116 95 05/17/24 07:30 81 18 222/130 100 05/17/24 06:19 98.1 F 85 18 213/150 99 Intake and Output 05/17/24 05/17/24 05/17/24 06:59 14:59 22:59 Other: Weight 56.699 kg Results - Lab Results Most recent lab results WBC 5.2 k/uL (3.8-10.6) 05/17/24 06:59 RBC 3.96 m/uL (3.80-5.40) 05/17/24 06:59 Hgb 12.1 gm/dL (11.4-16.0) 05/17/24 06:59 Hct 35.8 % (34.0-46.0) 05/17/24 06:59 MCV 90.6 fL (80.0-100.0) 05/17/24 06:59 MCH 30.6 pg (25.0-35.0) 05/17/24 06:59 MCHC 33.8 g/dL (31.0-37.0) 05/17/24 06:59 RDW 15.3 % (11.5-15.5) 05/17/24 06:59 Plt Count 156 k/uL (150-450) 05/17/24 06:59 MPV 8.8 05/17/24 06:59 Neutrophils % 79 % 05/17/24 06:59 Lymphocytes % 13 % 05/17/24 06:59 Monocytes % 5 % 05/17/24 06:59 Eosinophils % 1 % 05/17/24 06:59 Basophils % 1 % 05/17/24 06:59 Neutrophils # 4.1 k/uL (1.3-7.7) 05/17/24 06:59 Lymphocytes # 0.7 k/uL (1.0-4.8) L 05/17/24 06:59 Monocytes # 0.3 k/uL (0-1.0) 05/17/24 06:59 Eosinophils # 0.1 k/uL (0-0.7) 05/17/24 06:59 Basophils # 0.0 k/uL (0-0.2) 05/17/24 06:59 Sodium 135 mmol/L (137-145) L 05/17/24 06:59 Potassium 3.5 mmol/L (3.5-5.1) 05/17/24 06:59 Chloride 102 mmol/L (98-107) 05/17/24 06:59 Carbon Dioxide 15 mmol/L (22-30) L 05/17/24 06:59 Anion Gap 18 mmol/L 05/17/24 06:59 BUN 72 mg/dL (7-17) H 05/17/24 06:59 Creatinine 7.22 mg/dL (0.52-1.04) H* 05/17/24 06:59 Est GFR (CKD-EPI)AfAm 7 (>60 ml/min/1.73 sqM) 05/17/24 06:59 Est GFR (CKD-EPI)NonAf 6 (>60 ml/min/1.73 sqM) 05/17/24 06:59 Glucose 92 mg/dL (74-99) 05/17/24 06:59 Plasma Lactic Acid Wan 0.7 mmol/L (0.7-2.0) 05/17/24 06:59 Calcium 10.0 mg/dL (8.4-10.2) 05/17/24 06:59 Phosphorus 7.0 mg/dL (2.5-4.5) H 05/17/24 06:59 Magnesium 2.4 mg/dL (1.6-2.3) H 05/17/24 06:59 Total Bilirubin 0.7 mg/dL (0.2-1.3) 05/17/24 06:59 AST 24 U/L (14-36) 05/17/24 06:59 ALT 25 U/L (4-34) 05/17/24 06:59 Alkaline Phosphatase 103 U/L (38-126) 05/17/24 06:59 Total Protein 7.2 g/dL (6.3-8.2) 05/17/24 06:59 Albumin 4.8 g/dL (3.5-5.0) 05/17/24 06:59 Amylase 65 U/L (30-110) 05/17/24 06:59 Lipase 72 U/L (23-300) 05/17/24 06:59 05/17/24 06:59 05/17/24 06:59 Assessment and Plan Plan: Assessment: 1. ESRD on HD TTS via p-cath. 2. HTN with CKD. 3. Chronic systolic CHF- EF 30-35% on echo done 11/24. 4. CKD-MBD. 5. Metabolic acidosis due to CKD, missed HD. Plan: HD today. Advised to increase hydralazine dose to 100 mg if home bp staying above 135/80. Stressed compliance with meds and HD treatments outpatient. Risks of uncontrolled HTN, incl CVA, [place], discussed with patient. Thank you for the consultation.
[2024-05-17] MEDS: SPIRONOLACTONE 25 MG TAB PO STA (19:59)
[2024-05-17] MEDS ORDERED: NALOXONE 0.4 MG/ML 1 ML VIAL IV PRN (20:47)
[2024-05-17] MEDS ORDERED: ONDANSETRON ODT 4 MG TAB PO PRN (20:49)
[2024-05-17] MEDS: carvediloL 12.5 MG TAB PO STA (21:14)
[2024-05-17] MEDS: carvediloL 12.5 MG TAB PO SCH (21:19)
[2024-05-17] MEDS: hydrALAZINE HCL 50 MG TAB PO SCH (21:20)
[2024-05-17] MEDS: MORPHINE SULFATE 4 MG/ML SYRINGE IV PRN (22:51)
--- NOTE | 2024-05-18 01:32 | P.HPIM ---
History of Present Illness H&P Date: 05/17/24 Patient is a 48-year-old female with a PMH of ESRD on hemodialysis (TThuSa), systolic CHF with EF 30 to 35% (on echo from 08/14/2023), and hypertension who presents to the emergency room with complaints of headache with nausea and vomiting. Patient reports her symptoms started this past Thursday. She notes that she felt too ill to undergo her hemodialysis session on Thursday. Reports a diffuse 8 out of 10 headache over the last several days, constant, with no alleviating or exacerbating features. Does report associated nausea with 1-2 daily episodes of nonbloody emesis. Notes that the headache is now improved after having received morphine in the emergency room, currently rated at a 2 out of 10. Denied any additional complaints. Denied visual disturbances, weakness, numbness, tingling, or neck pain. Denied experiencing chest discomfort, shortness of breath, fever, chills, cough, abdominal pain, diarrhea. The patient underwent hemodialysis in the emergency room with plans for dis charge. The ED provider however noticed that the patient had become persistently tachycardic, with heart rate as high as 134. Initial EKG from this morning around 0700 upon arrival revealed sinus rhythm with a short MO interval at 78 bpm with findings of LVH as reviewed by me. Subsequent EKG at 2036 revealed sinus tachycardia at 117 bpm also with LVH and poor R wave progression with no other ST/T wave changes noted as reviewed by me. The patient also had persistently elevated blood pressure as high as 220/146. At time of interview, the patient's BP was 154/72. Laboratory evaluation revealed a sodium of 135, CO2 15, BUN 72, creatinine 7.22 (at baseline), with low BC count 5.2, and hemog lobin 12.1. ED documentation reviewed and case discussed with ED provider. Review of systems: Pertinent positives and negatives as discussed in HPI, a complete review of systems was performed and all other systems are negative. Physical examination: Vital signs reviewed General: non toxic, no distress, appears at stated age, normal weight Derm: no unusual rashes/lesions, warm Head: atraumatic, normocephalic, symmetric Eyes: EOMI, no lid lag, anicteric sclera, pupils equal round reactive to light ENT: Nose and ears atraumatic Neck: No cervical lymphadenopathy, trachea midline, supple Mouth: no lip lesion, mucus membranes moist Cardiovascular: S1S2 reg, no murmur, positive dorsalis pedis pulse bilateral, no edema, right chest wall permacath in place with no surrounding skin abnormalities noted Lungs: CTA bilateral, no rhonchi, no rales, no accessory muscle use Abdominal: soft, nontender to palpation, no guarding Ext: muscle strength 5 out of 5 in all 4 extremities grossly, no gross muscle atrophy, no contractures, Neuro: CN II-XI grossly intact, no gross focal neuro deficits Psych: Alert, oriented, appropriate affect Assessment: Sinus tachycardia, likely due to fluid loss from dialysis Headaches with nausea and vomiting, suspect due to uncontrolled hypertension, now improved Metabolic acidosis, suspect due to uremia (at baseline) ESRD, on HD Borderline hyponatremia, better than baseline Chronic conditions: Systolic CHF Imaging: Initial EKG from this morning around 0700 upon arrival revealed sinus rhythm with a short MO interval at 78 bpm with findings of LVH as reviewed by me. Subsequent EKG at 2036 revealed sinus tachycardia at 117 bpm also with LVH and poor R wave progression with no other ST/T wave changes noted as reviewed by me. Data Review: Laboratory evaluation revealed a sodium of 135, CO2 15, BUN 72, creatinine 7.22 (at baseline), with low BC count 5.2, and hemoglobin 12.1. Plan: Continue to monitor vitals for now C/w Cardiac monitoring Repeat CBC in a.m. Continue patient's home antihypertensives including Norvasc, Coreg, Hydralazine, and Aldactone Nephrology consulted for hemodialysis Tylenol as needed for headache C/w Zofran prn DVT prophylaxis: Heparin subq The patient is admitted with an anticipated less than 2 midnight stay for ev aluation of tachycardia CODE STATUS: Full Code Discussed with: Patient Anticipated discharge place: Home Past Medical History Past Medical History: Atrial Fibrillation, Hyperlipidemia, Hypertension, Renal Disease Additional Past Medical History / Comment(s): Hyperaldosteronism,cardiomyopathy, dialysis T,,S. no anticoag for afib History of Any Multi-Drug Resistant Organisms: None Reported Past Surgical History: No Surgical Hx Reported Additional Past Surgical History / Comment(s): dialysis catheter Past Anesthesia/Blood Transfusion Reactions: No Reported Reaction Past Psychological History: No Psychological Hx Reported Smoking Status: Never smoker Past Alcohol Use History: None Reported Past Drug Use History: None Reported - Past Family History Mother Family Medical History: Hyperlipidemia Medications and Allergies Home Medications Medication Instructions Recorded Confirmed Type Ondansetron Odt [Zofran ODT] 4 mg PO Q8H PRN 10/20/23 03/12/24 History Spironolactone [Aldactone] 100 mg PO BID #240 tab 10/27/23 03/12/24 Rx hydrALAZINE HCL [Apresoline] 50 mg PO BID #60 tab 10/27/23 03/12/24 Rx Cinacalcet [Sensipar] 30 mg PO DIRECTED 03/12/24 03/12/24 History Vit B Comp No.3/Folic/C/Biotin 1 tab PO DAILY 03/12/24 03/12/24 History [[facility] Rx Tablet] amLODIPine [Norvasc] 10 mg PO DAILY 30 Days #30 tab 03/13/24 Rx carvediloL [Coreg*] 25 mg PO AC-BID 30 Days #120 tab 03/13/24 Rx Allergies Allergy/AdvReac Type Severity Reaction Status Date / Time No Known Allergies Allergy Verified 05/17/24 06:19 Physical Exam Vitals: Vital Signs Temp Pulse Pulse Resp BP BP Pulse Ox 05/17/24 22:33 98.5 F 105 H 18 161/104 97 05/17/24 22:13 102 H 16 172/116 96 05/17/24 20:43 134 H 20 149/96 96 05/17/24 18:33 126 H 20 163/109 99 05/17/24 18:05 98.4 F 97 18 220/146 05/17/24 17:09 89 16 220/146 100 05/17/24 16:08 98 18 194/139 100 05/17/24 14:18 80 20 182/125 100 05/17/24 10:30 107 H 18 171/99 99 05/17/24 09:00 83 18 207/116 95 05/17/24 07:30 81 18 222/130 100 05/17/24 06:19 98.1 F 85 18 213/150 99 Intake and Output 05/17/24 05/17/24 05/18/24 14:59 22:59 06:59 Intake Total 400 Output Total 2400 Balance -1999 Intake: Hemodialysis 400 Output: Hemodialysis 2400 Results CBC & Chem 7: 05/17/24 06:59 05/17/24 06:59 Labs: Abnormal Lab Results - Last 24 Hours (Table) 05/17/24 05/17/24 Range/Units 06:59 06:59 Lymphocytes # 0.7 L (1.0-4.8) k/uL Sodium 135 L (137-145) mmol/L Carbon Dioxide 15 L (22-30) mmol/L BUN 72 H (7-17) mg/dL Creatinine 7.22 H* (0.52-1.04) mg/dL Phosphorus 7.0 H (2.5-4.5) mg/dL Magnesium 2.4 H (1.6-2.3) mg/dL
[2024-05-18] MEDS: ACETAMINOPHEN TAB 325 MG TAB PO PRN (05:24)
[2024-05-18 07:39] LABS: Basophils % (A) 1 %; Eosinophils # (A) 0.2 k/uL (0-0.7); Eosinophils % (A) 5 %; HCT 34.3 % (34.0-46.0); HGB 11.2 gm/dL (11.4-16.0); Lymphocytes # (A) 0.8 k/uL (1.0-4.8); Lymphocytes % (A) 18 %; MCH 30.2 pg (25.0-35.0); MCHC 32.6 g/dL (31.0-37.0); MCV 92.6 fL (80.0-100.0); Mean Platelet Volume 8.5; Monocytes # (A) 0.4 k/uL (0-1.0); Monocytes % (A) 9 %; Neutrophils # (A) 2.8 k/uL (1.3-7.7); Neutrophils % (A) 66 %; Platelet Count 135 k/uL (150-450); RDW 15.4 % (11.5-15.5); WBC 4.2 k/uL (3.8-10.6)
[2024-05-18 08:07] LABS: ALT 28 U/L (4-34); AST 24 U/L (14-36); African American GFR (CKD) 12 (>60 ml/min/1.73 sqM); Albumin 4.2 g/dL (3.5-5.0); Alkaline Phosphatase 88 U/L (38-126); Anion Gap 8 mmol/L; Blood Urea Nitrogen 37 mg/dL (7-17); Calcium 9.7 mg/dL (8.4-10.2); Carbon Dioxide 30 mmol/L (22-30); Chloride 94 mmol/L (98-107); Glucose 102 mg/dL (74-99); Magnesium 2.2 mg/dL (1.6-2.3); Non-African American GFR(CKD) 11 (>60 ml/min/1.73 sqM); Phosphorus 5.5 mg/dL (2.5-4.5); Potassium 3.5 mmol/L (3.5-5.1); Sodium 132 mmol/L (137-145); Total Bilirubin 0.7 mg/dL (0.2-1.3); Total Protein 6.6 g/dL (6.3-8.2)
[2024-05-18] MEDS: HEPARIN SODIUM,PORCINE 5,000 UNIT/ML 1 ML VIAL SQ SCH (09:05)
[2024-05-18] MEDS: CINACALCET 30 MG TAB PO SCH (09:05)
[2024-05-18] MEDS: SPIRONOLACTONE 25 MG TAB PO SCH (09:05)
[2024-05-18] MEDS: amLODIPine 10 MG TAB PO SCH (09:05)
[2024-05-18] MEDS: FOLIC ACID-VIT B COMPLEX-VIT C 1 CAP PO SCH (09:06)
--- NOTE | 2024-05-18 11:21 | P.PN ---
Subjective Patient is seen in follow-up for end-stage renal disease. She is maintained on hemodialysis on Thursday schedule. Tolerated 2 L u ltrafiltration yesterday. No active complaints. No headache this morning. Vital signs are stable. General: No acute distress. HEENT: Head exam is unremarkable. LUNGS: No audible rhonchi or wheezes. HEART: Rate and Rhythm are regular. ABDOMEN: Nontender. EXTREMITITES: No edema. Objective - Vital Signs Vital signs: Vital Signs Temp 98.3 F 05/18/24 05:21 Pulse 65 05/18/24 10:00 Resp 13 05/18/24 10:00 BP 152/97 05/18/24 10:00 Pulse Ox 99 05/18/24 10:00 FiO2 Intake & Output 05/17/24 05/18/24 05/18/24 18:59 06:59 18:59 Intake Total 400 Output Total 2400 Balance -2000 Intake: Hemodialysis 400 Output: Hemodialysis 2400 - Labs CBC & Chem 7: 05/18/24 06:54 05/18/24 06:54 Labs: Abnormal Lab Results - Last 24 Hours (Table) 05/18/24 05/18/24 Range/Units 06:54 06:54 RBC 3.70 L (3.80-5.40) m/uL Hgb 11.2 L (11.4-16.0) gm/dL Plt Count 135 L (150-450) k/uL Lymphocytes # 0.8 L (1.0-4.8) k/uL Sodium 132 L (137-145) mmol/L Chloride 94 L (98-107) mmol/L BUN 37 H (7-17) mg/dL Creatinine 4.65 H (0.52-1.04) mg/dL Glucose 102 H (74-99) mg/dL Phosphorus 5.5 H (2.5-4.5) mg/dL Assessment and Plan Plan: Assessment: 1. ESRD on HD TTS via p-cath. 2. HTN with CKD. Patient has history of primary hyperaldosteronism and follows at [facility]. 3. Chronic systolic CHF- EF 30-35% on echo done 11/24. 4. CKD-MBD. 5. Metabolic acidosis due to CKD, missed HD. Improved postdialysis. Plan: Hemodialysis tomorrow. Increase frequency of hydralazine to 3 times daily. Advised patient to monitor blood pressures closely at home and to increase dose of hydralazine to 100 mg if home blood pressure staying above 140/90. Stressed compliance with meds and HD treatments outpatient. Risks of uncontrolled HTN, incl CVA, NH, discussed with patient.
[2024-05-18 11:27] VITALS: RESP 18
[2024-05-18 15:35] VITALS: BP 137/90; PULSE 102; TEMP 98.8
[2024-05-18] MEDS ORDERED: hydrALAZINE HCL 50 MG TAB PO SCH (16:00)
--- NOTE | 2024-05-18 17:22 | P.DS ---
Providers Date of admission: 05/17/24 20:48 Expected date of discharge: 05/18/24 Attending physician: Shantal Alves MD Consults: 05/17/24 08:38 Consult Physician Urgent Consulting Provider: Gricelda Zacarias Consult Reason/Comments: ESRD Do you want consulting provider notified?: Already Contacted [facility] Course: Discharge Diagnosis: Uncontrolled hypertension Metabolic acidosis ESRD on hemodialysis Chronic systolic CHF, not in exacerbation Sinus tachycardia Hospital Course: 48-year-old female with a past medical history of ESRD on hemodialysis (TTS), systolic CHF with EF 30 to 35% (echo on 08/14/2023), and hypertension presents to the ED with complaints of headache with nausea and vomiting. Patient admitted to headache, nausea, vomiting but denied visual disturbances, weakness, numbness, tingling, neck pain, chest pain, shortness of breath, fever, chills, cough, abdominal pain, and diarrhea. In the ED patient's blood pressure was 213/150 and the rest of her vitals were within normal limits. Imaging in the ED included an EKG which showed sinus rhythm with short NM interval and left ventricular hypertrophy and STT change. Patient was admitted for further workup of uncontrolled hypertension and metabolic acidosis. Labs in the ED were significant for sodium 135, potassium 3.5, bicarb 15, BUN 72, creatinine 7.22, phosphorus 7, magnesium 2.4, WBC 5.2, hemoglobin 12.1, and MCV 90.6. While admitted patient received dialysis which eased her complaints of headache with nausea and vomiting. After receiving dialysis patient's blood pressure remained elevated, at that point her home blood pressure medications were restarted which led to normalization of her blood pressure. In addition further lab testing showed normalization of the patient's BUN, creatinine, phosphorus, and magnesium. At this point the patient was hemodynamically stable with labs within normal limits for somebody who normally is on dialysis with ESRD. Patient is discharged to home with self-care. 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 Patient also recommended to read discharge instructions which included literature regarding end-stage kidney disease. Vital signs reveiwed and stable: General: non toxic, no distress, appears at stated age, normal weight Derm: no unusual rashes/lesions, warm Head: atraumatic, normocephalic, symmetric Eyes: EOMI, no lid lag, anicteric sclera, pupils equal round reactive to light ENT: Nose and ears atraumatic Neck: No cervical lymphadenopathy, trachea midline, supple Mouth: no lip lesion, mucus membranes moist Cardiovascular: S1S2 reg, no murmur, positive dorsalis pedis pulse bilateral, no edema, right chest wall permacath in place with no surrounding skin abnormalities noted Lungs: CTA bilateral, no rhonchi, no rales, no accessory muscle use Abdominal: soft, nontender to palpation, no guarding Ext: muscle strength 5 out of 5 in all 4 extremities grossly, no gross muscle atrophy, no contractures, Neuro: CN II-XI grossly intact, no gross focal neuro deficits Psych: Alert, oriented, appropriate affect A total of 33 minutes were spent preparing this complex discarge summary. Patient was discharged on 05/08/2024 at 1251. I have seen and evaluated the patient today. Discussed with the resident and agree with the residents finding and plan as documented in the resident's note. Changes highlighted in blue font. Patient Condition at Discharge: Stable Plan - Discharge Summary New Discharge Prescriptions: Continue Spironolactone [Aldactone] 100 mg PO BID #240 tab carvediloL [Coreg*] 25 mg PO AC-BID 30 Days #120 tab amLODIPine [Norvasc] 10 mg PO DAILY 30 Days #30 tab Sevelamer Carbonate 800 mg PO BID hydrALAZINE HCL [Apresoline] 50 mg PO TID Ondansetron Odt [Zofran ODT] 4 mg PO Q8H PRN PRN Reason: Nausea Cinacalcet [Sensipar] 30 mg PO DIRECTED Vit B Comp No.3/Folic/C/Biotin [Cheryl-Santos Rx Tablet] 1 tab PO DAILY Sertraline HCl [Zoloft] 50 mg PO DAILY Discharge Medication List Ondansetron Odt [Zofran ODT] 4 mg PO Q8H PRN 10/20/23 [History] Spironolactone [Aldactone] 100 mg PO BID #240 tab 10/27/23 [Rx] Cinacalcet [Sensipar] 30 mg PO DIRECTED 03/12/24 [History] Vit B Comp No.3/Folic/C/Biotin [Cheryl-Santos Rx Tablet] 1 tab PO DAILY 03/12/24 [History] amLODIPine [Norvasc] 10 mg PO DAILY 30 Days #30 tab 03/13/24 [Rx] carvediloL [Coreg*] 25 mg PO AC-BID 30 Days #120 tab 03/13/24 [Rx] Sertraline HCl [Zoloft] 50 mg PO DAILY 05/18/24 [History] Sevelamer Carbonate 800 mg PO BID 05/18/24 [History] hydrALAZINE HCL [Apresoline] 50 mg PO TID 05/18/24 [History] Follow up Appointment(s)/Referral(s): Sukumar Ariza DO [STAFF PHYSICIAN] - 1-2 days Bruno Siddiqi DO [Primary Care Provider] - 1-2 days Patient Instructions/Handouts: End Stage Kidney Disease (ED) Activity/Diet/Wound Care/Special Instructions: Please see your 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 Discharge Disposition: HOME SELF-CARE
== END 2024-05-18 15:33 | disposition home or self-care (01) ==
LOC: EC 05:58 → 3SCARD 20:48
PROVIDERS: ADMIT Internal Medicine; ATTEND Internal Medicine
DX: I16.0 Hypertensive urgency (principal); R51.9 Headache, unspecified; R11.2 Nausea with vomiting, unspecified; I13.2 Hypertensive heart and chronic kidney disease with heart failure and with stage 5 chronic kidney disease, or end stage renal disease; I50.22 Chronic systolic (congestive) heart failure; N18.6 End stage renal disease; E87.20 Acidosis, unspecified; R00.0 Tachycardia, unspecified; E78.5 Hyperlipidemia, unspecified; I48.91 Unspecified atrial fibrillation; I42.9 Cardiomyopathy, unspecified; E87.1 Hypo-osmolality and hyponatremia; E26.09 Other primary hyperaldosteronism; Z99.2 Dependence on renal dialysis; Z79.899 Other long term (current) drug therapy
CPT/HCPCS: 96376; 96372; 96374; 96375; 99285; 36415; 93005; 80053 ×2; 82150; 83605; 83690; 83735 ×2; 84100 ×2; 85025 ×2; G0378 ×2; J2270; J0360; J1644; J2405; 90935

== ENCOUNTER 2025-03-06 09:05 | Inpatient (IN) | payer BC, OTHER ==
[2025-03-06] MEDS: ONDANSETRON 4 MG/2 ML VIAL IVP STA ×2 (09:56→13:08)
[2025-03-06 10:08] LABS: Basophils # (A) 0.05 10*3/uL (0.00-0.10); Basophils % (A) 0.5 %; Eosinophils # (A) 0.01 10*3/uL (0.04-0.35); Eosinophils % (A) 0.1 %; HCT 31.6 % (37.2-46.3); HGB 11.7 g/dL (12.0-15.0); Lymphocytes % (A) 5.7 %; MCV 83.6 fL (80.0-97.0); Monocytes # (A) 0.22 10*3/uL (0.20-1.00); Monocytes % (A) 2.1 %; Neutrophils # (A) 9.51 10*3/uL (1.80-7.70); Neutrophils % (A) 90.9 %; Platelet Count 108 10*3/uL (140-440); RBC 3.78 10*6/uL (4.10-5.20); RDW 16.2 % (11.5-14.5); WBC 10.46 10*3/uL (4.50-10.00)
[2025-03-06 10:15] LABS: ALT 21 U/L (4-34); AST 31 U/L (14-36); African American GFR (CKD) 6 (>60 ml/min/1.73 sqM); Albumin 4.3 g/dL (3.5-5.0); Alkaline Phosphatase 105 U/L (38-126); Anion Gap 22 mmol/L; Blood Urea Nitrogen 86 mg/dL (7-17); Calcium 9.6 mg/dL (8.4-10.2); Carbon Dioxide 15 mmol/L (22-30); Chloride 94 mmol/L (98-107); Glucose 160 mg/dL (74-99); Lipase 64 U/L (23-300); Magnesium 2.3 mg/dL (1.6-2.3); Non-African American GFR(CKD) 5 (>60 ml/min/1.73 sqM); Potassium 3.6 mmol/L (3.5-5.1); Sodium 131 mmol/L (137-145); Total Bilirubin 1.2 mg/dL (0.2-1.3); Total Protein 6.9 g/dL (6.3-8.2)
--- NOTE | 2025-03-06 10:20 | ED ---
Nausea/Vomiting/Diarrhea HPI - General Chief complaint: Nausea/Vomiting/Diarrhea Stated complaint: NVD Time Seen by Provider: 03/06/25 09:18 Source: patient, RN notes reviewed Mode of arrival: wheelchair Limitations: no limitations - History of Present Illness Initial comments: 49-year-old female presents emergency department with chief complaint of nausea vomiting diarrhea. She states symptoms have been present for several days she missed her last 2 sessions of dialysis. Patient states that she normally goes Thursday. Patient states she has minimal shortness of breath she does make some urine. She denies any chest pain no headache. Patient states she just feels very sick at this time. - Related Data Home Medications Medication Instructions Recorded Confirmed Cinacalcet [Sensipar] 30 mg PO DAILY 03/12/24 03/06/25 Sertraline HCl [Zoloft] 50 mg PO DAILY 05/18/24 03/06/25 Sevelamer Carbonate 1,600 mg PO TID-W/MEALS 05/18/24 03/06/25 hydrALAZINE HCL [Apresoline] 50 mg PO TID 05/18/24 03/06/25 Spironolactone [Aldactone] 100 mg PO BID 03/06/25 03/06/25 Previous Rx's Medication Instructions Recorded amLODIPine [Norvasc] 10 mg PO DAILY 30 Days #30 tab 03/13/24 carvediloL [Coreg*] 25 mg PO AC-BID 30 Days #120 tab 03/13/24 Allergies Allergy/AdvReac Type Severity Reaction Status Date / Time No Known Allergies Allergy Verified 03/06/25 09:13 Review of Systems ROS Statement: Those systems with pertinent positive or pertinent negative responses have been documented in the HPI. ROS Other: All systems not noted in ROS Statement are negative. Past Medical History Past Medical History: Atrial Fibrillation, Hyperlipidemia, Hypertension, Renal Disease Additional Past Medical History / Comment(s): Hyperaldosteronism,cardiomyopathy, dialysis T,,S. no anticoag for afib History of Any Multi-Drug Resistant Organisms: None Reported Past Surgical History: No Surgical Hx Reported Additional Past Surgical History / Comment(s): dialysis catheter Past Anesthesia/Blood Transfusion Reactions: No Reported Reaction Past Psychological History: No Psychological Hx Reported Smoking Status: Never smoker Past Alcohol Use History: None Reported Past Drug Use History: None Reported - Past Family History Mother Family Medical History: Hyperlipidemia General Exam Limitations: no limitations General appearance: alert, in no apparent distress Head exam: Present: atraumatic, normocephalic, normal inspection Eye exam: Present: normal appearance, PERRL, EOMI. Absent: scleral icterus, conjunctival injection, periorbital swelling ENT exam: Present: normal exam, normal oropharynx, mucous membranes moist Neck exam: Present: normal inspection, full ROM. Absent: tenderness, meningismus, lymphadenopathy Respiratory exam: Present: normal lung sounds bilaterally. Absent: respiratory distress, wheezes, rales, rhonchi, stridor Cardiovascular Exam: Present: regular rate, normal rhythm, normal heart sounds. Absent: systolic murmur, diastolic murmur, rubs, gallop, clicks GI/Abdominal exam: Present: soft, normal bowel sounds. Absent: distended, tenderness, guarding, rebound, rigid Course Vital Signs 03/06/25 03/06/25 03/06/25 09:09 11:30 12:00 Temperature 97.7 F 97.4 F L Pulse Rate 61 125 H 78 Respiratory 17 18 18 Rate Blood Pressure 227/153 242/183 155/103 O2 Sat by Pulse 96 98 99 Oximetry 03/06/25 03/06/25 12:07 14:06 Temperature Pulse Rate 131 H 86 Respiratory 18 18 Rate Blood Pressure 178/116 191/137 O2 Sat by Pulse 100 98 Oximetry Medical Decision Making - Medical Decision Making Was pt. sent in by a medical professional or institution (, PA, SONG AND DANCE PERFORMER, urgent care, hospital, or half-way...) When possible be specific @ -No Did you speak to anyone other than the patient for history (EMS, parent, family, police, friend...)? What history was obtained from this source @ -No Did you review nursing and triage notes (agree or disagree)? Why? @ -I reviewed and agree with nursing and triage notes Were old charts reviewed (outside hosp., previous admission, EMS record, old EKG, old radiological studies, urgent care reports/EKG's, half-way records)? Report findings @ -No old charts were reviewed Differential Diagnosis (chest pain, altered mental status, abdominal pain women, abdominal pain men, vaginal bleeding, weakness, fever, dyspnea, syncope, headache, dizziness, GI bleed, back pain, seizure, CVA, palpatations, mental health, musculoskeletal)? @ -Differential Weakness: Hypoglycemia, shock, sepsis, hyponatremia, anemia, infection, AR, ETOH, adverse medicine reaction, overdose, stroke, this is not meant to be an all-inclusive list. Differential Abdominal Pain Women: Appendicitis, Cholecystitis, diverticulosis, ischemic bowel, pancreatitis, hepatitis, UTI, gastroenteritis, AAA, incarcerated hernia, bowel obstruction, constipation, inflammatory bowel, hepatitis, peptic ulcer disease, splenic infar ction, perforated viscus, vulvitis, ovarian torsion, PID, kidney stone, placenta abruption, this is not meant to be an all-inclusive list EKG interpreted by me (3pts min.). @ -As above X-rays interpreted by me (1pt min.). @ -None done CT interpreted by me (1pt min.). @ -None done U/S interpreted by me (1pt. min.). @ -None done What testing was considered but not performed or refused? (CT, X-rays, U/S, labs)? Why? @ -None What meds were considered but not given or refused? Why? @ -None Did you discuss the management of the patient with other professionals (professionals i.e. , PA, SONG AND DANCE PERFORMER, lab, RT, psych nurse, social security assessor, inspector optical instrument, teacher, hospital security officer, case reviewer)? Give summary @ -Sound for admission Was smoking cessation discussed for >3mins.? @ -No Was critical care preformed (if so, how long)? @ -No Were there social determinants of health that impacted care today? How? (Homeles sness, low income, unemployed, alcoholism, drug addiction, transportation, low edu. Level, literacy, decrease access to med. care, [place] [facility], rehab)? @ -No Was there de-escalation of care discussed even if they declined (Discuss DNR or withdrawal of care, Hospice)? DNR status @ -No What co-morbidities impacted this encounter? (DM, HTN, Smoking, COPD, CAD, Cancer, CVA, ARF, Chemo, Hep., AIDS, mental health diagnosis, sleep apnea, morbid obesity)? @ -None Was patient admitted / discharged? Hospital course, mention meds given and route, prescriptions, significant lab abnormalities, going to OR and other pertinent info. @ -Admitted patient presented for intractable nausea and diarrhea. Patient has missed multiple dialysis appointments. Patient is extremely hypertensive requiring multiple medications. Patient still having intractable nausea vomiting will be admitted for symptomatic control, dialysis and repeat laboratory studies. Undiagnosed new problem with uncertain prognosis? @ -No Drug Therapy requiring intensive monitoring for toxicity (Heparin, Nitro, Insulin, Cardizem)? @ -No Were any procedures done? @ -No Diagnosis/symptom? @ -Intractable nausea vomiting, hypophosphatemia, end-stage renal disease on dialysis, metabolic acidosis Acute, or Chronic, or Acute on Chronic? @ -Acute Uncomplicated (without systemic symptoms) or Complicated (systemic symptoms)? @ -Complicated Side effects of treatment? @ -No Exacerbation, Progression, or Severe Exacerbation? @ -No Poses a threat to life or bodily function? How? (Chest pain, USA, AR, pneumonia, PE, COPD, DKA, ARF, appy, cholecystitis, CVA, Diverticulitis, Homicidal, Suicidal, threat to staff... and all critical care pts) @ -Yes renal failure causing electrolyte imbalance causing cardiac dysrhythmia. - Lab Data Result diagrams: 03/06/25 09:58 03/06/25 09:58 Lab Results 03/06/25 03/06/25 Range/Units 09:58 09:58 WBC 10.46 H (4.50-10.00) 10*3/uL RBC 3.78 L (4.10-5.20) 10*6/uL Hgb 11.7 L (12.0-15.0) g/dL Hct 31.6 L (37.2-46.3) % MCV 83.6 (80.0-97.0) fL MCH 31.0 (27.0-32.0) pg MCHC 37.0 (32.0-37.0) g/dL Plt Count 108 L (140-440) 10*3/uL Immature Gran % (Auto) 0.7 % Neutrophils % 90.9 % Lymphocytes % 5.7 % Monocytes % 2.1 % Eosinophils % 0.1 % Basophils % 0.5 % Immature Gran # 0.07 H (0.00-0.04) 10*3/uL Neutrophils # 9.51 H (1.80-7.70) 10*3/uL Lymphocytes # 0.60 L (0.90-5.00) 10*3/uL Monocytes # 0.22 (0.20-1.00) 10*3/uL Eosinophils # 0.01 L (0.04-0.35) 10*3/uL Basophils # 0.05 (0.00-0.10) 10*3/uL Sodium 131 L (137-145) mmol/L Potassium 3.6 (3.5-5.1) mmol/L Chloride 94 L (98-107) mmol/L Carbon Dioxide 15 L (22-30) mmol/L Anion Gap 22 mmol/L BUN 86 H (7-17) mg/dL Creatinine 8.24 H* (0.52-1.04) mg/dL Est GFR (CKD-EPI)AfAm 6 (>60 ml/min/1.73 sqM) Est GFR (CKD-EPI)NonAf 5 (>60 ml/min/1.73 sqM) Glucose 160 H (74-99) mg/dL Calcium 9.6 (8.4-10.2) mg/dL Phosphorus 9.8 H* (2.5-4.5) mg/dL Magnesium 2.3 (1.6-2.3) mg/dL Total Bilirubin 1.2 (0.2-1.3) mg/dL AST 31 (14-36) U/L ALT 21 (4-34) U/L Alkaline Phosphatase 105 (38-126) U/L Total Protein 6.9 (6.3-8.2) g/dL Albumin 4.3 (3.5-5.0) g/dL Lipase 64 (23-300) U/L - EKG Data -: EKG Interpreted by Me EKG Comments: EKG performed at 10: 08 sinus tachycardia rate of 110 MO 131 QRS 100 QT/QTc 35 6/421 Disposition Clinical Impression: Hypertensive urgency, ESRD on dialysis, Intractable nausea and vomiting, Tachycardia, Hyperphosphatemia, Metabolic acidosis Disposition: ADMITTED IP TO THIS [facility] Condition: Poor Time of Disposition: 13:11
[2025-03-06 10:27] LABS: Phosphorus 9.8 mg/dL (2.5-4.5)
[2025-03-06] MEDS: hydrALAZINE HCL 20 MG/ML 1 ML VIAL IVP STA (11:36)
[2025-03-06] MEDS: ACETAMINOPHEN IV (For NPO) 1,000 MG in EMPTY BAG 1 BAG IVPB STA (11:58)
[2025-03-06] MEDS: LABETALOL 5 MG/ML VIAL MDV IVP STA (12:03)
[2025-03-06] MEDS: SODIUM CHLORIDE 0.9% 500 ML 500 ML IV ONE (12:05)
[2025-03-06] MEDS ORDERED: NALOXONE 0.4 MG/ML 1 ML VIAL IV PRN (13:08)
[2025-03-06] MEDS ORDERED: cloNIDine HCL 0.1 MG TAB PO PRN (13:48)
--- NOTE | 2025-03-06 14:58 | XR ---
EXAMINATION TYPE: XR chest 1V portable DATE OF EXAM: 03/06/2025 2:54 PM COMPARISON: Chest radiographs from 04/12/2024 TECHNIQUE: XR chest 1V portable Portable AP radiograph of the chest. CLINICAL INDICATION:Female, 49 years old with history of cough; FINDINGS: Lungs/Pleura: There is no evidence of pleural effusion, focal consolidation, or pneumothorax. Pulmonary vascularity: Unremarkable. Heart/mediastinum: Cardiomediastinal silhouette is unremarkable. Musculoskeletal: No acute osseous pathology. Other findings: None Lines/Tubes: Stable right IJ approach dual-lumen hemodialysis catheter distal tip in the low SVC. IMPRESSION: No acute cardiopulmonary disease/process. [facility] Avinash Jean Baptiste, , 03/06/2025 2:56 PM
[2025-03-06] MEDS: HEPARIN SODIUM,PORCINE 5,000 UNIT/ML 1 ML VIAL SQ SCH (15:19)
[2025-03-06] MEDS: hydrALAZINE HCL 50 MG TAB PO SCH (15:20)
[2025-03-06 15:44] LABS: Appearance,Urine Turbid (Clear); Bacteria,Urine Many /hpf; Bilirubin,Urine Negative (Negative); Blood,Urine Large (Negative); Color,Urine Light Red; Glucose,Urine (UA) 3+ (Negative); Ketones,Urine Trace (Negative); Leukocyte Esterase,Urine Moderate (Negative); Nitrite,Urine Negative (Negative); Protein,Urine 2+ (Negative); RBC,Urine >182 /hpf (0-5); Specific Gravity,Urine 1.015 (1.001-1.035); Squamous Epithelial Cell,Urine 31 /hpf (0-4); Urobilinogen,Urine <2.0 mg/dL (<2.0); WBC,Urine 30 /hpf (0-5)
--- NOTE | 2025-03-06 15:44 | P.HPIM ---
History of Present Illness H&P Date: 03/06/25 Chief Complaint: NVD Patient is a 49-year-old female with ESRD on hemo-dialysis, paroxysmal atrial fibrillation not anticoagulated, HFrEF with EF of 30-35%, hypertension, hyper lipidemia presented with nausea, vomiting, and diarrhea. Patient states 1 week ago she was feeling sick and started to become nauseous followed by multiple episodes of vomiting and diarrhea. Denies any blood in the vomit or stool. Denies any sick contacts. No recent antibiotics and no recent changes in medications. She states she felt like she had a fever at home. She admits to cough with yellowish sputum production. She states symptoms were so severe that she was not able to go to her scheduled hemodialysis last Thursday and Thursday. States that her blood pressure has been high and uncontrolled. Denies any difficulty urinating. She also endorses a headache. Denies any fever, chills, chest pain, shortness of breath, abdominal pain, urinary symptoms. Social history: Tobacco: Denies smoking history Alcohol:, Denies alcohol use Recreational drugs: Denies illicit drug use EKG independently interpreted displaying sinus tachycardia, rate 110 bpm, QTc 421 MS CXR independently interpreted displaying no acute cardiopulmonary process Labs: Creatinine 8.24, BUN 86, phosphorus 9.8, bicarb 15, anion gap 2020, sodium 131, WBC 10.46, Hgb 11.7, platelet 108 Vitals: T 97.9 F, MS 61, RR 17, BP 227/153, O2 saturation 96% on room air ED documentation reviewed. Review of systems: Pertinent positives and negatives as discussed in HPI, a complete review of systems was performed and all other systems are negative. Physical examination: Vital signs reviewed General: non toxic, no distress, appears at stated age, normal weight, port Derm: bruising seen b/l LE and left forearm Head: atraumatic, normocephalic, symmetric Eyes: EOMI, anicteric sclera ENT: Nose and ears atraumatic Neck: No cervical lymphadenopathy, trachea midline, supple Mouth: no lip lesion, mucus membranes moist Cardiovascular: S1S2 reg, no murmur, positive dorsalis pedis pulse bilateral, no edema Lungs: CTA bilateral, no rhonchi, no rales, no accessory muscle use Abdominal: soft, tender to palpation in epigastrum/RUQ, no guarding Ext: muscle strength 5 out of 5 in all 4 extremities grossly, no gross muscle atrophy Neuro: CN II-XI grossly intact, no gross focal neuro deficits Psych: Alert, oriented to person, place, and time Assessment/Plan: Patient is a 49-year-old female with ESRD on hemo-dialysis, paroxysmal atrial fibrillation not anticoagulated, HFrEF with EF of 30-35%, hypertension, hyperlipidemia presented with nausea and vomiting. #. Nausea and vomiting in the setting of ESRD on hemodialysis with multiple missed dialysis sessions (Thursday, , Saturdays) #. Hypertensive urgency, secondary to multiple missed dialysis sessions #. Sinus tachycardia #. Hyponatremia, hypochloremia, borderline hypokalemia #. High anion gap metabolic acidosis #. Contraction metabolic alkalosis #. Bicytopenia with anemia and thrombocytopenia, chronic #. Secondary hyperparathyroidism #. Hyperphosphatemia CXR reviewed as above Cepheid 4 Plex pending Resume home Sevelemer 1600 PO TID and Cinacalcet 30 mg PO daily Continued close monitoring of electrolytes and renal function. Clonidine 0.1 mg PO TID prn for BP > 180/120 Zofran 4 mg IVP every 8 hours as needed C. diff., stool culture, stool lactoferrin CT abd/pelvis with contrast ordered, pt will get dialysis afterwards Cardiac monitoring Follow-up CBC and BMP Nephrology consulted for need of urgent dialysis #. Chronic combined systolic and diastolic HFrEF, EF is 35% Continue w/ amlodipine 10 mg QD, carvedilol 25 mg BID, hydralazine 50 mg TID, and Aldactone 100 mg BID #. Depression Zoloft 50 mg p.o. daily DVT prophylaxis: 5000 unit heparin SQ every 8 hours The patient is admitted with an anticipated less than 2 midnight stay for evaluation of ESRD. CODE STATUS: Full code Discussed with: Patient Anticipated discharge place: Pending clinical course Elsa Cadena MD PGY-1 IM Dictation was produced using [employer] dictation software. please excuse any grammatical, word or spelling errors. I saw and evaluated the patient during the mclaughlin and critical portions of this encounter, and discussed the case in detail with the resident author of this note, I agree with the Assessment and Plan, and my changes, if any, are highlighted in blue. Past Medical History Past Medical History: Atrial Fibrillation, Hyperlipidemia, Hypertension, Renal Disease Additional Past Medical History / Comment(s): Hyperaldosteronism,cardiomyopathy, dialysis T,TH,S. no anticoag for afib History of Any Multi-Drug Resistant Organisms: None Reported Past Surgical History: No Surgical Hx Reported Additional Past Surgical History / Comment(s): dialysis catheter Past Anesthesia/Blood Transfusion Reactions: No Reported Reaction Past Psychological History: No Psychological Hx Reported Smoking Status: Never smoker Past Alcohol Use History: None Reported Past Drug Use History: None Reported - Past Family History Mother Family Medical History: Hyperlipidemia Medications and Allergies Home Medications Medication Instructions Recorded Confirmed Type Cinacalcet [Sensipar] 30 mg PO DAILY 03/12/24 03/06/25 History amLODIPine [Norvasc] 10 mg PO DAILY 30 Days #30 tab 03/13/24 03/06/25 Rx carvediloL [Coreg*] 25 mg PO AC-BID 30 Days #120 tab 03/13/24 03/06/25 Rx Sertraline HCl [Zoloft] 50 mg PO DAILY 05/18/24 03/06/25 History Sevelamer Carbonate 1,600 mg PO TID-W/MEALS 05/18/24 03/06/25 History hydrALAZINE HCL [Apresoline] 50 mg PO TID 05/18/24 03/06/25 History Spironolactone [Aldactone] 100 mg PO BID 03/06/25 03/06/25 History Allergies Allergy/AdvReac Type Severity Reaction Status Date / Time No Known Allergies Allergy Verified 03/06/25 09:13 Physical Exam Osteopathic Statement: *. No significant issues noted on an osteopathic structural exam other than those noted in the History and Physical/Consult. Vitals: Vital Signs Temp Pulse Resp BP Pulse Ox 03/06/25 12:07 131 H 18 178/116 100 03/06/25 11:30 97.4 F L 125 H 18 242/183 98 03/06/25 09:09 97.7 F 61 17 227/153 96 Intake and Output 03/05/25 03/06/25 03/06/25 22:59 06:59 14:59 Other: Weight 81.647 kg Results CBC & Chem 7: 03/06/25 09:58 03/06/25 09:58 Labs: Abnormal Lab Results - Last 24 Hours (Table) 03/06/25 03/06/25 Range/Units 09:58 09:58 WBC 10.46 H (4.50-10.00) 10*3/uL RBC 3.78 L (4.10-5.20) 10*6/uL Hgb 11.7 L (12.0-15.0) g/dL Hct 31.6 L (37.2-46.3) % Plt Count 108 L (140-440) 10*3/uL Immature Gran # 0.07 H (0.00-0.04) 10*3/uL Neutrophils # 9.51 H (1.80-7.70) 10*3/uL Lymphocytes # 0.60 L (0.90-5.00) 10*3/uL Eosinophils # 0.01 L (0.04-0.35) 10*3/uL Sodium 131 L (137-145) mmol/L Chloride 94 L (98-107) mmol/L Carbon Dioxide 15 L (22-30) mmol/L BUN 86 H (7-17) mg/dL Creatinine 8.24 H* (0.52-1.04) mg/dL Glucose 160 H (74-99) mg/dL Phosphorus 9.8 H* (2.5-4.5) mg/dL
[2025-03-06 16:16] LABS: Influenza A Not Detected (Not Detectd); Influenza B Not Detected (Not Detectd); RSV Not Detected (Not Detectd)
--- NOTE | 2025-03-06 17:19 | CT ---
EXAMINATION TYPE: CT abdomen pelvis w con DATE OF EXAM: 03/06/2025 4:07 PM COMPARISON: None. CLINICAL INDICATION: Female, 49 years old with history of abd pain, abdominal pain, N,V, D. TECHNIQUE: Axial images were obtained from above the diaphragm to the pubic rami in the axial plane a t 5 mm thick sections. Reconstructed images are reviewed on the computer in the coronal plane. CONTRAST: 80 ml mL of Isovue 300. Study performed without Oral Contrast DLP: 787.9 mGycm, Automated exposure control for dose reduction was used. FINDINGS: Limited CT sections are obtained the lung bases. The lung bases are clear. CT ABDOMEN: Some minimal fluid is adjacent to the liver and spleen. Some minimal fluid is within the paracolic gutters. Small amount of free fluid is within the pelvis. Liver: Normal Spleen: Normal Pancreas: Normal Adrenal glands: The adrenal glands are normal. Gallbladder: Distended Kidneys: No masses are evident. No hydronephrosis is present. No cysts are present. Delayed images were obtained through the kidneys, which remain unremarkable. Aorta: Normal Inferior vena cava: Normal. CT PELVIS: There is diffuse thickening of the descending colon and sigmoid colon. Correlate for colitis. Study i s without oral contrast limiting bowel evaluation. Appendix: Not identified. No dilated tubular structure or inflammatory change is evident. Urinary bladder: Decompressed and cannot be evaluated Genitourinary structures: There is an IUD present. Uterus appears unremarkable. There may be a cyst o r nabothian cyst present. Adnexa appear normal. Several follicles are present on the right, the large st measuring 2.3 cm. Osseous structures: No suspicious lytic or sclerotic lesions. IMPRESSION: 1. Some ascites is present. 2. Thickened colonic wall especially noted through the descending colon and sigmoid colon to the rect um. Correlate for colitis. Follow-up recommended [facility], Workstation: [facility], 03/06/2025 5:17 PM
[2025-03-06] MEDS: carvediloL 12.5 MG TAB PO SCH (17:27)
[2025-03-06] MEDS: SEVELAMER 800 MG TAB PO SCH (17:28)
[2025-03-06] MEDS: ONDANSETRON 4 MG/2 ML VIAL IVP PRN (17:46)
[2025-03-06] MEDS: PIPERACILLIN-TAZOBACTAM 3.375 GM in SODIUM CHLORIDE 0.9% 100 ML IVPB SCH (20:19)
[2025-03-06] MEDS: cloNIDine HCL 0.1 MG TAB PO PRN (21:01)
[2025-03-06] MEDS: SPIRONOLACTONE 25 MG TAB PO SCH (21:01)
[2025-03-06 22:12] LABS: Hepatitis B Surface Antigen Nonreactive (Nonreactive)
[2025-03-07] MEDS: ACETAMINOPHEN TAB 325 MG TAB PO PRN (01:25)
[2025-03-07] MEDS: MELATONIN 5 MG TABLET PO PRN (01:51)
[2025-03-07 04:04] LABS: Basophils # (A) 0.04 10*3/uL (0.00-0.10); Basophils % (A) 0.4 %; Eosinophils # (A) 0.02 10*3/uL (0.04-0.35); Eosinophils % (A) 0.2 %; Lymphocytes # (A) 0.64 10*3/uL (0.90-5.00); Lymphocytes % (A) 6.7 %; MCH 30.5 pg (27.0-32.0); MCHC 36.3 g/dL (32.0-37.0); MCV 84.2 fL (80.0-97.0); Monocytes % (A) 6.3 %; Neutrophils # (A) 8.24 10*3/uL (1.80-7.70); Neutrophils % (A) 85.9 %; Platelet Count 83 10*3/uL (140-440); RBC 2.85 10*6/uL (4.10-5.20); RDW 17.3 % (11.5-14.5); WBC 9.59 10*3/uL (4.50-10.00)
[2025-03-07 04:05] LABS: African American GFR (CKD) 9 (>60 ml/min/1.73 sqM); Anion Gap 14 mmol/L; Blood Urea Nitrogen 65 mg/dL (7-17); Carbon Dioxide 21 mmol/L (22-30); Chloride 93 mmol/L (98-107); Glucose 82 mg/dL (74-99); HGB 8.7 g/dL (12.0-15.0); Magnesium 2.2 mg/dL (1.6-2.3); Non-African American GFR(CKD) 8 (>60 ml/min/1.73 sqM); Phosphorus 6.6 mg/dL (2.5-4.5); Sodium 128 mmol/L (137-145)
[2025-03-07] MEDS: POTASSIUM CHLORIDE ER 20 MEQ TAB.ER PO STA ×2 (07:18→20:25)
[2025-03-07] MEDS: amLODIPine 10 MG TAB PO SCH (07:57)
[2025-03-07] MEDS: SERTRALINE 50 MG TAB PO SCH (07:57)
[2025-03-07] MEDS ORDERED: BENZOCAINE/MENTHOL LOZENG 1 EACH LOZENGE MUCOUS MEM PRN (08:36)
--- NOTE | 2025-03-07 09:50 | P.PN ---
Subjective Progress Note Date: 03/07/25 Hospital Course: Patient is a 49-year-old female with ESRD on hemo-dialysis, paroxysmal atrial fibrillation not anticoagulated, HFrEF with EF of 30-35%, hypertension, hyperlipidemia presented with nausea, vomiting, and diarrhea. Patient states 1 week ago she was feeling sick and started to become nauseous followed by multiple episodes of vomiting and diarrhea. Denies any blood in the vomit or stool. Denies any sick contacts. No recent antibiotics and no recent changes in medications. She states she felt like she had a fever at home. She admits to cough with yellowish sputum production. She states symptoms were so severe that she was not able to go to her scheduled hemodialysis last Thursday and Thursday. States that her blood pressure has been high and uncontrolled. Denies any difficulty urinating. She also endorses a headache. Denies any fever, chills, chest pain, shortness of breath, abdominal pain, urinary symptoms. EKG independently interpreted displaying sinus tachycardia, rate 110 bpm, QTc 421 MS CXR independently interpreted displaying no acute cardiopulmonary process Labs: Creatinine 8.24, BUN 86, phosphorus 9.8, bicarb 15, anion gap 2020, sodium 131, WBC 10.46, Hgb 11.7, platelet 108 Vitals: T 97.9 F, NV 61, RR 17, BP 227/153, O2 saturation 96% on room air Subjective: Patient seen and examined at bedside. No acute events overnight. Still has complaint of watery nonbloody diarrhea and abdominal pain. Pertinent positives and negatives as discussed above, a complete review of systems was performed and all other systems are negative. Vitals: Signs Reviewed Physical Exam: General: nontoxic, no distress, appears at stated age Derm: warm, dry, intact Head: atraumatic, normocephalic, symmetric Eyes: EOMI, anicteric sclera Mouth: no lip lesion, mucus membranes moist Cardiovascular: S1 S2 reg, no murmur, rubs, or gallops Lungs: CTA bilateral, no rhonchi, no rales, no accessory muscle use Abdominal: soft, diffusely tender to palpataion, no appreciable organomegaly Extremities: no gross muscle atrophy, no edema, no contractures Neuro: Alert, Oriented, CNII-XII grossly intact, gait normal Psych: well appearing, appropriate affect Data Received Today: Cepheid 4 Plex unremarkable Pertinent Labs: CBC remarkable for decrease in Hgb 11.7 => 8.7, platelet 83, sodium 128, potassium 3.0, phosphorus 6.6, BUN 65, creatinine 5.70, Cepheid 4 Plex unremarkable Imaging: CT abdomen/pelvis with contrast displaying some ascites present, thickened colonic wall especially noted through the descending colon and sigmoid colon to the rectum Assessment and Plan: Patient is a 49-year-old female with ESRD on hemo-dialysis, paroxysmal atrial fibrillation not anticoagulated, HFrEF with EF of 30-35%, hypertension, hyperlipidemia presented with nausea and vomiting. #. Nausea, vomiting, and diarrhea in the setting of colitis #. ESRD on hemodialysis with multiple missed dialysis sessions (Thursday, , Saturdays) #. Hyponatremia, hypochloremia, hypokalemia, hyperphosphatemia #. High anion gap metabolic acidosis, improving #. Contraction metabolic alkalosis, improving #. Bicytopenia with anemia and thrombocytopenia, chronic #. Secondary hyperparathyroidism CT abd/pelvis with contrast reviewed as above C. difficile negative Stool culture and stool lactoferrin pending, ESR and CRP ordered Continue with Zosyn 3.375 IVPB q12hrs Continue w/ Sevelemer 1600 PO TID and Cinacalcet 30 mg PO QD Potassium replaced with 40 mEq potassium chloride, follow-up BMP this afternoon Zofran 4 mg IVP q8hr prn Bismatrol 524 mg PO q1hr prn Continue close monitoring of electrolytes and renal function Cardiac monitoring 1 L removed from dialysis yesterday Nephrology following, scheduled for dialysis today #. Hypertensive urgency, secondary to multiple missed dialysis sessions #. Chronic combined systolic and diastolic HFrEF, EF is 35% #. Sinus tachycardia Continue w/ amlodipine 10 mg QD, carvedilol 25 mg BID, hydralazine 50 mg TID, and Aldactone 100 mg BID Clonidine 0.1 mg PO TID prn for BP > 180/120 #. Depression Zoloft 50 mg PO QD Resolved: Hypertensive emergency DVT ppx: Heparin 5000 unit SQ every 8 hours Code status: Full code Anticipated discharge place: Pending clinical course Anticipated discharge time: Pending clinical course Elsa Cadena MD PGY-1 IM Dictation was produced using [employer] dictation software. please excuse any grammatical, word or spelling errors. I saw and evaluated the patient during the mclaughlin and critical portions of this encounter, and discussed the case in detail with the resident author of this note, I agree with the Assessment and Plan, and my changes, if any, are highlighted in blue. Objective - Vital Signs Vital signs: Vital Signs Temp 98.3 F 03/07/25 04:29 Pulse 100 03/07/25 05:34 Resp 18 03/07/25 05:34 BP 171/112 03/07/25 05:34 Pulse Ox 97 03/07/25 05:34 FiO2 Intake & Output 03/06/25 03/07/25 03/07/25 18:59 06:59 18:59 Intake Total 620 Output Total 2500 Balance -1880 Weight 81.647 kg 81.647 kg Intake: Oral 120 Hemodialysis 500 Output: Hemodialysis 1500 Hemodialysis Net Amount 1000 Other: Voiding Method Toilet # Voids 1 - Labs CBC & Chem 7: 03/07/25 02:22 03/07/25 02:22 Labs: Abnormal Lab Results - Last 24 Hours (Table) 03/06/25 03/06/25 03/06/25 Range/Units 09:58 09:58 09:58 WBC 10.46 H (4.50-10.00) 10*3/uL RBC 3.78 L (4.10-5.20) 10*6/uL Hgb 11.7 L (12.0-15.0) g/dL Hct 31.6 L (37.2-46.3) % RDW (11.5-14.5) % Plt Count 108 L (140-440) 10*3/uL Immature Gran # 0.07 H (0.00-0.04) 10*3/uL Neutrophils # 9.51 H (1.80-7.70) 10*3/uL Lymphocytes # 0.60 L (0.90-5.00) 10*3/uL Eosinophils # 0.01 L (0.04-0.35) 10*3/uL Sodium 131 L (137-145) mmol/L Potassium (3.5-5.1) mmol/L Chloride 94 L (98-107) mmol/L Carbon Dioxide 15 L (22-30) mmol/L BUN 86 H (7-17) mg/dL Creatinine 8.24 H* (0.52-1.04) mg/dL Glucose 160 H (74-99) mg/dL Phosphorus 9.8 H* (2.5-4.5) mg/dL Urine Appearance Turbid H (Clear) Urine Protein 2+ H (Negative) Urine Glucose (UA) 3+ H (Negative) Urine Ketones Trace H (Negative) Urine Blood Large H (Negative) Ur Leukocyte Esterase Moderate H (Negative) Urine RBC >182 H (0-5) /hpf Urine WBC 30 H (0-5) /hpf Ur Squamous Epith Cells 31 H (0-4) /hpf Urine Bacteria Many H (None) /hpf Hep Bs Antibody (Negative) 03/06/25 03/07/25 03/07/25 Range/Units 09:58 02:22 02:22 WBC (4.50-10.00) 10*3/uL RBC 2.85 L (4.10-5.20) 10*6/uL Hgb 8.7 L D (12.0-15.0) g/dL Hct 24.0 L (37.2-46.3) % RDW 17.3 H (11.5-14.5) % Plt Count 83 L (140-440) 10*3/uL Immature Gran # 0.05 H (0.00-0.04) 10*3/uL Neutrophils # 8.24 H (1.80-7.70) 10*3/uL Lymphocytes # 0.64 L (0.90-5.00) 10*3/uL Eosinophils # 0.02 L (0.04-0.35) 10*3/uL Sodium 128 L (137-145) mmol/L Potassium 3.0 L (3.5-5.1) mmol/L Chloride 93 L (98-107) mmol/L Carbon Dioxide 21 L (22-30) mmol/L BUN 65 H (7-17) mg/dL Creatinine 5.70 H (0.52-1.04) mg/dL Glucose (74-99) mg/dL Phosphorus 6.6 H (2.5-4.5) mg/dL Urine Appearance (Clear) Urine Protein (Negative) Urine Glucose (UA) (Negative) Urine Ketones (Negative) Urine Blood (Negative) Ur Leukocyte Esterase (Negative) Urine RBC (0-5) /hpf Urine WBC (0-5) /hpf Ur Squamous Epith Cells (0-4) /hpf Urine Bacteria (None) /hpf Hep Bs Antibody A (Negative)
[2025-03-07] MEDS: CINACALCET 30 MG TAB PO SCH (10:07)
[2025-03-07] MEDS: BISMUTH SUBSALICYLATE 4,192 MG/240 ML BOTTLE PO PRN (10:08)
--- NOTE | 2025-03-07 10:31 | P.NPCON ---
History of Present Illness - Reason for Consult end stage renal disease - History of Present Illness Reason for consultation: End-stage renal disease History of present illness: Patient is a 49-year-old female seen in renal consultation for end-stage renal disease. She is maintained on hemodialysis on Thursday schedule. Patient states her last hemodialysis was a week ago and she missed the next 2 treatments after that due to not feeling well. She has been having nausea and vomiting. Also had diarrhea the last 2 days. She does make urine. Patient has longstanding history of hypertension. She underwent a short hemodialysis treatment yesterday and is scheduled to undergo a full treatment today. Denies fever or chills. No pain. No chest pain or shortness of breath. No edema. Vital signs are stable. General: No acute distress. HEENT: Head exam is unremarkable. LUNGS: No audible rhonchi or wheezes. HEART: Rate and Rhythm are regular. ABDOMEN: Nontender. EXTREMITITES: No edema. Past Medical History Past Medical History: Atrial Fibrillation, Hyperlipidemia, Hypertension, Renal Disease Additional Past Medical History / Comment(s): Hyperaldosteronism,cardiomyopathy, dialysis T,,S. no anticoag for afib History of Any Multi-Drug Resistant Organisms: None Reported Past Surgical History: No Surgical Hx Reported Additional Past Surgical History / Comment(s): dialysis catheter Past Anesthesia/Blood Transfusion Reactions: No Reported Reaction Past Psychological History: No Psychological Hx Reported Smoking Status: Never smoker Past Alcohol Use History: None Reported Past Drug Use History: None Reported - Past Family History Mother Family Medical History: Hyperlipidemia Medications and Allergies Home Medications Medication Instructions Recorded Confirmed Type Cinacalcet [Sensipar] 30 mg PO DAILY 03/12/24 03/06/25 History amLODIPine [Norvasc] 10 mg PO DAILY 30 Days #30 tab 03/13/24 03/06/25 Rx carvediloL [Coreg*] 25 mg PO AC-BID 30 Days #120 tab 03/13/24 03/06/25 Rx Sertraline HCl [Zoloft] 50 mg PO DAILY 05/18/24 03/06/25 History Sevelamer Carbonate 1,600 mg PO TID-W/MEALS 05/18/24 03/06/25 History hydrALAZINE HCL [Apresoline] 50 mg PO TID 05/18/24 03/06/25 History Spironolactone [Aldactone] 100 mg PO BID 03/06/25 03/06/25 History Allergies Allergy/AdvReac Type Severity Reaction Status Date / Time No Known Allergies Allergy Verified 03/06/25 09:13 Physical Exam Vitals: Vital Signs Temp Pulse Pulse Pulse Resp BP BP 03/07/25 07:01 98.2 F 100 18 172/122 03/07/25 05:34 100 18 171/112 03/07/25 04:29 98.3 F 111 H 18 181/135 03/07/25 02:10 102 H 17 03/07/25 01:11 98.2 F 97 20 158/102 03/07/25 00:00 114 H 17 159/98 03/06/25 22:00 108 H 18 179/121 03/06/25 21:00 118 H 18 159/108 03/06/25 20:22 99 18 181/113 03/06/25 19:24 98.8 F 102 H 18 134/104 03/06/25 17:05 117 H 18 194/36 03/06/25 14:06 86 18 191/137 03/06/25 12:07 131 H 18 178/116 03/06/25 12:00 78 18 155/103 03/06/25 11:30 97.4 F L 125 H 18 242/183 Pulse Ox 03/07/25 07:01 98 03/07/25 05:34 97 03/07/25 04:29 97 03/07/25 02:10 03/07/25 01:11 98 03/07/25 00:00 98 03/06/25 22:00 97 03/06/25 21:00 99 03/06/25 20:22 99 03/06/25 19:24 03/06/25 17:05 99 03/06/25 14:06 98 03/06/25 12:07 100 03/06/25 12:00 99 03/06/25 11:30 98 Intake and Output 03/06/25 03/07/25 03/07/25 22:59 06:59 14:59 Intake Total 500 120 Output Total 2500 Balance -2000 120 Intake: Oral 120 Hemodialysis 500 Output: Hemodialysis 1500 Hemodialysis Net Amount 1000 Other: Voiding Method Toilet # Voids 1 1 Weight 81.647 kg Results - Lab Results Most recent lab results Calcium 9.0 mg/dL (8.4-10.2) 03/07/25 02:22 Phosphorus 6.6 mg/dL (2.5-4.5) H 03/07/25 02:22 Magnesium 2.2 mg/dL (1.6-2.3) 03/07/25 02:22 03/07/25 02:22 03/07/25 02:22 Assessment and Plan Plan: Assessment: 1. End-stage renal disease maintained on hemodialysis on Thursday schedule. 2. Hypokalemia from poor intake. Magnesium normal. 3. Hyponatremia secondary to chronic kidney disease. 4. Metabolic acidosis secondary to GI losses and missed hemodialysis. Improved postdialysis. 5. Chronic kidney disease mineral bone disease. Phosphorus level 6.6 today. On Renvela. 6. Anemia of chronic kidney disease. Rule out iron deficiency. 7. Hypertension with chronic kidney disease. 8. Nausea vomiting and diarrhea. CT scan showed mild ascites and thickened colonic wall. Plan: Hemodialysis today. Replace potassium. Home antihypertensives resumed. Check iron studies. Thank you for the consultation. I will continue to follow the patient with you during her hospital stay.
[2025-03-07] MEDS: guaiFENesin 600 MG TABLET.ER PO PRN (11:10)
[2025-03-07 12:32] LABS: African American GFR (CKD) 26 (>60 ml/min/1.73 sqM); Anion Gap 5 mmol/L; Blood Urea Nitrogen 29 mg/dL (7-17); Calcium 8.8 mg/dL (8.4-10.2); Carbon Dioxide 30 mmol/L (22-30); Chloride 94 mmol/L (98-107); Glucose 107 mg/dL (74-99); Non-African American GFR(CKD) 22 (>60 ml/min/1.73 sqM); Potassium 3.1 mmol/L (3.5-5.1); Sodium 129 mmol/L (137-145)
[2025-03-07 20:55] LABS: Iron 152 UG/DL (50-170); Total Iron Binding Capacity 200 UG/DL (228-460)
[2025-03-08] MEDS: diphenhydrAMINE 25 MG CAP PO STA (02:09)
[2025-03-08 04:35] LABS: African American GFR (CKD) 19 (>60 ml/min/1.73 sqM); Anion Gap 8 mmol/L; Blood Urea Nitrogen 23 mg/dL (7-17); Calcium 8.7 mg/dL (8.4-10.2); Carbon Dioxide 27 mmol/L (22-30); Chloride 95 mmol/L (98-107); Glucose 97 mg/dL (74-99); Magnesium 2.1 mg/dL (1.6-2.3); Non-African American GFR(CKD) 17 (>60 ml/min/1.73 sqM); Phosphorus 3.7 mg/dL (2.5-4.5); Potassium 3.1 mmol/L (3.5-5.1); Sodium 130 mmol/L (137-145)
[2025-03-08 05:10] LABS: Basophils # (A) 0.04 10*3/uL (0.00-0.10); Basophils % (A) 0.5 %; Eosinophils # (A) 0.21 10*3/uL (0.04-0.35); Eosinophils % (A) 2.4 %; HCT 22.2 % (37.2-46.3); HGB 7.7 g/dL (12.0-15.0); Lymphocytes % (A) 13.8 %; MCH 30.6 pg (27.0-32.0); MCHC 34.7 g/dL (32.0-37.0); MCV 88.1 fL (80.0-97.0); Mean Platelet Volume 12.2 fL (9.5-12.2); Monocytes # (A) 0.54 10*3/uL (0.20-1.00); Monocytes % (A) 6.2 %; Neutrophils # (A) 6.61 10*3/uL (1.80-7.70); Neutrophils % (A) 76.3 %; RBC 2.52 10*6/uL (4.10-5.20); RDW 17.3 % (11.5-14.5); WBC 8.67 10*3/uL (4.50-10.00)
[2025-03-08 05:12] LABS: Platelet Count 96 10*3/uL (140-440)
[2025-03-08] MEDS: POTASSIUM CHLORIDE ER 20 MEQ TAB.ER PO STA (08:12)
--- NOTE | 2025-03-08 10:10 | P.PN ---
Subjective Patient is seen in follow-up for end-stage renal disease. No problems with dialysis yesterday. Feels better today. No vomiting or diarrhea. Vital signs are stable. General: No acute distress. HEENT: Head exam is unremarkable. LUNGS: No audible rhonchi or wheezes. HEART: Rate and Rhythm are regular. ABDOMEN: Tenderness present on the right side of the abdomen. EXTREMITITES: No edema. Objective - Vital Signs Vital signs: Vital Signs Temp 98.2 F 03/08/25 06:49 Pulse 99 03/08/25 08:12 Resp 17 03/08/25 08:12 BP 178/110 03/08/25 06:49 Pulse Ox 98 03/08/25 06:49 FiO2 Intake & Output 03/07/25 03/08/25 03/08/25 18:59 06:59 18:59 Intake Total 500 240 200 Output Total 2500 Balance -2000 240 200 Weight 68 kg Intake: Oral 240 200 Hemodialysis 500 Output: Hemodialysis 1500 Hemodialysis Net Amount 1000 Other: Voiding Method Toilet Toilet # Voids 1 3 - Labs CBC & Chem 7: 03/08/25 03:37 03/08/25 03:37 Labs: Abnormal Lab Results - Last 24 Hours (Table) 03/07/25 03/07/25 03/08/25 Range/Units 02:22 12:06 03:37 RBC 2.52 L (4.10-5.20) 10*6/uL Hgb 7.7 L (12.0-15.0) g/dL Hct 22.2 L (37.2-46.3) % RDW 17.3 H (11.5-14.5) % Plt Count 96 L (140-440) 10*3/uL Immature Gran # 0.07 H (0.00-0.04) 10*3/uL Sodium 129 L (137-145) mmol/L Potassium 3.1 L (3.5-5.1) mmol/L Chloride 94 L (98-107) mmol/L BUN 29 H (7-17) mg/dL Creatinine 2.48 H (0.52-1.04) mg/dL Glucose 107 H (74-99) mg/dL TIBC 200 L (228-460) UG/DL % Saturation 76.00 H (12.00-45.00) Transferrin 143.0 L (204.0-354.0) mg/dL Ferritin 3613.0 H (10.0-291.0) ng/mL C-Reactive Protein 8.50 H (0.00-0.80) mg/dL 03/08/25 Range/Units 03:37 RBC (4.10-5.20) 10*6/uL Hgb (12.0-15.0) g/dL Hct (37.2-46.3) % RDW (11.5-14.5) % Plt Count (140-440) 10*3/uL Immature Gran # (0.00-0.04) 10*3/uL Sodium 130 L (137-145) mmol/L Potassium 3.1 L (3.5-5.1) mmol/L Chloride 95 L (98-107) mmol/L BUN 23 H (7-17) mg/dL Creatinine 3.17 H (0.52-1.04) mg/dL Glucose (74-99) mg/dL TIBC (228-460) UG/DL % Saturation (12.00-45.00) Transferrin (204.0-354.0) mg/dL Ferritin (10.0-291.0) ng/mL C-Reactive Protein (0.00-0.80) mg/dL Microbiology - Last 24 Hours (Table) 03/06/25 09:58 Urine Culture - Preliminary Urine,Voided Gram Neg Bacilli Assessment and Plan Plan: Assessment: 1. End-stage renal disease maintained on hemodialysis on Thursday schedule. 2. Hypokalemia from poor intake. Magnesium normal. 3. Hyponatremia secondary to chronic kidney disease. Better. 4. Metabolic acidosis secondary to GI losses and missed hemodialysis. Improved postdialysis. 5. Chronic kidney disease mineral bone disease. Phosphorus level improved to 3.7. On Renvela. Also on Sensipar. 6. Anemia of chronic kidney disease. Iron replete. 7. Hypertension with chronic kidney disease. 8. Nausea vomiting and diarrhea. CT scan showed mild ascites and thickened col onic wall. Surgery consulted. 9. Gram-negative UTI. Plan: Hemodialysis tomorrow. Replace potassium. Add Aranesp. Increase hydralazine dose to 75 mg.
--- NOTE | 2025-03-08 10:53 | P.PN ---
Subjective Progress Note Date: 03/08/25 Hospital Course: Patient is a 49-year-old female with ESRD on hemo-dialysis, paroxysmal atrial fibrillation not anticoagulated, HFrEF with EF of 30-35%, hypertension, hyperlipidemia presented with nausea, vomiting, and diarrhea. Patient states 1 week ago she was feeling sick and started to become nauseous followed by multiple episodes of vomiting and diarrhea. Denies any blood in the vomit or stool. Denies any sick contacts. No recent antibiotics and no recent changes in medications. She states she felt like she had a fever at home. She admits to cough with yellowish sputum production. She states symptoms were so severe that she was not able to go to her scheduled hemodialysis last Thursday and Thursday. States that her blood pressure has been high and uncontrolled. Denies any difficulty urinating. She also endorses a headache. Denies any fever, chills, chest pain, shortness of breath, abdominal pain, urinary symptoms. EKG independently interpreted displaying sinus tachycardia, rate 110 bpm, QTc 421 MS CXR independently interpreted displaying no acute cardiopulmonary process Labs: Creatinine 8.24, BUN 86, phosphorus 9.8, bicarb 15, anion gap 2020, sodium 131, WBC 10.46, Hgb 11.7, platelet 108 Vitals: T 97.9 F, CT 61, RR 17, BP 227/153, O2 saturation 96% on room air CT abdomen/pelvis with contrast displaying some ascites present, thickened colonic wall especially noted through the descending colon and sigmoid colon to the rectum, distended gallbladder Subjective: Patient seen and examined at bedside. No acute events overnight. Still has complaint of watery nonbloody diarrhea and abdominal pain. Pertinent positives and negatives as discussed above, a complete review of systems was performed and all other systems are negative. Vitals: Signs Reviewed Physical Exam: General: nontoxic, no distress, appears at stated age Derm: warm, dry, intact Head: atraumatic, normocephalic, symmetric Eyes: EOMI, anicteric sclera Mouth: no lip lesion, mucus membranes moist Cardiovascular: S1 S2 reg, no murmur, rubs, or gallops Lungs: CTA bilateral, no rhonchi, no rales, no accessory muscle use Abdominal: soft, diffusely tender to palpataion, no appreciable organomegaly Extremities: no gross muscle atrophy, no edema, no contractures Neuro: Alert, Oriented, CNII-XII grossly intact Data Received Today: Pertinent Labs: Hgb 7.7, platelet 96, sodium 130, potassium 3.1, CRP elevated at 8.50, ESR less than 1, BUN 23, creatinine 3.17 Studies: Iron 152, TIBC 200, percent saturation 76, transferrin 143, ferritin 3613 Imaging: N/A Assessment and Plan: Patient is a 49-year-old female with ESRD on hemo-dialysis, paroxysmal atrial fibrillation not anticoagulated, HFrEF with EF of 30-35%, hypertension, hyperlipidemia presented with nausea and vomiting. #. Nausea, vomiting, and diarrhea in the setting of colitis #. Distended gallbladder CT abd/pelvis with contrast reviewed as above C. difficile negative CRP elevated at 8.50, ESR less than 1 Stool culture and stool lactoferrin pending Continue with Zosyn 3.375 IVPB q12hrs Zofran 4 mg IVP q8hr prn Bismatrol 524 mg PO q1hr prn General Surgery consulted #. ESRD on hemodialysis with multiple missed dialysis sessions (Thursday, , Saturdays) #. Hyponatremia (at baseline), hypochloremia, hypokalemia #. Bicytopenia with anemia and thrombocytopenia, chronic #. Anemia of chronic disease #. Secondary hyperparathyroidism Continue w/ Sevelemer 1600 PO TID and Cinacalcet 30 mg PO QD Potassium replaced with 40 mEq potassium chloride, follow-up BMP this afternoon Continue close monitoring of electrolytes and renal function Cardiac monitoring 1 L removed from dialysis yesterday Nephrology note reviewed, adding Aranesp, hydralazine increased to 75 mg, hemodialysis tomorrow #. Hypertensive urgency, secondary to multiple missed dialysis sessions #. Chronic combined systolic and diastolic HFrEF, EF is 35% #. Sinus tachycardia Continue w/ amlodipine 10 mg QD, carvedilol 25 mg BID, hydralazine 50 mg TID increased to 75 mg by nephrology, and Aldactone 100 mg BID Clonidine 0.1 mg PO TID prn for BP > 180/120 #. Depression Zoloft 50 mg PO QD Resolved: Hypertensive emergency High anion gap metabolic acidosis Contraction metabolic alkalosis Hyperphosphatemia DVT ppx: Heparin 5000 unit SQ every 8 hours Code status: Full code Anticipated discharge place: Pending clinical course Anticipated discharge time: Pending clinical course Elsa Cadena MD PGY-1 IM Dictation was produced using [employer] dictation software. please excuse any grammatical, word or spelling errors. I have seen and evaluated the patient today. Discussed with the resident and agree with the residents finding and plan as documented in the resident's note. Changes highlighted in blue font. Objective - Vital Signs Vital signs: Vital Signs Temp 98.2 F 03/08/25 01:13 Pulse 93 03/08/25 01:13 Resp 16 03/08/25 01:13 BP 157/94 03/08/25 01:13 Pulse Ox 97 03/08/25 01:13 FiO2 Intake & Output 03/07/25 03/08/25 03/08/25 18:59 06:59 18:59 Intake Total 500 240 Output Total 2500 Balance -2000 240 Weight 68 kg Intake: Oral 240 Hemodialysis 500 Output: Hemodialysis 1500 Hemodialysis Net Amount 1000 Other: Voiding Method Toilet # Voids 1 3 - Labs CBC & Chem 7: 03/08/25 03:37 03/08/25 03:37 Labs: Abnormal Lab Results - Last 24 Hours (Table) 03/07/25 03/07/25 03/08/25 Range/Units 02:22 12:06 03:37 RBC 2.52 L (4.10-5.20) 10*6/uL Hgb 7.7 L (12.0-15.0) g/dL Hct 22.2 L (37.2-46.3) % RDW 17.3 H (11.5-14.5) % Plt Count 96 L (140-440) 10*3/uL Immature Gran # 0.07 H (0.00-0.04) 10*3/uL Sodium 129 L (137-145) mmol/L Potassium 3.1 L (3.5-5.1) mmol/L Chloride 94 L (98-107) mmol/L BUN 29 H (7-17) mg/dL Creatinine 2.48 H (0.52-1.04) mg/dL Glucose 107 H (74-99) mg/dL TIBC 200 L (228-460) UG/DL % Saturation 76.00 H (12.00-45.00) Transferrin 143.0 L (204.0-354.0) mg/dL Ferritin 3613.0 H (10.0-291.0) ng/mL C-Reactive Protein 8.50 H (0.00-0.80) mg/dL 03/08/25 Range/Units 03:37 RBC (4.10-5.20) 10*6/uL Hgb (12.0-15.0) g/dL Hct (37.2-46.3) % RDW (11.5-14.5) % Plt Count (140-440) 10*3/uL Immature Gran # (0.00-0.04) 10*3/uL Sodium 130 L (137-145) mmol/L Potassium 3.1 L (3.5-5.1) mmol/L Chloride 95 L (98-107) mmol/L BUN 23 H (7-17) mg/dL Creatinine 3.17 H (0.52-1.04) mg/dL Glucose (74-99) mg/dL TIBC (228-460) UG/DL % Saturation (12.00-45.00) Transferrin (204.0-354.0) mg/dL Ferritin (10.0-291.0) ng/mL C-Reactive Protein (0.00-0.80) mg/dL Microbiology - Last 24 Hours (Table) 03/06/25 09:58 Urine Culture - Preliminary Urine,Voided Gram Neg Bacilli
[2025-03-08] MEDS: DARBEPOETIN ALFA 40 MCG/0.4 ML SYRINGE SQ SCH (13:04)
--- NOTE | 2025-03-08 13:46 | P.GSCN ---
History of Present Illness Consult date: 03/08/25 History of present illness: CHIEF COMPLAINT: Nausea, vomit and diarrhea HISTORY OF PRESENT ILLNESS: This is a 49-year-old female who presented the hospital with complaints of nausea vomiting and diarrhea x 1 week. Patient reports over the weekend symptoms worsened and she came into the ER for further evaluation. Patient missed 2 hemodialysis treatments due to being sick. Since her hospitalization the vomiting and diarrhea has improved. Patient is CT scan abdomen pelvis that had reported thickening colonic wall of the descending and sigmoid colon with evidence of colitis. Also noted a distended gallbladder. Patient had reported that she did have nausea and vomiting after eating greasy foods even prior to becoming sick this last week. Surgical service consulted in regards to distended gallbladder. Patient is on antibiotics for her colitis. Patient reports no prior history of colonoscopy and no prior abdominal surgical history. Patient is tolerating renal diet. PAST MEDICAL HISTORY: See list. PAST SURGICAL HISTORY: See list. MEDICATIONS: See list. ALLERGIES: See list. SOCIAL HISTORY: No illicit drug use. REVIEW OF SYSTEMS: CONSTITUTIONAL: Denies fever or chills. HEENT: Denies blurred vision, vision changes, or eye pain. Denies hemoptysis ENDOCRINE: Denies heat or cold intolerance. CARDIOVASCULAR: Denies chest pain or pressure. RESPIRATORY: No shortness of breath. GASTROINTESTINAL: Denies abdominal pain. Denies nausea or vomiting. NEURO: Denies history of seizures. PSYCH: No depression or suicidal ideation HEMATOLOGIC: Denies bleeding disorders. LYMPHATIC: The patient denies any lumps and bumps around the neck. GENITOURINARY: Denies any blood in urine or increased urinary frequency. MUSCULOSKELETAL: Denies myalgias. Denies joint swelling. Denies decreased range of motion beyond patients baseline. SKIN: Denies pruitis. Denies rash. PHYSICAL EXAM: VITAL SIGNS: Reviewed GENERAL: Well-developed in no acute distress. HEENT: No sclera icterus. Extraocular movements grossly intact. Moist buccal mucosa. Head is atraumatic, normocephalic. Hears conversational speech. No nasal drainage. NECK: Supple without lymphadenopathy. CHEST: Non-labored respirations and equal bilateral excursions. CARDIOVASCULAR: Palpable 2+ radial pulses. ABDOMEN: Soft. Nondistended. Patient has tenderness with palpation in the right upper quadrant and left mid and lower abdomen. No rebound or guarding noted. MUSCULOSKELETAL: No clubbing or cyanosis. NEUROLOGIC: No focal or lateralizing signs. Cranial nerves II through XII grossly intact. PSYCH: Appropriate affect. Alert and oriented to person, place and time. SKIN: Well perfused. Good skin turgor. LABORATORY DATA: WBCs 8.67 Hgb 7.7 platelets 96 Sodium 130 potassium 3.1 creatinine 3.17 Stool for C. difficile negative IMAGING: CT scan abdomen pelvis reports some ascites is present. Thickened colonic wall especially noted through the descending colon and sigmoid colon to the rectum. Correlate for colitis. Distended gallbladder ASSESSMENT: 1. Abdominal pain with nausea vomiting and diarrhea improved 2. Colitis of the descending and sigmoid colon noted on CT 3. Distended gallbladder noted on CT PLAN: -No surgical intervention planned -Continue antibiotics for colitis -Recommend outpatient follow-up -Patient can be discharged from surgical standpoint Physician Clinical Leader note has been reviewed by physician. Signing provider agrees with the documented findings, assessment, and plan of care. Past Medical History Past Medical History: Atrial Fibrillation, Hyperlipidemia, Hypertension, Renal Disease Additional Past Medical History / Comment(s): Hyperaldosteronism,cardiomyopathy, dialysis T,TH,S. no anticoag for afib History of Any Multi-Drug Resistant Organisms: None Reported Past Surgical History: No Surgical Hx Reported Additional Past Surgical History / Comment(s): dialysis catheter Past Anesthesia/Blood Transfusion Reactions: No Reported Reaction Past Psychological History: No Psychological Hx Reported Smoking Status: Never smoker Past Alcohol Use History: None Reported Past Drug Use History: None Reported - Past Family History Mother Family Medical History: Hyperlipidemia Medications and Allergies Home Medications Medication Instructions Recorded Confirmed Type Cinacalcet [Sensipar] 30 mg PO DAILY 03/12/24 03/06/25 History amLODIPine [Norvasc] 10 mg PO DAILY 30 Days #30 tab 03/13/24 03/06/25 Rx carvediloL [Coreg*] 25 mg PO AC-BID 30 Days #120 tab 03/13/24 03/06/25 Rx Sertraline HCl [Zoloft] 50 mg PO DAILY 05/18/24 03/06/25 History Sevelamer Carbonate 1,600 mg PO TID-W/MEALS 05/18/24 03/06/25 History hydrALAZINE HCL [Apresoline] 50 mg PO TID 05/18/24 03/06/25 History Spironolactone [Aldactone] 100 mg PO BID 03/06/25 03/06/25 History Allergies Allergy/AdvReac Type Severity Reaction Status Date / Time No Known Allergies Allergy Verified 03/06/25 09:13 Surgical - Exam Vital Signs Temp Pulse Resp BP Pulse Ox 97.7 F 61 17 227/153 96 03/06/25 09:09 03/06/25 09:09 03/06/25 09:09 03/06/25 09:09 03/06/25 09:09 Results - Labs 03/08/25 03:37 03/08/25 03:37 Abnormal Lab Results - Last 24 Hours (Table) 03/07/25 03/07/25 03/08/25 Range/Units 02:22 12:06 03:37 RBC 2.52 L (4.10-5.20) 10*6/uL Hgb 7.7 L (12.0-15.0) g/dL Hct 22.2 L (37.2-46.3) % RDW 17.3 H (11.5-14.5) % Plt Count 96 L (140-440) 10*3/uL Immature Gran # 0.07 H (0.00-0.04) 10*3/uL Sodium 129 L (137-145) mmol/L Potassium 3.1 L (3.5-5.1) mmol/L Chloride 94 L (98-107) mmol/L BUN 29 H (7-17) mg/dL Creatinine 2.48 H (0.52-1.04) mg/dL Glucose 107 H (74-99) mg/dL TIBC 200 L (228-460) UG/DL % Saturation 76.00 H (12.00-45.00) Transferrin 143.0 L (204.0-354.0) mg/dL Ferritin 3613.0 H (10.0-291.0) ng/mL C-Reactive Protein 8.50 H (0.00-0.80) mg/dL 03/08/25 Range/Units 03:37 RBC (4.10-5.20) 10*6/uL Hgb (12.0-15.0) g/dL Hct (37.2-46.3) % RDW (11.5-14.5) % Plt Count (140-440) 10*3/uL Immature Gran # (0.00-0.04) 10*3/uL Sodium 130 L (137-145) mmol/L Potassium 3.1 L (3.5-5.1) mmol/L Chloride 95 L (98-107) mmol/L BUN 23 H (7-17) mg/dL Creatinine 3.17 H (0.52-1.04) mg/dL Glucose (74-99) mg/dL TIBC (228-460) UG/DL % Saturation (12.00-45.00) Transferrin (204.0-354.0) mg/dL Ferritin (10.0-291.0) ng/mL C-Reactive Protein (0.00-0.80) mg/dL Microbiology - Last 24 Hours (Table) 03/06/25 09:58 Urine Culture - Preliminary Urine,Voided Gram Neg Bacilli Diabetes panel 03/07/25 03/08/25 Range/Units 12:06 03:37 Sodium 129 L 130 L (137-145) mmol/L Potassium 3.1 L 3.1 L (3.5-5.1) mmol/L Chloride 94 L 95 L (98-107) mmol/L Carbon Dioxide 30 27 (22-30) mmol/L BUN 29 H 23 H (7-17) mg/dL Creatinine 2.48 H 3.17 H (0.52-1.04) mg/dL Glucose 107 H 97 (74-99) mg/dL Calcium 8.8 8.7 (8.4-10.2) mg/dL Calcium panel 03/07/25 03/08/25 Range/Units 12:06 03:37 Calcium 8.8 8.7 (8.4-10.2) mg/dL Phosphorus 3.7 (2.5-4.5) mg/dL Pituitary panel 03/07/25 03/08/25 Range/Units 12:06 03:37 Sodium 129 L 130 L (137-145) mmol/L Potassium 3.1 L 3.1 L (3.5-5.1) mmol/L Chloride 94 L 95 L (98-107) mmol/L Carbon Dioxide 30 27 (22-30) mmol/L BUN 29 H 23 H (7-17) mg/dL Creatinine 2.48 H 3.17 H (0.52-1.04) mg/dL Glucose 107 H 97 (74-99) mg/dL Calcium 8.8 8.7 (8.4-10.2) mg/dL Adrenal panel 03/07/25 03/08/25 Range/Units 12:06 03:37 Sodium 129 L 130 L (137-145) mmol/L Potassium 3.1 L 3.1 L (3.5-5.1) mmol/L Chloride 94 L 95 L (98-107) mmol/L Carbon Dioxide 30 27 (22-30) mmol/L BUN 29 H 23 H (7-17) mg/dL Creatinine 2.48 H 3.17 H (0.52-1.04) mg/dL Glucose 107 H 97 (74-99) mg/dL Calcium 8.8 8.7 (8.4-10.2) mg/dL
[2025-03-08] MEDS: hydrALAZINE HCL 25 MG TAB PO SCH (16:41)
[2025-03-09] MEDS: LORazepam 0.5 MG TAB PO STA (02:03)
[2025-03-09 07:06] LABS: HCT 21.7 % (37.2-46.3); HGB 7.3 g/dL (12.0-15.0); MCH 30.7 pg (27.0-32.0); MCHC 33.6 g/dL (32.0-37.0); MCV 91.2 fL (80.0-97.0); Mean Platelet Volume 10.4 fL (9.5-12.2); RBC 2.38 10*6/uL (4.10-5.20); RDW 17.2 % (11.5-14.5); WBC 5.45 10*3/uL (4.50-10.00)
[2025-03-09 07:35] LABS: African American GFR (CKD) 10 (>60 ml/min/1.73 sqM); Anion Gap 10 mmol/L; Blood Urea Nitrogen 35 mg/dL (7-17); Calcium 9.1 mg/dL (8.4-10.2); Carbon Dioxide 23 mmol/L (22-30); Chloride 98 mmol/L (98-107); Glucose 93 mg/dL (74-99); Magnesium 2.3 mg/dL (1.6-2.3); Non-African American GFR(CKD) 9 (>60 ml/min/1.73 sqM); Potassium 3.7 mmol/L (3.5-5.1); Sodium 131 mmol/L (137-145)
--- NOTE | 2025-03-09 08:11 | US ---
EXAMINATION TYPE: US gallbladder DATE OF EXAM: 03/09/2025 COMPARISON: CT abdomen pelvis 03/06/2025, renal ultrasound 10/20/2023 CLINICAL INDICATION: Female, 49 years old with history of Right upper quadrant pain; Pain TECHNIQUE: Grayscale and color Doppler imaging of the right upper quadrant was performed. FINDINGS: EXAM MEASUREMENTS: Liver Length: 16.6 cm Gallbladder Wall: 0.2 cm CBD: 0.5 cm Right Kidney: 7.4 x 3.1 x 3.9 cm WEB APPLICATIONS ARCHITECT NOTES: Pancreas: wnl, tail obscured by overlying bowel gas Liver: Visualized portions appeared wnl Gallbladder: Entire lumen filled with stones Evidence for sonographic Iqbal's sign: No CBD: wnl Right Kidney: No evidence of hydro, possible 6mm echogenic foci mid, kidney small in size The visualized portions of the pancreas are unremarkable. The liver is unremarkable without focal les ion. The gallbladder is entirely filled with stones. No wall thickening or surrounding fluid. Negativ e sonographic Iqbal's sign. The common bile duct is within normal limits. Right kidney demonstrates no hydronephrosis or solid renal mass. Nonobstructing right renal calculus as seen on recent CT. IMPRESSION: 1. Cholelithiasis without evidence for acute cholecystitis. 2. Nonobstructing right renal calculus. [facility], , 03/09/2025 8:08 AM
[2025-03-09 08:22] LABS: Basophils # (A) 0.05 10*3/uL (0.00-0.10); Basophils % (A) 0.9 %; Eosinophils # (A) 0.27 10*3/uL (0.04-0.35); Eosinophils % (A) 4.7 %; Lymphocytes % (A) 20.9 %; Neutrophils # (A) 3.74 10*3/uL (1.80-7.70); Neutrophils % (A) 64.9 %; Platelet Count 114 10*3/uL (140-440)
--- NOTE | 2025-03-09 10:25 | P.PN ---
Subjective Patient is seen in follow-up for end-stage renal disease. Tolerating dialysis well. Feels better today. No vomiting or diarrhea. Scheduled for c holecystectomy tomorrow. Vital signs are stable. General: No acute distress. HEENT: Head exam is unremarkable. LUNGS: No audible rhonchi or wheezes. HEART: Rate and Rhythm are regular. ABDOMEN: Tenderness present on the right side of the abdomen. EXTREMITITES: No edema. Objective - Vital Signs Vital signs: Vital Signs Temp 98.4 F 03/09/25 07:19 Pulse 94 03/09/25 07:19 Resp 18 03/09/25 07:19 BP 163/102 03/09/25 07:19 Pulse Ox 100 03/09/25 07:19 FiO2 Intake & Output 03/08/25 03/09/25 03/09/25 18:59 06:59 18:59 Intake Total 500 360 500 Balance 500 360 500 Weight 66.5 kg Intake: Oral 500 360 500 Other: Voiding Method Toilet Toilet # Voids 3 # Bowel Movements 0 - Labs CBC & Chem 7: 03/09/25 06:55 03/09/25 06:55 Labs: Abnormal Lab Results - Last 24 Hours (Table) 03/09/25 03/09/25 Range/Units 06:55 06:55 RBC 2.38 L (4.10-5.20) 10*6/uL Hgb 7.3 L (12.0-15.0) g/dL Hct 21.7 L (37.2-46.3) % RDW 17.2 H (11.5-14.5) % Plt Count 114 L (140-440) 10*3/uL Immature Gran # 0.09 H (0.00-0.04) 10*3/uL Sodium 131 L (137-145) mmol/L BUN 35 H (7-17) mg/dL Creatinine 5.37 H (0.52-1.04) mg/dL Microbiology - Last 24 Hours (Table) 03/06/25 09:58 Urine Culture - Final Urine,Voided Escherichia coli 03/06/25 20:23 Stool Culture - Preliminary Stool Assessment and Plan Plan: Assessment: 1. End-stage renal disease maintained on hemodialysis on Thursday schedule. 2. Hypokalemia from poor intake. Magnesium normal. 3. Hyponatremia secondary to chronic kidney disease. Better. 4. Metabolic acidosis secondary to GI losses and missed hemodialysis. Improved postdialysis. 5. Chronic kidney disease mineral bone disease. Phosphorus level improved to 3.7. On Renvela. Also on Sensipar. 6. Anemia of chronic kidney disease. Iron replete. On Aranesp. 7. Hypertension with chronic kidney disease. 8. Nausea vomiting and diarrhea. CT scan showed mild ascites and thickened colonic wall. Surgery following. 9. E. coli UTI. On antibiotics. Plan: Currently seen while undergoing hemodialysis. Next treatment on Thursday. Cholecystectomy tomorrow.
--- NOTE | 2025-03-09 12:20 | P.PN ---
Subjective Progress Note Date: 03/09/25 CHIEF COMPLAINT: Nausea vomiting and diarrhea HISTORY OF PRESENT ILLNESS: Patient is lying in bed comfortably. She is receiving hemodialysis. She does report discomfort in the right upper quadrant. With occasional nausea. She did have some heartburn after some salad dressing yesterday. Her diarrhea is better. Gallbladder ultrasound had reported cholelithiasis without evidence of acute cholecystitis. Afebrile. Heart rate 103. WBC is 5.45 Hgb 7.3 platelets 114 sodium is 131 potassium 3.7 creatinine 5.37 PHYSICAL EXAM: VITAL SIGNS: Reviewed GENERAL: Well-developed in no acute distress. HEENT: No sclera icterus. Extraocular movements grossly intact. Moist buccal mucosa. Head is atraumatic, normocephalic. Hears conversational speech. No nasal drainage. NECK: Supple without lymphadenopathy. CHEST: Non-labored respirations and equal bilateral excursions. CARDIOVASCULAR: Palpable 2+ radial pulses. ABDOMEN: Soft. Nondistended. Tenderness palpation right upper quadrant and suprapubic area. MUSCULOSKELETAL: No clubbing or cyanosis. NEUROLOGIC: No focal or lateralizing signs. Cranial nerves II through XII grossly intact. PSYCH: Appropriate affect. Alert and oriented to person, place and time. SKIN: Well perfused. Good skin turgor. ASSESSMENT: 1. Symptomatic cholelithiasis 2. Distended gallbladder noted on CT 3. Colitis 4. Abdominal pain with nausea, vomiting and diarrhea PLAN: - Patient scheduled for Robotic cholecystectomy tomorrow with Dr. Castellanos - N.p.o. after midnight - Add low-fat diet today - Consult cardiology for cardiac risk assessment - 2D echo ordered - Continue antibiotics Physician Track Laying Supervisor note has been reviewed by physician. Signing provider agrees with the documented findings, assessment, and plan of care. Objective - Vital Signs Vital signs: Vital Signs Temp 98.1 F 03/09/25 11:32 Pulse 103 H 03/09/25 11:32 Resp 18 03/09/25 11:32 BP 162/94 03/09/25 11:32 Pulse Ox 100 03/09/25 07:19 FiO2 Intake & Output 03/08/25 03/09/25 03/09/25 18:59 06:59 18:59 Intake Total 372 022 2562 Output Total 2500 Balance 500 360 -1500 Weight 66.5 kg Intake: Oral 500 360 500 Hemodialysis 500 Output: Hemodialysis 1500 Hemodialysis Net Amount 1000 Other: Voiding Method Toilet Toilet # Voids 3 # Bowel Movements 0 - Labs CBC & Chem 7: 03/09/25 06:55 03/09/25 06:55 Labs: Abnormal Lab Results - Last 24 Hours (Table) 03/09/25 03/09/25 Range/Units 06:55 06:55 RBC 2.38 L (4.10-5.20) 10*6/uL Hgb 7.3 L (12.0-15.0) g/dL Hct 21.7 L (37.2-46.3) % RDW 17.2 H (11.5-14.5) % Plt Count 114 L (140-440) 10*3/uL Immature Gran # 0.09 H (0.00-0.04) 10*3/uL Sodium 131 L (137-145) mmol/L BUN 35 H (7-17) mg/dL Creatinine 5.37 H (0.52-1.04) mg/dL Microbiology - Last 24 Hours (Table) 03/06/25 09:58 Urine Culture - Final Urine,Voided Escherichia coli 03/06/25 20:23 Stool Culture - Preliminary Stool
--- NOTE | 2025-03-09 12:59 | P.CRDCN ---
History of Present Illness History of present illness: HISTORY OF PRESENT ILLNESS: This is a 49-year-old female with a past medical history significant for hyperaldosteronism, hypertension, hyperlipidemia, and end-stage renal disease on hemodialysis. Patient does not follow with a can tender. We have been asked to see the patient in consultation for cardiac clearance. Patient examined at the bedside. Patient is admitted to the hospital secondary to nausea and vomiting. Patient was found to have cholelithiasis and is scheduled to undergo surgical intervention tomorrow. Patient currently denies any chest pain or pressure. She denies any shortness of breath. She just completed hemodialysis which she regularly attends on Thursday and Thursday. Patient denies any chest pain or pressure. She currently denies any shortness of breath. She does report some occasional shortness of breath on an outpatient basis with exertion. Blood pressure is elevated with a systolic in the 160s. DIAGNOSTICS: - EKG reveals sinus mechanism with LVH. - Chest xray negative for acute process. - Laboratory data: WBC 5.45. Hemoglobin 7.3. Platelet count 114. Sodium 131. Potassium 3.7. BUN 35. Creatinine 5.37. - Current home cardiac medications include carvedilol 25 mg twice a day, hydralazine 50 mg 3 times daily, Aldactone 100 mg twice daily, amlodipine 10 mg daily. REVIEW OF SYSTEMS: At the time of my exam: CONSTITUTIONAL: Denies fever or chills. HEENT: Denies blurred vision, vision changes, or eye pain. Denies hemoptysis CARDIOVASCULAR: Denies chest pain. Denies orthopnea. Denies PND. Denies palpitations RESPIRATORY: Denies shortness of breath. GASTROINTESTINAL: Denies abdominal pain. Denies nausea or vomiting. HEMATOLOGIC: Denies bleeding disorders. GENITOURINARY: Denies any blood in urine. SKIN: Denies pruitis. Denies rash. PHYSICAL EXAM: VITAL SIGNS: Reviewed. GENERAL: Well-developed in no acute distress. HEENT: Facial hair noted. Head is normocephalic. Pupils are equal, round. Sclerae anicteric. Mucous membranes of the mouth are moist. Neck supple. No JVD or thyromegaly LUNGS: Respirations even and unlabored. Lungs essentially clear to auscultation bilaterally. HEART: Regular rate and rhythm. S1 and S2 heard. Systolic murmur at the left sternal border and also at the apex ABDOMEN: Soft. Nondistended. Nontender. EXTREMITIES: Normal range of motion. No clubbing or cyanosis. Peripheral pul ses intact. No lower extremity edema NEUROLOGIC: Awake and alert. Oriented x 3. ASSESSMENT: Symptomatic cholelithiasis with distended gallbladder noted on CT Nausea, vomiting, diarrhea, resolved End-stage renal disease on hemodialysis Hypertension Hyperlipidemia Anemia History of hyperaldosteronism PLAN: 2D echo being performed at the bedside while patient is being evaluated. Patient with preserved LV systolic function. Continue current cardiac medications Increase hydralazine to 100 mg 3 times daily for optimal blood pressure control Patient is at moderate to high risk to undergo surgery from a cardiac standpoint. However there are no absolute contraindications for patient to proceed Continue to monitor blood pressure Further recommendations pending patient course Nurse practitioner note has been reviewed by physician. Signing provider agrees with the documented findings, assessment, and plan of care documented by PROFESSIONAL NURSE as a scribe. Past Medical History Past Medical History: Atrial Fibrillation, Hyperlipidemia, Hypertension, Renal Disease Additional Past Medical History / Comment(s): Hyperaldosteronism,cardiomyopathy, dialysis T,TH,S. no anticoag for afib History of Any Multi-Drug Resistant Organisms: None Reported Past Surgical History: No Surgical Hx Reported Additional Past Surgical History / Comment(s): dialysis catheter Past Anesthesia/Blood Transfusion Reactions: No Reported Reaction Past Psychological History: No Psychological Hx Reported Smoking Status: Never smoker Past Alcohol Use History: None Reported Past Drug Use History: None Reported - Past Family History Mother Family Medical History: Hyperlipidemia Medications and Allergies Home Medications Medication Instructions Recorded Confirmed Type Cinacalcet [Sensipar] 30 mg PO DAILY 03/12/24 03/06/25 History amLODIPine [Norvasc] 10 mg PO DAILY 30 Days #30 tab 03/13/24 03/06/25 Rx carvediloL [Coreg*] 25 mg PO AC-BID 30 Days #120 tab 03/13/24 03/06/25 Rx Sertraline HCl [Zoloft] 50 mg PO DAILY 05/18/24 03/06/25 History Sevelamer Carbonate 1,600 mg PO TID-W/MEALS 05/18/24 03/06/25 History hydrALAZINE HCL [Apresoline] 50 mg PO TID 05/18/24 03/06/25 History Spironolactone [Aldactone] 100 mg PO BID 03/06/25 03/06/25 History Allergies Allergy/AdvReac Type Severity Reaction Status Date / Time No Known Allergies Allergy Verified 03/06/25 09:13 Physical Exam Vitals: Vital Signs Temp Pulse Resp BP Pulse Ox 03/09/25 11:59 142/82 03/09/25 11:32 98.1 F 103 H 18 162/94 03/09/25 07:19 98.4 F 94 18 163/102 100 03/09/25 06:21 115 H 166/109 03/09/25 00:59 98.8 F 96 20 151/95 97 03/08/25 21:29 99 18 03/08/25 19:24 98.2 F 99 18 130/81 99 03/08/25 13:56 97.7 F 102 H 17 151/85 100 Intake and Output 03/08/25 03/09/25 03/09/25 22:59 06:59 14:59 Intake Total 360 1000 Output Total 2500 Balance 360 -1500 Intake: Oral 360 500 Hemodialysis 500 Output: Hemodialysis 1500 Hemodialysis Net Amount 1000 Other: Voiding Method Toilet # Voids 3 # Bowel Movements 0 Weight 66.5 kg Results 03/09/25 06:55 03/09/25 06:55 CBC 03/09/25 Range/Units 06:55 WBC 5.45 (4.50-10.00) 10*3/uL RBC 2.38 L (4.10-5.20) 10*6/uL Hgb 7.3 L (12.0-15.0) g/dL Hct 21.7 L (37.2-46.3) % Plt Count 114 L (140-440) 10*3/uL Comprehensive Metabolic Panel 03/09/25 Range/Units 06:55 Sodium 131 L (137-145) mmol/L Potassium 3.7 (3.5-5.1) mmol/L Chloride 98 (98-107) mmol/L Carbon Dioxide 23 (22-30) mmol/L BUN 35 H (7-17) mg/dL Creatinine 5.37 H (0.52-1.04) mg/dL Glucose 93 (74-99) mg/dL Calcium 9.1 (8.4-10.2) mg/dL Current Medications Generic Name Dose Route Start Last Admin Trade Name Freq PRN Reason Stop Dose Admin Acetaminophen 650 mg 03/06/25 16:56 03/09/25 10:48 Acetaminophen Tab 325 Mg Tab PO 650 mg Q6HR PRN Administration Fever and/ or Pain Amlodipine Besylate 10 mg 03/07/25 09:00 03/09/25 08:47 Amlodipine 10 Mg Tab PO 10 mg DAILY ANJALI Administration Benzocaine/Menthol 1 each 03/07/25 08:36 Benzocaine/Menthol Lozeng 1 Each Lozenge MUCOUS MEM Q4HR PRN Cough Bismuth Subsalicylate 524 mg 03/07/25 08:49 03/07/25 10:08 Bismuth Subsalicylate 4,192 Mg/240 Ml Bottle PO 524 mg Q1HR PRN Administration Diarrhea Carvedilol 25 mg 03/06/25 17:30 03/09/25 06:28 Carvedilol 12.5 Mg Tab PO 25 mg AC-BID ANJALI Administration Cinacalcet 30 mg 03/07/25 09:00 03/09/25 08:47 Cinacalcet 30 Mg Tab PO 30 mg DAILY ANJALI Administration Clonidine 0.1 mg 03/06/25 14:38 03/09/25 11:40 Clonidine Hcl 0.1 Mg Tab PO 0.1 mg TID PRN Administration Blood Pressure - High Darbepoetin Carlos 40 mcg 03/08/25 12:00 03/08/25 13:04 Darbepoetin Carlos 40 Mcg/0.4 Ml Syringe SQ 40 mcg Q7D ANJALI Administration Guaifenesin 600 mg 03/07/25 08:34 03/07/25 11:10 Guaifenesin 600 Mg Tablet.Er PO 600 mg Q12HR PRN Administration Congestion Heparin Sodium (Porcine) 5,000 unit 03/06/25 16:00 03/09/25 08:47 Heparin Sodium,Porcine 5,000 Unit/Ml 1 Ml Vial SQ 5,000 unit Q8HR ANJALI Administration Hydralazine HCl 100 mg 03/09/25 16:00 Hydralazine Hcl 50 Mg Tab PO TID ANJALI Piperacillin Sod/Tazobactam 100 mls @ 25 mls/hr 03/06/25 19:00 03/09/25 06:30 Sod 3.375 gm/ Sodium Chloride IVPB 25 mls/hr Q12H ANJALI Administration Protocol Melatonin 5 mg 03/07/25 01:34 03/09/25 00:35 Melatonin 5 Mg Tablet PO 5 mg HS PRN Administration Insomnia Naloxone HCl 0.2 mg 03/06/25 13:08 Naloxone 0.4 Mg/Ml 1 Ml Vial IV Q2M PRN Opioid Reversal Ondansetron HCl 4 mg 03/06/25 13:08 03/09/25 00:35 Ondansetron 4 Mg/2 Ml Vial IVP 4 mg Q8HR PRN Administration Nausea And Vomiting Sertraline HCl 50 mg 03/07/25 09:00 03/09/25 08:47 Sertraline 50 Mg Tab PO 50 mg DAILY ANJALI Administration Sevelamer Carbonate 1,600 mg 03/06/25 17:30 03/09/25 11:40 Sevelamer 800 Mg Tab PO 1,600 mg TID-W/MEALS ANJALI Administration Spironolactone 100 mg 03/06/25 21:00 03/09/25 08:47 Spironolactone 25 Mg Tab PO 100 mg BID ANJALI Administration Intake and Output 03/08/25 03/09/25 03/09/25 22:59 06:59 14:59 Intake Total 360 1000 Output Total 2500 Balance 360 -1500 Intake: Oral 360 500 Hemodialysis 500 Output: Hemodialysis 1500 Hemodialysis Net Amount 1000 Other: Voiding Method Toilet # Voids 3 # Bowel Movements 0 Weight 66.5 kg 03/09/25 06:55 03/09/25 06:55
--- NOTE | 2025-03-09 13:12 | CA ---
Transthoracic Echo Report Name: Melly Eugene Age: 49 Gender: F : 1975 Exam Date: 03/09/2025 11:37 Exam Location: [facility] Ht (in): 66 Wt (lb): 146 Ordering Physician: Evita Stanton Attending/Referring Phys: High Pressure Operator Krysta Jasso RDCS Procedure CPT: Indications: check EF Cardiac Hx: ESRD, Dialysis Technical Quality: Good Contrast 1: Total Dose (mL): Contrast 2: Total Dose (mL): MEASUREMENTS (Male / Female) Normal Values 2D ECHO LV Diastolic Diameter PLAX 4.5 cm 4.2 - 5.9 / 3.9 - 5.3 cm LV Systolic Diameter PLAX 2.9 cm IVS Diastolic Thickness 1.9 cm 0.6 - 1.0 / 0.6 - 0.9 cm LVPW Diastolic Thickness 1.4 cm 0.6 - 1.0 / 0.6 - 0.9 cm LV Relative Wall Thickness 0.7 RV Internal Dim ED PLAX 2.2 cm LA Systolic Diameter LX 4.3 cm 3.0 - 4.0 / 2.7 - 3.8 cm LV Diastolic Volume MOD BP 65.7 cm??? 67 - 155 / 56 - 104 cm??? LV Systolic Volume MOD BP 27.9 cm??? 22 - 58 / 19 - 49 cm??? LV Ejection Fraction MOD BP 57.5 % >= 55 % LV Cardiac Index MOD BP 2381.1 cm???/min???m??? LV Diastolic Volume MOD 4C 76.9 cm??? LV Systolic Volume MOD 4C 27.4 cm??? LV Ejection Fraction MOD 4C 64.4 % LV Cardiac Index MOD 4C 3120.7 cm???/min???m??? LV Diastolic Length 4C 8.2 cm LV Systolic Length 4C 6.6 cm LV Diastolic Volume MOD 2C 50.8 cm??? LV Systolic Volume MOD 2C 28.9 cm??? LV Ejection Fraction MOD 2C 43.1 % LV Cardiac Index MOD 2C 1378.5 cm???/min???m??? LV Diastolic Length 2C 7.4 cm LV Systolic Length 2C 6.5 cm M-MODE Aortic Root Diameter MM 2.6 cm LA Systolic Diameter MM 3.7 cm LA Ao Ratio MM 1.4 AV Cusp Separation MM 1.7 cm DOPPLER AV Peak Velocity 264.3 cm/s AV Peak Gradient 28.0 mmHg AI Peak Velocity 289.4 cm/s AI Peak Gradient 33.5 mmHg AI Pressure Half Time 505.4 ms LVOT Peak Velocity 172.4 cm/s LVOT Peak Gradient 11.9 mmHg Mitral E Point Velocity 102.6 cm/s Mitral A Point Velocity 143.0 cm/s Mitral E to A Ratio 0.7 MV Deceleration Time 208.1 ms MV E' Velocity 8.2 cm/s Mitral E to MV E' Ratio 12.5 TR Peak Velocity 248.2 cm/s TR Peak Gradient 24.6 mmHg Right Ventricular Systolic Press 34.6 mmHg PV Peak Velocity 154.0 cm/s PV Peak Gradient 9.5 mmHg FINDINGS Left Ventricle Left ventricular ejection fraction is estimated at 50-55 %. Severely increased septal wall thickness. Moderately increased posterior wall thickness. Left ventricular cavity size normal. Severe concentric left ventricular hypertrophy. Increased LVOT velocity 32 mmHg. Right Ventricle Normal right ventricular size and function. Right ventricular systolic pressure within normal limits. Right Atrium Normal right atrial size. Left Atrium Moderately increased left atrial diameter. Mitral Valve Structurally normal mitral valve. Mild mitral regurgitation. No mitral stenosis. Aortic Valve Trileaflet aortic valve. Trace aortic regurgitation. No aortic stenosis. Tricuspid Valve Structurally normal tricuspid valve. Mild tricuspid regurgitation. No tricuspid stenosis. Pulmonic Valve Structurally normal pulmonic valve. Trace pulmonic regurgitation. No pulmonic stenosis. Pericardium Minimal pericardial effusion (normal variant). Aorta Normal size aortic root and proximal ascending aorta. CONCLUSIONS LV size is normal moderate concentric LVH ejection fraction is 50 to 55%. Mild mitral and tricuspid regurgitation. Trivial pericardial effusion Previewed by: Dr. Tamara Martinez MD (Electronically Signed) Final Date: 09 Mar 2025 13:11
--- NOTE | 2025-03-09 14:58 | P.PN ---
Subjective Progress Note Date: 03/09/25 Hospital Course: Patient is a 49-year-old female with ESRD on hemo-dialysis, paroxysmal atrial fibrillation not anticoagulated, HFrEF with EF of 30-35%, hypertension, hyperlipidemia presented with nausea, vomiting, and diarrhea. Patient states 1 week ago she was feeling sick and started to become nauseous followed by multiple episodes of vomiting and diarrhea. Denies any blood in the vomit or stool. Denies any sick contacts. No recent antibiotics and no recent changes in medications. She states she felt like she had a fever at home. She admits to cough with yellowish sputum production. She states symptoms were so severe that she was not able to go to her scheduled hemodialysis last Thursday and Thursday. States that her blood pressure has been high and uncontrolled. Denies any difficulty urinating. She also endorses a headache. Denies any fever, chills, chest pain, shortness of breath, abdominal pain, urinary symptoms. EKG independently interpreted displaying sinus tachycardia, rate 110 bpm, QTc 421 MS CXR independently interpreted displaying no acute cardiopulmonary process Labs: Creatinine 8.24, BUN 86, phosphorus 9.8, bicarb 15, anion gap 2020, sodium 131, WBC 10.46, Hgb 11.7, platelet 108 Vitals: T 97.9 F, TX 61, RR 17, BP 227/153, O2 saturation 96% on room air CT abdomen/pelvis with contrast displaying some ascites present, thickened colonic wall especially noted through the descending colon and sigmoid colon to the rectum, distended gallbladder Subjective: Patient seen and examined at bedside. No acute events overnight. Denies any complaint of diarrhea. Still says she has abdominal pain. Pertinent positives and negatives as discussed above, a complete review of systems was performed and all other systems are negative. Vitals: Signs Reviewed Physical Exam: General: nontoxic, no distress, appears at stated age Derm: warm, dry, intact Head: atraumatic, normocephalic, symmetric Eyes: EOMI, anicteric sclera Mouth: no lip lesion, mucus membranes moist Cardiovascular: S1 S2 reg, no murmur, rubs, or gallops Lungs: CTA bilateral, no rhonchi, no rales, no accessory muscle use Abdominal: soft, diffusely tender to palpataion, no appreciable organomegaly Extremities: no gross muscle atrophy, no edema, no contractures Neuro: Alert, Oriented, CNII-XII grossly intact Data Received Today: Pertinent Labs: Hgb trending down at 7.3, BUN 35, creatinine 5.37, hypokalemia resolved at 3.7 Preliminary stool culture displaying no Salmonella or Shigella isolated, no E. coli 0157: H7 isolated Imaging: N/A Gallbladder ultrasound displaying cholelithiasis without evidence of acute cholecystitis, nonobstructing right renal calculus Echocardiogram displaying LV size is normal moderate concentric LVH ejection fraction is 50 to 55%, mild mitral and tricuspid regurgitation, trivial pericardial effusion Assessment and Plan: Patient is a 49-year-old female with ESRD on hemo-dialysis, paroxysmal atrial fibrillation not anticoagulated, HFrEF with EF of 30-35%, hypertension, hyperli pidemia presented with nausea and vomiting. #. Nausea, vomiting, and diarrhea in the setting of colitis #. Distended gallbladder #. Cholelithiasis CT abd/pelvis with contrast reviewed as above C. difficile negative CRP elevated at 8.50, ESR less than 1 Stool culture reviewed as above, stool lactoferrin pending Continue with Zosyn 3.375 IVPB q12hrs Zofran 4 mg IVP q8hr prn Bismatrol 524 mg PO q1hr prn Gallbladder ultrasound reviewed as above Discussed with general surgery and patient, cholecystectomy scheduled for tomorrow Cardiology note reviewed, patient cleared for surgery, echocardiogram reviewed as above #. ESRD on hemodialysis with multiple missed dialysis sessions (Thursday, , Saturdays) #. Chronic hyponatremia (at baseline) #. Bicytopenia with anemia and thrombocytopenia, chronic #. Anemia of chronic disease #. Secondary hyperparathyroidism Continue w/ Sevelemer 1600 PO TID and Cinacalcet 30 mg PO QD Potassium replaced with 40 mEq potassium chloride, follow-up BMP this afternoon Continue close monitoring of electrolytes and renal function Cardiac monitoring Nephrology note reviewed, hemodialysis today #. Hypertensive urgency, secondary to multiple missed dialysis sessions #. Chronic combined systolic and diastolic HFrEF, EF is 35% #. Sinus tachycardia Continue w/ amlodipine 10 mg QD, carvedilol 25 mg BID, hydralazine increased to 100mg TID by cardiology, and Aldactone 100 mg BID Clonidine 0.1 mg PO TID prn for BP > 180/120 Chronic: #. Depression/anxiety: Zoloft 50 mg PO QD Resolved: Hypertensive emergency High anion gap metabolic acidosis Contraction metabolic alkalosis Hyperphosphatemia Hypochloremia Hypokalemia DVT ppx: Heparin 5000 unit SQ every 8 hours Code status: Full code Anticipated discharge place: Pending clinical course Anticipated discharge time: Pending clinical course Elsa Cadena MD PGY-1 IM Dictation was produced using [employer] dictation software. please excuse any grammatical, word or spelling errors. I have seen and evaluated the patient today. Discussed with the resident and agree with the residents finding and plan as documented in the resident's note. Changes highlighted in blue font. Objective - Vital Signs Vital signs: Vital Signs Temp 98.8 F 03/09/25 00:59 Pulse 115 H 03/09/25 06:21 Resp 20 03/09/25 00:59 BP 166/109 03/09/25 06:21 Pulse Ox 97 03/09/25 00:59 FiO2 Intake & Output 03/08/25 03/08/25 03/09/25 06:59 18:59 06:59 Intake Total 240 500 Balance 240 500 Weight 68 kg 66.5 kg Intake: Oral 240 500 Other: Voiding Method Toilet Toilet # Voids 3 # Bowel Movements 0 - Labs CBC & Chem 7: 03/09/25 06:55 03/09/25 06:55 Labs: Microbiology - Last 24 Hours (Table) 03/06/25 09:58 Urine Culture - Final Urine,Voided Escherichia coli 03/06/25 20:23 Stool Culture - Preliminary Stool
[2025-03-09] MEDS: hydrALAZINE HCL 50 MG TAB PO SCH (18:19)
[2025-03-10] MEDS: LORazepam 0.5 MG TAB PO STA (00:07)
[2025-03-10 05:44] LABS: Basophils # (A) 0.06 10*3/uL (0.00-0.10); Basophils % (A) 0.9 %; Eosinophils # (A) 0.38 10*3/uL (0.04-0.35); Eosinophils % (A) 5.8 %; HCT 23.4 % (37.2-46.3); HGB 7.8 g/dL (12.0-15.0); Lymphocytes # (A) 1.33 10*3/uL (0.90-5.00); Lymphocytes % (A) 20.3 %; MCH 30.5 pg (27.0-32.0); MCHC 33.3 g/dL (32.0-37.0); MCV 91.4 fL (80.0-97.0); Mean Platelet Volume 11.6 fL (9.5-12.2); Monocytes # (A) 0.51 10*3/uL (0.20-1.00); Monocytes % (A) 7.8 %; Neutrophils # (A) 4.11 10*3/uL (1.80-7.70); Neutrophils % (A) 62.8 %; Platelet Count 168 10*3/uL (140-440); RBC 2.56 10*6/uL (4.10-5.20); WBC 6.55 10*3/uL (4.50-10.00)
[2025-03-10 06:04] LABS: African American GFR (CKD) 18 (>60 ml/min/1.73 sqM); Anion Gap 8 mmol/L; Blood Urea Nitrogen 21 mg/dL (7-17); Calcium 9.3 mg/dL (8.4-10.2); Carbon Dioxide 27 mmol/L (22-30); Chloride 95 mmol/L (98-107); Glucose 87 mg/dL (74-99); Magnesium 2.1 mg/dL (1.6-2.3); Non-African American GFR(CKD) 16 (>60 ml/min/1.73 sqM); Potassium 4.4 mmol/L (3.5-5.1); Sodium 130 mmol/L (137-145)
--- NOTE | 2025-03-10 10:26 | P.PN ---
Subjective Patient is seen in follow-up for end-stage renal disease. No problems with dialysis yesterday. No vomiting or diarrhea. Scheduled for cholecystectomy today. Vital signs are stable. General: No acute distress. HEENT: Head exam is unremarkable. LUNGS: No audible rhonchi or wheezes. HEART: Rate and Rhythm are regular. ABDOMEN: Nontender. EXTREMITITES: No edema. Objective - Vital Signs Vital signs: Vital Signs Temp 97.5 F L 03/10/25 07:55 Pulse 100 03/10/25 07:55 Resp 18 03/10/25 07:55 BP 143/85 03/10/25 07:55 Pulse Ox 98 03/10/25 07:55 FiO2 Intake & Output 03/09/25 03/10/25 03/10/25 18:59 06:59 18:59 Intake Total 2200 Output Total 2500 Balance -300 Weight 66 kg Intake: Oral 1700 Hemodialysis 500 Output: Hemodialysis 1500 Hemodialysis Net Amount 1000 Other: Voiding Method Toilet # Voids 2 - Labs CBC & Chem 7: 03/10/25 04:30 03/10/25 04:30 Labs: Abnormal Lab Results - Last 24 Hours (Table) 03/10/25 03/10/25 Range/Units 04:30 04:30 RBC 2.56 L (4.10-5.20) 10*6/uL Hgb 7.8 L (12.0-15.0) g/dL Hct 23.4 L (37.2-46.3) % RDW 17.0 H (11.5-14.5) % Immature Gran # 0.16 H (0.00-0.04) 10*3/uL Eosinophils # 0.38 H (0.04-0.35) 10*3/uL Sodium 130 L (137-145) mmol/L Chloride 95 L (98-107) mmol/L BUN 21 H (7-17) mg/dL Creatinine 3.33 H (0.52-1.04) mg/dL Microbiology - Last 24 Hours (Table) 03/06/25 20:23 Stool Culture - Preliminary Stool Assessment and Plan Plan: Assessment: 1. End-stage renal disease maintained on hemodialysis on Thursday schedule. 2. Hypokalemia from poor intake. Magnesium normal. Replaced. Better. 3. Hyponatremia secondary to chronic kidney disease. Stable. 4. Metabolic acidosis secondary to GI losses and missed hemodialysis. Improved postdialysis. 5. Chronic kidney disease mineral bone disease. Phosphorus level improved to 3.7. On Renvela. Also on Sensipar. 6. Anemia of chronic kidney disease. Iron replete. On Aranesp. 7. Hypertension with chronic kidney disease. 8. Nausea vomiting and diarrhea. CT scan showed mild ascites and thickened colonic wall. Surgery following. 9. E. coli UTI. On antibiotics. Plan: Hemodialysis tomorrow. Cholecystectomy today.
--- NOTE | 2025-03-10 10:40 | P.PN ---
Subjective HISTORY OF PRESENT ILLNESS: This is a 49-year-old female with a past medical history significant for hyperaldosteronism, hypertension, hyperlipidemia, and end-stage renal disease on hemodialysis. Patient does not follow with a social service technician. We have been asked to see the patient in consultation for cardiac clearance. Patient examined at the bedside. Patient is admitted to the hospital secondary to nausea and vomiting. Patient was found to have cholelithiasis and is scheduled to undergo surgical intervention tomorrow. Patient currently denies any chest pain or pressure. She denies any shortness of breath. She just completed hemodialysis which she regularly attends on Thursday and Thursday. Patient denies any chest pain or pressure. She currently denies any shortness of breath. She does report some occasional shortness of breath on an outpatient basis with exertion. Blood pressure is elevated with a systolic in the 160s. DIAGNOSTICS: - EKG reveals sinus mechanism with LVH. - Chest xray negative for acute process. - Laboratory data: WBC 5.45. Hemoglobin 7.3. Platelet count 114. Sodium 131. Potassium 3.7. BUN 35. Creatinine 5.37. - Current home cardiac medications include carvedilol 25 mg twice a day, hydra lazine 50 mg 3 times daily, Aldactone 100 mg twice daily, amlodipine 10 mg daily. 03/09/2025 Patient examined this morning at the bedside. Patient currently denies chest pain or pressure. She denies shortness of breath. Blood pressure this morning 143/85. Echocardiogram completed revealing ejection fraction 50 to 55%, severe concentric LVH, increased LVOT velocity 32 mmHg, mild MR, trace aortic regurgitation, mild TR PHYSICAL EXAM: VITAL SIGNS: Reviewed. GENERAL: Well-developed in no acute distress. HEENT: Facial hair noted. Head is normocephalic. Pupils are equal, round. Sclerae anicteric. Mucous membranes of the mouth are moist. Neck supple. No JVD or thyromegaly LUNGS: Respirations even and unlabored. Lungs essentially clear to auscultation bilaterally. HEART: Regular rate and rhythm. S1 and S2 heard. Systolic murmur at the left sternal border and also at the apex ABDOMEN: Soft. Nondistended. Nontender. EXTREMITIES: Normal range of motion. No clubbing or cyanosis. Peripheral pulses intact. No lower extremity edema NEUROLOGIC: Awake and alert. Oriented x 3. ASSESSMENT: Symptomatic cholelithiasis with distended gallbladder noted on CT Nausea, vomiting, diarrhea, resolved End-stage renal disease on hemodialysis Hypertension Hyperlipidemia Anemia History of hyperaldosteronism PLAN: Continue current cardiac medications Continue to monitor blood pressure Patient is scheduled to undergo cholecystectomy today with Dr. Castellanos Patient is at moderate to high risk to undergo surgery from a cardiac standpoint. However there are no absolute contraindications for patient to proceed Further recommendations pending patient course Nurse practitioner note has been reviewed by physician. Signing provider agrees with the documented findings, assessment, and plan of care documented by S[employer] P[employer] P[employer] as a scribe. Objective - Vital Signs Vital signs: Vital Signs Temp 97.5 F L 03/10/25 07:55 Pulse 100 03/10/25 07:55 Resp 18 03/10/25 07:55 BP 143/85 03/10/25 07:55 Pulse Ox 98 03/10/25 07:55 FiO2 Intake & Output 03/09/25 03/10/25 03/10/25 18:59 06:59 18:59 Intake Total 2200 Output Total 2500 Balance -300 Weight 66 kg Intake: Oral 1700 Hemodialysis 500 Output: Hemodialysis 1500 Hemodialysis Net Amount 1000 Other: Voiding Method Toilet # Voids 2 - Labs CBC & Chem 7: 03/10/25 04:30 03/10/25 04:30 Labs: Abnormal Lab Results - Last 24 Hours (Table) 03/10/25 03/10/25 Range/Units 04:30 04:30 RBC 2.56 L (4.10-5.20) 10*6/uL Hgb 7.8 L (12.0-15.0) g/dL Hct 23.4 L (37.2-46.3) % RDW 17.0 H (11.5-14.5) % Immature Gran # 0.16 H (0.00-0.04) 10*3/uL Eosinophils # 0.38 H (0.04-0.35) 10*3/uL Sodium 130 L (137-145) mmol/L Chloride 95 L (98-107) mmol/L BUN 21 H (7-17) mg/dL Creatinine 3.33 H (0.52-1.04) mg/dL Microbiology - Last 24 Hours (Table) 03/06/25 20:23 Stool Culture - Preliminary Stool
--- NOTE | 2025-03-10 11:05 | P.PN ---
Subjective Progress Note Date: 03/10/25 CHIEF COMPLAINT: Nausea vomiting due to cholecystitis HISTORY OF PRESENT ILLNESS: The patient is a 49-year-old female end-stage renal disease, dialysis dependent who had distended gallbladder including nausea and vomiting. This morning, patient reports thirst. ROS: No fevers or chills. No new chest pain. No productive sputum PHYSICAL EXAM: VITAL SIGNS: Reviewed CONSTITUTIONAL: Well developed and in no acute distress. EYES: Conjuctivae without sclera icterus. Extraocular movements grossly intact. HEAD, EARS, NOSE, THROAT: Moist buccal mucosa. Head is atraumatic, normocephalic. Hears conversational speech. No nasal drainage. Moderate facial hair RESPIRATORY: Non-labored respirations and equal bilateral excursions. CARDIOVASCULAR: Palpable 2+ radial pulses. ABDOMEN: No diffuse tenderness. MUSCULOSKELETAL: No gross deformity of the lower extremities noted. No clubbing. No cyanosis. SKIN: Good skin turgor. Well perfused. NEUROLOGIC: Cranial nerves II through XII grossly intact. No focal or lateralizing signs. PSYCH: Appropriate affect. Alert and oriented to person, place and time. CLINICAL LABS: Reviewed. WBC normal 6.5. Hemoglobin down 8.7-7.8. Sodium low 130. Creatinine down 8.2-3.3 MICRO: Urine culture demonstrates E. coli. STUDIES: Ultrasound of the gallbladder dependently reviewed demonstrates distended gallbladder. This is my independent interpretation. Ultrasound report confirms cholelithiasis. REPORT: Echo demonstrates moderate concentric left ventricular hypertrophy with ejection fraction 50 to 55%. No arctic stenosis. EKG: Abnormal EKG with left atrial enlargement and left ventricular hypertrophy ASSESSMENT: 1. Intractable nausea and vomiting 2. End-stage renal disease with uremia 3. Hyponatremia 4. Symptomatic gallstones 5. E. coli urinary tract infection 6. Left ventricular hypertrophy PLAN: 1. Patient's elevated risk for robotic cholecystectomy due to pre-existing heart disease including end-stage renal disease. 2. Patient reports moderate thirst he may have 4 ounces of fluids now. 3. Likely dialysis postoperatively and continue hospitalization afterwards Dictation was produced using [employer] dictation software. Please excuse any grammatical, word or spelling errors. Objective - Vital Signs Vital signs: Vital Signs Temp 97.5 F L 03/10/25 07:55 Pulse 100 03/10/25 07:55 Resp 18 03/10/25 07:55 BP 143/85 03/10/25 07:55 Pulse Ox 98 03/10/25 07:55 FiO2 Intake & Output 03/09/25 03/10/25 03/10/25 18:59 06:59 18:59 Intake Total 2200 Output Total 2500 Balance -300 Weight 66 kg Intake: Oral 1700 Hemodialysis 500 Output: Hemodialysis 1500 Hemodialysis Net Amount 1000 Other: Voiding Method Toilet # Voids 2 - Labs CBC & Chem 7: 03/10/25 04:30 03/10/25 04:30 Labs: Abnormal Lab Results - Last 24 Hours (Table) 03/10/25 03/10/25 Range/Units 04:30 04:30 RBC 2.56 L (4.10-5.20) 10*6/uL Hgb 7.8 L (12.0-15.0) g/dL Hct 23.4 L (37.2-46.3) % RDW 17.0 H (11.5-14.5) % Immature Gran # 0.16 H (0.00-0.04) 10*3/uL Eosinophils # 0.38 H (0.04-0.35) 10*3/uL Sodium 130 L (137-145) mmol/L Chloride 95 L (98-107) mmol/L BUN 21 H (7-17) mg/dL Creatinine 3.33 H (0.52-1.04) mg/dL Microbiology - Last 24 Hours (Table) 03/06/25 20:23 Stool Culture - Preliminary Stool
[2025-03-10] MEDS ORDERED: ceFAZolin 2 GM in DEXTROSE 5% IN WATER 50 ML IVPB PRN (11:19)
--- NOTE | 2025-03-10 12:41 | P.PN ---
Subjective Progress Note Date: 03/10/25 Hospital Course: Patient is a 49-year-old female with ESRD on hemo-dialysis, paroxysmal atrial fibrillation not anticoagulated, HFrEF with EF of 30-35%, hypertension, hyperlipidemia presented with nausea, vomiting, and diarrhea. Patient states 1 week ago she was feeling sick and started to become nauseous followed by multiple episodes of vomiting and diarrhea. Denies any blood in the vomit or stool. Denies any sick contacts. No recent antibiotics and no recent changes in medications. She states she felt like she had a fever at home. She admits to cough with yellowish sputum production. She states symptoms were so severe that she was not able to go to her scheduled hemodialysis last Thursday and Thursday. States that her blood pressure has been high and uncontrolled. Denies any difficulty urinating. She also endorses a headache. Denies any fever, chills, chest pain, shortness of breath, abdominal pain, urinary symptoms. ER info: EKG independently interpreted displaying sinus tachycardia, rate 110 bpm, QTc 421 MS CXR independently interpreted displaying no acute cardiopulmonary process Labs: Creatinine 8.24, BUN 86, phosphorus 9.8, bicarb 15, anion gap 2020, sodium 131, WBC 10.46, Hgb 11.7, platelet 108 Vitals: T 97.9 F, DE 61, RR 17, BP 227/153, O2 saturation 96% on room air Admission info: CT abdomen/pelvis with contrast displaying some ascites present, thickened colonic wall especially noted through the descending colon and sigmoid colon to the rectum, distended gallbladder Gallbladder ultrasound displaying cholelithiasis without evidence of acute cholecystitis, nonobstructing right renal calculus Echocardiogram displaying LV size is normal moderate concentric LVH ejection fraction is 50 to 55%, mild mitral and tricuspid regurgitation, trivial pericardial effusion Preliminary stool culture displaying no Salmonella or Shigella isolated, no E. coli 0157: H7 isolated Subjective: Patient seen and examined at bedside. No acute events overnight. Pertinent positives and negatives as discussed above, a complete review of systems was performed and all other systems are negative. Vitals: Signs Reviewed Physical Exam: General: nontoxic, no distress, appears at stated age Derm: warm, dry, intact Head: atraumatic, normocephalic, symmetric Eyes: EOMI, anicteric sclera Mouth: no lip lesion, mucus membranes moist Cardiovascular: S1 S2 reg, no murmur, rubs, or gallops Lungs: CTA bilateral, no rhonchi, no rales, no accessory muscle use Abdominal: soft, diffusely tender to palpataion, no appreciable organomegaly Extremities: no gross muscle atrophy, no edema, no contractures Neuro: Alert, Oriented, CNII-XII grossly intact Data Received Today: Pertinent Labs: Hgb improved 7.3 => 7.8, platelet count normalized at 168, sodium has remained stable at 130, creatinine 1 improved from 5.37 => 3.33 after dialysis Imaging: N/A Assessment and Plan: Patient is a 49-year-old female with ESRD on hemo-dialysis, paroxysmal atrial fibrillation not anticoagulated, HFrEF with EF of 30-35%, hypertension, hyperlipidemia presented with nausea and vomiting. #. Nausea, vomiting, and diarrhea in the setting of colitis #. Distended gallbladder #. Symptomatic cholelithiasis CT abd/pelvis with contrast, gallbladder ultrasound, echocardiogram reviewed as above C. difficile negative Preliminary stool culture displaying no Salmonella or Shigella isolated, no E. coli 0157: H7 isolated CRP elevated at 8.50, ESR less than 1 Stool lactoferrin pending Continue with Zosyn 3.375 IVPB q12hrs Zofran 4 mg IVP q8hr prn Bismatrol 524 mg PO q1hr prn Discussed with general surgery and patient, cholecystectomy scheduled for today Cardiology note reviewed, patient cleared for surgery #. ESRD on hemodialysis with multiple missed dialysis sessions (Thursday, , Saturdays) #. Chronic hyponatremia (at baseline) #. Anemia of chronic disease #. Secondary hyperparathyroidism Continue w/ Sevelemer 1600 PO TID and Cinacalcet 30 mg PO QD S/p Aranesp 40 mcg SQ on 03/08/2025, q. 7 days Nephrology note reviewed, hemodialysis scheduled for tomorrow Continue close monitoring of electrolytes and renal function, cardiac monitoring #. Hypertensive urgency, secondary to multiple missed dialysis sessions #. Chronic combined systolic and diastolic HFrEF, EF is 35% #. Sinus tachycardia Continue w/ amlodipine 10 mg QD, carvedilol 25 mg BID, hydralazine 100mg TID, and Aldactone 100 mg BID Clonidine 0.1 mg PO TID prn for BP > 180/120 Chronic: #. Depression/anxiety: Zoloft 50 mg PO QD Resolved: Hypertensive emergency High anion gap metabolic acidosis Contraction metabolic alkalosis Hyperphosphatemia Hypochloremia Hypokalemia DVT ppx: Heparin 5000 unit SQ every 8 hours Code status: Full code Anticipated discharge place: Pending clinical course Anticipated discharge time: Pending clinical course Elsa Cadena MD PGY-1 IM Dictation was produced using [employer] dictation software. please excuse any grammatical, word or spelling errors. I have seen and evaluated the patient today. Discussed with the resident and agree with the residents finding and plan as documented in the resident's note. Changes highlighted in blue font. Objective - Vital Signs Vital signs: Vital Signs Temp 97.9 F 03/10/25 02:00 Pulse 107 H 03/10/25 06:42 Resp 17 03/10/25 02:00 BP 163/107 03/10/25 06:42 Pulse Ox 98 03/10/25 02:00 FiO2 Intake & Output 03/09/25 03/10/25 03/10/25 18:59 06:59 18:59 Intake Total 2200 Output Total 2500 Balance -300 Weight 66 kg Intake: Oral 1700 Hemodialysis 500 Output: Hemodialysis 1500 Hemodialysis Net Amount 1000 Other: Voiding Method Toilet # Voids 2 - Labs CBC & Chem 7: 03/10/25 04:30 03/10/25 04:30 Labs: Abnormal Lab Results - Last 24 Hours (Table) 03/09/25 03/09/25 03/10/25 Range/Units 06:55 06:55 04:30 RBC 2.56 L (4.10-5.20) 10*6/uL Hgb 7.8 L (12.0-15.0) g/dL Hct 23.4 L (37.2-46.3) % RDW 17.0 H (11.5-14.5) % Plt Count 114 L (140-440) 10*3/uL Immature Gran # 0.16 H (0.00-0.04) 10*3/uL Eosinophils # 0.38 H (0.04-0.35) 10*3/uL Sodium 131 L (137-145) mmol/L Chloride (98-107) mmol/L BUN 35 H (7-17) mg/dL Creatinine 5.37 H (0.52-1.04) mg/dL 03/10/25 Range/Units 04:30 RBC (4.10-5.20) 10*6/uL Hgb (12.0-15.0) g/dL Hct (37.2-46.3) % RDW (11.5-14.5) % Plt Count (140-440) 10*3/uL Immature Gran # (0.00-0.04) 10*3/uL Eosinophils # (0.04-0.35) 10*3/uL Sodium 130 L (137-145) mmol/L Chloride 95 L (98-107) mmol/L BUN 21 H (7-17) mg/dL Creatinine 3.33 H (0.52-1.04) mg/dL Microbiology - Last 24 Hours (Table) 03/06/25 20:23 Stool Culture - Preliminary Stool
[2025-03-10] MEDS ORDERED: GLYCOPYRROLATE 0.2 MG/ML 2 ML VIAL ONE (18:53)
[2025-03-10] MEDS ORDERED: KETOROLAC 15 MG/ML 1 ML VIAL ONE (18:53)
[2025-03-10] MEDS ORDERED: ROCURONIUM 10 MG/ML (5 ML VIAL) IV ONE (18:53)
[2025-03-10] MEDS ORDERED: NEOSTIGMINE 1 MG/ML 10 ML VIAL ONE (18:53)
[2025-03-10] MEDS ORDERED: PROPOFOL 10 MG/ML 20 ML VIAL IV ONE (18:53)
[2025-03-10] MEDS ORDERED: MIDAZOLAM 2 MG/2 ML VIAL ONE (18:53)
[2025-03-10] MEDS ORDERED: fentaNYL (PF) 50 MCG/ML 2 ML AMP ONE (18:53)
[2025-03-10] MEDS: LACTATED RINGERS 1,000 ML IV ONE (18:53)
[2025-03-10] MEDS ORDERED: SUCCINYLCHOLINE CHLORIDE 200 MG/10 ML VIAL IV ONE (18:53)
[2025-03-10] MEDS ORDERED: HYDROmorphone (PF) 1 MG/ML ONE (18:53)
[2025-03-10] MEDS: LIDOCAINE 1%-EPI 1:100,000 20 ML VIAL SQ ONE ×2 (19:07→19:09)
[2025-03-10] MEDS: METOPROLOL TARTRATE 5 MG/5 ML VIAL IVP STA (20:11)
--- NOTE | 2025-03-10 20:11 | P.OP ---
Date of Procedure: 03/10/25 Description of Procedure: SURGEON: LISA ALEMAN MD PREOPERATIVE DIAGNOSES: 1. Acute cholecystitis due to symptomatic gallstones 2. Intractable nausea vomiting due to cholecystitis 3. End-stage renal disease 4. Dialysis dependent 5. Hyperaldosteronism 6. Atrial fibrillation, paroxysmal 7. Hypertensive heart disease 8. Hypertensive cardiomyopathy 9. Depressive disorder 10. Chronic iron deficiency anemia POSTOPERATIVE DIAGNOSES: 1. Acute on chronic cholecystitis due to symptomatic gallstones 2. Intractable nausea vomiting due to cholecystitis 3. End-stage renal disease 4. Dialysis dependent 5. Hyperaldosteronism 6. Atrial fibrillation, paroxysmal 7. Hypertensive heart disease 8. Hypertensive cardiomyopathy 9. Depressive disorder 10. Chronic iron deficiency anemia 11. Fatty liver disease, mild OPERATION: 1. Robotic-assisted da Tu Xi laparoscopic cholecystectomy, multiport with FIREFLY ESTIMATED BLOOD LOSS: 5 mL. SPECIMENS REMOVED: Gallbladder. COMPLICATIONS: None. OPERATIVE FINDINGS: 1. Multiple gallstones over 50 palpated within gallbladder 2. Mild fatty liver disease INDICATIONS: The patient is a 49-year-old female who presents intractable nausea vomiting due to cholecystitis due to gallstones. Cardiac risk assessment was obtained. Patient was placed on antibiotics. Robotic assisted laparoscopic approach was described. Benefits and risks of the procedure including but not limited to bleeding, infection, injury to the biliary tree was described. Informed consent was obtained. DESCRIPTION OF PROCEDURE: Patient was brought to the operating room, placed in supine position. After general induction, the abdomen had been prepped and draped in standard sterile fashion. The robotic da Tu XI system was primed. After a timeout protocol was performed, the patient had been prepped and draped in standard sterile fashion. The patient was injected with indocyanine green. A 5 mm 0 degrees laparoscopic trocar entry was performed along the left upper quadrant. The abdomen insufflated to 15 mmHg pressure which was tolerated well. Diagnostic laparoscopy demonstrated no injury to bowel viscera or mesentery. Lower midline pelvic adhesions were identified involving small bowel however undisturbed. Moderate pericholecystic adhesions were identified involving the entire gallbladder. The liver surface was remarkable for mild fatty liver disease. Next, two 8 mm robotic ports were placed along the right upper abdomen. The camera 8-mm port was maintained along the epigastrium. Another 8 mm port was placed along the left upper abdominal wall after exchanging the 5 mm port. Please note that the ports were placed at least 10 to 15 cm away from the target anatomy of the gallbladder. The robot was docked along the left lateral abdomen. The patient was repositioned in reverse Trendelenburg position. Using a grasper for arm 1, a grasper for arm 4, including hook cautery for arm 3, the robotic system was docked and primed as described. Instruments were interchanged by the assistant store leader including hook cautery, Bovie cautery and clip appliers. I had sat at the console. Immediately multiple gallstones were identified upon few of the serosa of the gallbladder. The entire gallbladder was filled with gallstones. Dome down technique was performed from the fundus towards the infundibulum. The cystic duct and infundibulum were folded on each other with additional adhesions identified. Lyse adhesions was performed. Next attention was brought to the infundibulum and cystic structures. The infundibulum and cystic duct were dissected free from surrounding tissues. The cystic duct was isolated. FIREFLY was used to identify the cystic artery and cystic structures. Contrast was found within the common bile duct however without contrast found in the gallbladder consistent with acute cholecystitis. A critical view of safety was obtained. Large PLASTIC clips were used throughout the entire case. Using a clip roll up guider operator, 3 clips were placed at the junction of the infundibulum and cystic duct. The cystic duct was divided between clips. Next, the cystic artery was cauterized. Electro-Bovie cautery was used to remove the gallbladder from the hepatic fossa. Hemostasis was checked and found to be adequate. The robot was undocked. I re-scrubbed into the case. Using a 10 mm Endo Catch bag via the left upper quadrant incision after widening the incision to 3 cm, the specimen was removed from the abdominal cavity. Adriano Garcia and 0 Vicryl was used to close the fascial defect of the left upper quadrant incision. All pneumoperitoneum instruments were evacuated from the abdominal cavity. The incisions were reapproximated using 4-0 Monocryl in an interrupted subcuticular fashion. Fascial defects were less than 8 mm in size. Please note along the trocar sites, local anesthetic was placed as a field block prior to insertion of all instruments. Liquid glue was applied to the skin. At the end of the procedure needle, sponge, and instrument count had been verified correct by the rn neurosurgical. The patient was transferred to postanesthesia care unit in stable condition. Intraoperative films were shared with the patient's family who are pleased with the level of care.
[2025-03-10] MEDS: hydrALAZINE HCL 20 MG/ML 1 ML VIAL IVP STA (20:16)
[2025-03-10] MEDS: INDOCYANINE GREEN 25 MG VIAL IV STA (21:42)
[2025-03-10] MEDS: ACETAMINOPHEN IV (For NPO) 1,000 MG in EMPTY BAG 1 BAG IVPB SCH (22:00)
[2025-03-10] MEDS: SIMETHICONE 80 MG CHEWABLE PO SCH (22:01)
[2025-03-11] MEDS: HYDROmorphone 1 MG/ML 1 ML SYRINGE IVP PRN (06:14)
[2025-03-11 07:27] VITALS: PULSE 87
[2025-03-11 07:45] LABS: Basophils # (A) 0.06 10*3/uL (0.00-0.10); Basophils % (A) 0.7 %; Eosinophils % (A) 3.4 %; HCT 22.5 % (37.2-46.3); HGB 7.2 g/dL (12.0-15.0); Lymphocytes # (A) 0.81 10*3/uL (0.90-5.00); Lymphocytes % (A) 9.2 %; MCH 30.1 pg (27.0-32.0); MCV 94.1 fL (80.0-97.0); Mean Platelet Volume 10.9 fL (9.5-12.2); Monocytes # (A) 0.61 10*3/uL (0.20-1.00); Monocytes % (A) 6.9 %; Neutrophils # (A) 6.95 10*3/uL (1.80-7.70); Neutrophils % (A) 78.7 %; Platelet Count 184 10*3/uL (140-440); RBC 2.39 10*6/uL (4.10-5.20); RDW 17.2 % (11.5-14.5); WBC 8.83 10*3/uL (4.50-10.00)
[2025-03-11 07:57] LABS: ALT 41 U/L (4-34); AST 57 U/L (14-36); African American GFR (CKD) 10 (>60 ml/min/1.73 sqM); Albumin 3.5 g/dL (3.5-5.0); Albumin/Globulin Ratio 1.5; Alkaline Phosphatase 96 U/L (38-126); Anion Gap 10 mmol/L; Blood Urea Nitrogen 29 mg/dL (7-17); Calcium 8.8 mg/dL (8.4-10.2); Carbon Dioxide 22 mmol/L (22-30); Chloride 97 mmol/L (98-107); Globulin 2.3 g/dL; Glucose 92 mg/dL (74-99); Magnesium 2.1 mg/dL (1.6-2.3); Non-African American GFR(CKD) 9 (>60 ml/min/1.73 sqM); Phosphorus 6.5 mg/dL (2.5-4.5); Potassium 4.5 mmol/L (3.5-5.1); Sodium 129 mmol/L (137-145); Total Bilirubin 0.5 mg/dL (0.2-1.3); Total Protein 5.8 g/dL (6.3-8.2)
--- NOTE | 2025-03-11 11:52 | P.PN ---
Subjective Progress Note Date: 03/11/25 I have seen and evaluated the patient today. Discussed with the resident and agree with the residents finding and plan as documented in the resident's note. Changes highlighted in blue font. Hospital Course: Patient is a 49-year-old female with ESRD on hemo-dialysis, paroxysmal atrial fibrillation not anticoagulated, HFrEF with EF of 30-35%, hypertension, hyperlipidemia presented with nausea, vomiting, and diarrhea. Patient states 1 week ago she was feeling sick and started to become nauseous followed by multiple episodes of vomiting and diarrhea. Denies any blood in the vomit or stool. Denies any sick contacts. No recent antibiotics and no recent changes in medications. She states she felt like she had a fever at home. She admits to cough with yellowish sputum production. She states symptoms were so severe that she was not able to go to her scheduled hemodialysis last Thursday and Thursday. States that her blood pressure has been high and uncontrolled. Denies any difficulty urinating. She also endorses a headache. Denies any fever, chills, chest pain, shortness of breath, abdominal pain, urinary symptoms. ER info: EKG independently interpreted displaying sinus tachycardia, rate 110 bpm, QTc 421 MS CXR independently interpreted displaying no acute cardiopulmonary process Labs: Creatinine 8.24, BUN 86, phosphorus 9.8, bicarb 15, anion gap 2020, sodium 131, WBC 10.46, Hgb 11.7, platelet 108 Vitals: T 97.9 F, HI 61, RR 17, BP 227/153, O2 saturation 96% on room air Admission info: CT abdomen/pelvis with contrast displaying some ascites present, thickened colonic wall especially noted through the descending colon and sigmoid colon to the rectum, distended gallbladder Gallbladder ultrasound displaying cholelithiasis without evidence of acute cholecystitis, nonobstructing right renal calculus Echocardiogram displaying LV size is normal moderate concentric LVH ejection fraction is 50 to 55%, mild mitral and tricuspid regurgitation, trivial pericardial effusion Preliminary stool culture displaying no Salmonella or Shigella isolated, no E. coli 0157: H7 isolated Subjective: Patient seen and examined at bedside. No acute events overnight. Pertinent positives and negatives as discussed above, a complete review of systems was performed and all other systems are negative. Vitals: Signs Reviewed Physical Exam: General: nontoxic, no distress, appears at stated age Derm: warm, dry, intact Head: atraumatic, normocephalic, symmetric Eyes: EOMI, anicteric sclera Mouth: no lip lesion, mucus membranes moist Cardiovascular: S1 S2 reg, no murmur, rubs, or gallops Lungs: CTA bilateral, no rhonchi, no rales, no accessory muscle use Abdominal: soft, diffusely tender to palpataion, no appreciable organomegaly Extremities: no gross muscle atrophy, no edema, no contractures Neuro: Alert, Oriented, CNII-XII grossly intact Data Received Today: Pertinent Labs: Hgb 7.8 => 7.2, sodium 129, BUN 29, creatinine 3.33 => 5.44 Imaging: N/A Assessment and Plan: Patient is a 49-year-old female with ESRD on hemo-dialysis, paroxysmal atrial fibrillation not anticoagulated, HFrEF with EF of 30-35%, hypertension, hyperlipidemia presented with nausea and vomiting. #. Acute cholecystitis, s/p cholecystectomy #. Nausea, vomiting, and diarrhea in the setting of colitis and cholecystitis CT abd/pelvis with contrast, gallbladder ultrasound, echocardiogram reviewed as above C. difficile negative Preliminary stool culture displaying no Salmonella or Shigella isolated, no E. coli 0157: H7 isolated CRP elevated at 8.50, ESR less than 1 Stool lactoferrin pending Continue with Zosyn 3.375 IVPB q12hrs, will convert to oral medication antibiotics upon discharge Zofran 4 mg IVP q8hr prn Bismatrol 524 mg PO q1hr prn General Surgery following, s/p cholecystectomy, pending clearance #. ESRD on hemodialysis with multiple missed dialysis sessions (Thursday, , Saturdays) #. Chronic hyponatremia (at baseline) #. Anemia of chronic disease/acute blood loss anemia 2/2 recent surgery #. Secondary hyperparathyroidism Continue w/ Sevelemer 1600 PO TID and Cinacalcet 30 mg PO QD S/p Aranesp 40 mcg SQ on 03/08/2025, q. 7 days Continue close monitoring of electrolytes and renal function, cardiac monitoring Nephrology note reviewed, hemodialysis scheduled for today #. Hypertensive urgency, secondary to multiple missed dialysis sessions #. Chronic combined systolic and diastolic HFrEF, EF is 35% #. Sinus tachycardia Continue w/ amlodipine 10 mg QD, carvedilol 25 mg BID, hydralazine 100mg TID, and Aldactone 100 mg BID Clonidine 0.1 mg PO TID prn for BP > 180/120 Chronic: #. Depression/anxiety: Zoloft 50 mg PO QD Resolved: Hypertensive emergency High anion gap metabolic acidosis Contraction metabolic alkalosis Hyperphosphatemia Hypochloremia Hypokalemia DVT ppx: Heparin 5000 unit SQ every 8 hours Code status: Full code Anticipated discharge place: Home Anticipated discharge time: This afternoon after dialysis/tomorrow Elsa Cadena MD PGY-1 IM Dictation was produced using [employer] dictation software. please excuse any grammatical, word or spelling errors. Objective - Vital Signs Vital signs: Vital Signs Temp 98.0 F 03/11/25 07:27 Pulse 87 03/11/25 07:27 Resp 17 03/11/25 07:27 BP 165/93 03/11/25 07:27 Pulse Ox 98 03/11/25 07:27 FiO2 Intake & Output 03/10/25 03/11/25 03/11/25 18:59 06:59 18:59 Intake Total 400 740 Output Total 505 Balance 400 235 Weight 64 kg Intake: IV 400 200 Oral 540 Output: Urine 500 Estimated Blood Loss 5 Other: Voiding Method Toilet # Voids 2 - Labs CBC & Chem 7: 03/11/25 06:59 03/11/25 06:59 Labs: Abnormal Lab Results - Last 24 Hours (Table) 03/11/25 Range/Units 06:59 RBC 2.39 L (4.10-5.20) 10*6/uL Hgb 7.2 L (12.0-15.0) g/dL Hct 22.5 L (37.2-46.3) % RDW 17.2 H (11.5-14.5) % Immature Gran # 0.10 H (0.00-0.04) 10*3/uL Lymphocytes # 0.81 L (0.90-5.00) 10*3/uL Microbiology - Last 24 Hours (Table) 03/06/25 20:23 Stool Culture - Final Stool
--- NOTE | 2025-03-11 12:07 | P.PN ---
Subjective Progress Note Date: 03/11/25 CHIEF COMPLAINT: Nausea vomiting due to cholecystitis HISTORY OF PRESENT ILLNESS: The patient is a 49-year-old female end-stage renal disease, dialysis dependent who had distended gallbladder including nausea and vomiting. She is status post robotic cholecystectomy 03/10/2025. Multiple gallstones over 80-100 or likely present. She reports appropriate left upper quadrant incisional soreness. At the time of my assessment, she was getting dialysis at bedside. No reports of nausea following surgery. She reports increased gaseous distention. She has been placed on scheduled simethicone. ROS: No fevers or chills. No new chest pain. No productive sputum PHYSICAL EXAM: VITAL SIGNS: Reviewed CONSTITUTIONAL: Well developed and in no acute distress. EYES: Conjuctivae without sclera icterus. Extraocular movements grossly intact. HEAD, EARS, NOSE, THROAT: Moist buccal mucosa. Head is atraumatic, normocephalic. Hears conversational speech. No nasal drainage. Moderate facial hair RESPIRATORY: Non-labored respirations and equal bilateral excursions. CARDIOVASCULAR: Palpable 2+ radial pulses. ABDOMEN: Incision left upper quadrant clean dry intact. MUSCULOSKELETAL: No gross deformity of the lower extremities noted. No clubbing. No cyanosis. SKIN: Good skin turgor. Well perfused. NEUROLOGIC: Cranial nerves II through XII grossly intact. No focal or lateralizing signs. PSYCH: Appropriate affect. Alert and oriented to person, place and time. CLINICAL LABS: Reviewed. Hemoglobin down 7.8-7.2. WBC normal. AST ALT mildly elevated. Total bilirubin improved. ASSESSMENT: 1. Intractable nausea and vomiting 2. End-stage renal disease with uremia 3. Hyponatremia 4. Symptomatic gallstones 5. E. coli urinary tract infection 6. Left ventricular hypertrophy 7. Acute cholecystitis due to gallstones PLAN: 1. Continue antibiotics due to acute cholecystitis. 2. Repeat CMP and CBC 3. Stable for discharge once cleared by nephrology, cardiology, medicine team Dictation was produced using [employer] dictation software. Please excuse any grammatical, word or spelling errors. Objective - Vital Signs Vital signs: Vital Signs Temp 98.0 F 03/11/25 07:27 Pulse 87 03/11/25 07:27 Resp 17 03/11/25 07:27 BP 165/93 03/11/25 07:27 Pulse Ox 98 03/11/25 07:27 FiO2 Intake & Output 03/10/25 03/11/25 03/11/25 18:59 06:59 18:59 Intake Total 400 740 Output Total 505 Balance 400 235 Weight 64 kg Intake: IV 400 200 Oral 540 Output: Urine 500 Estimated Blood Loss 5 Other: Voiding Method Toilet # Voids 2 - Labs CBC & Chem 7: 03/11/25 06:59 03/11/25 06:59 Labs: Abnormal Lab Results - Last 24 Hours (Table) 03/11/25 03/11/25 Range/Units 06:59 06:59 RBC 2.39 L (4.10-5.20) 10*6/uL Hgb 7.2 L (12.0-15.0) g/dL Hct 22.5 L (37.2-46.3) % RDW 17.2 H (11.5-14.5) % Immature Gran # 0.10 H (0.00-0.04) 10*3/uL Lymphocytes # 0.81 L (0.90-5.00) 10*3/uL Sodium 129 L (137-145) mmol/L Chloride 97 L (98-107) mmol/L BUN 29 H (7-17) mg/dL Creatinine 5.44 H (0.52-1.04) mg/dL Phosphorus 6.5 H (2.5-4.5) mg/dL AST 57 H (14-36) U/L ALT 41 H (4-34) U/L Total Protein 5.8 L (6.3-8.2) g/dL Microbiology - Last 24 Hours (Table) 03/06/25 20:23 Stool Culture - Final Stool
--- NOTE | 2025-03-11 12:17 | P.PN ---
Subjective Patient is seen for follow-up for end-stage renal disease. Seen on hemodialysis. Tolerating treatment well. Complaining of abdominal pain. Status post laparoscopic cholecystectomy yesterday on 03/10/2025 Objective - Vital Signs Vital signs: Vital Signs Temp 98.0 F 03/11/25 07:27 Pulse 87 03/11/25 07:27 Resp 17 03/11/25 07:27 BP 165/93 03/11/25 07:27 Pulse Ox 98 03/11/25 07:27 FiO2 Intake & Output 03/10/25 03/11/25 03/11/25 18:59 06:59 18:59 Intake Total 400 740 Output Total 505 Balance 400 235 Weight 64 kg Intake: IV 400 200 Oral 540 Output: Urine 500 Estimated Blood Loss 5 Other: Voiding Method Toilet # Voids 2 - Exam Patient is awake, comfortable, alert oriented x 3 Abdomen is tender Examination of lower extremities shows no edema - Labs CBC & Chem 7: 03/11/25 06:59 03/11/25 06:59 Labs: Abnormal Lab Results - Last 24 Hours (Table) 03/11/25 03/11/25 Range/Units 06:59 06:59 RBC 2.39 L (4.10-5.20) 10*6/uL Hgb 7.2 L (12.0-15.0) g/dL Hct 22.5 L (37.2-46.3) % RDW 17.2 H (11.5-14.5) % Immature Gran # 0.10 H (0.00-0.04) 10*3/uL Lymphocytes # 0.81 L (0.90-5.00) 10*3/uL Sodium 129 L (137-145) mmol/L Chloride 97 L (98-107) mmol/L BUN 29 H (7-17) mg/dL Creatinine 5.44 H (0.52-1.04) mg/dL Phosphorus 6.5 H (2.5-4.5) mg/dL AST 57 H (14-36) U/L ALT 41 H (4-34) U/L Total Protein 5.8 L (6.3-8.2) g/dL Microbiology - Last 24 Hours (Table) 03/06/25 20:23 Stool Culture - Final Stool Assessment and Plan Assessment: 1. End-stage renal disease maintained on hemodialysis on Thursday schedule. 2. Hypokalemia from poor intake. Magnesium normal. Replaced. Better. 3. Hyponatremia, hypervolemic 4. Metabolic acidosis secondary to GI losses and missed hemodialysis. Improved postdialysis. 5. Chronic kidney disease mineral bone disease. Phosphorus level improved to 3.7. On Renvela. Also on Sensipar. 6. Anemia of chronic kidney disease. Iron replete. On Aranesp. 7. Hypertension with chronic kidney disease. 8. Nausea vomiting and diarrhea. Status post laparoscopic cholecystectomy on 03/10/2025 9. E. coli UTI. On antibiotics. Plan: Increase dose of Aranesp Continue with hemodialysis on Thursday schedule.
--- NOTE | 2025-03-11 12:57 | P.DS ---
Providers Date of admission: 03/06/25 13:49 Expected date of discharge: 03/11/25 Attending physician: Laura Guillen MD Consults: 03/06/25 13:08 Consult Physician Urgent Consulting Provider: Sukumar Ariza Consult Reason/Comments: ESRD dialysis Do you want consulting provider notified?: Yes 03/08/25 08:28 Consult Physician Routine Consulting Provider: Enedina Castellanos Consult Reason/Comments: distended gallbladder Do you want consulting provider notified?: Yes 03/09/25 08:33 Consult Physician Routine Consulting Provider: Mely Steele Consult Reason/Comments: Cardiac risk assessment Do you want consulting provider notified?: Yes 03/10/25 11:07 Consult Physician Routine Consulting Provider: [facility] Consult Reason/Comments: [facility] Do you want consulting provider notified?: Yes Primary care physician: [facility] Course: I have seen and evaluated the patient today. Discussed with the resident and agree with the residents finding and plan as documented in the resident's note. Changes highlighted in blue font. 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 Patient states 1 week ago she was feeling sick and started to become nauseous followed by multiple episodes of vomiting and diarrhea. Denies any blood in the vomit or stool. Denies any sick contacts. No recent antibiotics and no recent changes in medications. She states she felt like she had a fever at home. She admits to cough with yellowish sputum production. She states symptoms were so severe that she was not able to go to her scheduled hemodialysis last Thursday and Thursday. States that her blood pressure has been high and uncontrolled. Denies any difficulty urinating. She also endorses a headache. Denies any f ever, chills, chest pain, shortness of breath, abdominal pain, urinary symptoms. ER info: EKG independently interpreted displaying sinus tachycardia, rate 110 bpm, QTc 421 MS CXR independently interpreted displaying no acute cardiopulmonary process Labs: Creatinine 8.24, BUN 86, phosphorus 9.8, bicarb 15, anion gap 2020, sodium 131, WBC 10.46, Hgb 11.7, platelet 108 Vitals: T 97.9 F, MA 61, RR 17, BP 227/153, O2 saturation 96% on room air Patient admitted for further evaluation for hypertensive emergency in the setting of ESRD with multiple missed dialysis sessions along with intractable na usea and vomiting. Nephrology, general surgery, cardiology consulted. Patient was placed on IV antibiotics. CT abdomen/pelvis with contrast displaying some ascites present, thickened colonic wall especially noted through the descending colon and sigmoid colon to the rectum, distended gallbladder. Gallbladder ultrasound displaying cholelithiasis without evidence of acute cholecystitis, nonobstructing right renal calculus. Echocardiogram displaying LV size is normal moderate concentric LVH ejection fraction is 50 to 55%, mild mitral and tricuspid regurgitation, trivial pericardial effusion Preliminary stool culture displaying no Salmonella or Shigella isolated, no E. coli 0157: H7 isolated. Changes were made to to her home blood pressure medication. Blood pressure has stabilized. Electrolytes imbalances stabilized after continue sessions of hemodialysis. Patient underwent successful cholecystectomy. IV antibiotic converted to oral antibiotics and she will finish the remainder of her course upon discharge. She will follow-up with her PCP, general surgery, nephrology. Patient is hemodynamically stable and can be discharged home today after dialysis.Cleared by surgery and nephrology Patient seen and examined at bedside. Vital signs reviewed and stable. Physical Exam: General: nontoxic, no distress, appears at stated age Derm: warm, dry, intact Head: atraumatic, normocephalic, symmetric Eyes: EOMI, anicteric sclera Mouth: no lip lesion, mucus membranes moist Cardiovascular: S1 S2 reg, no murmur, rubs, or gallops Lungs: CTA bilateral, no rhonchi, no rales, no accessory muscle use Abdominal: soft, diffusely tender to palpataion, no appreciable organomegaly Extremities: no gross muscle atrophy, no edema, no contractures Neuro: Alert, Oriented, CNII-XII grossly intact A total of greater than 30 minutes of time were spent preparing this complex discharge summary. Patient was discharge on March 11 at 12:437 PM. Elsa Cadena MD PGY-1 IM Dictation was produced using [employer] dictation software. please excuse any grammatical, word or spelling errors. Patient Condition at Discharge: Poor Plan - Discharge Summary Discharge Rx Participant: No New Discharge Prescriptions: New Ciprofloxacin HCl 500 mg PO Q12H 4 Days #8 tab metroNIDAZOLE [Flagyl] 500 mg PO BID #8 tab hydrALAZINE HCL [Apresoline] 100 mg PO TID #90 tab Continue carvediloL [Coreg*] 25 mg PO AC-BID 30 Days #120 tab amLODIPine [Norvasc] 10 mg PO DAILY 30 Days #30 tab Sevelamer Carbonate 1,600 mg PO TID-W/MEALS Cinacalcet [Sensipar] 30 mg PO DAILY Sertraline HCl [Zoloft] 50 mg PO DAILY Spironolactone [Aldactone] 100 mg PO BID Discontinued hydrALAZINE HCL [Apresoline] 50 mg PO TID Discharge Medication List Cinacalcet [Sensipar] 30 mg PO DAILY 03/12/24 [History] amLODIPine [Norvasc] 10 mg PO DAILY 30 Days #30 tab 03/13/24 [Rx] carvediloL [Coreg*] 25 mg PO AC-BID 30 Days #120 tab 03/13/24 [Rx] Sertraline HCl [Zoloft] 50 mg PO DAILY 05/18/24 [History] Sevelamer Carbonate 1,600 mg PO TID-W/MEALS 05/18/24 [History] Spironolactone [Aldactone] 100 mg PO BID 03/06/25 [History] Ciprofloxacin HCl 500 mg PO Q12H 4 Days #8 tab 03/11/25 [Rx] hydrALAZINE HCL [Apresoline] 100 mg PO TID #90 tab 03/11/25 [Rx] metroNIDAZOLE [Flagyl] 500 mg PO BID #8 tab 03/11/25 [Rx] Follow up Appointment(s)/Referral(s): Enedina Castellanos MD [STAFF PHYSICIAN] - 03/28/25 Bruno Siddiqi DO [Primary Care Provider] - 1-2 days Gricelda Zacarias MD [STAFF PHYSICIAN] - 1 Week Patient Instructions/Handouts: Cholecystitis (GEN), Low Fat Diet (DC), Chronic Hypertension (DC), End Stage Kidney Disease (DC) Activity/Diet/Wound Care/Special Instructions: Please follow up with PCP, general surgery, nephrology. Discharge Disposition: HOME SELF-CARE
[2025-03-11 12:58] VITALS: BP 162/73; RESP 18; TEMP 98.2
[2025-03-12] MEDS ORDERED: DARBEPOETIN ALFA 60 MCG/0.3 ML SYRINGE SQ SCH (09:00)
== END 2025-03-11 15:00 | disposition home or self-care (01) | DRG 417 ==
LOC: EC 09:05 → 4SSUR 13:49
PROVIDERS: ADMIT Internal Medicine; ATTEND Internal Medicine
PROC: 5A1D70Z Performance of Urinary Filtration, Intermittent, Less than 6 Hours Per Day (ICD-10-PCS; 2025-03-07)
PROC: BF53200 Other Imaging of Gallbladder and Bile Ducts using Fluorescing Agent, Indocyanine Green Dye, Intraoperative (ICD-10-PCS; principal; 2025-03-10 11:00)
PROC: 8E0W4CZ Robotic Assisted Procedure of Trunk Region, Percutaneous Endoscopic Approach (ICD-10-PCS; principal; 2025-03-10 11:00)
PROC: 0FT44ZZ Resection of Gallbladder, Percutaneous Endoscopic Approach (ICD-10-PCS; principal; 2025-03-10 11:00)
DX: K80.12 Calculus of gallbladder with acute and chronic cholecystitis without obstruction (principal); N18.6 End stage renal disease; I13.2 Hypertensive heart and chronic kidney disease with heart failure and with stage 5 chronic kidney disease, or end stage renal disease; E87.4 Mixed disorder of acid-base balance; I16.1 Hypertensive emergency; D62 Acute posthemorrhagic anemia; I50.42 Chronic combined systolic (congestive) and diastolic (congestive) heart failure; R18.8 Other ascites; E83.39 Other disorders of phosphorus metabolism; D63.1 Anemia in chronic kidney disease; D69.6 Thrombocytopenia, unspecified; Z99.2 Dependence on renal dialysis; F32.A Depression, unspecified; K76.0 Fatty (change of) liver, not elsewhere classified; I43 Cardiomyopathy in diseases classified elsewhere; N25.81 Secondary hyperparathyroidism of renal origin; N39.0 Urinary tract infection, site not specified; E87.1 Hypo-osmolality and hyponatremia; I48.0 Paroxysmal atrial fibrillation; R79.82 Elevated C-reactive protein (CRP); R12 Heartburn; Z91.158 Patient's noncompliance with renal dialysis for other reason; E83.9 Disorder of mineral metabolism, unspecified; K82.8 Other specified diseases of gallbladder; K52.9 Noninfective gastroenteritis and colitis, unspecified; B96.20 Unspecified Escherichia coli [E. coli] as the cause of diseases classified elsewhere; D50.9 Iron deficiency anemia, unspecified; E26.9 Hyperaldosteronism, unspecified; N20.0 Calculus of kidney; E78.5 Hyperlipidemia, unspecified; E87.6 Hypokalemia; E87.8 Other disorders of electrolyte and fluid balance, not elsewhere classified; F41.9 Anxiety disorder, unspecified; Z79.899 Other long term (current) drug therapy; Z28.310 Unvaccinated for COVID-19
CPT/HCPCS: 36415; 71045; 74177; 76705; 80048; 80053; 81001; 82728; 83540; 83550; 83605; 83630; 83690; 83735; 84100; 84703; 85025; 85652; 86140; 86706; 87045; 87046; 87077; 87086; 87186; 87324; 87340; 87636; 88304; 90935; 93005; 93306; 96365; 96366; 96367; 96372; 96375; 96376; 99285